=== PATIENT | female | born 1950 | race Caucasian/White ===

== ENCOUNTER 2016-08-09 10:23 | Inpatient (IN) | payer MEDICARE, BC ==
[2016-08-09] MEDS ORDERED: Acetaminophen/HYDROcodone 325-10 MG Tab PO ONE (12:08)
[2016-08-09] MEDS ORDERED: Albuterol/Ipratropium 3.0-0.5 MG/3 ML Neb Soln NEB ONE ×2 (12:49→12:50)
--- NOTE | 2016-08-09 13:14 | CT ---
INDICATION: Fall, head trauma 2 days ago. Patient on warfarin. New frontal headache. CT HEAD WITHOUT CONTRAST: Serial contiguous 2.5 and 5-mm sections were obtained through the brain without contrast 08/09/2016. No comparisons were available. Total Exam DLP = 949.36 mGy-cm. There are some opacified ethmoidal air cells with thickened linings of multiple other ethmoidal air cells. Minimal thickening of the lining of the right maxillary antrum and thickening of the linings of the sphenoidal air cells. Frontal air cells were unremarkable. Mastoid air cells were well aerated, as visualized. No definite cranial fracture site was seen. There appears to be some minimal calcification of the internal carotid arteries. There is an appearance of slight indistinct area of decreased density in the frontal lobes bilaterally, which could be on the basis of contusion. No bleeding site or hematoma was identified, however. A very tiny low-density area in the right basal ganglia anteriorly could represent a very tiny lacunar infarct. No other abnormal areas of density were suggested. No shift of midline structures or ventricular abnormalities were seen. IMPRESSION: 1. Possible minimal contusions in the frontal lobes bilaterally, right greater than left. 2. Mild cerebrovascular disease with minimal calcifications internal carotid arteries. 3. Possible lacunar infarct, very tiny in size, right basal ganglia. 4. Suggestion of sinusitis, mostly ethmoidal. 5. No bleeding site or hematoma. [facility]
[2016-08-09] MEDS ORDERED: Polyethylene Glycol 3350 Powder 17 GM Packet PO PRN (13:18)
[2016-08-09] MEDS ORDERED: Ondansetron 4 MG Tab.DIS PO PRN (13:18)
[2016-08-09] MEDS ORDERED: Zolpidem 5 MG Tab PO PRN (13:18)
--- NOTE | 2016-08-09 13:28 | CT ---
INDICATION: Fall, head trauma 2 days ago. Patient on warfarin. New frontal headache. CT CERVICAL SPINE: Spiral 2.5-mm axial sections were obtained through the cervical spine with sagittal and coronal reconstructions 08/09/2016, and compared with 11/30/2015. Total Exam DLP = 642.78 mGy-cm. A minimal dextroconvex scoliosis of the cervical spine was noted. Prevertebral space appeared to be normal. Bone density appeared to be fairly normal. Hypertrophic degenerative changes are noted at the lateral masses bilaterally, relatively mild on the right and more severe on the left. Narrowing of disk spaces is seen at C4-5, more prominently at C5-6 and C6-7. Most prominent hypertrophic changes off vertebral bodies were at C4-5, C5-6, and C6-7. Degenerative changes are also noted at T2-3 with disk disease at that level. Sclerosis and hypertrophic change off vertebral bodies at that level. Narrowing of the neural foramina is noted mainly at C6-7, more prominently on the right than left. A very minimal anterolisthesis is again noted at C4-5. Degenerative changes are also noted at the atlantoodontoid joint with some narrowing and hypertrophic changes. The odontoid and atlas appear to be intact. The axis is intact. A definite fracture or dislocation was not identified. Visualized lung was negative for an active infiltrate or effusion. IMPRESSION: 1. No acute fracture or dislocation. 2. Degenerative changes, disk disease, mild scoliosis, as noted above. MTDD
--- NOTE | 2016-08-09 13:42 | CT ---
INDICATION: Fall on stairs, right chest contusion. Question rib fractures, respiratory distress. On warfarin, question bleed into chest. CT CHEST WITHOUT CONTRAST: Spiral 2.5-mm axial sections were obtained through the chest without contrast with sagittal and coronal reconstructions 08/09/2016 and were compared with 11/30/2015. Total Exam DLP = 600.54 mGy-cm. Mediastinal lymphadenopathy is again noted of mild to moderate degree. It is nonspecific and could be reactive to previous infections, but should be correlated clinically. Minimal coronary artery calcification is noted. The heart did not appear enlarged. There is again noted some thickening of the major fissure on the right, compatible with mild fibrosis. Slightly heavy markings are noted at the left lung base, which could be on the basis of interval fibrosis in that area or possibly minimal contusion or even a minimal patchy pneumonia. No evidence of a pleural effusion or pneumothorax or consolidating pneumonia or definite area of atelectasis could be identified. The gallbladder is absent, compatible with history of its removal. Samuel rods are noted at the lumbar spine extending into the lower thoracic spine. There is some deformity in the ribcage on the right, compatible with healed rib fracture. No acute fracture site was identified in the ribs on the right or left. A very minimal dextroconcave scoliosis of the mid thoracic spine is noted. Degenerative changes and disk disease are noted at multiple levels with minimal compression fractures at upper and mid and lower levels that appear fairly stable without a definite acute fracture or dislocation identified. Multiple vacuum disk phenomena are noted scattered about the upper, mid, and lower thoracic spine, compatible with degenerative disk disease along with hypertrophic degenerative changes and some levels of sclerosis and narrowing of disk spaces. IMPRESSION: 1. Possible minimal patchy pneumonia or fibrosis at the left lower lobe and possibly lingula. Contusion is felt to be less likely, especially since trauma apparently occurred on the right. 2. No evidence of rib fracture. 3. Degenerative changes and disk disease in the thoracic spine without evidence of a definite acute fracture site. Old compression fractures are again noted. Reports were called to Dr. Cowan for the CT of the head, neck, and chest at 1230 hours, 08/09/2016. [facility]
[2016-08-09] MEDS ORDERED: Acetaminophen/HYDROcodone 325-10 MG Tab ONE (15:06)
[2016-08-09] MEDS: Azithromycin 500 MG in Sodium Chloride 0.9% 250 ML IV SCH (15:45)
[2016-08-09] MEDS ORDERED: Warfarin 5 MG Tab PO SCH (16:00)
[2016-08-09] MEDS: Acetaminophen 325 MG Tab PO PRN (16:25)
[2016-08-09] MEDS: Enoxaparin 40 MG/0.4 ML Syringe SUBCUT SCH (16:53)
[2016-08-09] MEDS: cefTRIAXone 1 GM in Sodium Chloride 0.9% 50 ML IV SCH (16:58)
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
[2016-08-09] MEDS: methylPREDNISolone Sodium Succinate 125 MG/2 ML SDV IVPUSH SCH (17:59)
[2016-08-09] MEDS ORDERED: Furosemide 20 MG Tab PO PRN (18:00)
[2016-08-09] MEDS ORDERED: Potassium Chloride 10 MEQ Tab.ER PO PRN (18:00)
[2016-08-09] MEDS ORDERED: fentaNYL 75 MCG/HR Transdermal Patch TOP SCH (18:00)
[2016-08-09] MEDS: ClonazePAM 0.5 MG Tab PO SCH ×2 (19:32→21:57)
[2016-08-09] MEDS: Acetaminophen/HYDROcodone 325-5 MG Tab PO PRN (19:32)
[2016-08-09] MEDS: Codeine/guaiFENesin 100-10 MG/5 ML Syrup 5 ML Cup PO PRN (20:15)
[2016-08-09] MEDS: Albuterol/Ipratropium 3.0-0.5 MG/3 ML Neb Soln NEB PRN (20:20)
[2016-08-09] MEDS ORDERED: traZODone 100 MG Tab PO SCH (21:00)
[2016-08-09] MEDS ORDERED: Nystatin Topical Powder 15 GM Bottle TOP SCH (21:00)
[2016-08-09] MEDS: Docusate Sodium 100 MG Cap PO SCH (21:57)
[2016-08-09] MEDS: atorvaSTATin 20 MG Tab PO SCH (21:57)
[2016-08-09] MEDS: Gabapentin 300 MG Cap PO SCH (21:57)
[2016-08-09] MEDS: Calcium Polycarbophil 625 MG Tab PO SCH (21:57)
[2016-08-09] MEDS: Famotidine 20 MG Tab PO SCH (21:58)
[2016-08-09] MEDS: Hydroxychloroquine 200 MG Tab PO SCH (22:06)
[2016-08-10] MEDS: methylPREDNISolone Sodium Succinate 125 MG/2 ML SDV IVPUSH SCH ×3 (01:14→18:30)
[2016-08-10] MEDS: Acetaminophen/HYDROcodone 325-5 MG Tab PO PRN ×2 (01:32→06:24)
[2016-08-10] MEDS: Albuterol/Ipratropium 3.0-0.5 MG/3 ML Neb Soln NEB PRN ×3 (01:38→21:05)
[2016-08-10] MEDS: Omeprazole 20 MG Cap.CR PO SCH (07:56)
[2016-08-10] MEDS: Docusate Sodium 100 MG Cap PO SCH ×2 (08:41→21:08)
[2016-08-10] MEDS: buPROPion 150 MG Tab.SR PO SCH (08:41)
[2016-08-10] MEDS: Folic Acid 1 MG Tab PO SCH (08:41)
[2016-08-10] MEDS: Sertraline 100 MG Tab PO SCH (08:41)
[2016-08-10] MEDS: Calcium Polycarbophil 625 MG Tab PO SCH ×2 (08:41→21:10)
[2016-08-10] MEDS: Gabapentin 300 MG Cap PO SCH ×2 (08:42→21:11)
[2016-08-10] MEDS: amLODIPine 2.5 MG Tab PO SCH (08:42)
[2016-08-10] MEDS: Famotidine 20 MG Tab PO SCH ×2 (08:42→21:13)
[2016-08-10] MEDS: Nystatin Topical Powder 15 GM Bottle TOP SCH ×4 (08:44→21:12)
[2016-08-10] MEDS: ClonazePAM 0.5 MG Tab PO SCH ×2 (08:50→21:29)
[2016-08-10] MEDS ORDERED: LEFLUNOMIDE 10 MG PO SCH (09:00)
[2016-08-10] MEDS ORDERED: Dicyclomine 10 MG Cap PO PRN (09:00)
[2016-08-10] MEDS: Codeine/guaiFENesin 100-10 MG/5 ML Syrup 5 ML Cup PO PRN ×2 (09:10→15:32)
[2016-08-10] MEDS: Albuterol/Ipratropium 3.0-0.5 MG/3 ML Neb Soln INH PRN ×2 (10:08→14:21)
[2016-08-10] MEDS: Benzonatate 100 MG Cap PO PRN ×2 (10:26→21:31)
[2016-08-10] MEDS: Hydroxychloroquine 200 MG Tab PO SCH ×2 (10:27→21:17)
[2016-08-10] MEDS: traMADol 50 MG Tab PO PRN ×2 (10:27→21:31)
[2016-08-10] MEDS: SUMAtriptan 50 MG Tab PO PRN ×2 (10:30→15:42)
--- NOTE | 2016-08-10 11:05 | PN ---
DATE SEEN: 08/10/2016 CHIEF COMPLAINT: 1. Cough. 2. Headache. HISTORY OF PRESENT ILLNESS: This is a 66-year-old female, admitted for cough, thought to be pneumonia and a headache and chronic pain syndrome. She also has COPD exacerbation. She has rheumatoid arthritis, that has been stable previously. She slept well with the exception of the cough and headache and she is asking for restart of Soma that she takes daily. Her fever has broke. REVIEW OF SYSTEMS: No decreased oral appetite. The confusion has improved today. All other systems are negative. SOCIAL HISTORY: Previous smoker. Quit several years ago. ALLERGIES: Please see the nurse's notes and the electronic record. PHYSICAL EXAMINATION: GENERAL: Mildly ill. VITAL SIGNS: Blood pressure 160/92, pulse 89, and oxygenation 94% on 3 L of nasal cannula. EARS, NOSE, AND THROAT: Negative. HEAD: Normal size. NECK: Supple. CHEST: Stridor and an end-expiratory rhonchi. EXTREMITIES: No edema. MENTAL STATUS: Alert. LABORATORY DATA: White cell count is 6.4 with 95% neutrophilia. INR is 1.4. IMPRESSION: 1. Community-acquired pneumonia. 2. Chronic pain syndrome. 3. Rheumatoid arthritis. 4. Narcotic addiction. 5. History of pulmonary embolism. 6. Headache, chronic. 7. Chronic obstructive pulmonary disease exacerbation. PLAN: Currently, she is on Rocephin, azithromycin, Solu-Medrol, and SVNs. We will continue those at this time. I will add Tessalon Perles to help with the cough. I restarted Soma, discontinue hydrocodone for headache and we will start Imitrex and tramadol p.r.n. Continue with the nasal cannula oxygen supplementation. /[id number] BETY/CHAIL
[2016-08-10] MEDS ORDERED: Polyvinyl Alcohol 1.4% Ophth Soln 15 ML Bottle EYEBOTH PRN (13:19)
[2016-08-10] MEDS: Acetaminophen 325 MG Tab PO PRN (15:33)
[2016-08-10] MEDS ORDERED: Sodium Chloride 0.9% 10 ML SDV FLUSH PRN (15:46)
[2016-08-10] MEDS: Sodium Chloride 0.9% 250 ML IV SCH (15:55)
[2016-08-10] MEDS: Azithromycin 500 MG in Sodium Chloride 0.9% 250 ML IV SCH (15:55)
[2016-08-10] MEDS ORDERED: Warfarin 5 MG Tab PO SCH (16:00)
[2016-08-10] MEDS: Enoxaparin 40 MG/0.4 ML Syringe SUBCUT SCH (16:45)
[2016-08-10] MEDS: cefTRIAXone 1 GM in Sodium Chloride 0.9% 50 ML IV SCH (17:34)
[2016-08-10] MEDS: atorvaSTATin 20 MG Tab PO SCH (21:11)
[2016-08-10] MEDS: traZODone 50 MG Tab PO SCH (21:15)
[2016-08-11] MEDS: methylPREDNISolone Sodium Succinate 125 MG/2 ML SDV IVPUSH SCH ×3 (01:36→18:01)
[2016-08-11] MEDS ORDERED: Sodium Chloride 0.9% 10 ML Syringe IV ONE (01:38)
[2016-08-11] MEDS: Codeine/guaiFENesin 100-10 MG/5 ML Syrup 5 ML Cup PO PRN ×3 (04:42→21:43)
[2016-08-11] MEDS: traMADol 50 MG Tab PO PRN ×3 (04:42→21:41)
[2016-08-11] MEDS ORDERED: Alendronate 70 MG Tab PO SCH (06:00)
--- NOTE | 2016-08-11 06:39 | PN ---
DATE SEEN: 08/11/2016 CHIEF COMPLAINT: Pneumonia. HISTORY OF PRESENT ILLNESS: A 66-year-old female, who was admitted 2 days ago with pneumonia. Cough has improved. She is only now on 1 L of oxygenation. She also has COPD exacerbation. She is on Solu-Medrol and short nebulized therapy of bronchodilators. She has chronic pain, which is well controlled on home medication regimen. REVIEW OF SYSTEMS: She would like screening for diabetes. She complains of no chest pain today, neither does she have any fever or headache. SOCIAL HISTORY: Quit smoking years ago. Lives with her dad who is 91. PHYSICAL EXAMINATION: VITAL SIGNS: Blood pressure is normal. Temperature is 97.7, pulse is 104. ENT: Negative. HEAD: Normal size. CHEST: Coarse crepitations and rhonchi. EXTREMITIES: No edema. MENTAL STATUS: Alert. LABORATORY DATA: So far, blood cultures negative x3 days. IMPRESSION: 1. Community-acquired pneumonia. 2. Chronic obstructive pulmonary disease exacerbation. 3. Chronic pain syndrome. 4. Narcotic addiction. 5. History of pulmonary embolism. PLAN: To continue the current treatment options. I will plan to repeat a CBC, CMP, and add an A1c in tomorrow's labs and a chest x-ray. We will continue to wean off oxygenation, possibly discharge home on Friday or Friday. /[id number] BETY/HERBERTH
[2016-08-11] MEDS: Albuterol/Ipratropium 3.0-0.5 MG/3 ML Neb Soln NEB PRN (07:31)
[2016-08-11] MEDS: Omeprazole 20 MG Cap.CR PO SCH (07:43)
[2016-08-11] MEDS: Docusate Sodium 100 MG Cap PO SCH ×2 (08:34→20:57)
[2016-08-11] MEDS: Calcium Polycarbophil 625 MG Tab PO SCH ×2 (08:35→20:57)
[2016-08-11] MEDS: Folic Acid 1 MG Tab PO SCH (08:35)
[2016-08-11] MEDS: ClonazePAM 0.5 MG Tab PO SCH ×2 (08:35→20:57)
[2016-08-11] MEDS: Gabapentin 300 MG Cap PO SCH ×2 (08:35→20:58)
[2016-08-11] MEDS: Nystatin Topical Powder 15 GM Bottle TOP SCH ×4 (08:36→20:58)
[2016-08-11] MEDS: amLODIPine 2.5 MG Tab PO SCH (08:36)
[2016-08-11] MEDS: Famotidine 20 MG Tab PO SCH ×2 (08:37→20:58)
[2016-08-11] MEDS: Hydroxychloroquine 200 MG Tab PO SCH ×2 (08:38→22:26)
[2016-08-11] MEDS: Sertraline 100 MG Tab PO SCH (08:43)
[2016-08-11] MEDS: buPROPion 150 MG Tab.SR PO SCH (08:43)
[2016-08-11] MEDS: Sodium Chloride 0.9% 250 ML IV SCH (15:27)
[2016-08-11] MEDS: Azithromycin 500 MG in Sodium Chloride 0.9% 250 ML IV SCH (15:27)
[2016-08-11] MEDS ORDERED: Sodium Chloride 0.9% 10 ML SDV FLUSH PRN (15:55)
[2016-08-11] MEDS: cefTRIAXone 1 GM in Sodium Chloride 0.9% 50 ML IV SCH (17:20)
[2016-08-11] MEDS: Enoxaparin 40 MG/0.4 ML Syringe SUBCUT SCH (17:26)
[2016-08-11] MEDS: atorvaSTATin 20 MG Tab PO SCH (20:57)
[2016-08-11] MEDS: traZODone 50 MG Tab PO SCH (20:59)
[2016-08-12] MEDS: methylPREDNISolone Sodium Succinate 125 MG/2 ML SDV IVPUSH SCH ×2 (02:23→10:14)
[2016-08-12] MEDS ORDERED: Sodium Chloride 0.9% 10 ML Syringe IV ONE (02:26)
[2016-08-12] MEDS: Omeprazole 20 MG Cap.CR PO SCH (07:55)
[2016-08-12] MEDS: ClonazePAM 0.5 MG Tab PO SCH (08:03)
[2016-08-12] MEDS: Docusate Sodium 100 MG Cap PO SCH (08:03)
[2016-08-12] MEDS: Calcium Polycarbophil 625 MG Tab PO SCH (08:03)
[2016-08-12] MEDS: Gabapentin 300 MG Cap PO SCH (08:03)
[2016-08-12] MEDS: Folic Acid 1 MG Tab PO SCH (08:03)
[2016-08-12] MEDS: amLODIPine 2.5 MG Tab PO SCH (08:03)
[2016-08-12] MEDS: Nystatin Topical Powder 15 GM Bottle TOP SCH ×2 (08:03→13:17)
[2016-08-12] MEDS: buPROPion 150 MG Tab.SR PO SCH (08:04)
[2016-08-12] MEDS: Famotidine 20 MG Tab PO SCH (08:04)
[2016-08-12] MEDS ORDERED: Sodium Chloride 0.9% 10 ML Syringe FLUSH PRN ×2 (08:36)
[2016-08-12] MEDS: Sertraline 100 MG Tab PO SCH (09:07)
[2016-08-12] MEDS: Hydroxychloroquine 200 MG Tab PO SCH (09:07)
[2016-08-12] MEDS: Albuterol/Ipratropium 3.0-0.5 MG/3 ML Neb Soln NEB PRN (09:35)
--- NOTE | 2016-08-12 10:05 | PN ---
DATE SEEN: 08/12/2016 CHIEF COMPLAINT: Pneumonia. HISTORY OF PRESENT ILLNESS: This is a 66-year-old female with community- acquired pneumonia. Presented last week with cough, fever, and white cell count, has been on azithromycin and Rocephin. She is now off oxygen, but continues to cough. She has had no fever in the last 24 hours. She has chronic pain in the neck, headache, and rheumatoid arthritis, which have been difficult to control. REVIEW OF SYSTEMS: Normal appetite. No nausea or vomiting. All other systems are unremarkable. SOCIAL HISTORY: Does not smoke. Lives alone. PHYSICAL EXAMINATION: VITAL SIGNS: Blood pressure today is normal. Temperature 97.6, and oxygen is 95% on room air. EARS, NOSE, AND THROAT: Negative. HEAD: Normal size. CARDIOVASCULAR: Normal. RESPIRATORY: Stridor and upper airway transmitted sounds. MENTAL STATUS: Alert. LABORATORY DATA: This morning. A1c was 6.3, INR 1.84, normal white cell count. Electrolytes were normal. IMPRESSION: 1. Community-acquired pneumonia. 2. History of chronic obstructive pulmonary disease, new diagnosis. 3. Chronic pain syndrome. 4. Rheumatoid arthritis. PLAN: To discharge the patient home. She is weak and having problems with ambulation and is on several medications. I feel she will need a care home care or home health to help with the above conditions. /[id number] BETY/HERBERTH
[2016-08-12] MEDS ORDERED: Warfarin 5 MG Tab PO ONE (10:15)
[2016-08-12] MEDS: traMADol 50 MG Tab PO PRN (10:26)
[2016-08-12] MEDS: SUMAtriptan 50 MG Tab PO PRN (10:27)
[2016-08-12 10:31] VITALS: BP 139/96
--- NOTE | 2016-08-12 14:35 | CR ---
INDICATION: Community-acquired pneumonia. CHEST: PA and lateral views of the chest 08/12/2016 were compared with 2015 and 11/30/2015, revealing heavy markings at the right lower middle lung field and lung base and minimally at the left lung base. These heavy markings may be on the basis of pulmonary fibrosis, as there was evidence of pneumonia previously in those areas. However, recurrent minimal patchy bronchopneumonia cannot be excluded on the right, and minimal patchy bronchopneumonia cannot be excluded on the left. No consolidating pneumonia or effusion was seen. Somewhat flattened diaphragm leaves and prominent AP diameter with hyperaeration suggests COPD. The heart is at the upper limits of normal in size. The aorta is tortuous with calcification in the arch. At the lower thoracic spine, extending into the lumbar area, rods and pedicle screws are noted for fusion. IMPRESSION: 1. No definite acute process but cannot exclude patchy bronchopneumonia at the right lower middle and right lung base, as well as the left lung base. 2. ASHD. 3. COPD. 4. Mild dextroconcave scoliosis lower thoracic spine with fusion at the thoracolumbar spine with rods and pedicle screws. 5. No consolidating pneumonia or effusion was identified. MTDD
[2016-08-12] MEDS ORDERED: Warfarin 2.5 MG Tab PO SCH (16:00)
--- NOTE | 2016-08-13 00:13 | DISCH ---
DISCHARGE DATE: 08/12/2016 REASON FOR ADMISSION: 1. Community-acquired pneumonia. 2. History of pulmonary embolism. 3. Chronic obstructive pulmonary disease, new diagnosis. 4. Chronic pain, back. 5. Narcotic addiction. 6. Rheumatoid arthritis. DISCHARGE DIAGNOSES: 1. Community-acquired pneumonia. 2. History of pulmonary embolism. 3. Chronic obstructive pulmonary disease, new diagnosis. 4. Chronic pain, back. 5. Narcotic addiction. 6. Rheumatoid arthritis. PROCEDURES: None. BRIEF HISTORY: This is a 66-year-old female, who presented to the ER after a fall. Chest CT revealed some pneumonia, she had fever and cough, needing oxygenation. She was admitted for IV antibiotics. I started also SVNs and Solu- Medrol, Tessalon pulses, Robitussin with codeine for symptom relief. She improved and will be sent home today. She will be going home on home medications with the following new medications; Tessalon Perles 200 mg t.i.d. p.r.n., Robitussin with codeine 10 mL every 6 hours p.r.n. for cough, Omnicef 300 mg p.o. b.i.d. for 1 week, prednisone 10 mg b.i.d. for 5 days, Breo inhalations b.i.d. and ProAir two puffs q.6 hours p.r.n. She will see Dr. Ramsey within the next one week. Return here with any worsening symptoms. She needs home health because of multiple medical problems and frequent falls at home, perhaps review need for physical and occupational therapy. Please note, that I spent more than 35 minutes in the discharge of the patient. /[id number] BETY/HERBERTH
--- NOTE | 2016-08-20 13:42 | ER ---
DATE SEEN: 08/09/2016 TIME SEEN: The patient was seen at 1039 hours. HISTORY OF PRESENT ILLNESS: This is a 66-year-old woman who comes in with a history of 2-1/2 days ago fell down 15 steps. She is on anticoagulants and has increased shortness of breath, cough, chest wall discomfort, and headache with associated diaphoresis. She has been coughing for 2 days. Headache 8/10 in intensity, frontal. She rarely has headaches. Has chest pain in the right axillary region. Status post previous history of kidney stones in the past. She was in [place] at that time. She actually had sepsis and almost in 04/2015 because a kidney stone was present and was causing infection and took a while before the stone was removed. Once the stone was removed, her temperature came down and sepsis relented with careful with aggressive antibiotic therapy. The patient has depression, GERD, and anxiety. Has used hydroxychloroquine for rheumatoid arthritis. Because of her previous kidney surgery, she had multiple PEs postoperatively so she has been constantly on anticoagulants. She has had previous low back surgery in 06/2011 with sacral infusion and 5 back surgeries (status post appendectomy, hysterectomy, cholecystectomy, right total hip arthroplasty, and left hip surgery x3.) History of narcotic addiction and chronic prednisone use. She is obese, 260 pounds. The greatest she ever weighed was 280 pounds. MEDICATIONS: Extensive, see chart. Most significant; 1. Hydrochlorothiazide. 2. Gabapentin. 3. Cyclobenzaprine. 4. Cyanocobalamin. 5. Imitrex. 6. Propranolol 80 mg daily. 7. Pantoprazole 40 mg daily. 8. Oxycodone 20 mg q.12 hours p.r.n. for back pain. 9. Olopatadine 0.2% drop each eye daily. 10.Escitalopram. 11.Lexapro 20 mg h.s. 12.Duloxetine 30 mg b.i.d. 13.Aspirin. 14.Amitriptyline. 15.Cetirizine 10 mg for allergies. 16.Azelastine 2 sprays b.i.d. 17.Diclofenac for arthritis pain. 18.Flexeril for pain and spasm. 19.Diphenhydramine for sleep. 20.Chlorpheniramine 4 mg. 21.Diphenhydramine for allergies. REVIEW OF SYSTEMS: Negative except for noted above in the history. PHYSICAL EXAMINATION: VITAL SIGNS: Blood pressure is 64/31. GENERAL: The patient is slightly somnolent, is responsive, provides history. She denies headache presently. HEENT: PERRLA intact. Pharynx without abnormality. Pharynx is dry. DERMIS: She has facial ecchymosis in multiple areas. RIGHT CHEST: Discomfort with palpation in ribs involving the axillary regions rib 6 through 10. Anterior axillary line. NECK: Supple. No thyromegaly. No masses in neck. No cervical adenopathy. LUNGS: Clear to auscultation without rales, rhonchi, or wheezes. HEART: S1, S2. No murmur. No tachycardia. Regular rate and rhythm. ABDOMEN: Soft. No guarding. No abdominal discomfort. BACK: Lower back surgeries noted. EXTREMITIES: Without abnormality. Ecchymoses, lower extremities. Multiple abrasions noted. EKG probable inferior infarct, indeterminate, with Q-waves II, III, and avF. Flattened T-waves. No ST elevation or depression. Heart rate is 77. ASSESSMENT: The patient is dehydrated. She has marked hypotension. No evidence for sepsis. Hypotension is secondary to 10 days of diarrhea, extensive. She is down 4+ L of fluid. Her pressures slowly came up, as she was rehydrated. With a creatinine of 8 and BUN 105, there was concern about acute kidney injury that may require further Nephrology follow up. The patient for that reason will be transferred to [place]. Multiple areas of ecchymosis on face and upper and lower extremities secondary to fall down the stairs, 15 steps, approximately 2 days ago. This is magnified by use of warfarin. See chart for INR. No evidence for renal injury. No evidence for hematuria or microhematuria. No evidence for myocardial infarction on the EKG or the troponin. She has marked hyponatremia, and hypochloremia secondary to dehydration and renal losses suggesting monocytosis, etiology undetermined, etiology to be determined. White count 8,100. Possibly this monocytosis is secondary to a viral-mediated process, but there is no evidence for influenza A or B. PLAN: The patient's status was discussed with Dr. Covington, warp doffer. He felt, as long as pressure has come up, (it just came up within 5 minutes of time before talking to him), that she will be followed by the hospitalist. Consequently, the hospitalist was informed, and the patient will be transferred to [place] for further care. Norepinephrine was pulled, but not necessary, as her pressure came up to the 90s about 5 minutes before we talked to the hospitalist. It is apparent that the extensive rehydration with almost 3 L of fluid brought her systolic up to 105. At no time did she have tachycardia, (probably mediated by her beta blockers). /[id number] YOHANNES/HERBERTH
--- NOTE | 2016-09-05 11:08 | ER ---
DATE SEEN: 08/09/2016 CHIEF COMPLAINT: Fall. HISTORY OF PRESENT ILLNESS: This 66-year-old woman was seen at 1039 hours. She comes in with a history of two and a half days of having fallen down 15 steps. She is on anticoagulants and has increased shortness of breath, cough, right chest wall discomfort, headache, and associated diaphoresis. She has been coughing for 2 days. Headache is 8/10 in intensity and frontal in location. She rarely has headaches. She has moderate pain in the right axillary region, right ribs. She is status post history of kidney stone passage. At that time, she was in [place] and experienced urosepsis and almost because of the kidney stones and infection related to kidney stones 04/2015. PAST MEDICAL HISTORY: Depression, GERD, anxiety, rheumatoid arthritis (uses hydroxychloroquine), renal surgery, multiple VTE's postoperatively. As a result of this she is on lifetime anticoagulation. Most recent back surgery 07/07 sacral fusion. Other surgeries: Appendectomy, hysterectomy, cholecystectomy, right total hip arthroplasty, left hip surgery x3. Narcotic addiction and chronic prednisone use. She is obese. The most she has ever weighed was 280 pounds, presently 260 pounds. CURRENT MEDICATIONS: 1. Amlodipine 2.5 mg daily. 2. Acetaminophen. 3. [place] 5/325. 4. DuoNeb. 5. Fosamax. 6. Gabapentin 300 mg b.i.d. 7. Cyanocobalamin q. month injection 1000 mcg. 8. Atorvastatin 20 mg at bedtime. 9. Wellbutrin SR 150 mg daily. 10.FiberCon. 11.Klonopin 0.5 mg b.i.d. 12.Colace. 13.Pepcid. 14.Plaquenil (hydrochloroquine). 15.Imitrex. 16.Omeprazole. 17.Amitriptyline 100 mg at bedtime. 18.Potassium chloride 10 mEq daily. 19.Zoloft 200 mg daily. 20.Prednisone 5 mg b.i.d. with meals. 21.Fentanyl patch 75 mcg q.72 hours. 22.Lasix 20 mg daily. 23.Soma 350 mg b.i.d. p.r.n. 24.Sumatriptan 100 mg p.r.n. 25.Trazodone 50 mg at bedtime. REVIEW OF SYSTEMS: Negative except for as noted above in the history. Arthritis, anticoagulation, back surgeries, chronic low back discomfort. No frequency, urgency, or dysuria. No hematuria. No abdominal pain. PHYSICAL EXAMINATION: VITAL SIGNS: Blood pressure 64/31, heart rate 118, respirations 18. GENERAL: The patient is slightly somnolent, but is responsive to query and questions, cannot provide a history. She denies headache, neck stiffness. HEENT: PERRLA intact. Pharynx, moderately dry pharyngeal mucosa. No erythema noted. She has moderate facial ecchymosis in multiple areas. NECK: Supple. No thyromegaly. No masses. No cervical adenopathy. No tracheal tug. No tracheal deviation. HEART: S1, S2. No murmur. No irregular rate or rhythm. Mild sinus tachycardia. ABDOMEN: Soft. No guarding, rebound or discomfort. Bowel sounds hypoactive. MUSCULOSKELETAL: Multiple back surgeries. Scars noted. EXTREMITIES: Without swelling, edema, and ecchymosis. Multiple abrasions noted. Deep tendon reflexes hypoactive in upper and lower extremities. NEURO: Cranial nerves 2 through 12 intact. Oriented x3. Slightly decreased pressured speech. Her strength is good. EKG: EKG inferior infarct, age indeterminate. Q-waves in II, III and aVF, flattened T-waves. No ST elevation. IMAGING: Chest x-ray, new left lower lobe infiltrate and pulmonary fibrosis noted. LABORATORY FINDINGS: White count 7500, PMNs 85, lymphocytes 7, no bandemia noted. Hemoglobin 13, hematocrit 39.5, platelets 160,000. INR slightly elevated 1.29, PT 13.1. Automated chemistry; sodium 133, potassium normal 4.0, chloride low at 96, BUN 13, creatinine 0.7, creatinine clearance - GFR greater than 60, glucose 120. Trace elevation in ALT of 27, AST is 25. Troponin less than 0.01. BNP is 25. Remainder of automated chemistry normal. DIAGNOSES: 1. Dehydration. 2. Status post previous inferior infarct, stable. No suggestion of new acute coronary syndrome. 3. Ecchymosis, multiple parts of her body. 4. Anticoagulation on warfarin. 5. No evidence for renal injury. 6. Normal troponin. No evidence for myocardial infarction, acute coronary syndrome. 7. HX of falling. 8. Chronic immunosuppression with prednisone. 9. Depression. 10.Gastroesophageal reflux disease. 11.Obesity. 12.Lifetime anticoagulation secondary to her several VTE's. 13.Multiple surgeries, appendectomy, cholecystectomy, back surgeries, right total hip arthroplasty, left total hip arthroplasty x3. 14.History of narcotic addiction. The patient admitted for rehydration. /[id number] YOHANNES/HERBERTH DAVIS
== END 2016-08-12 13:38 | disposition home or self-care (01) | DRG 194 ==
LOC: FB.ED 10:23 → FB.MS 13:18 → OBSVTOIN 17:21
PROVIDERS: ADMIT Family Medicine; ATTEND Family Medicine
DX: J18.9 Pneumonia, unspecified organism (principal); J44.1 Chronic obstructive pulmonary disease with (acute) exacerbation; F11.20 Opioid dependence, uncomplicated; Z86.711 Personal history of pulmonary embolism; I10 Essential (primary) hypertension; Z86.718 Personal history of other venous thrombosis and embolism; W10.9XXA Fall (on) (from) unspecified stairs and steps, initial encounter; Y92.009 Unspecified place in unspecified non-institutional (private) residence as the place of occurrence of the external cause; S20.211A Contusion of right front wall of thorax, initial encounter; S09.90XA Unspecified injury of head, initial encounter; R51 Headache; Z87.891 Personal history of nicotine dependence; Z79.01 Long term (current) use of anticoagulants; G89.4 Chronic pain syndrome; M06.9 Rheumatoid arthritis, unspecified; E78.00 Pure hypercholesterolemia, unspecified; M19.90 Unspecified osteoarthritis, unspecified site; K58.9 Irritable bowel syndrome, unspecified; F41.9 Anxiety disorder, unspecified; F32.9 Major depressive disorder, single episode, unspecified; M81.0 Age-related osteoporosis without current pathological fracture; M54.9 Dorsalgia, unspecified; H54.7 Unspecified visual loss; Z79.52 Long term (current) use of systemic steroids; Z88.5 Allergy status to narcotic agent; Z88.7 Allergy status to serum and vaccine
CPT/HCPCS: 36415; 70450; 71250; 72125; 80053; 83880; 84484; 85025; 85610; 93005; 94664; 99285; A9270 ×2; J0456; J0696; J1650; J7050 ×2; J7620; 71020; 83036; 87040; 87804; 94150; 94640-76; 96365; 96372; 96375; 99284; G0378; J2930

== ENCOUNTER 2016-12-02 14:12 | Inpatient (IN) | payer MEDICARE, BC ==
[2016-12-02] MEDS ORDERED: Sodium Chloride 0.9% 10 ML Syringe FLUSH PRN (14:37)
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
[2016-12-02] MEDS: Sodium Chloride 0.9% 1,000 ML IV SCH (15:23)
[2016-12-02] MEDS ORDERED: Furosemide 20 MG Tab PO PRN (18:18)
[2016-12-02] MEDS ORDERED: LORazepam 0.5 MG Tab PO PRN (18:18)
[2016-12-02] MEDS ORDERED: Dicyclomine 10 MG Cap PO PRN (18:18)
[2016-12-02] MEDS ORDERED: Albuterol 8 GM Inhaler INH PRN (18:18)
[2016-12-02] MEDS ORDERED: Potassium Chloride 10 MEQ Tab.ER PO PRN (18:18)
[2016-12-02] MEDS ORDERED: traMADol 50 MG Tab PO PRN (18:18)
[2016-12-02] MEDS ORDERED: Albuterol 8 GM Inhaler INH SCH (18:30)
[2016-12-02] MEDS: fentaNYL 75 MCG/HR Transdermal Patch TRDERM SCH (18:30)
[2016-12-02] MEDS ORDERED: Warfarin 5 MG Tab PO SCH ×2 (18:30)
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
[2016-12-02] MEDS: Gabapentin 300 MG Cap PO SCH (20:40)
[2016-12-02] MEDS: Docusate Sodium 100 MG Cap PO SCH (20:40)
[2016-12-02] MEDS: ClonazePAM 0.5 MG Tab PO SCH (20:40)
[2016-12-02] MEDS: Acetaminophen/Diphenhydramine 500-25 MG Tab PO SCH (20:40)
[2016-12-02] MEDS: atorvaSTATin 20 MG Tab PO SCH (20:40)
[2016-12-02] MEDS: Ciprofloxacin in D5W 400 MG in Premix Bag 1 BAG IV SCH ×2 (20:40)
[2016-12-02] MEDS: Famotidine 20 MG Tab PO SCH (20:41)
[2016-12-02] MEDS: traZODone 50 MG Tab PO SCH (20:41)
[2016-12-02] MEDS ORDERED: metFORMIN 500 MG Tab PO SCH (21:00)
[2016-12-02] MEDS ORDERED: predniSONE 10 MG Tab PO SCH (21:00)
[2016-12-02] MEDS ORDERED: Nystatin Topical Powder 15 GM Bottle TOP SCH (21:00)
[2016-12-02] MEDS ORDERED: Formoterol/Mometasone 200-5 MCG 8.8 GM Inhaler IH SCH (21:00)
[2016-12-02] MEDS: Hydroxychloroquine 200 MG Tab PO SCH (21:07)
[2016-12-03] MEDS ORDERED: Ciprofloxacin in D5W 200 ML ONE (04:56)
[2016-12-03] MEDS: Ciprofloxacin in D5W 400 MG in Premix Bag 1 BAG IV SCH ×4 (05:28→18:05)
[2016-12-03] MEDS: Sodium Chloride 0.9% 1,000 ML IV SCH (07:14)
[2016-12-03] MEDS ORDERED: Omeprazole 20 MG Cap.CR PO SCH (07:30)
[2016-12-03] MEDS ORDERED: Acetaminophen 325 MG Tab PO PRN (07:50)
[2016-12-03] MEDS ORDERED: predniSONE 10 MG Tab PO SCH (08:00)
--- NOTE | 2016-12-03 08:17 | PCM.PN ---
- General Info Date of Service: 12/03/16 Admission Dx/Problem (Free Text): Patient states she feels better today. Still feel she has some fevers and chills. She has chronic back pain but no back pain is worse normal. She urinated 2 with no burning. She states she feels her mind is better and she's thinking clearer today. The nurses report that she was able to get up with block by assist 3 to the bathroom with a walker. She normally uses a walker. - Patient Data Vitals - most recent: Last Vital Signs Temp 98.1 F 12/02/16 23:45 Pulse 78 12/03/16 04:00 Resp 18 12/03/16 04:00 BP 112/71 12/03/16 04:00 Pulse Ox 95 12/03/16 07:59 Weight - most recent: 255 lb I&O - last 24 hours: Intake & Output 12/02/16 12/03/16 12/03/16 22:59 06:59 14:59 Intake Total 1100 Output Total 90 1575 Balance -90 -475 Lab Results last 24 hrs: Laboratory Results - last 24 hr 12/02/16 12/03/16 12/03/16 Range/Units 21:13 06:25 06:25 WBC 7.6 (4.5-12.0) X10-3/uL RBC 3.20 L (3.23-5.20) x10(6)uL Hgb 10.3 L (11.5-15.5) g/dL Hct 31.2 (30.0-51.3) % MCV 97.5 H (80-96) fL MCH 32.1 (27.7-33.6) pg MCHC 33.0 (32.2-35.4) g/dL RDW 14.1 (11.5-15.5) % Plt Count 189 (125-369) X10(3)uL MPV 8.3 (7.4-10.4) fL Add Manual Diff Yes Neutrophils % (Manual) 85 H (46-82) % Lymphocytes % (Manual) 13 (13-37) % Monocytes % (Manual) 2 L (4-12) % PT (8.7-11.1) INR (0.89-1.13) Sodium 139 (135-145) mmol/L Potassium 4.1 (3.5-5.3) mmol/L Chloride 104 D (100-110) mmol/L Carbon Dioxide 28 (23-29) mmol/L BUN 11 (8-23) mg/dL Creatinine 0.6 (0.6-1.3) mg/dL Est Cr Clr Drug Dosing 100.30 mL/min Estimated GFR (MDRD) > 60 (>60) BUN/Creatinine Ratio 18.3 (9-20) Glucose 158 H (80-116) mg/dL POC Glucose 133 H (80-116) mg/dL Calcium 8.4 L (8.6-10.2) mg/dL Total Bilirubin 0.3 (0.1-1.3) mg/dL AST 23 (5-27) IU/L ALT 16 (14-26) IU/L Alkaline Phosphatase 77 (56-112) IU/L Total Protein 5.7 L (6.0-8.0) g/dL Albumin 2.7 L (3.2-4.6) g/dL Globulin 3.0 g/dL Albumin/Globulin Ratio 0.9 /04/11 Range/Units 06:25 WBC (4.5-12.0) X10-3/uL RBC (3.23-5.20) x10(6)uL Hgb (11.5-15.5) g/dL Hct (30.0-51.3) % MCV (80-96) fL MCH (27.7-33.6) pg MCHC (32.2-35.4) g/dL RDW (11.5-15.5) % Plt Count (125-369) X10(3)uL MPV (7.4-10.4) fL Add Manual Diff Neutrophils % (Manual) (46-82) % Lymphocytes % (Manual) (13-37) % Monocytes % (Manual) (4-12) % PT 32.2 H (8.7-11.1) INR 3.12 H (0.89-1.13) Sodium (135-145) mmol/L Potassium (3.5-5.3) mmol/L Chloride (100-110) mmol/L Carbon Dioxide (23-29) mmol/L BUN (8-23) mg/dL Creatinine (0.6-1.3) mg/dL Est Cr Clr Drug Dosing mL/min Estimated GFR (MDRD) (>60) BUN/Creatinine Ratio (9-20) Glucose (80-116) mg/dL POC Glucose (80-116) mg/dL Calcium (8.6-10.2) mg/dL Total Bilirubin (0.1-1.3) mg/dL AST (5-27) IU/L ALT (14-26) IU/L Alkaline Phosphatase (56-112) IU/L Total Protein (6.0-8.0) g/dL Albumin (3.2-4.6) g/dL Globulin g/dL Albumin/Globulin Ratio Med Orders - Current: Current Medications Acetaminophen (Tylenol) 650 mg PO Q4H PRN PRN Reason: Pain Acetaminophen/Diphenhydramine HCl (Tylenol Pm Extra Strength) 2 tab PO BEDTIME [facility] Last Admin: 12/02/16 20:40 Dose: 2 tab Albuterol (Ventolin Hfa) 0 gm INH Q4H PRN PRN Reason: Shortness of Breath Alendronate Sodium (Fosamax) 70 mg PO Kate@0600 [facility] Amitriptyline HCl (Elavil) 100 mg PO BEDTIME [facility] Last Admin: 12/02/16 21:07 Dose: 100 mg Amlodipine Besylate (Norvasc) 2.5 mg PO DAILY [facility] Atorvastatin Calcium (Lipitor) 20 mg PO BEDTIME [facility] Last Admin: 12/02/16 20:40 Dose: 20 mg Bupropion HCl (Wellbutrin Sr) 150 mg PO DAILY [facility] Carisoprodol (Soma) 350 mg PO BID PRN PRN Reason: muscle spasms Last Admin: 12/03/16 01:53 Dose: 350 mg Clonazepam (Klonopin) 0.5 mg PO BID [facility] Last Admin: 12/02/16 20:40 Dose: 0.5 mg Cyanocobalamin (Vitamin B12) 1,000 mcg IM Q30D [facility] Dicyclomine HCl (Bentyl) 20 mg PO DAILY PRN PRN Reason: Cramping Docusate Sodium (Colace) 200 mg PO BEDTIME [facility] Last Admin: 12/02/16 20:40 Dose: 200 mg Docusate Sodium (Colace) 100 mg PO DAILY [facility] Famotidine (Pepcid) 20 mg PO BEDTIME [facility] Last Admin: 12/02/16 20:41 Dose: 20 mg Fentanyl (Duragesic) 75 mcg TRDERM Q72H [facility] Last Admin: 12/02/16 18:30 Dose: 75 mcg Folic Acid (Folic Acid) 1 mg PO DAILY [facility] Furosemide (Lasix) 20 mg PO DAILY PRN PRN Reason: Edema Gabapentin (Neurontin) 300 mg PO TID [facility] Last Admin: 12/02/16 20:40 Dose: 300 mg Guaifenesin/Codeine Phosphate (Robitussin Ac) 10 ml PO Q6H PRN PRN Reason: Cough Hydroxychloroquine Sulfate (Plaquenil) 200 mg PO BID [facility] Last Admin: 12/02/16 21:07 Dose: 200 mg Sodium Chloride (Normal Saline) 1,000 mls @ 125 mls/hr IV ASDIRECTED [facility] Last Infusion: 12/03/16 07:17 Dose: 125 mls/hr Ciprofloxacin/Dextrose 400 mg/ (Premix) 200 mls @ 200 mls/hr IV Q12H [facility] Last Admin: 12/03/16 05:28 Dose: 200 mls/hr Lorazepam (Ativan) 0.5 mg PO DAILY PRN PRN Reason: Anxiety Metformin HCl (Glucophage) 500 mg PO BID [facility] Last Admin: 12/02/16 20:41 Dose: 500 mg Methotrexate (Methotrexate) 7.5 mg PO WEEKLY [facility] Mometasone Furoate/Formoterol Fumar (Dulera 200-5 Mcg) 2 puff IH BID [facility] Last Admin: 12/02/16 20:41 Dose: 2 puff Non-Formulary Medication (Abatacept [Orencia]) 1 ml SQ WEEKLY [facility] Non-Formulary Medication (Sumatriptan [Sumatriptan]) 100 mg PO ASDIRECTED PRN PRN Reason: migraines Nystatin (Nystop) 0 gm TOP QID [facility] Last Admin: 12/02/16 20:41 Dose: Not Given Omeprazole (Omeprazole) 20 mg PO ACBREAKFAST [facility] Last Admin: 12/03/16 07:11 Dose: 20 mg Potassium Chloride (Klor-Con 10) 10 meq PO DAILY PRN PRN Reason: WITH LASIX Prednisone (Prednisone) 10 mg PO BID [facility] Last Admin: 12/02/16 20:40 Dose: 10 mg Prednisone (Prednisone) 5 mg PO BIDMEALS [facility] Sertraline HCl (Zoloft) 200 mg PO DAILY [facility] Sodium Chloride (Saline Flush) 10 ml FLUSH ASDIRECTED PRN PRN Reason: Keep Vein Open Tramadol HCl (Ultram) 50 mg PO Q4H PRN PRN Reason: Pain Trazodone HCl (Trazodone) 50 mg PO BEDTIME [facility] Last Admin: 12/02/16 20:41 Dose: 50 mg Warfarin Sodium (Coumadin) 2.5 mg PO ASDIRECTED [facility]IM[facility] Warfarin Sodium (Coumadin) 5 mg PO ASDIRECTED [facility] Discontinued Medications Albuterol (Ventolin Hfa) 8.5 gm INH Q6H [facility] Last Admin: 12/02/16 22:25 Dose: Not Given Ciprofloxacin/Dextrose (Cipro In D5w 400 Mg/200 Ml) Confirm Administered Dose 200 mls @ as directed .ROUTE .[facility] Stop: 12/03/16 04:57 Last Admin: 12/03/16 06:57 Dose: Not Given Tramadol HCl (Ultram) 50 mg PO BEDTIME PRN PRN Reason: Pain Last Admin: 12/02/16 21:07 Dose: 50 mg - Exam General: alert, oriented, cooperative Lungs: Clear to auscultation, Normal respiratory effort Cardiovascular: Regular Rate, Regular Rhythm Abdomen: bowel sounds present, soft, no tenderness, no distension Extremities: no edema - Problem List & Annotations (1) Pyelonephritis SNOMED Code(s): 59095904 Code(s): N12 - TUBULO-INTERSTITIAL NEPHRITIS, NOT SPCF ACUTE OR CHRONIC Status: Acute Current Visit: Yes (2) Palliative care status SNOMED Code(s): 074007055 Code(s): Z51.5 - ENCOUNTER FOR PALLIATIVE CARE Status: Acute Current Visit: Yes (3) Delirium due to another medical condition SNOMED Code(s): 4157766 Code(s): F05 - DELIRIUM DUE TO KNOWN PHYSIOLOGICAL CONDITION Status: Acute Current Visit: Yes Annotation/Comment:: Admit for managment of UTI (4) COPD (chronic obstructive pulmonary disease) SNOMED Code(s): 59430859 Code(s): J44.9 - CHRONIC OBSTRUCTIVE PULMONARY DISEASE, UNSPECIFIED Status : Acute Priority: Medium Current Visit: No Qualifiers: Annotation/Comment:: No significant issues noted today. (5) Chronic back pain SNOMED Code(s): 926754157 Code(s): M54.9 - DORSALGIA, UNSPECIFIED; G89.29 - OTHER CHRONIC PAIN Status : Acute Priority: Medium Current Visit: No Annotation/Comment:: This is chronic for her and she is using large quantities of opioids to control the pain. (6) History of pulmonary embolism SNOMED Code(s): 735354988 Code(s): Z86.711 - PERSONAL HISTORY OF PULMONARY EMBOLISM Status: Acute Current Visit: No (7) Rheumatoid arthritis SNOMED Code(s): 23698532 Code(s): M06.9 - RHEUMATOID ARTHRITIS, UNSPECIFIED Status: Acute Current Visit: No - Problem List Review Problem List Initiated/Reviewed/Updated: Yes - My Orders Last 24 Hours: My Active Orders 12/02/16 18:00 Ciprofloxacin in D5W [Cipro in D5W 400 MG/200 ML] 400 mg Premix Bag 1 bag IV Q12H 12/02/16 18:15 Patient Status [ADT] Routine Bedrest Bedside Commode [RC] ASDIRECTED Blood Glucose Check, Bedside [RC] 0730,1130,1715,2100 Height and Weight [RC] 06 Oxygen Therapy [RC] PRN Up With Assistance [RC] ASDIRECTED Vital Signs [RC] 00,04,08,12,16,20 OT Evaluation and Treatment [CONS] Routine PT Evaluation and Treatment [CONS] Routine Resuscitation Status Routine 12/02/16 18:16 Intake and Output [RC] 06,14,22 Sequential Compression Device [OM.PC] Per Unit Routine 12/02/16 18:18 Albuterol [Ventolin HFA] 0 gm INH Q4H PRN Carisoprodol [Soma] 350 mg PO BID PRN Codeine/guaiFENesin [Robitussin AC] 10 ml PO Q6H PRN Dicyclomine [Bentyl] 20 mg PO DAILY PRN Furosemide [Lasix] 20 mg PO DAILY PRN LORazepam [Ativan] 0.5 mg PO DAILY PRN Potassium Chloride [Klor-Con 10] 10 meq PO DAILY PRN SUMAtriptan [SUMAtriptan] 100 mg PO ASDIRECTED PRN 12/02/16 18:30 Abatacept [Orencia] 1 ml SQ WEEKLY Cyanocobalamin (Vitamin B12) [Vitamin B12] 1,000 mcg IM Q30D Methotrexate 7.5 mg PO WEEKLY Warfarin [Coumadin] 2.5 mg PO ASDIRECTED Warfarin [Coumadin] 5 mg PO ASDIRECTED fentaNYL [Duragesic] 75 mcg TRDERM Q72H 12/02/16 21:00 Acetaminophen/Diphenhydramine [Tylenol PM Extra Strength] 2 tab PO BEDTIME Amitriptyline [Elavil] 100 mg PO BEDTIME ClonazePAM [KlonoPIN] 0.5 mg PO BID Docusate Sodium [Colace] 200 mg PO BEDTIME Famotidine [Pepcid] 20 mg PO BEDTIME Gabapentin [Neurontin] 300 mg PO TID Hydroxychloroquine [Plaquenil] 200 mg PO BID Mometasone/Formoterol [Dulera 200-5 MCG] 2 puff IH BID Nystatin [Nystop] 0 gm TOP QID atorvaSTATin [Lipitor] 20 mg PO BEDTIME metFORMIN [Glucophage] 500 mg PO BID predniSONE 10 mg PO BID traZODone 50 mg PO BEDTIME 12/02/16 Dinner Consistent Carbohydrate Diet [DIET] 12/03/16 07:30 Omeprazole 20 mg PO ACBREAKFAST 12/03/16 07:35 traMADol [Ultram] 50 mg PO Q4H PRN 12/03/16 07:50 Acetaminophen [Tylenol] 650 mg PO Q4H PRN 12/03/16 08:00 predniSONE 5 mg PO BIDMEALS 12/03/16 09:00 Docusate Sodium [Colace] 100 mg PO DAILY Folic Acid 1 mg PO DAILY Sertraline [Zoloft] 200 mg PO DAILY amLODIPine [Norvasc] 2.5 mg PO DAILY buPROPion [Wellbutrin SR] 150 mg PO DAILY 12/04/16 06:00 INR,PT,PROTHROMBIN TIME [COAG] DAILY 12/05/16 06:00 INR,PT,PROTHROMBIN TIME [COAG] DAILY 12/06/16 06:00 INR,PT,PROTHROMBIN TIME [COAG] DAILY 12/08/16 06:00 Alendronate [Fosamax] 70 mg PO Kate@0600 - Assessment Assessment:: 1. PT/OT 2. Upper and activity assistant up in the chair. 3. Continue IV fluids 125 mL an hour 4. Continue Cipro 4 mg IV twice a day. 5. Her Coumadin is held currently. I will have pharmacy regulate this. 6. She has Lovenox on her home med list. I held it. I have discussed with pharmacy to find out if she is using it for bridging or some other reason. - Plan Plan:: 1. Admit for IV metabolic Cipro 400 mg IV twice a day. 2. Monitor blood sugars 4 times a day. Continue Glucophage and a diabetic diet. 3. IV fluids normal saline with 25 mL an hour. 4. Continue her Coumadin. Pharmacy to manage it. Daily INRs. SCDs 5. Continue most of her regular medications. Hold a avera and Lovenox 6. Up with assist and bedside commode.
[2016-12-03] MEDS ORDERED: Warfarin Sliding Scale PO SCH (08:45)
[2016-12-03] MEDS ORDERED: Docusate Sodium 100 MG Cap PO SCH (09:00)
--- NOTE | 2016-12-03 09:09 | CR ---
INDICATION: Shortness of breath. CHEST: A single AP upright portable view of the chest 12/02/2016 was compared with 08/12/2016 and 01/31/2016, revealing evidence of exogenous obesity. The heart appears to be at the upper limits of normal in size. The aorta is somewhat tortuous. An active infiltrate or effusion was not identified. However, there is some increased density at the left costophrenic angle, which may be on the basis of an epicardial fat pad, but should be correlated clinically, as a minimal pneumonia cannot be excluded in that area. Lungs appear to be somewhat hyperaerated, raising question of COPD - correlate clinically. IMPRESSION: 1. No definite acute process, but difficult to exclude a minimal pneumonia at the left costophrenic angle - correlate clinically. 2. Probable ASHD. 3. Exogenous obesity. 4. Possible mild COPD - correlate clinically. MTDD
--- NOTE | 2016-12-03 09:16 | CT ---
INDICATION: Confusional state since noon. CT HEAD WITHOUT CONTRAST: Serial contiguous 2.5 and 5-mm sections were obtained 12/02/2016 and compared with 08/09/2016, revealing very poor visualization of portions of the posterior fossa due to necklaces that apparently could not be removed. Three sets of images were obtained. Total Exam DLP = 2698.67 mGy-cm. No bleeding site or hematoma was identified - no definite acute intracranial abnormality was identified. No shift of midline structures or significant ventricular abnormalities were seen. No definite abnormal areas of density were identified on today's examination. Asymmetrical posterior ethmoidal air cells noted, likely developmental rather than pathologic. IMPRESSION: 1. No acute intracranial abnormality. 2. Minimal calcification right internal carotid artery. 3. Asymmetrical ethmoidal sinuses, likely developmental. Report was called to Dr. Cristobal at 1545 hours, 12/02/2016. [facility]
[2016-12-03] MEDS: Folic Acid 1 MG Tab PO SCH (09:23)
[2016-12-03] MEDS: amLODIPine 2.5 MG Tab PO SCH (09:24)
[2016-12-03] MEDS: Nystatin Topical Powder 15 GM Bottle TOP SCH ×4 (09:24→20:49)
[2016-12-03] MEDS: metFORMIN 500 MG Tab PO SCH ×2 (09:24→18:06)
[2016-12-03] MEDS: Gabapentin 300 MG Cap PO SCH ×2 (09:24→20:48)
[2016-12-03] MEDS: buPROPion 150 MG Tab.SR PO SCH (09:26)
[2016-12-03] MEDS: Hydroxychloroquine 200 MG Tab PO SCH ×2 (09:26→20:50)
[2016-12-03] MEDS: Sertraline 100 MG Tab PO SCH (09:26)
[2016-12-03] MEDS: ClonazePAM 0.5 MG Tab PO SCH ×2 (09:26→20:59)
[2016-12-03] MEDS: Formoterol/Mometasone 200-5 MCG 8.8 GM Inhaler IH SCH ×2 (09:27→20:46)
[2016-12-03] MEDS ORDERED: Gabapentin 300 MG Cap PO PRN (10:09)
[2016-12-03] MEDS: predniSONE 5 MG Tab PO SCH (10:42)
[2016-12-03] MEDS: SUMAtriptan 50 MG Tab PO PRN (10:45)
[2016-12-03] MEDS ORDERED: Warfarin 2.5 MG Tab PO SCH (16:00)
[2016-12-03] MEDS: Docusate Sodium 100 MG Cap PO SCH (20:46)
[2016-12-03] MEDS: atorvaSTATin 20 MG Tab PO SCH (20:48)
[2016-12-03] MEDS: traZODone 50 MG Tab PO SCH (20:50)
[2016-12-03] MEDS: Famotidine 20 MG Tab PO SCH (20:50)
[2016-12-03] MEDS: Acetaminophen/Diphenhydramine 500-25 MG Tab PO SCH (20:59)
[2016-12-04] MEDS: Codeine/guaiFENesin 100-10 MG/5 ML Syrup 5 ML Cup PO PRN (01:00)
[2016-12-04] MEDS: traMADol 50 MG Tab PO PRN ×3 (01:00→15:16)
[2016-12-04] MEDS: Ciprofloxacin in D5W 400 MG in Premix Bag 1 BAG IV SCH ×2 (05:45)
[2016-12-04] MEDS: Omeprazole 20 MG Cap.CR PO SCH (05:51)
[2016-12-04] MEDS: amLODIPine 2.5 MG Tab PO SCH (08:05)
[2016-12-04] MEDS: buPROPion 150 MG Tab.SR PO SCH (08:05)
[2016-12-04] MEDS: metFORMIN 500 MG Tab PO SCH ×2 (08:05→18:45)
[2016-12-04] MEDS: predniSONE 5 MG Tab PO SCH (08:07)
[2016-12-04] MEDS: Hydroxychloroquine 200 MG Tab PO SCH ×2 (08:08→21:01)
[2016-12-04] MEDS: Folic Acid 1 MG Tab PO SCH (08:08)
[2016-12-04] MEDS: Sertraline 100 MG Tab PO SCH (08:08)
[2016-12-04] MEDS: Nystatin Topical Powder 15 GM Bottle TOP SCH ×4 (08:08→21:01)
[2016-12-04] MEDS: Gabapentin 300 MG Cap PO SCH ×2 (08:09→21:01)
[2016-12-04] MEDS: Formoterol/Mometasone 200-5 MCG 8.8 GM Inhaler IH SCH ×2 (08:09→21:01)
[2016-12-04] MEDS: ClonazePAM 0.5 MG Tab PO SCH ×2 (08:26→21:00)
--- NOTE | 2016-12-04 09:06 | PCM.PN ---
- General Info Date of Service: 12/04/16 Admission Dx/Problem (Free Text): Patient states she feels better. As a little dizziness when she gets up. She was able to go to the bathroom and walk with her walker on her own. She denies abdominal pain, dysuria, pyuria, hematuria. She denies fevers or chills. - Patient Data Vitals - most recent: Last Vital Signs Temp 98.2 F 12/04/16 05:50 Pulse 78 12/04/16 05:50 Resp 18 12/04/16 05:50 BP 101/69 12/04/16 08:05 Pulse Ox 94 L 12/04/16 05:50 Weight - most recent: 255 lb 6.4 oz I&O - last 24 hours: Intake & Output 12/03/16 12/04/16 12/04/16 22:59 06:59 14:59 Intake Total 216 Output Total 800 Balance -584 Lab Results last 24 hrs: Laboratory Results - last 24 hr 12/03/16 12/03/16 12/03/16 Range/Units 06:13 11:22 16:22 PT (8.7-11.1) INR (0.89-1.13) POC Glucose 143 H 138 H 103 (80-116) mg/dL 12/03/16 12/04/16 12/04/16 Range/Units 22:19 05:55 06:25 PT 23.1 H (8.7-11.1) INR 2.25 H (0.89-1.13) POC Glucose 103 121 H (80-116) mg/dL Amilcar Results last 24 hrs: Microbiology 12/02/16 17:10 Aerobic Blood Culture - Preliminary Blood - Venous NO GROWTH AFTER 1 DAY Anaerobic Blood Culture - Preliminary NO GROWTH AFTER 1 DAY 12/02/16 17:00 Aerobic Blood Culture - Preliminary Blood NO GROWTH AFTER 1 DAY Anaerobic Blood Culture - Preliminary NO GROWTH AFTER 1 DAY Med Orders - Current: Current Medications Acetaminophen (Tylenol) 650 mg PO Q4H PRN PRN Reason: Pain Acetaminophen/Diphenhydramine HCl (Tylenol Pm Extra Strength) 2 tab PO BEDTIME [facility] Last Admin: 12/03/16 20:59 Dose: 2 tab Albuterol (Ventolin Hfa) 0 gm INH Q4H PRN PRN Reason: Shortness of Breath Alendronate Sodium (Fosamax) 70 mg PO Kate@0600 [facility] Amitriptyline HCl (Elavil) 100 mg PO BEDTIME [facility] Last Admin: 12/03/16 20:47 Dose: 100 mg Amlodipine Besylate (Norvasc) 2.5 mg PO DAILY [facility] Last Admin: 12/04/16 08:05 Dose: 2.5 mg Atorvastatin Calcium (Lipitor) 20 mg PO BEDTIME [facility] Last Admin: 12/03/16 20:48 Dose: 20 mg Bupropion HCl (Wellbutrin Sr) 150 mg PO DAILY [facility] Last Admin: 12/04/16 08:05 Dose: 150 mg Carisoprodol (Soma) 350 mg PO BID PRN PRN Reason: muscle spasms Last Admin: 12/04/16 02:24 Dose: 350 mg Clonazepam (Klonopin) 0.5 mg PO BID [facility] Last Admin: 12/04/16 08:26 Dose: 0.5 mg Cyanocobalamin (Vitamin B12) 1,000 mcg IM Q30D [facility] Dicyclomine HCl (Bentyl) 20 mg PO DAILY PRN PRN Reason: Cramping Docusate Sodium (Colace) 200 mg PO BEDTIME [facility] Last Admin: 12/03/16 20:46 Dose: 200 mg Famotidine (Pepcid) 20 mg PO BEDTIME [facility] Last Admin: 12/03/16 20:50 Dose: 20 mg Fentanyl (Duragesic) 75 mcg TRDERM Q72H [facility] Last Admin: 12/02/16 18:30 Dose: 75 mcg Folic Acid (Folic Acid) 1 mg PO DAILY [facility] Last Admin: 12/04/16 08:08 Dose: 1 mg Furosemide (Lasix) 20 mg PO DAILY PRN PRN Reason: Edema Gabapentin (Neurontin) 300 mg PO BID [facility] Last Admin: 12/04/16 08:09 Dose: 300 mg Gabapentin (Neurontin) 300 mg PO DAILY PRN PRN Reason: LEG PAIN Guaifenesin/Codeine Phosphate (Robitussin Ac) 10 ml PO Q6H PRN PRN Reason: Cough Last Admin: 12/04/16 01:00 Dose: 10 ml Hydroxychloroquine Sulfate (Plaquenil) 200 mg PO BID [facility] Last Admin: 12/04/16 08:08 Dose: 200 mg Ciprofloxacin/Dextrose 400 mg/ (Premix) 200 mls @ 200 mls/hr IV Q12H [facility] Last Admin: 12/04/16 05:45 Dose: 200 mls/hr Lorazepam (Ativan) 0.5 mg PO DAILY PRN PRN Reason: Anxiety Metformin HCl (Glucophage) 500 mg PO BIDMEALS [facility] Last Admin: 12/04/16 08:05 Dose: 500 mg Methotrexate (Methotrexate) 10 mg PO Fr [facility] Mometasone Furoate/Formoterol Fumar (Dulera 200-5 Mcg) 2 puff IH BID [facility] Last Admin: 12/04/16 08:09 Dose: 2 puff Non-Formulary Medication (Abatacept [Orencia]) 1 ml SQ Kate [facility] Nystatin (Nystop) 0 gm TOP QID [facility] Last Admin: 12/04/16 08:08 Dose: 1 applic Omeprazole (Omeprazole) 20 mg PO DAILY@0600 [facility] Last Admin: 12/04/16 05:51 Dose: 20 mg Potassium Chloride (Klor-Con 10) 10 meq PO DAILY PRN PRN Reason: WITH LASIX Prednisone (Prednisone) 5 mg PO DAILY [facility] Last Admin: 12/04/16 08:07 Dose: 5 mg Sertraline HCl (Zoloft) 200 mg PO DAILY [facility] Last Admin: 12/04/16 08:08 Dose: 200 mg Sumatriptan Succinate (Imitrex) 100 mg PO ASDIRECTED PRN PRN Reason: MIGRAINES Last Admin: 12/03/16 10:45 Dose: 100 mg Tramadol HCl (Ultram) 50 mg PO Q4H PRN PRN Reason: Pain Last Admin: 12/04/16 08:27 Dose: 50 mg Trazodone HCl (Trazodone) 50 mg PO BEDTIME [facility] Last Admin: 12/03/16 20:50 Dose: 50 mg Warfarin Sodium (Coumadin Sliding Scale) 1 each PO ASDIRECTED [facility] Warfarin Sodium (Coumadin) 5 mg PO 1600 [facility] Stop: 12/04/16 16:01 Discontinued Medications Albuterol (Ventolin Hfa) 8.5 gm INH Q6H [facility] Last Admin: 12/02/16 22:25 Dose: Not Given Gabapentin (Neurontin) 300 mg PO TID [facility] Last Admin: 12/03/16 09:24 Dose: 300 mg Sodium Chloride (Normal Saline) 1,000 mls @ 125 mls/hr IV ASDIRECTED [facility] Last Infusion: 12/03/16 07:17 Dose: 125 mls/hr Ciprofloxacin/Dextrose (Cipro In D5w 400 Mg/200 Ml) Confirm Administered Dose 200 mls @ as directed .ROUTE .[facility] Stop: 12/03/16 04:57 Last Admin: 12/03/16 06:57 Dose: Not Given Metformin HCl (Glucophage) 500 mg PO BID [facility] Last Admin: 12/02/16 20:41 Dose: 500 mg Mometasone Furoate/Formoterol Fumar (Dulera 200-5 Mcg) 2 puff IH BID [facility] Last Admin: 12/02/16 20:41 Dose: 2 puff Nystatin (Nystop) 0 gm TOP QID [facility] Last Admin: 12/02/16 20:41 Dose: Not Given Omeprazole (Omeprazole) 20 mg PO ACBREAKFAST [facility] Last Admin: 12/03/16 07:11 Dose: 20 mg Prednisone (Prednisone) 10 mg PO BID [facility] Last Admin: 12/02/16 20:40 Dose: 10 mg Sodium Chloride (Saline Flush) 10 ml FLUSH ASDIRECTED PRN PRN Reason: Keep Vein Open Tramadol HCl (Ultram) 50 mg PO BEDTIME PRN PRN Reason: Pain Last Admin: 12/02/16 21:07 Dose: 50 mg Warfarin Sodium (Coumadin) 2.5 mg PO 1600 [facility] Stop: 12/03/16 16:01 Last Admin: 12/03/16 16:00 Dose: 2.5 mg - Exam General: alert, oriented, cooperative Abdomen: bowel sounds present, soft, no tenderness, no distension Extremities: no edema - Problem List & Annotations (1) Pyelonephritis SNOMED Code(s): 53592151 Code(s): N12 - TUBULO-INTERSTITIAL NEPHRITIS, NOT SPCF ACUTE OR CHRONIC Status: Acute Current Visit: Yes (2) Palliative care status SNOMED Code(s): 943174848 Code(s): Z51.5 - ENCOUNTER FOR PALLIATIVE CARE Status: Acute Current Visit: Yes (3) Delirium due to another medical condition SNOMED Code(s): 2776713 Code(s): F05 - DELIRIUM DUE TO KNOWN PHYSIOLOGICAL CONDITION Status: Acute Current Visit: Yes Annotation/Comment:: Admit for managment of UTI (4) COPD (chronic obstructive pulmonary disease) SNOMED Code(s): 37274111 Code(s): J44.9 - CHRONIC OBSTRUCTIVE PULMONARY DISEASE, UNSPECIFIED Status : Acute Priority: Medium Current Visit: No Qualifiers: Annotation/Comment:: No significant issues noted today. (5) Chronic back pain SNOMED Code(s): 841631343 Code(s): M54.9 - DORSALGIA, UNSPECIFIED; G89.29 - OTHER CHRONIC PAIN Status : Acute Priority: Medium Current Visit: No Annotation/Comment:: This is chronic for her and she is using large quantities of opioids to control the pain. (6) History of pulmonary embolism SNOMED Code(s): 740148293 Code(s): Z86.711 - PERSONAL HISTORY OF PULMONARY EMBOLISM Status: Acute Current Visit: No (7) Rheumatoid arthritis SNOMED Code(s): 08249121 Code(s): M06.9 - RHEUMATOID ARTHRITIS, UNSPECIFIED Status: Acute Current Visit: No - Problem List Review Problem List Initiated/Reviewed/Updated: Yes - My Orders Last 24 Hours: My Active Orders 12/03/16 08:41 Mometasone/Formoterol [Dulera 200-5 MCG] 2 puff IH BID 12/03/16 08:42 Nystatin [Nystop] 0 gm TOP QID 12/03/16 08:45 Warfarin Sliding Scale [Coumadin Sliding Scale] 1 each PO ASDIRECTED 12/03/16 09:00 Folic Acid 1 mg PO DAILY Sertraline [Zoloft] 200 mg PO DAILY amLODIPine [Norvasc] 2.5 mg PO DAILY buPROPion [Wellbutrin SR] 150 mg PO DAILY metFORMIN [Glucophage] 500 mg PO BIDMEALS 12/03/16 10:00 predniSONE 5 mg PO DAILY 12/03/16 10:09 Gabapentin [Neurontin] 300 mg PO DAILY PRN 12/03/16 10:15 SUMAtriptan [Imitrex] 100 mg PO ASDIRECTED PRN 12/03/16 16:48 Convert IV to Saline Lock [OM.PC] Routine 12/03/16 21:00 Gabapentin [Neurontin] 300 mg PO BID 12/04/16 06:00 Omeprazole 20 mg PO DAILY@0600 12/04/16 09:04 Up ad Ellen [RC] ASDIRECTED 12/04/16 16:00 Warfarin [Coumadin] 5 mg PO 1600 12/05/16 06:00 INR,PT,PROTHROMBIN TIME [COAG] DAILY 12/06/16 06:00 INR,PT,PROTHROMBIN TIME [COAG] DAILY 12/06/16 18:00 Methotrexate 10 mg PO Fr 12/08/16 06:00 Alendronate [Fosamax] 70 mg PO Kate@0600 12/08/16 10:07 Abatacept [Orencia] 1 ml SQ Kate 12/18/16 09:00 Cyanocobalamin (Vitamin B12) [Vitamin B12] 1,000 mcg IM Q30D - Plan Plan:: 1. Continue antibiotics. 2. She grew out gram negative rods in the urine. I and D pending. Blood cultures so far negative. 3. Vitals every shift. Saline lock IV. Up with a walker. Continue PT/OT.
[2016-12-04] MEDS: SUMAtriptan 50 MG Tab PO PRN (11:59)
[2016-12-04] MEDS ORDERED: Warfarin 5 MG Tab PO SCH (16:00)
[2016-12-04] MEDS: Ciprofloxacin 500 MG Tab PO SCH ×2 (18:45→21:04)
[2016-12-04] MEDS: Docusate Sodium 100 MG Cap PO SCH (21:00)
[2016-12-04] MEDS: Acetaminophen/Diphenhydramine 500-25 MG Tab PO SCH (21:00)
[2016-12-04] MEDS: traZODone 50 MG Tab PO SCH (21:01)
[2016-12-04] MEDS: atorvaSTATin 20 MG Tab PO SCH (21:01)
[2016-12-04] MEDS: Famotidine 20 MG Tab PO SCH (21:01)
[2016-12-05] MEDS: traMADol 50 MG Tab PO PRN ×3 (02:36→14:02)
[2016-12-05] MEDS: Omeprazole 20 MG Cap.CR PO SCH (06:20)
[2016-12-05] MEDS ORDERED: Enoxaparin 100 MG/1 ML Syringe SUBCUT ONE (08:30)
[2016-12-05] MEDS: Folic Acid 1 MG Tab PO SCH (08:31)
[2016-12-05] MEDS: Formoterol/Mometasone 200-5 MCG 8.8 GM Inhaler IH SCH (08:31)
[2016-12-05] MEDS: Gabapentin 300 MG Cap PO SCH (08:31)
[2016-12-05] MEDS: amLODIPine 2.5 MG Tab PO SCH (08:31)
[2016-12-05] MEDS: metFORMIN 500 MG Tab PO SCH (08:31)
[2016-12-05] MEDS: Ciprofloxacin 500 MG Tab PO SCH (08:31)
[2016-12-05] MEDS: Nystatin Topical Powder 15 GM Bottle TOP SCH ×2 (08:32→12:03)
[2016-12-05] MEDS: buPROPion 150 MG Tab.SR PO SCH (08:32)
[2016-12-05] MEDS: Sertraline 100 MG Tab PO SCH (08:32)
[2016-12-05] MEDS: predniSONE 5 MG Tab PO SCH (08:32)
[2016-12-05] MEDS: Hydroxychloroquine 200 MG Tab PO SCH (08:32)
--- NOTE | 2016-12-05 08:32 | PCM.PN ---
- General Info Date of Service: 12/05/16 Admission Dx/Problem (Free Text): Patient states she feels dizzy at times with as much improved today. She walks with a walker and is doing well. She denies dysuria, pyuria, hematuria, fevers, chills, abdominal pain. She says she's thinking very clearly. - Patient Data Vitals - most recent: Last Vital Signs Temp 97.3 F 12/05/16 08:00 Pulse 81 12/05/16 08:00 Resp 18 12/05/16 08:00 BP 117/85 12/05/16 08:00 Pulse Ox 92 L 12/05/16 08:00 Weight - most recent: 255 lb 6.4 oz I&O - last 24 hours: Intake & Output 12/04/16 12/05/16 12/05/16 22:59 06:59 14:59 Output Total 600 Balance -600 Lab Results last 24 hrs: Laboratory Results - last 24 hr 12/04/16 12/04/16 12/04/16 Range/Units 12:35 17:31 20:55 PT (8.7-11.1) INR (0.89-1.13) POC Glucose 100 112 127 H (80-116) mg/dL 12/05/16 12/05/16 Range/Units 06:19 06:30 PT 16.4 H (8.7-11.1) INR 1.60 H (0.89-1.13) POC Glucose 106 (80-116) mg/dL Amilcar Results last 24 hrs: Microbiology 12/02/16 17:10 Aerobic Blood Culture - Preliminary Blood - Venous NO GROWTH AFTER 2 DAYS Anaerobic Blood Culture - Preliminary NO GROWTH AFTER 2 DAYS 12/02/16 17:00 Aerobic Blood Culture - Preliminary Blood NO GROWTH AFTER 2 DAYS Anaerobic Blood Culture - Preliminary NO GROWTH AFTER 2 DAYS Med Orders - Current: Current Medications Acetaminophen (Tylenol) 650 mg PO Q4H PRN PRN Reason: Pain Last Admin: 12/04/16 12:00 Dose: 650 mg Acetaminophen/Diphenhydramine HCl (Tylenol Pm Extra Strength) 2 tab PO BEDTIME KIMMY Last Admin: 12/04/16 21:00 Dose: 2 tab Albuterol (Ventolin Hfa) 0 gm INH Q4H PRN PRN Reason: Shortness of Breath Alendronate Sodium (Fosamax) 70 mg PO Kate@0600 [facility] Amitriptyline HCl (Elavil) 100 mg PO BEDTIME [facility] Last Admin: 12/04/16 21:00 Dose: 100 mg Amlodipine Besylate (Norvasc) 2.5 mg PO DAILY [facility] Last Admin: 12/04/16 08:05 Dose: 2.5 mg Atorvastatin Calcium (Lipitor) 20 mg PO BEDTIME [facility] Last Admin: 12/04/16 21:01 Dose: 20 mg Bupropion HCl (Wellbutrin Sr) 150 mg PO DAILY [facility] Last Admin: 12/04/16 08:05 Dose: 150 mg Carisoprodol (Soma) 350 mg PO TID PRN PRN Reason: muscle spasms Last Admin: 12/05/16 02:36 Dose: 350 mg Ciprofloxacin (Ciprofloxacin Hcl) 500 mg PO BID [facility] Last Admin: 12/04/16 21:04 Dose: Not Given Clonazepam (Klonopin) 0.5 mg PO BID [facility] Last Admin: 12/04/16 21:00 Dose: 0.5 mg Cyanocobalamin (Vitamin B12) 1,000 mcg IM Q30D [facility] Dicyclomine HCl (Bentyl) 20 mg PO DAILY PRN PRN Reason: Cramping Docusate Sodium (Colace) 200 mg PO BEDTIME [facility] Last Admin: 12/04/16 21:00 Dose: 200 mg Enoxaparin Sodium (Lovenox) 100 mg SUBCUT ONETIME ONE Stop: 12/05/16 08:31 Famotidine (Pepcid) 20 mg PO BEDTIME [facility] Last Admin: 12/04/16 21:01 Dose: 20 mg Fentanyl (Duragesic) 75 mcg TRDERM Q72H [facility] Last Admin: 12/02/16 18:30 Dose: 75 mcg Folic Acid (Folic Acid) 1 mg PO DAILY [facility] Last Admin: 12/04/16 08:08 Dose: 1 mg Furosemide (Lasix) 20 mg PO DAILY PRN PRN Reason: Edema Gabapentin (Neurontin) 300 mg PO BID [facility] Last Admin: 12/04/16 21:01 Dose: 300 mg Gabapentin (Neurontin) 300 mg PO DAILY PRN PRN Reason: LEG PAIN Guaifenesin/Codeine Phosphate (Robitussin Ac) 10 ml PO Q6H PRN PRN Reason: Cough Last Admin: 12/04/16 01:00 Dose: 10 ml Hydroxychloroquine Sulfate (Plaquenil) 200 mg PO BID [facility] Last Admin: 12/04/16 21:01 Dose: 200 mg Lorazepam (Ativan) 0.5 mg PO DAILY PRN PRN Reason: Anxiety Metformin HCl (Glucophage) 500 mg PO BIDMEALS [facility] Last Admin: 12/04/16 18:45 Dose: 500 mg Methotrexate (Methotrexate) 10 mg PO Fr [facility] Mometasone Furoate/Formoterol Fumar (Dulera 200-5 Mcg) 2 puff IH BID [facility] Last Admin: 12/04/16 21:01 Dose: 2 puff Non-Formulary Medication (Abatacept [Orencia]) 1 ml SQ Kate KIMMY Nystatin (Nystop) 0 gm TOP QID [facility] Last Admin: 12/04/16 21:01 Dose: 1 applic Omeprazole (Omeprazole) 20 mg PO DAILY@0600 [facility] Last Admin: 12/05/16 06:20 Dose: 20 mg Potassium Chloride (Klor-Con 10) 10 meq PO DAILY PRN PRN Reason: WITH LASIX Prednisone (Prednisone) 5 mg PO DAILY [facility] Last Admin: 12/04/16 08:07 Dose: 5 mg Sertraline HCl (Zoloft) 200 mg PO DAILY [facility] Last Admin: 12/04/16 08:08 Dose: 200 mg Sumatriptan Succinate (Imitrex) 100 mg PO ASDIRECTED PRN PRN Reason: MIGRAINES Last Admin: 12/04/16 11:59 Dose: 100 mg Tramadol HCl (Ultram) 50 mg PO Q4H PRN PRN Reason: Pain Last Admin: 12/05/16 02:36 Dose: 50 mg Trazodone HCl (Trazodone) 50 mg PO BEDTIME [facility] Last Admin: 12/04/16 21:01 Dose: 50 mg Warfarin Sodium (Coumadin Sliding Scale) 1 each PO ASDIRECTED [facility] Warfarin Sodium (Coumadin) 5 mg PO 1600 [facility] Discontinued Medications Albuterol (Ventolin Hfa) 8.5 gm INH Q6H [facility] Last Admin: 12/02/16 22:25 Dose: Not Given Carisoprodol (Soma) 350 mg PO BID PRN PRN Reason: muscle spasms Last Admin: 12/04/16 02:24 Dose: 350 mg Gabapentin (Neurontin) 300 mg PO TID [facility] Last Admin: 12/03/16 09:24 Dose: 300 mg Sodium Chloride (Normal Saline) 1,000 mls @ 125 mls/hr IV ASDIRECTED [facility] Last Infusion: 12/03/16 07:17 Dose: 125 mls/hr Ciprofloxacin/Dextrose 400 mg/ (Premix) 200 mls @ 200 mls/hr IV Q12H [facility] Last Admin: 12/04/16 05:45 Dose: 200 mls/hr Ciprofloxacin/Dextrose (Cipro In D5w 400 Mg/200 Ml) Confirm Administered Dose 200 mls @ as directed .ROUTE .STK-MED ONE Stop: 12/03/16 04:57 Last Admin: 12/03/16 06:57 Dose: Not Given Metformin HCl (Glucophage) 500 mg PO BID [facility] Last Admin: 12/02/16 20:41 Dose: 500 mg Mometasone Furoate/Formoterol Fumar (Dulera 200-5 Mcg) 2 puff IH BID [facility] Last Admin: 12/02/16 20:41 Dose: 2 puff Nystatin (Nystop) 0 gm TOP QID [facility] Last Admin: 12/02/16 20:41 Dose: Not Given Omeprazole (Omeprazole) 20 mg PO ACBREAKFAST [facility] Last Admin: 12/03/16 07:11 Dose: 20 mg Prednisone (Prednisone) 10 mg PO BID [facility] Last Admin: 12/02/16 20:40 Dose: 10 mg Sodium Chloride (Saline Flush) 10 ml FLUSH ASDIRECTED PRN PRN Reason: Keep Vein Open Tramadol HCl (Ultram) 50 mg PO BEDTIME PRN PRN Reason: Pain Last Admin: 12/02/16 21:07 Dose: 50 mg Warfarin Sodium (Coumadin) 2.5 mg PO 1600 [facility] Stop: 12/03/16 16:01 Last Admin: 12/03/16 16:00 Dose: 2.5 mg Warfarin Sodium (Coumadin) 5 mg PO 1600 [facility] Stop: 12/04/16 16:01 Last Admin: 12/04/16 16:12 Dose: 5 mg - Exam General: alert, oriented, cooperative Neck: supple Abdomen: bowel sounds present, soft, no tenderness, no distension - Problem List & Annotations (1) Pyelonephritis SNOMED Code(s): 14232291 Code(s): N12 - TUBULO-INTERSTITIAL NEPHRITIS, NOT SPCF ACUTE OR CHRONIC Status: Acute Current Visit: Yes (2) Palliative care status SNOMED Code(s): 584877109 Code(s): Z51.5 - ENCOUNTER FOR PALLIATIVE CARE Status: Acute Current Visit: Yes (3) Delirium due to another medical condition SNOMED Code(s): 6039382 Code(s): F05 - DELIRIUM DUE TO KNOWN PHYSIOLOGICAL CONDITION Status: Acute Current Visit: Yes Annotation/Comment:: Admit for managment of UTI (4) COPD (chronic obstructive pulmonary disease) SNOMED Code(s): 70073206 Code(s): J44.9 - CHRONIC OBSTRUCTIVE PULMONARY DISEASE, UNSPECIFIED Status : Acute Priority: Medium Current Visit: No Qualifiers: Annotation/Comment:: No significant issues noted today. (5) Chronic back pain SNOMED Code(s): 935605456 Code(s): M54.9 - DORSALGIA, UNSPECIFIED; G89.29 - OTHER CHRONIC PAIN Status : Acute Priority: Medium Current Visit: No Annotation/Comment:: This is chronic for her and she is using large quantities of opioids to control the pain. (6) History of pulmonary embolism SNOMED Code(s): 416329242 Code(s): Z86.711 - PERSONAL HISTORY OF PULMONARY EMBOLISM Status: Acute Current Visit: No (7) Rheumatoid arthritis SNOMED Code(s): 03918547 Code(s): M06.9 - RHEUMATOID ARTHRITIS, UNSPECIFIED Status: Acute Current Visit: No (8) Anticoagulation monitoring by pharmacist SNOMED Code(s): 772071820, 055319910 Code(s): Z79.01 - BOX TURNER (CURRENT) USE OF ANTICOAGULANTS Status: Acute Current Visit: Yes - Problem List Review Problem List Initiated/Reviewed/Updated: Yes - My Orders Last 24 Hours: My Active Orders 12/04/16 09:04 Up ad Ellen [RC] ASDIRECTED 12/04/16 11:53 Carisoprodol [Soma] 350 mg PO TID PRN 12/04/16 18:00 Ciprofloxacin [Ciprofloxacin HCl] 500 mg PO BID 12/04/16 22:46 Discontinue Saline Lock [Peripheral IV Discontinue] [OM.PC] Routine 12/05/16 08:30 Enoxaparin [Lovenox] 100 mg SUBCUT ONETIME ONE 12/05/16 16:00 Warfarin [Coumadin] 5 mg PO 1600 12/06/16 06:00 INR,PT,PROTHROMBIN TIME [COAG] DAILY 12/06/16 18:00 Methotrexate 10 mg PO Fr 12/08/16 06:00 Alendronate [Fosamax] 70 mg PO Kate@0600 12/08/16 10:07 Abatacept [Orencia] 1 ml SQ Kate 12/18/16 09:00 Cyanocobalamin (Vitamin B12) [Vitamin B12] 1,000 mcg IM Q30D - Assessment Assessment:: 1. INR is below 2. We'll give her Lovenox today and sent her home with 2 doses never check her INR in the morning. 2. Told the patient that she use all the same medications except the Lovenox and will do Cipro 500 mg twice a day for 12 days. 3. Home health - Plan Plan:: 1. Continue antibiotics. 2. She grew out gram negative rods in the urine. I and D pending. Blood cultures so far negative. 3. Vitals every shift. Saline lock IV. Up with a walker. Continue PT/OT.
--- NOTE | 2016-12-05 08:43 | PCM.DCSUM1 ---
Discharge Summary - Hospital Course Free Text/Narrative:: Hospital course-patient was admitted put on Cipro 40 mg IV twice a day. Her home meds were sorted and continued. Patient was disoriented the first day but by day 2 was much improved. She felt weak but her strength is getting better. She had no urinary tract symptoms while she was here. She did have dysuria when she came in. Her blood cultures which not complete were negative. Her urine culture grew Escherichia coli sensitive to Cipro. On day 3 she was put on Cipro 500 mg by mouth twice a day. She will be sent home on this medication with [facility]. PT/OT evaluated her and did not feel she was a candidate for swing bed. Her home meds were continued except for her DMARD which was held until she went home. Pharmacy manage her INR which was over 3 when she came in. They held Coumadin for 1 day and then on day discharge her Coumadin was less than 2. We' ll send her home on Lovenox today twice a day and then tomorrow morning and then she'll have an INR tomorrow as we have continued the Coumadin for the last 2 days. Follow-up with Dr. Ramsey 7-10 days Brief History: This is a 66-year-old female patient brought in by ambulance. She 's been very tired and sleeping a lot for the last 3 days. 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 I called the ambulance. And she could not walk up the ambulance. She was brought to the ER had a head CT which is reported as normal. And found to have a positive urine. She has had many UTIs in the past. One year ago she had a kidney stone and up having a urosepsis in [place]. She says she's been having several days of dysuria and she does have some low back pain. She's felt warm but she's not checked her temperature and she's had some chills. - Discharge Data Discharge Date: 12/05/16 Discharge Disposition: Home, W Home Health Agency 06 Condition: Fair - Discharge Diagnosis/Problem(s) (1) Pyelonephritis SNOMED Code(s): 76810479 ICD Code: N12 - TUBULO-INTERSTITIAL NEPHRITIS, NOT SPCF ACUTE OR CHRONIC Status: Acute Current Visit: Yes (2) Palliative care status SNOMED Code(s): 459571180 ICD Code: Z51.5 - ENCOUNTER FOR PALLIATIVE CARE Status: Acute Current Visit: Yes (3) Delirium due to another medical condition SNOMED Code(s): 3006265 ICD Code: F05 - DELIRIUM DUE TO KNOWN PHYSIOLOGICAL CONDITION Status: Acute Current Visit: Yes Problem Details: Admit for managment of UTI (4) COPD (chronic obstructive pulmonary disease) SNOMED Code(s): 48240193 ICD Code: J44.9 - CHRONIC OBSTRUCTIVE PULMONARY DISEASE, UNSPECIFIED Status : Acute Priority: Medium Current Visit: No Problem Details: No significant issues noted today. Qualifiers: (5) Chronic back pain SNOMED Code(s): 726374017 ICD Code: M54.9 - DORSALGIA, UNSPECIFIED; G89.29 - OTHER CHRONIC PAIN Status: Acute Priority: Medium Current Visit: No Problem Details: This is chronic for her and she is using large quantities of opioids to control the pain. (6) History of pulmonary embolism SNOMED Code(s): 833931560 ICD Code: Z86.711 - PERSONAL HISTORY OF PULMONARY EMBOLISM Status: Acute Current Visit: No (7) Rheumatoid arthritis SNOMED Code(s): 39185911 ICD Code: M06.9 - RHEUMATOID ARTHRITIS, UNSPECIFIED Status: Acute Current Visit: No (8) Anticoagulation monitoring by pharmacist SNOMED Code(s): 718238516, 872928079 ICD Code: Z79.01 - LONG-TERM (CURRENT) USE OF ANTICOAGULANTS Status: Acute Current Visit: Yes - Patient Summary/Data Consults: Consultations 12/02/16 18:15 OT Evaluation and Treatment [CONS] Routine Please Evaluate and Treat. OT Reason for Consult: ADL's This query below is only for informational purposes and is not editable. Admission Diagnosis/Problem: Urinary tract infection PT Evaluation and Treatment [CONS] Routine Please Evaluate and Treat. PT Reason for Consult: Ambulation This query below is only for informational purposes and is not editable. Admission Diagnosis/Problem: Urinary tract infection - Patient Instructions Diet: Diabetic Diet Activity: As Tolerated Driving: May Drive Today Showering/Bathing: May Shower Notify Provider of: Fever, Increased Pain, Nausea and/or Vomiting Other/Special Instructions: 1. Recheck with INR clinic tomorrow at [facility]. 2. Recheck with Dr. Ramsey in 7-10 days. 3. Home health regards to medical management, home safety, polypharmacy - Discharge Plan Prescriptions/Med Rec: Ciprofloxacin [Ciprofloxacin HCl] 500 mg PO BID #12 tablet Enoxaparin Sodium [Lovenox] 100 mg SQ Q12H #2 ml Home Medications: Home Meds Amitriptyline [Elavil] 100 mg PO BEDTIME 02/07/13 [History] ClonazePAM [KlonoPIN] 0.5 mg PO BID 02/07/13 [History] Cyanocobalamin (Vitamin B12) [Vitamin B12] 1,000 mcg IM Q30D 02/07/13 [History] Omeprazole 20 mg PO ACBREAKFAST 02/07/13 [History] SUMAtriptan 100 mg PO ASDIRECTED PRN 02/07/13 [History] Sertraline [Zoloft] 200 mg PO DAILY 02/07/13 [History] traZODone 50 mg PO BEDTIME 02/07/13 [History] Albuterol [Ventolin HFA] 2 puff IH Q4H PRN 12/01/15 [History] Furosemide [Lasix] 20 mg PO DAILY PRN 12/01/15 [History] Gabapentin [Neurontin] 300 mg PO TID 12/01/15 [History] Potassium Chloride [Klor-Con 10] 10 meq PO DAILY PRN 12/01/15 [History] Ranitidine [Zantac] 150 mg PO BEDTIME 12/01/15 [History] atorvaSTATin [Lipitor] 20 mg PO BEDTIME 12/01/15 [History] buPROPion [Wellbutrin SR] 150 mg PO DAILY 12/01/15 [History] fentaNYL [Duragesic] 75 mcg TD Q72H 12/01/15 [History] predniSONE [Prednisone] 5 mg PO DAILY 12/01/15 [History] Acetaminophen/Diphenhydramine [Tylenol Pm Ex-Strength Caplet] 2 ea PO BEDTIME [History] Dicyclomine HCl [Bentyl] 20 mg PO DAILY PRN 03/14/16 [History] Folic Acid 1 mg PO DAILY 03/14/16 [History] Hydroxychloroquine Sulfate [Plaquenil] 200 mg PO BID 03/14/16 [History] LORazepam [Ativan] 0.5 mg PO BID PRN 03/14/16 [History] amLODIPine Besylate [Norvasc] 2.5 mg PO DAILY 03/14/16 [History] traMADol [Ultram] 50 mg PO BID PRN 03/14/16 [History] Nystatin 1 applic TOP QID 03/18/16 [History] Alendronate [Fosamax] 70 mg PO KATE 08/09/16 [History] Docusate Sodium 200 mg PO BEDTIME 08/09/16 [History] Warfarin [Coumadin] 5 mg PO DAILY 08/09/16 [History] Codeine/guaiFENesin [Robitussin AC] 10 ml PO Q6H PRN #240 ml 08/12/16 [Rx] Abatacept [Orencia] 1 ml SQ KATE 12/02/16 [History] Methotrexate 10 mg PO FR 12/02/16 [History] metFORMIN [Glucophage] 500 mg PO BIDMEALS 12/02/16 [History] Carboxymethylcellulose Sodium [Refresh Plus 0.5%] 1 drop EYEBOTH BEDTIME [History] Carisoprodol [Soma] 350 mg PO BID PRN 12/03/16 [History] Fluticasone/Vilanterol [Breo Ellipta 200-25 Mcg INH] 1 puff IH BID PRN 12/03/16 [History] predniSONE [Prednisone] 5 mg PO DAILY PRN 12/03/16 [History] Ciprofloxacin [Ciprofloxacin HCl] 500 mg PO BID #12 tablet 12/05/16 [Rx] Enoxaparin Sodium [Lovenox] 100 mg SQ Q12H #2 ml 12/05/16 [Rx] Forms: ED Department Discharge Referrals: Ang Ramsey MD [Primary Care Provider] - - Discharge Summary/Plan Comment DC Time >30 min.: No - Patient Data Vitals - Most Recent: Last Vital Signs Temp 97.3 F 12/05/16 08:00 Pulse 81 12/05/16 08:00 Resp 18 12/05/16 08:00 BP 117/85 12/05/16 08:31 Pulse Ox 92 L 12/05/16 08:00 Weight - Most Recent: 255 lb 6.4 oz I&O - Last 24 hours: Intake & Output 12/04/16 12/05/16 12/05/16 22:59 06:59 14:59 Output Total 600 Balance -600 Lab Results - Last 24 hrs: Laboratory Results - last 24 hr 12/04/16 12/04/16 12/04/16 Range/Units 12:35 17:31 20:55 PT (8.7-11.1) INR (0.89-1.13) POC Glucose 100 112 127 H (80-116) mg/dL 12/05/16 12/05/16 Range/Units 06:19 06:30 PT 16.4 H (8.7-11.1) INR 1.60 H (0.89-1.13) POC Glucose 106 (80-116) mg/dL VASYL Results - Last 24 hrs: Microbiology 12/02/16 17:10 Aerobic Blood Culture - Preliminary Blood - Venous NO GROWTH AFTER 2 DAYS Anaerobic Blood Culture - Preliminary NO GROWTH AFTER 2 DAYS 12/02/16 17:00 Aerobic Blood Culture - Preliminary Blood NO GROWTH AFTER 2 DAYS Anaerobic Blood Culture - Preliminary NO GROWTH AFTER 2 DAYS Med Orders - Current: Current Medications Acetaminophen (Tylenol) 650 mg PO Q4H PRN PRN Reason: Pain Last Admin: 12/04/16 12:00 Dose: 650 mg Acetaminophen/Diphenhydramine HCl (Tylenol Pm Extra Strength) 2 tab PO BEDTIME [facility] Last Admin: 12/04/16 21:00 Dose: 2 tab Albuterol (Ventolin Hfa) 0 gm INH Q4H PRN PRN Reason: Shortness of Breath Alendronate Sodium (Fosamax) 70 mg PO Kate@0600 [facility] Amitriptyline HCl (Elavil) 100 mg PO BEDTIME [facility] Last Admin: 12/04/16 21:00 Dose: 100 mg Amlodipine Besylate (Norvasc) 2.5 mg PO DAILY [facility] Last Admin: 12/05/16 08:31 Dose: 2.5 mg Atorvastatin Calcium (Lipitor) 20 mg PO BEDTIME [facility] Last Admin: 12/04/16 21:01 Dose: 20 mg Bupropion HCl (Wellbutrin Sr) 150 mg PO DAILY [facility] Last Admin: 12/05/16 08:32 Dose: 150 mg Carisoprodol (Soma) 350 mg PO TID PRN PRN Reason: muscle spasms Last Admin: 12/05/16 08:33 Dose: 350 mg Ciprofloxacin (Ciprofloxacin Hcl) 500 mg PO BID [facility] Last Admin: 12/05/16 08:31 Dose: 500 mg Clonazepam (Klonopin) 0.5 mg PO BID [facility] Last Admin: 12/04/16 21:00 Dose: 0.5 mg Cyanocobalamin (Vitamin B12) 1,000 mcg IM Q30D [facility] Dicyclomine HCl (Bentyl) 20 mg PO DAILY PRN PRN Reason: Cramping Docusate Sodium (Colace) 200 mg PO BEDTIME [facility] Last Admin: 12/04/16 21:00 Dose: 200 mg Famotidine (Pepcid) 20 mg PO BEDTIME [facility] Last Admin: 12/04/16 21:01 Dose: 20 mg Fentanyl (Duragesic) 75 mcg TRDERM Q72H [facility] Last Admin: 12/02/16 18:30 Dose: 75 mcg Folic Acid (Folic Acid) 1 mg PO DAILY [facility] Last Admin: 12/05/16 08:31 Dose: 1 mg Furosemide (Lasix) 20 mg PO DAILY PRN PRN Reason: Edema Gabapentin (Neurontin) 300 mg PO BID [facility] Last Admin: 12/05/16 08:31 Dose: 300 mg Gabapentin (Neurontin) 300 mg PO DAILY PRN PRN Reason: LEG PAIN Guaifenesin/Codeine Phosphate (Robitussin Ac) 10 ml PO Q6H PRN PRN Reason: Cough Last Admin: 12/04/16 01:00 Dose: 10 ml Hydroxychloroquine Sulfate (Plaquenil) 200 mg PO BID [facility] Last Admin: 12/05/16 08:32 Dose: 200 mg Lorazepam (Ativan) 0.5 mg PO DAILY PRN PRN Reason: Anxiety Metformin HCl (Glucophage) 500 mg PO BIDMEALS [facility] Last Admin: 12/05/16 08:31 Dose: 500 mg Methotrexate (Methotrexate) 10 mg PO Fr [facility] Mometasone Furoate/Formoterol Fumar (Dulera 200-5 Mcg) 2 puff IH BID [facility] Last Admin: 12/05/16 08:31 Dose: 2 puff Non-Formulary Medication (Abatacept [Orencia]) 1 ml SQ Kate [facility] Nystatin (Nystop) 0 gm TOP QID [facility] Last Admin: 12/05/16 08:32 Dose: 1 applic Omeprazole (Omeprazole) 20 mg PO DAILY@0600 [facility] Last Admin: 12/05/16 06:20 Dose: 20 mg Potassium Chloride (Klor-Con 10) 10 meq PO DAILY PRN PRN Reason: WITH LASIX Prednisone (Prednisone) 5 mg PO DAILY [facility] Last Admin: 12/05/16 08:32 Dose: 5 mg Sertraline HCl (Zoloft) 200 mg PO DAILY [facility] Last Admin: 12/05/16 08:32 Dose: 200 mg Sumatriptan Succinate (Imitrex) 100 mg PO ASDIRECTED PRN PRN Reason: MIGRAINES Last Admin: 12/04/16 11:59 Dose: 100 mg Tramadol HCl (Ultram) 50 mg PO Q4H PRN PRN Reason: Pain Last Admin: 12/05/16 08:32 Dose: 50 mg Trazodone HCl (Trazodone) 50 mg PO BEDTIME [facility] Last Admin: 12/04/16 21:01 Dose: 50 mg Warfarin Sodium (Coumadin Sliding Scale) 1 each PO ASDIRECTED [facility] Warfarin Sodium (Coumadin) 5 mg PO 1600 [facility] Discontinued Medications Albuterol (Ventolin Hfa) 8.5 gm INH Q6H [facility] Last Admin: 12/02/16 22:25 Dose: Not Given Carisoprodol (Soma) 350 mg PO BID PRN PRN Reason: muscle spasms Last Admin: 12/04/16 02:24 Dose: 350 mg Enoxaparin Sodium (Lovenox) 100 mg SUBCUT ONETIME ONE Stop: 12/05/16 08:31 Gabapentin (Neurontin) 300 mg PO TID [facility] Last Admin: 12/03/16 09:24 Dose: 300 mg Sodium Chloride (Normal Saline) 1,000 mls @ 125 mls/hr IV ASDIRECTED [facility] Last Infusion: 12/03/16 07:17 Dose: 125 mls/hr Ciprofloxacin/Dextrose 400 mg/ (Premix) 200 mls @ 200 mls/hr IV Q12H [facility] Last Admin: 12/04/16 05:45 Dose: 200 mls/hr Ciprofloxacin/Dextrose (Cipro In D5w 400 Mg/200 Ml) Confirm Administered Dose 200 mls @ as directed .ROUTE .STK-MED ONE Stop: 12/03/16 04:57 Last Admin: 12/03/16 06:57 Dose: Not Given Metformin HCl (Glucophage) 500 mg PO BID [facility] Last Admin: 12/02/16 20:41 Dose: 500 mg Mometasone Furoate/Formoterol Fumar (Dulera 200-5 Mcg) 2 puff IH BID [facility] Last Admin: 12/02/16 20:41 Dose: 2 puff Nystatin (Nystop) 0 gm TOP QID [facility] Last Admin: 12/02/16 20:41 Dose: Not Given Omeprazole (Omeprazole) 20 mg PO ACBREAKFAST [facility] Last Admin: 12/03/16 07:11 Dose: 20 mg Prednisone (Prednisone) 10 mg PO BID [facility] Last Admin: 12/02/16 20:40 Dose: 10 mg Sodium Chloride (Saline Flush) 10 ml FLUSH ASDIRECTED PRN PRN Reason: Keep Vein Open Tramadol HCl (Ultram) 50 mg PO BEDTIME PRN PRN Reason: Pain Last Admin: 12/02/16 21:07 Dose: 50 mg Warfarin Sodium (Coumadin) 2.5 mg PO 1600 [facility] Stop: 12/03/16 16:01 Last Admin: 12/03/16 16:00 Dose: 2.5 mg Warfarin Sodium (Coumadin) 5 mg PO 1600 [facility] Stop: 12/04/16 16:01 Last Admin: 12/04/16 16:12 Dose: 5 mg *Q Meaningful Use (DIS) - VTE *Q VTE Criteria *Q: - Stroke *Q Stroke Criteria *Q: - AMI *Q AMI Criteria *Q:
[2016-12-05] MEDS: ClonazePAM 0.5 MG Tab PO SCH (09:29)
[2016-12-05 13:27] VITALS: BP 126/80
[2016-12-05] MEDS: fentaNYL 75 MCG/HR Transdermal Patch TRDERM SCH (13:30)
[2016-12-05] MEDS: Codeine/guaiFENesin 100-10 MG/5 ML Syrup 5 ML Cup PO PRN (14:06)
[2016-12-05] MEDS ORDERED: Warfarin 5 MG Tab PO SCH (16:00)
[2016-12-06] MEDS ORDERED: Methotrexate 2.5 MG Tab PO SCH (18:00)
[2016-12-08] MEDS ORDERED: Alendronate 70 MG Tab PO SCH (06:00)
[2016-12-08] MEDS ORDERED: ABATACEPT SQ SCH (10:07)
[2016-12-18] MEDS ORDERED: Cyanocobalamin (Vitamin B12) 1,000 MCG/ML SDV IM SCH (09:00)
== END 2016-12-05 15:50 | disposition home health service (06) | DRG 690 ==
LOC: FB.ED 14:12 → FB.MS 16:55
PROVIDERS: ADMIT Family Medicine; ATTEND Family Medicine
DX: N12 Tubulo-interstitial nephritis, not specified as acute or chronic (principal); F05 Delirium due to known physiological condition; B96.20 Unspecified Escherichia coli [E. coli] as the cause of diseases classified elsewhere; E11.9 Type 2 diabetes mellitus without complications; I10 Essential (primary) hypertension; Z66 Do not resuscitate; Z51.5 Encounter for palliative care; Z86.718 Personal history of other venous thrombosis and embolism; Z86.711 Personal history of pulmonary embolism; Z79.01 Long term (current) use of anticoagulants; J44.9 Chronic obstructive pulmonary disease, unspecified; M06.9 Rheumatoid arthritis, unspecified; Z87.891 Personal history of nicotine dependence; M54.9 Dorsalgia, unspecified; G89.29 Other chronic pain; Z87.440 Personal history of urinary (tract) infections; E53.8 Deficiency of other specified B group vitamins; M19.90 Unspecified osteoarthritis, unspecified site; F32.9 Major depressive disorder, single episode, unspecified; F41.9 Anxiety disorder, unspecified; E78.00 Pure hypercholesterolemia, unspecified; H54.7 Unspecified visual loss; Z79.84 Long term (current) use of oral hypoglycemic drugs; Z79.52 Long term (current) use of systemic steroids; Z88.5 Allergy status to narcotic agent; Z88.7 Allergy status to serum and vaccine; R53.1 Weakness; R41.82 Altered mental status, unspecified; R06.02 Shortness of breath
CPT/HCPCS: 36415; 70450; 71010; 80053; 81001; 83880; 84484; 85025; 85379; 85610; 87086; 87088; 87186; 93005; 96360; 96361; 99284; 99285; J7040; 82962; 87040; 97110-GP; 97116-GP; 97162-GP; 97165-GO; 97530-GP; 99232; 99238; A9270-GY; J0744; J1650

== ENCOUNTER 2016-12-12 14:43 | Inpatient (IN) | payer MEDICARE, BC ==
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
[2016-12-12] MEDS ORDERED: Non-Formulary Medication 1 Each (Furosemide [Lasix] 20 MG) PO PRN (20:22)
[2016-12-12] MEDS ORDERED: Non-Formulary Medication 1 Each (Potassium Chloride [Klor-Con 10] 10 MEQ) PO PRN (20:22)
[2016-12-12] MEDS ORDERED: DICYCLOMINE HCL 20 MG PO PRN (20:22)
[2016-12-12] MEDS ORDERED: [UNRECOGNIZED DRUG - OTHER] IH PRN (20:22)
[2016-12-12] MEDS ORDERED: SUMATRIPTAN 100 MG PO PRN (20:22)
[2016-12-12] MEDS ORDERED: Non-Formulary Medication 1 Each (Nystatin [Nystatin] 1 APPLIC) TOP PRN (20:22)
[2016-12-12] MEDS ORDERED: Non-Formulary Medication 1 Each (Warfarin [Coumadin] 5 MG) PO SCH (20:30)
[2016-12-12] MEDS ORDERED: FENTANYL 75 MCG TD SCH (20:30)
[2016-12-12] MEDS ORDERED: Non-Formulary Medication 1 Each (Atorvastatin [Lipitor] 20 MG) PO SCH (21:00)
[2016-12-12] MEDS ORDERED: TRAZODONE 25 MG PO SCH (21:00)
[2016-12-12] MEDS ORDERED: Non-Formulary Medication 1 Each (Ranitidine [Zantac] 150 MG) PO SCH (21:00)
[2016-12-12] MEDS ORDERED: Haloperidol Lactate 5 MG/ML SDV IM PRN (21:03)
[2016-12-13] MEDS ORDERED: Non-Formulary Medication 1 Each (Omeprazole [Omeprazole] 20 MG) PO SCH (07:30)
[2016-12-13] MEDS ORDERED: AMLODIPINE BESYLATE 2.5 MG PO SCH (09:00)
[2016-12-13] MEDS ORDERED: traMADol 50 MG Tab PO PRN (11:00)
[2016-12-13] MEDS: fentaNYL 50 MCG/HR Transdermal Patch TRDERM SCH (11:11)
[2016-12-13] MEDS ORDERED: Albuterol 8 GM Inhaler INH PRN (11:22)
[2016-12-13] MEDS: Non-Formulary Medication 1 Each (Carisoprodol [Soma] 350 MG) PO SCH (11:32)
[2016-12-13] MEDS: Non-Formulary Medication 1 Each (Clonazepam [Klonopin] 0.5 MG) PO SCH (11:32)
[2016-12-13] MEDS: Acetaminophen 325 MG Tab PO PRN (11:44)
[2016-12-13] MEDS: metFORMIN 500 MG Tab PO SCH ×2 (11:45→19:00)
[2016-12-13] MEDS: Sertraline 100 MG Tab PO SCH (11:45)
[2016-12-13] MEDS: Gabapentin 300 MG Cap PO SCH ×3 (11:46→21:14)
[2016-12-13] MEDS: Folic Acid 1 MG Tab PO SCH (11:46)
[2016-12-13] MEDS: Hydroxychloroquine 200 MG Tab PO SCH ×2 (11:46→21:15)
[2016-12-13] MEDS: Formoterol/Mometasone 200-5 MCG 8.8 GM Inhaler IH SCH ×2 (11:46→21:13)
--- NOTE | 2016-12-13 12:10 | HP ---
ADMISSION DATE: 12/12/2016 History was from the patient, her daughter, and the old record. CHIEF COMPLAINT: Fall and weakness. HISTORY OF PRESENT ILLNESS: Ms. Cheema is a 66-year-old woman from [place], [place], who was discharged from [facility] approximately one week ago after an admission for falls, weakness, delirium, etc. She states at that time she went in because she had urosepsis and has since improved from that. According to her daughter, she has had episodes of confusion, weakness, and frequent falls and can no longer be cared for by family members. The patient states that this fall she injured her left wrist which is painful. She does not recognize any other injuries. She does not report a syncopal event. She was evaluated by the ER and admitted to acute care for further investigation and evaluation. PAST MEDICAL HISTORY: As mentioned, admission approximately two weeks ago for a fall, confusion, and excessive medication ingestion. Past medical history includes chronic pain syndrome, chronic back pain, rheumatoid arthritis, COPD. She has been admitted for pneumonia in the past and has a history of a pulmonary embolism, on warfarin. She has had migraine, GERD, depression, hyperlipidemia, hypertension, osteoporosis. She is status post T\T\A, appendectomy, cholecystectomy, EGD, colonoscopy, hysterectomy, and surgical carolina placement in her spine. She has a history of obstructive sleep apnea, celiac disease, delirium versus underlying dementia, and B12 deficiency. REVIEW OF SYSTEMS: Not clearly reliable from the patient but no recent headache. No recent change in hearing or vision. She does report URI with cough. She does report cough but no sore throat. No dyspnea, chest pain, palpitations, abdominal pain, nausea, or diarrhea. No hematochezia or melena. No hematuria or UTI symptoms. No swelling or skin rash. She does have chronic depression. MEDICATIONS: See list. Extensive and reviewed today. ALLERGIES: Morphine and tuberculin. Morphine, reaction unknown. PPD tuberculin antigen caused hives. HABITS: Nonsmoker and nondrinker. FAMILY AND SOCIAL HISTORY: The patient is accompanied by her daughter today who is requesting a longer-term placement. Her sister, Latesha Bell, is a local physician. PHYSICAL EXAMINATION: GENERAL: She is alert and currently oriented. HEENT: Oropharynx is clear. Mouth is dry. Pupils are equal and reactive. NECK: Supple. LUNGS: Have rhonchi but good breath sounds to both bases. HEART: Regular. No murmur is heard. ABDOMEN: Normal bowel sounds. Soft, obese, and nontender. EXTREMITIES: Show no edema. NEUROLOGIC: Questionable mental status for history of reliability. MOTOR EXAM: Symmetric. She does limit the motion of her left wrist, complaining of pain. Gait is not tested at this time. LABORATORY DATA: Pending. ASSESSMENT: 1. Multiple frequent falls, confusion, delirium, question underlying dementia versus major medication side effects. 2. Chronic pain syndrome, on multiple sedating and addicting medications. 3. History of rheumatoid arthritis. 4. Chronic low back pain. 5. Depression. 6. Osteoporosis. 7. Gastroesophageal reflux disease. 8. History of migraine. 9. History of pulmonary embolism, on warfarin. 10.Hyperlipidemia. 11.Type 2 diabetes. PLAN: She is admitted to acute care. We will check labs. Investigate further her episodes of confusion and falling. We will decrease her sedating medications. We will get social sciences chair involved and start to investigate longer-term placement. /[id number] SHAILESH/HERBERTH
[2016-12-13] MEDS: Docusate Sodium 100 MG Cap PO SCH (21:13)
[2016-12-13] MEDS: Carboxymethylcellulose Sodium 0.5% Ophth Soln 0.4 ML UD Box of 30 EYEBOTH SCH (21:15)
[2016-12-13] MEDS: buPROPion 150 MG Tab.SR PO SCH (21:15)
[2016-12-14] MEDS: Formoterol/Mometasone 200-5 MCG 8.8 GM Inhaler IH SCH ×2 (08:14→20:47)
[2016-12-14] MEDS: Folic Acid 1 MG Tab PO SCH (08:15)
[2016-12-14] MEDS: Gabapentin 300 MG Cap PO SCH ×3 (08:15→20:47)
[2016-12-14] MEDS: metFORMIN 500 MG Tab PO SCH ×2 (08:15→17:01)
[2016-12-14] MEDS: Sertraline 100 MG Tab PO SCH (08:15)
[2016-12-14] MEDS: Hydroxychloroquine 200 MG Tab PO SCH ×2 (08:15→20:47)
[2016-12-14] MEDS ORDERED: Furosemide 20 MG Tab PO ONE (08:43)
--- NOTE | 2016-12-14 09:10 | PN ---
DATE SEEN: 12/14/2016 HISTORY: Mrs. Cheema is a 66-year-old woman from [place] who was admitted twice in the last couple of weeks because of confusion, weakness, and falls. On December 12, she was admitted after a fall which caused her to injure her left wrist and left knee, and according to the family, she was confused. The patient does not seem to recognize the confusion that has accompanied her past couple of episodes. On admission, her medications were held and carefully reintroduced with reduction in sedating medications. X-rays were done and showed no sign of fracture. She states this morning, she is feeling better and arrangements are being made for her to go to [facility] for further recuperation. She states her rheumatoid arthritis has been flared up lately and her back has been hurting as well as the injuries to her left wrist and knee. PHYSICAL EXAMINATION: GENERAL: She is alert, she seems to be a very good historian this morning with no sign of confusion. VITAL SIGNS: Blood pressure 138/88, pulse 88 and regular, respirations 18, temperature 97.7 O2, saturation 93% on room air. SKIN: Shows slight abrasion over the left palm, erythema in both knees, no rash. HEENT: Shows pupils to be equal and reactive. LUNGS: Clear. HEART: Regular without murmur or gallop. ABDOMEN: Soft, nontender. EXTREMITIES: Show no edema although she feels that dorsum of her feet are slightly puffy. NEUROLOGIC: Motor exam appear symmetric. She does have pain in the left wrist and hand with squeezing. ASSESSMENT: 1. Fall with injuries to the left wrist, both knees, and associated confusion. 2. Repeated admissions with confusion and delirium. 3. Multiple sedating medication use. 4. Chronic rheumatoid arthritis. 5. Chronic low back pain. 6. Depression. 7. Type 2 diabetes. LABORATORY DATA: Hemoglobin 10.8, this appears stable from yesterday. INR 2.15 today, this is an improvement from 4.05 yesterday. Potassium 3.9, this has also improved from 3.4 yesterday. Glucose 124 and urinalysis was clear. PLAN: We will continue to closely limit the combination of sedating medications. I will give her a single dose of furosemide 20 mg today for her sense of fluid retention, resume her warfarin at slightly lower dose. She will have physical and occupational therapy, ambulate today, and continue plans for group home placement in 48 hours. /[id number] SHAILESH/HERBERTH
[2016-12-14] MEDS ORDERED: Warfarin 5 MG Tab PO SCH (16:00)
[2016-12-14] MEDS ORDERED: Non-Formulary Medication 1 Each (Warfarin [Coumadin] 7.5 MG) PO SCH (20:22)
[2016-12-14] MEDS: Acetaminophen 325 MG Tab PO PRN (20:43)
[2016-12-14] MEDS: buPROPion 150 MG Tab.SR PO SCH (20:47)
[2016-12-14] MEDS: Carboxymethylcellulose Sodium 0.5% Ophth Soln 0.4 ML UD Box of 30 EYEBOTH SCH (20:47)
[2016-12-14] MEDS: Famotidine 20 MG Tab PO SCH (20:47)
[2016-12-14] MEDS: Docusate Sodium 100 MG Cap PO SCH (20:48)
[2016-12-15] MEDS ORDERED: Alendronate 70 MG Tab PO SCH (06:00)
[2016-12-15] MEDS: Formoterol/Mometasone 200-5 MCG 8.8 GM Inhaler IH SCH ×2 (08:22→20:51)
[2016-12-15] MEDS: metFORMIN 500 MG Tab PO SCH ×2 (08:22→18:01)
[2016-12-15] MEDS: Sertraline 100 MG Tab PO SCH (08:23)
[2016-12-15] MEDS: Gabapentin 300 MG Cap PO SCH ×3 (08:23→20:49)
[2016-12-15] MEDS: Folic Acid 1 MG Tab PO SCH (08:23)
[2016-12-15] MEDS: Hydroxychloroquine 200 MG Tab PO SCH ×2 (08:23→20:49)
[2016-12-15] MEDS ORDERED: Warfarin 5 MG Tab PO ONE (08:40)
[2016-12-15] MEDS ORDERED: traMADol 50 MG Tab PO PRN (08:43)
[2016-12-15] MEDS: traMADol 50 MG Tab PO SCH ×3 (09:05→20:47)
[2016-12-15] MEDS: Loperamide 2 MG Cap PO PRN (09:44)
--- NOTE | 2016-12-15 09:52 | PN ---
DATE SEEN: 12/15/2016 SUBJECTIVE: Ms. Cheema is a 66-year-old woman with rheumatoid arthritis, chronic pain syndrome, depression and a history of PE. She was admitted on 12/13/2016 after falls, confusion and repeat episodes of the same. On admission, her medications were reviewed and suspected to be the biggest culprit in her symptoms. She was admitted to the hospital where further evaluation was done revealing no sign of acute infection, cardiopulmonary compromise. Her Duragesic patch was decreased from 75 to 50 mg every 72 hours. Her ranitidine and omeprazole were discontinued. Her lorazepam was discontinued. Her gabapentin was decreased to 300 mg t.i.d. Her Bentyl was discontinued. Her clonazepam was discontinued. Her Soma was discontinued and her Tylenol p.m. was discontinued. The patient had injuries to her knee, left wrist from the fall. X-rays were done that showed no evidence of fracture. Her wrist pain in particular continued while the other seemed to be improved. By the morning after admission, she was exhibiting no confusion. She was complaining of more pain and requesting that her tramadol be increased, her Soma be resumed, her Bentyl be resumed and because of diarrhea she wanted to restart Lomotil. These were declined again because of the risk of drug accumulation interactions etc. She was started on Imodium 2 mg t.i.d. p.r.n. and will have additional physical therapy on her back for pain. Her warfarin had been held because of slightly elevated INR which was down to 1.29 this morning, so her dose will increase to 10 mg for today only. OBJECTIVE: VITAL SIGNS: Blood pressure 111/71, pulse 84, respirations 20, temp 97.6, O2 saturation 95% on room air. SKIN: Shows mild bruises over her knees. Venous stasis changes to lower legs. LUNGS: Clear. HEART: Regular. ABDOMEN: Normal bowel sounds. Soft and nontender. She did express pain and tenderness to palpation of the left ribs beneath the left breast. EXTREMITIES: Showed no edema. She still had tenderness at the base of her left thumb. LABORATORY: INR 1.29. ASSESSMENT: 1. Multiple falls, wrist injury, knee contusions and confusion likely largest part being excessive or being medication accumulation. 2. Chronic rheumatoid arthritis. 3. Chronic pain syndrome. 4. Low back pain. 5. Sprain to the left wrist and contusion of her knees. 6. Depression. 7. History of pulmonary embolism, on anticoagulation. 8. History of gastroesophageal reflux disease. 9. Venous stasis with occasional fluid retention, lower extremities. 10.Asthma. PLAN: As mentioned, we will continue to minimize sedating and tranquilizing medication. Physical therapy assessment and treatment of low back pain again tomorrow and reconsideration of placement. /[id number] SHAILESH/HERBERTH
[2016-12-15] MEDS ORDERED: ABATACEPT SQ SCH (20:22)
[2016-12-15] MEDS: Famotidine 20 MG Tab PO SCH (20:49)
[2016-12-15] MEDS: Docusate Sodium 100 MG Cap PO SCH (20:50)
[2016-12-15] MEDS: Carboxymethylcellulose Sodium 0.5% Ophth Soln 0.4 ML UD Box of 30 EYEBOTH SCH (20:51)
[2016-12-15] MEDS: buPROPion 150 MG Tab.SR PO SCH (20:52)
[2016-12-16] MEDS: Acetaminophen 325 MG Tab PO PRN (06:02)
[2016-12-16] MEDS: Formoterol/Mometasone 200-5 MCG 8.8 GM Inhaler IH SCH (08:52)
[2016-12-16] MEDS: Sertraline 100 MG Tab PO SCH (08:53)
[2016-12-16] MEDS: Folic Acid 1 MG Tab PO SCH (08:53)
[2016-12-16] MEDS: traMADol 50 MG Tab PO SCH ×2 (08:55→13:56)
[2016-12-16] MEDS: metFORMIN 500 MG Tab PO SCH (08:59)
[2016-12-16] MEDS: Hydroxychloroquine 200 MG Tab PO SCH (09:03)
[2016-12-16] MEDS: Gabapentin 300 MG Cap PO SCH ×2 (09:03→13:56)
[2016-12-16] MEDS: Loperamide 2 MG Cap PO PRN (09:07)
[2016-12-16] MEDS: fentaNYL 50 MCG/HR Transdermal Patch TRDERM SCH ×2 (09:53→12:15)
--- NOTE | 2016-12-16 10:22 | CR ---
INDICATION: Confusion. CHEST, AP: Aortic ectasia. The heart is mildly prominent, but no significant pulmonary venous congestion. No infiltrate or masses identified. There is a vague area of nodularity over the lateral aspect of the right lung base. Difficult to localize this on previous examination of 12/02/2016. This suggests that this may be summation of shadows. I do not see any other significant abnormalities. IMPRESSION: 1. Very slight cardiomegaly without underlying failure or infiltrative changes. 2. Question small nodule right lateral lung base, although cannot see on prior examination. At a minimum, would recommend follow-up examination to evaluate for whether this remains as a focal abnormality. If so, CT examination could be obtained for further evaluation. [facility]
--- NOTE | 2016-12-16 11:28 | CR ---
INDICATION: Fall. BOTH KNEES, 3 VIEWS: Left knee shows some very minor spurring at the medial intercondylar notch. Mild medial joint space narrowing. No significant degenerative change. Lateral projection does show some spurring at the superior patellofemoral joint and to some degree inferior patellofemoral joint, as well as mild changes posteriorly over the distal femur. [place] view on the left shows mild lateral joint space narrowing. The right knee shows medial joint space narrowing. Some mild spurring at the medial femoral condyle and medial tibial plateau. There is some mild chondrocalcinosis lateral joint space of the knee and some early peaking of tibial spine medially. There is some bony degenerative changes with possibility of a bone fragment over the medial aspects of the intercondylar notch area. Lateral projection shows patellofemoral degenerative spurring superiorly and inferiorly with some moderate lateral patellofemoral joint narrowing on the sunrise view. I do not see any definitive acute fractures. IMPRESSION: 1. Degenerative changes most significant patellofemoral joints on either side, right greater than left. 2. Degenerative changes more in medial joint space of the right knee. 3. Possibly a smooth bony fragment near the intercondylar notch, which may just be related to degenerative spurring, but could represent an old small fracture or the like. 4. Again, no acute abnormalities identified at this time. [facility]
--- NOTE | 2016-12-16 11:31 | CR ---
INDICATION: Fall. LEFT ANKLE, 3 VIEWS: Soft tissue swelling about the ankle, most significant laterally over the ankle, however, some diffuse soft tissue swelling over the lower leg. I do not see any evidence of fractures identified at this time. RYAN
--- NOTE | 2016-12-16 11:35 | CR ---
INDICATION: Fall. LEFT HAND, 3 VIEWS: Degenerative changes at the first carpal metacarpal joint and at the scaphotrapezium and scaphotrapezoid joint. Mild diffuse bony deossification over the hand. Some joint space narrowing distal interphalangeal joint of the 5th and 4th fingers and to a lesser extent the third. There is some degenerative spurring developing at the distal interphalangeal joint of the thumb. No evidence of fracture or other significant findings. IMPRESSION: Degenerative changes about the hand and wrist, as above. No definite acute abnormalities. MTDD
--- NOTE | 2016-12-16 11:41 | CR ---
INDICATION: Fall. LEFT WRIST, 3 VIEWS: There may be some soft tissue swelling about the wrist. There does not appear to be any definitive fracture. Severe joint space narrowing at the first carpometacarpal joint with sclerosis and marginal osteophytic spurring. Some deformity of the trapezium secondarily. I do not see any other significant findings identified at this time. Negative ulnar variance. MTDD
[2016-12-16] MEDS ORDERED: fentaNYL 75 MCG/HR Transdermal Patch TRDERM SCH (12:00)
[2016-12-16 15:33] VITALS: BP 112/72
[2016-12-16] MEDS ORDERED: Warfarin 5 MG Tab PO SCH (16:00)
[2016-12-16] MEDS ORDERED: Warfarin 10 MG Tab PO ONE (16:00)
--- NOTE | 2016-12-17 03:07 | DISCH ---
DISCHARGE DATE: 12/16/2016 PRIMARY FINAL DIAGNOSES: Fall with wrist and knee injuries, confusion, and medication accumulation. OTHER DIAGNOSES: History of pulmonary embolism, chronic low back pain, rheumatoid arthritis, COPD, migraines, GERD, depression, hypertension, hyperlipidemia, osteoporosis. OPERATIONS: None. COMPLICATIONS: The patient improved significantly during the hospitalization with adjustment of her medications and physical therapy. 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 she had fallen and injured herself on this admission and she was admitted to the hospital and evaluated. On admission, she was felt to be lethargic with accumulation of medications in her system. Her medications were held initially and resumed slowly with the following exceptions. Her Duragesic patch was decreased from 75 to 50 mcg every 72 hours. Her ranitidine and omeprazole were discontinued and replaced with Pepcid 20 mg at bedtime, her lorazepam was discontinued, her gabapentin was decreased to 300 mg t.i.d., her Bentyl was discontinued, her clonazepam was discontinued, her Soma was discontinued, and her Lomotil was discontinued and replaced with Imodium 1 t.i.d. p.r.n. She was treated with physical therapy and steadily improved her function such that she was able to be up, getting out of bed by herself, walking, and her mental status by 12/16/2016 was very sharp. Consideration was given for longer-term placement such as swing bed [facility] etc., however, she has recuperate to the point where she does not qualify for this and thus she is discharged to home with Home [facility]. MEDICATIONS: Will be as follows: 1. Tramadol 50 mg t.i.d. p.r.n. 2. Prednisone 7.5 mg b.i.d. 3. Metformin 500 mg b.i.d. 4. Duragesic 75 mcg every 72 hours. 5. Bupropion 150 mg at bedtime. 6. Warfarin 7.5 mg Tuesdays and 5 mg 6 days a week. 7. Sertraline 200 mg daily. 8. Mometasone formoterol two puffs b.i.d. 9. Imodium 2 mg t.i.d. p.r.n. every 4 hours p.r.n. diarrhea. 10.Chloroquine 200 mg b.i.d. 11.Gabapentin 300 mg t.i.d. 12.Folic acid 1 mg daily. 13.Ranitidine 150 mg at bedtime. 14.Docusate 200 mg at bedtime. 15.Vitamin B 12 1000 mcg monthly. 16.Artificial Tears p.r.n. 17.Amitriptyline 100 mg at bedtime. 18.Alendronate 70 mg weekly. 19.Albuterol inhaler every 4 hours p.r.n. 20.Tylenol p.r.n. She is to not take any medications other than what is listed here and she will have follow up with her regular doctor, Dr. Ramsey as an outpatient. /[id number] SHAILESH/HERBERTH
[2016-12-17] MEDS ORDERED: Warfarin 2.5 MG Tab PO SCH (16:00)
[2016-12-17 18:31] LABS: UNSATURATED IRON BIND CAPACITY 195 ug/dL (112-347)
[2016-12-18] MEDS ORDERED: Cyanocobalamin (Vitamin B12) 1,000 MCG/ML SDV IM SCH (09:00)
== END 2016-12-16 15:52 | disposition home health service (06) | DRG 948 ==
LOC: FB.ED 14:43 → FB.MS 16:56 → OBSVTOIN 12-13 10:11
PROVIDERS: ADMIT Emergency Medicine; ATTEND Family Medicine
DX: R41.0 Disorientation, unspecified (principal); F11.20 Opioid dependence, uncomplicated; T50.995A Adverse effect of other drugs, medicaments and biological substances, initial encounter; I10 Essential (primary) hypertension; E11.9 Type 2 diabetes mellitus without complications; Z79.84 Long term (current) use of oral hypoglycemic drugs; M06.9 Rheumatoid arthritis, unspecified; R29.6 Repeated falls; Z66 Do not resuscitate; Z91.81 History of falling; S69.92XA Unspecified injury of left wrist, hand and finger(s), initial encounter; S89.92XA Unspecified injury of left lower leg, initial encounter; W19.XXXA Unspecified fall, initial encounter; Y92.009 Unspecified place in unspecified non-institutional (private) residence as the place of occurrence of the external cause; Z87.891 Personal history of nicotine dependence; G31.84 Mild cognitive impairment of uncertain or unknown etiology; S40.011A Contusion of right shoulder, initial encounter; S00.93XA Contusion of unspecified part of head, initial encounter; Z79.899 Other long term (current) drug therapy; S89.91XA Unspecified injury of right lower leg, initial encounter; R53.1 Weakness; M81.0 Age-related osteoporosis without current pathological fracture; G47.33 Obstructive sleep apnea (adult) (pediatric); E78.5 Hyperlipidemia, unspecified; K21.9 Gastro-esophageal reflux disease without esophagitis; G89.4 Chronic pain syndrome; E66.8 Other obesity; E53.8 Deficiency of other specified B group vitamins; F32.9 Major depressive disorder, single episode, unspecified; F41.9 Anxiety disorder, unspecified; Z87.820 Personal history of traumatic brain injury; M19.90 Unspecified osteoarthritis, unspecified site; J44.9 Chronic obstructive pulmonary disease, unspecified; E78.00 Pure hypercholesterolemia, unspecified; Z86.718 Personal history of other venous thrombosis and embolism; H54.7 Unspecified visual loss; Z86.711 Personal history of pulmonary embolism; Z79.01 Long term (current) use of anticoagulants; Z79.52 Long term (current) use of systemic steroids; Z88.5 Allergy status to narcotic agent; Z88.7 Allergy status to serum and vaccine
CPT/HCPCS: 36415; 71010; 73110; 73130; 73562; 73610; 99285; G0378 ×2; 80048; 80053; 81001; 82306; 82607; 82728; 82962; 83540; 83550; 84443; 85018; 85025; 85610; 97166-GO; A9270-GY

== ENCOUNTER 2017-08-19 11:25 | Inpatient (IN) | payer MEDICARE, BC ==
[2017-08-19] MEDS ORDERED: Benzonatate 100 MG Cap PO PRN (18:36)
[2017-08-19] MEDS ORDERED: Cyanocobalamin (Vitamin B12) 1,000 MCG/ML SDV IM SCH (20:00)
[2017-08-19] MEDS: Docusate Sodium 100 MG Cap PO SCH (20:57)
[2017-08-19] MEDS: Hydrocortisone Acetate 25 MG Supp RECTAL SCH (20:57)
[2017-08-19] MEDS: atorvaSTATin 20 MG Tab PO SCH (20:57)
[2017-08-19] MEDS: Gabapentin 300 MG Cap PO SCH (20:58)
[2017-08-19] MEDS: Enoxaparin 100 MG/1 ML Syringe SUBCUT SCH (20:58)
[2017-08-19] MEDS: Famotidine 20 MG Tab PO SCH (20:59)
[2017-08-19] MEDS ORDERED: predniSONE 5 MG Tab PO SCH (21:00)
[2017-08-19] MEDS ORDERED: Nystatin Topical Powder 15 GM Bottle TOP SCH (21:00)
[2017-08-19] MEDS: Hydroxychloroquine 200 MG Tab PO SCH (21:09)
[2017-08-19] MEDS: ClonazePAM 0.5 MG Tab PO PRN (21:29)
[2017-08-19] MEDS: tiZANidine 4 MG Tab PO PRN (21:29)
[2017-08-19] MEDS ORDERED: Warfarin 5 MG Tab PO SCH (21:30)
[2017-08-19] MEDS: ANAKINRA 100 MG SQ SCH (23:40)
[2017-08-20] MEDS ORDERED: Alendronate 70 MG Tab PO SCH (07:30)
[2017-08-20] MEDS: ClonazePAM 0.5 MG Tab PO PRN ×2 (08:45→16:16)
[2017-08-20] MEDS: DULoxetine 60 MG Cap PO SCH (08:47)
[2017-08-20] MEDS: Hydroxychloroquine 200 MG Tab PO SCH ×2 (08:47→20:40)
[2017-08-20] MEDS: Docusate Sodium 100 MG Cap PO SCH ×2 (08:47→20:40)
[2017-08-20] MEDS: Furosemide 40 MG Tab PO SCH ×2 (08:47→16:16)
[2017-08-20] MEDS: Propranolol 60 MG Cap.ER PO SCH (08:48)
[2017-08-20] MEDS: Cephalexin 250 MG Cap PO SCH (08:48)
[2017-08-20] MEDS: Metoprolol Succinate 50 MG Tab.ER PO SCH (08:48)
[2017-08-20] MEDS: Magnesium Chloride 64 MG Tab.ER PO SCH (08:48)
[2017-08-20] MEDS: predniSONE 5 MG Tab PO SCH (08:49)
[2017-08-20] MEDS: Dicyclomine 10 MG Cap PO SCH ×3 (08:49→17:57)
[2017-08-20] MEDS: Potassium Chloride 20 MEQ Tab.ER PO SCH ×2 (08:49→17:57)
[2017-08-20] MEDS: Enoxaparin 100 MG/1 ML Syringe SUBCUT SCH ×2 (08:50→20:41)
[2017-08-20] MEDS: Gabapentin 300 MG Cap PO SCH ×3 (08:50→20:40)
[2017-08-20] MEDS: fentaNYL 50 MCG/HR Transdermal Patch TOP SCH (08:51)
[2017-08-20] MEDS: Hydrocortisone Acetate 25 MG Supp RECTAL SCH ×2 (08:51→20:41)
[2017-08-20] MEDS ORDERED: LEFLUNOMIDE 20 MG PO SCH (09:00)
[2017-08-20] MEDS: Nystatin Topical Powder 15 GM Bottle TOP SCH ×4 (09:06→20:41)
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
[2017-08-20] MEDS ORDERED: Warfarin Sliding Scale PO SCH (10:15)
[2017-08-20] MEDS: Leflunomide 20 MG Tab PO SCH (10:41)
[2017-08-20] MEDS ORDERED: Warfarin 5 MG Tab PO SCH ×2 (16:00)
[2017-08-20] MEDS: traMADol 50 MG Tab PO PRN (16:17)
[2017-08-20] MEDS: tiZANidine 4 MG Tab PO PRN (16:18)
[2017-08-20] MEDS: Famotidine 20 MG Tab PO SCH (20:40)
[2017-08-20] MEDS: ANAKINRA 100 MG SQ SCH (20:40)
[2017-08-20] MEDS: atorvaSTATin 20 MG Tab PO SCH (20:40)
[2017-08-21] MEDS: SUMAtriptan 50 MG Tab PO PRN (06:28)
[2017-08-21] MEDS: Acetaminophen 325 MG Tab PO PRN ×3 (06:28→16:06)
[2017-08-21] MEDS: ClonazePAM 0.5 MG Tab PO PRN ×2 (06:29→16:05)
[2017-08-21] MEDS: Dicyclomine 10 MG Cap PO SCH ×3 (06:30→17:45)
[2017-08-21] MEDS: tiZANidine 4 MG Tab PO PRN ×2 (06:30→21:17)
[2017-08-21] MEDS: Furosemide 40 MG Tab PO SCH ×2 (09:16→16:07)
[2017-08-21] MEDS: Leflunomide 20 MG Tab PO SCH (09:17)
[2017-08-21] MEDS: Gabapentin 300 MG Cap PO SCH ×3 (09:17→21:04)
[2017-08-21] MEDS: Potassium Chloride 20 MEQ Tab.ER PO SCH ×2 (09:17→17:45)
[2017-08-21] MEDS: Hydroxychloroquine 200 MG Tab PO SCH ×2 (09:17→21:05)
[2017-08-21] MEDS: Metoprolol Succinate 50 MG Tab.ER PO SCH (09:17)
[2017-08-21] MEDS: DULoxetine 60 MG Cap PO SCH (09:18)
[2017-08-21] MEDS: Cephalexin 250 MG Cap PO SCH (09:18)
[2017-08-21] MEDS: Docusate Sodium 100 MG Cap PO SCH ×2 (09:18→21:06)
[2017-08-21] MEDS: Propranolol 60 MG Cap.ER PO SCH (09:18)
[2017-08-21] MEDS: predniSONE 5 MG Tab PO SCH (09:18)
[2017-08-21] MEDS: Nystatin Topical Powder 15 GM Bottle TOP SCH ×4 (09:19→21:05)
[2017-08-21] MEDS: Enoxaparin 100 MG/1 ML Syringe SUBCUT SCH ×2 (09:19→21:08)
[2017-08-21] MEDS: Magnesium Chloride 64 MG Tab.ER PO SCH (09:19)
[2017-08-21] MEDS: Hydrocortisone Acetate 25 MG Supp RECTAL SCH ×2 (09:21→21:08)
[2017-08-21] MEDS ORDERED: Warfarin 5 MG Tab PO SCH ×2 (16:00)
[2017-08-21] MEDS: atorvaSTATin 20 MG Tab PO SCH (21:05)
[2017-08-21] MEDS: traMADol 50 MG Tab PO PRN (21:06)
[2017-08-21] MEDS: Famotidine 20 MG Tab PO SCH (21:06)
[2017-08-21] MEDS: ANAKINRA 100 MG SQ SCH (21:08)
[2017-08-22] MEDS: ClonazePAM 0.5 MG Tab PO PRN ×3 (00:27→21:00)
[2017-08-22] MEDS: Dicyclomine 10 MG Cap PO SCH ×3 (06:37→16:32)
[2017-08-22] MEDS: SUMAtriptan 50 MG Tab PO PRN (06:47)
[2017-08-22] MEDS: Acetaminophen 325 MG Tab PO PRN (06:48)
[2017-08-22] MEDS: DULoxetine 60 MG Cap PO SCH (08:33)
[2017-08-22] MEDS: Furosemide 40 MG Tab PO SCH ×2 (08:33→16:32)
[2017-08-22] MEDS: Cephalexin 250 MG Cap PO SCH (08:34)
[2017-08-22] MEDS: Propranolol 60 MG Cap.ER PO SCH (08:34)
[2017-08-22] MEDS: Hydroxychloroquine 200 MG Tab PO SCH ×2 (08:34→21:00)
[2017-08-22] MEDS: Gabapentin 300 MG Cap PO SCH ×3 (08:34→21:00)
[2017-08-22] MEDS: Leflunomide 20 MG Tab PO SCH (08:34)
[2017-08-22] MEDS: Potassium Chloride 20 MEQ Tab.ER PO SCH ×2 (08:34→18:07)
[2017-08-22] MEDS: predniSONE 5 MG Tab PO SCH (08:34)
[2017-08-22] MEDS: Nystatin Topical Powder 15 GM Bottle TOP SCH ×4 (08:35→21:00)
[2017-08-22] MEDS: Metoprolol Succinate 50 MG Tab.ER PO SCH (08:35)
[2017-08-22] MEDS: Docusate Sodium 100 MG Cap PO SCH ×2 (08:35→20:59)
[2017-08-22] MEDS: Magnesium Chloride 64 MG Tab.ER PO SCH (08:35)
[2017-08-22] MEDS: Hydrocortisone Acetate 25 MG Supp RECTAL SCH ×2 (08:36→20:59)
[2017-08-22] MEDS: traMADol 50 MG Tab PO PRN ×2 (11:29→21:01)
[2017-08-22] MEDS: tiZANidine 4 MG Tab PO PRN (12:07)
--- NOTE | 2017-08-22 13:21 | PN ---
DATE SEEN: 08/22/2017 SUBJECTIVE: Abby Cheema is a 67-year-old female, in swing bed, admitted on August 17, 2017. Acute episode of complicated congestive heart failure. Generalized weakness and deconditioning, requires intervention. CHF, ejection fraction 35%. Diuresis was successful without complicating issues. LABORATORY STUDIES: INR 1.61 under intervention. MEDICATIONS: Reviewed and appropriate. OBJECTIVE: VITAL SIGNS: Stable. Temperature 36.4, blood pressure 146/75, mean blood pressure 98, respirations 20, O2 saturation 94%. GENERAL: Appears comfortable. NECK: Benign. Thyroid small. CHEST: Decreased breath sounds, both bases. HEART: Occasional ectopy. Distant heart sounds, S4 present. ABDOMEN: Benign. EXTREMITIES: Minimal edema. IMPRESSION: Congestive heart failure, compensating. PLAN: Continue present medications, care, and treatment; analgesics will be adjusted accordingly. /[id number] BUDDY/HERBERTH
[2017-08-22] MEDS ORDERED: Warfarin 5 MG Tab PO SCH (16:00)
[2017-08-22] MEDS: ANAKINRA 100 MG SQ SCH (20:58)
[2017-08-22] MEDS: atorvaSTATin 20 MG Tab PO SCH (21:00)
[2017-08-22] MEDS: Famotidine 20 MG Tab PO SCH (21:00)
[2017-08-23] MEDS: tiZANidine 4 MG Tab PO PRN (00:33)
[2017-08-23] MEDS: Acetaminophen 325 MG Tab PO PRN (07:40)
[2017-08-23] MEDS: Dicyclomine 10 MG Cap PO SCH ×3 (07:41→17:37)
[2017-08-23] MEDS: ClonazePAM 0.5 MG Tab PO PRN ×3 (09:16→20:58)
[2017-08-23] MEDS: SUMAtriptan 50 MG Tab PO PRN ×2 (09:17→13:24)
[2017-08-23] MEDS: Leflunomide 20 MG Tab PO SCH (09:19)
[2017-08-23] MEDS: Potassium Chloride 20 MEQ Tab.ER PO SCH ×2 (09:20→17:37)
[2017-08-23] MEDS: Docusate Sodium 100 MG Cap PO SCH ×2 (09:21→20:48)
[2017-08-23] MEDS: Propranolol 60 MG Cap.ER PO SCH (09:21)
[2017-08-23] MEDS: Hydroxychloroquine 200 MG Tab PO SCH ×2 (09:21→20:53)
[2017-08-23] MEDS: Magnesium Chloride 64 MG Tab.ER PO SCH (09:21)
[2017-08-23] MEDS: DULoxetine 60 MG Cap PO SCH (09:22)
[2017-08-23] MEDS: Furosemide 40 MG Tab PO SCH ×2 (09:22→15:41)
[2017-08-23] MEDS: predniSONE 5 MG Tab PO SCH (09:23)
[2017-08-23] MEDS: Hydrocortisone Acetate 25 MG Supp RECTAL SCH ×2 (09:23→20:55)
[2017-08-23] MEDS: Gabapentin 300 MG Cap PO SCH ×3 (09:24→20:48)
[2017-08-23] MEDS: Nystatin Topical Powder 15 GM Bottle TOP SCH ×4 (09:24→20:55)
[2017-08-23] MEDS: Cephalexin 250 MG Cap PO SCH (09:25)
[2017-08-23] MEDS: fentaNYL 50 MCG/HR Transdermal Patch TOP SCH (09:36)
--- NOTE | 2017-08-23 13:10 | PN ---
DATE SEEN: 08/23/2017 SUBJECTIVE: Abby Cheema is a 67-year-old female, admitted in swing bed. Complicated CHF, edema, and cooperative care and management. Making good strides. INR therapeutic 1.99. MEDICATIONS: Reviewed and appropriate. PHYSICAL EXAMINATION: VITAL SIGNS: Stable. 146/75, 94%, respirations 18, temperature 36.5. GENERAL: Appears comfortable. Comfortably dressed. NECK: Benign. Thyroid small. CHEST: Clear in all lung gray. HEART: Regular without ectopy or murmur. ABDOMEN: Benign. ASSESSMENT: Compensated congestive heart failure. PLAN: Continue therapy and intervention. Stay till Friday likely. /[id number] BUDDY/HERBERTH
[2017-08-23] MEDS: traMADol 50 MG Tab PO PRN ×2 (13:23→20:57)
[2017-08-23] MEDS ORDERED: Warfarin 5 MG, Warfarin 2.5 MG PO SCH ×2 (16:00)
[2017-08-23] MEDS: atorvaSTATin 20 MG Tab PO SCH (20:52)
[2017-08-23] MEDS: Famotidine 20 MG Tab PO SCH (20:54)
[2017-08-23] MEDS: ANAKINRA 100 MG SQ SCH (21:03)
[2017-08-24] MEDS: Acetaminophen 325 MG Tab PO PRN (06:20)
[2017-08-24] MEDS: Potassium Chloride 20 MEQ Tab.ER PO SCH ×2 (08:12→17:15)
[2017-08-24] MEDS: Dicyclomine 10 MG Cap PO SCH ×3 (08:12→16:41)
[2017-08-24] MEDS: Furosemide 40 MG Tab PO SCH ×2 (08:13→16:26)
[2017-08-24] MEDS: Gabapentin 300 MG Cap PO SCH ×3 (08:13→21:10)
[2017-08-24] MEDS: Magnesium Chloride 64 MG Tab.ER PO SCH (08:13)
[2017-08-24] MEDS: DULoxetine 60 MG Cap PO SCH (08:14)
[2017-08-24] MEDS: Hydroxychloroquine 200 MG Tab PO SCH ×2 (08:14→21:10)
[2017-08-24] MEDS: predniSONE 5 MG Tab PO SCH (08:14)
[2017-08-24] MEDS: Leflunomide 20 MG Tab PO SCH (08:14)
[2017-08-24] MEDS: Docusate Sodium 100 MG Cap PO SCH ×2 (08:14→21:10)
[2017-08-24] MEDS: Propranolol 60 MG Cap.ER PO SCH (08:15)
[2017-08-24] MEDS: Nystatin Topical Powder 15 GM Bottle TOP SCH ×4 (08:15→21:58)
[2017-08-24] MEDS: Cephalexin 250 MG Cap PO SCH (08:15)
[2017-08-24] MEDS: Hydrocortisone Acetate 25 MG Supp RECTAL SCH ×3 (08:16→21:10)
[2017-08-24] MEDS: ClonazePAM 0.5 MG Tab PO PRN ×3 (08:26→21:10)
[2017-08-24] MEDS: tiZANidine 4 MG Tab PO PRN ×2 (08:26→21:10)
--- NOTE | 2017-08-24 12:41 | PN ---
DATE SEEN: 08/24/2017 SUBJECTIVE: Abby Cheema is a 67-year-old female seen today for swing bed. Complicated congestive heart failure, under treatment. Plans for discharge on Friday. Better, stronger, ambulating, chest pain has been absent. Laboratory studies continue to be complementary. Pro-time 2.27. OBJECTIVE: GENERAL: Appears comfortable. NECK: Benign. No JVD. CHEST: Clear in all lung gray. Decreased breath sounds in both bases. HEART: Sounds distant without ectopy or murmur. Moderate edema. ASSESSMENT: Congestive heart failure, compensated. PLAN: Treatment and care in place. /[id number] /HERBERTH
[2017-08-24] MEDS: Calcium Carbonate 500 MG Tab.Chew PO SCH ×2 (14:29→21:10)
[2017-08-24] MEDS ORDERED: Warfarin 5 MG, Warfarin 2.5 MG PO SCH ×2 (16:00)
[2017-08-24] MEDS: traMADol 50 MG Tab PO PRN ×2 (16:23→21:10)
[2017-08-24] MEDS: ANAKINRA 100 MG SQ SCH (21:10)
[2017-08-24] MEDS: atorvaSTATin 20 MG Tab PO SCH (21:10)
[2017-08-24] MEDS: Famotidine 20 MG Tab PO SCH (21:10)
[2017-08-25] MEDS: Potassium Chloride 20 MEQ Tab.ER PO SCH ×2 (07:23→18:42)
[2017-08-25] MEDS: Dicyclomine 10 MG Cap PO SCH ×3 (07:25→18:30)
[2017-08-25] MEDS: Furosemide 40 MG Tab PO SCH ×2 (07:26→16:03)
[2017-08-25] MEDS: DULoxetine 60 MG Cap PO SCH (09:20)
[2017-08-25] MEDS: Magnesium Chloride 64 MG Tab.ER PO SCH (09:20)
[2017-08-25] MEDS: Hydroxychloroquine 200 MG Tab PO SCH ×2 (09:20→21:45)
[2017-08-25] MEDS: ClonazePAM 0.5 MG Tab PO PRN (09:20)
[2017-08-25] MEDS: predniSONE 5 MG Tab PO SCH (09:20)
[2017-08-25] MEDS: Docusate Sodium 100 MG Cap PO SCH ×2 (09:20→21:41)
[2017-08-25] MEDS: Gabapentin 300 MG Cap PO SCH ×3 (09:21→21:42)
[2017-08-25] MEDS: Propranolol 60 MG Cap.ER PO SCH (09:21)
[2017-08-25] MEDS: Leflunomide 20 MG Tab PO SCH (09:21)
[2017-08-25] MEDS: Cephalexin 250 MG Cap PO SCH (09:21)
[2017-08-25] MEDS: traMADol 50 MG Tab PO PRN ×2 (09:21→19:01)
[2017-08-25] MEDS: Nystatin Topical Powder 15 GM Bottle TOP SCH ×4 (09:22→21:43)
[2017-08-25] MEDS: Hydrocortisone Acetate 25 MG Supp RECTAL SCH ×3 (09:22→21:40)
[2017-08-25] MEDS: tiZANidine 4 MG Tab PO PRN ×2 (09:23→19:01)
[2017-08-25] MEDS: Calcium Carbonate 500 MG Tab.Chew PO SCH ×3 (11:21→21:45)
--- NOTE | 2017-08-25 11:21 | PN ---
DATE SEEN: 08/25/2017 SUBJECTIVE: Abby Cheema is a 67-year-old female seen today for review, swing bed care, CHF edema. Making good progress. Respirations have been without conflict. No recent laboratory studies. INR 2.27 complementary. OBJECTIVE: VITAL SIGNS: 107.9 kg, 36.3 degrees Fahrenheit, 130/77, and 94. GENERAL: Appears comfortable. CHEST: Decreased breath sounds at both bases. HEART: Distant heart sounds without ectopy or murmur. ABDOMEN: Benign. ASSESSMENT: Congestive heart failure, stable. PLAN: Intervention and care. Close observation. Discharge planning likely tomorrow. Home Health involved accordingly. /[id number] BUDDY/HERBERTH
[2017-08-25] MEDS: Acetaminophen 325 MG Tab PO PRN (13:55)
[2017-08-25] MEDS: SUMAtriptan 50 MG Tab PO PRN (13:58)
[2017-08-25] MEDS ORDERED: Warfarin 5 MG Tab PO SCH (16:00)
[2017-08-25] MEDS: ANAKINRA 100 MG SQ SCH (21:39)
[2017-08-25] MEDS: atorvaSTATin 20 MG Tab PO SCH (21:42)
[2017-08-25] MEDS: Famotidine 20 MG Tab PO SCH (21:43)
[2017-08-26] MEDS: Acetaminophen 325 MG Tab PO PRN (06:28)
[2017-08-26] MEDS: Dicyclomine 10 MG Cap PO SCH ×2 (06:29→11:30)
[2017-08-26] MEDS: Potassium Chloride 20 MEQ Tab.ER PO SCH (08:01)
[2017-08-26] MEDS: Furosemide 40 MG Tab PO SCH (08:01)
[2017-08-26] MEDS: Leflunomide 20 MG Tab PO SCH (09:54)
[2017-08-26] MEDS: Hydrocortisone Acetate 25 MG Supp RECTAL SCH (09:54)
[2017-08-26] MEDS: Docusate Sodium 100 MG Cap PO SCH (09:55)
[2017-08-26] MEDS: DULoxetine 60 MG Cap PO SCH (09:55)
[2017-08-26] MEDS: Propranolol 60 MG Cap.ER PO SCH (09:55)
[2017-08-26] MEDS: Cephalexin 250 MG Cap PO SCH (09:56)
[2017-08-26] MEDS: Magnesium Chloride 64 MG Tab.ER PO SCH (09:56)
[2017-08-26] MEDS: Hydroxychloroquine 200 MG Tab PO SCH (09:57)
[2017-08-26] MEDS: Nystatin Topical Powder 15 GM Bottle TOP SCH ×2 (09:57→13:56)
[2017-08-26] MEDS: Gabapentin 300 MG Cap PO SCH ×2 (09:57→13:56)
[2017-08-26] MEDS: predniSONE 5 MG Tab PO SCH (09:58)
[2017-08-26] MEDS: Calcium Carbonate 500 MG Tab.Chew PO SCH ×2 (09:58→13:56)
[2017-08-26] MEDS: fentaNYL 50 MCG/HR Transdermal Patch TOP SCH (10:03)
[2017-08-26] MEDS: ClonazePAM 0.5 MG Tab PO PRN (11:30)
[2017-08-26] MEDS: traMADol 50 MG Tab PO PRN (11:32)
[2017-08-26] MEDS: tiZANidine 4 MG Tab PO PRN (11:32)
[2017-08-26 13:09] VITALS: BP 130/80
--- NOTE | 2017-08-26 14:38 | DISCH ---
DISCHARGE DATE: 08/26/2017 HOSPITAL COURSE: Abby Cheema is a delightful 67-year-old female, swing bed admission over the course of the duration above. Complicated congestive heart failure, dyspnea, weakness, complicated respiratory underlying disease, and ejection fraction of 30%. Recent angiogram revealed no other intervention. She was admitted for rehab purposes. LABORATORY STUDIES: INR was followed, clinically stable, 2.05, 1.99, 2.27. Rehab was comfortable, OT/PT. At the time of discharge, she was comfortable with intervention and care. DISPOSITION: The patient was discharged home. Follow-up with Dr. Ramsey as appropriate. SURGICAL PROCEDURES: None. CONSULTATION: None. /[id number] BUDDY/HERBERTH
[2017-08-26] MEDS ORDERED: Warfarin 5 MG, Warfarin 2.5 MG PO SCH ×2 (16:00)
== END 2017-08-26 14:10 | disposition home or self-care (01) | DRG 947 ==
LOC: FB.MS 16:32
PROVIDERS: ADMIT Family Medicine; ATTEND Family Medicine
DX: R53.1 Weakness (principal); I50.43 Acute on chronic combined systolic (congestive) and diastolic (congestive) heart failure; I27.20 Pulmonary hypertension, unspecified; G89.4 Chronic pain syndrome; M06.9 Rheumatoid arthritis, unspecified; I11.0 Hypertensive heart disease with heart failure; H54.7 Unspecified visual loss; H53.2 Diplopia; E78.00 Pure hypercholesterolemia, unspecified; J44.9 Chronic obstructive pulmonary disease, unspecified; K58.9 Irritable bowel syndrome, unspecified; M19.90 Unspecified osteoarthritis, unspecified site; M81.0 Age-related osteoporosis without current pathological fracture; F41.9 Anxiety disorder, unspecified; F32.9 Major depressive disorder, single episode, unspecified; F41.0 Panic disorder [episodic paroxysmal anxiety]; E11.9 Type 2 diabetes mellitus without complications; E53.8 Deficiency of other specified B group vitamins; R06.00 Dyspnea, unspecified; E66.09 Other obesity due to excess calories; Z88.6 Allergy status to analgesic agent; Z88.1 Allergy status to other antibiotic agents; Z86.718 Personal history of other venous thrombosis and embolism; Z90.710 Acquired absence of both cervix and uterus; Z87.820 Personal history of traumatic brain injury; Z87.891 Personal history of nicotine dependence; Z86.711 Personal history of pulmonary embolism; Z87.442 Personal history of urinary calculi; Z88.8 Allergy status to other drugs, medicaments and biological substances; Z79.01 Long term (current) use of anticoagulants; Z79.52 Long term (current) use of systemic steroids; Z79.899 Other long term (current) drug therapy
CPT/HCPCS: 36415; 82962; 85610; 97110-GO; 97110-GP; 97116-GP; 97161-GP; 97165-GO; 97530-GO; 97535-GO; A9270-GY; J1650; J3420

== ENCOUNTER 2017-09-10 12:38 | Inpatient (IN) | payer MEDICARE, BC ==
[2017-09-10] MEDS ORDERED: Furosemide 40 MG/4 ML VIAL IVPUSH ONE ×5 (13:53→20:30)
[2017-09-10] MEDS: Sodium Chloride 0.9% 10 ML Syringe FLUSH PRN ×2 (14:06→14:18)
[2017-09-10] MEDS ORDERED: Torsemide 20 MG Tab PO ONE (16:37)
[2017-09-10] MEDS ORDERED: Potassium Chloride 20 MEQ Packet PO SCH (16:45)
[2017-09-10] MEDS ORDERED: Potassium Chloride 20 MEQ Tab.ER PO ONE (17:00)
[2017-09-10] MEDS ORDERED: Potassium Chloride 20 MEQ Packet PO ONE (17:07)
[2017-09-10] MEDS ORDERED: Ondansetron 4 MG/2 ML SDV IV PRN (18:17)
[2017-09-10] MEDS ORDERED: BENZONATATE 100 MG PO PRN (18:40)
[2017-09-10] MEDS ORDERED: Non-Formulary Medication 1 Each (Acetaminophen [Tylenol] 650 MG) PO PRN (18:40)
[2017-09-10] MEDS ORDERED: Potassium Chloride 10% 20 MEQ/15 ML Soln 15 ML UD Cup PO ONE (18:45)
[2017-09-10] MEDS ORDERED: Furosemide 40 MG/4 ML VIAL IVPUSH SCH ×3 (21:30→23:30)
[2017-09-10] MEDS: ANAKINRA 100 MG SQ SCH (21:38)
[2017-09-10] MEDS: PROPRANOLOL 60 MG PO SCH (21:38)
[2017-09-10] MEDS: AMITRIPTYLINE 100 MG PO SCH (21:38)
[2017-09-10] MEDS: GABAPENTIN 300 MG PO SCH (21:38)
[2017-09-10] MEDS: HYDROXYCHLOROQUINE 200 MG PO SCH (21:38)
[2017-09-10] MEDS: RANITIDINE 150 MG PO SCH (21:38)
[2017-09-10] MEDS: ATORVASTATIN 20 MG PO SCH (21:38)
[2017-09-10] MEDS: TIZANIDINE 2 MG PO PRN (21:39)
[2017-09-10] MEDS: traMADol 50 MG Tab PO PRN (21:47)
--- NOTE | 2017-09-11 08:31 | CR ---
INDICATION: Shortness of breath. CHEST: An AP portable upright view of the chest was obtained 09/10/2017 and compared with 12/02/2016 and 12/13/2016. The heart appeared normal in size and shape. The aorta is tortuous with minimal calcification in the arch. Somewhat hyperaerated appearing lung is noted. A definite active infiltrate or effusion was not identified. Evidence of exogenous obesity is noted. IMPRESSION: No acute process. MTDD
[2017-09-11] MEDS ORDERED: SUMAtriptan 50 MG Tab PO PRN (10:15)
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
[2017-09-11] MEDS ORDERED: fentaNYL 50 MCG/HR Transdermal Patch TRDERM SCH (10:30)
[2017-09-11] MEDS: DICYCLOMINE 20 MG PO SCH ×3 (10:47→17:50)
[2017-09-11] MEDS: GABAPENTIN 300 MG PO SCH ×3 (10:48→20:31)
[2017-09-11] MEDS: Potassium Chloride 20 MEQ Tab.ER PO SCH ×2 (10:50→20:30)
[2017-09-11] MEDS: DULoxetine 60 MG Cap *PTOM PO SCH (10:50)
[2017-09-11] MEDS: Cephalexin 250 MG Cap PO SCH (10:50)
[2017-09-11] MEDS: predniSONE 5 MG Tab PO SCH (10:50)
[2017-09-11] MEDS: Leflunomide 20 MG Tab PO SCH (10:50)
[2017-09-11] MEDS: Docusate Sodium 100 MG Cap PO SCH ×2 (10:50→20:31)
[2017-09-11] MEDS: Lisinopril 5 MG Tab PO SCH (10:51)
[2017-09-11] MEDS: Magnesium Chloride 64 MG Tab.ER *PTOM PO SCH (10:51)
[2017-09-11] MEDS: HYDROXYCHLOROQUINE 200 MG PO SCH ×2 (11:14→20:31)
[2017-09-11] MEDS: Furosemide 40 MG Tab PO SCH (14:18)
[2017-09-11] MEDS: Sodium Chloride 0.9% 10 ML Syringe FLUSH PRN (14:20)
[2017-09-11] MEDS: traMADol 50 MG Tab PO PRN ×2 (14:37→20:30)
[2017-09-11] MEDS: TIZANIDINE 2 MG PO PRN ×2 (14:40→20:32)
[2017-09-11] MEDS: Warfarin 5 MG Tab PO SCH (15:42)
[2017-09-11] MEDS: Acetaminophen 325 MG Tab PO PRN (15:47)
[2017-09-11] MEDS ORDERED: Warfarin 5 MG Tab PO SCH (16:00)
[2017-09-11] MEDS: RANITIDINE 150 MG PO SCH (20:30)
[2017-09-11] MEDS: PROPRANOLOL 60 MG PO SCH (20:30)
[2017-09-11] MEDS: AMITRIPTYLINE 100 MG PO SCH (20:31)
[2017-09-11] MEDS: ATORVASTATIN 20 MG PO SCH (20:31)
[2017-09-11] MEDS: ANAKINRA 100 MG SQ SCH (20:47)
[2017-09-11] MEDS ORDERED: predniSONE 5 MG Tab *PTOM PO SCH (21:00)
[2017-09-12] MEDS: Acetaminophen 325 MG Tab PO PRN ×2 (01:35→19:03)
[2017-09-12] MEDS: DICYCLOMINE 20 MG PO SCH ×2 (07:57→11:13)
[2017-09-12] MEDS: Furosemide 40 MG Tab PO SCH ×2 (07:58→15:54)
[2017-09-12] MEDS: Docusate Sodium 100 MG Cap PO SCH ×2 (08:00→20:07)
[2017-09-12] MEDS: Leflunomide 20 MG Tab PO SCH (08:00)
[2017-09-12] MEDS: DULoxetine 60 MG Cap *PTOM PO SCH (08:01)
[2017-09-12] MEDS: GABAPENTIN 300 MG PO SCH (08:02)
[2017-09-12] MEDS: HYDROXYCHLOROQUINE 200 MG PO SCH (08:03)
[2017-09-12] MEDS: Cephalexin 250 MG Cap PO SCH (08:05)
[2017-09-12] MEDS: Potassium Chloride 20 MEQ Tab.ER PO SCH ×2 (08:05→20:09)
[2017-09-12] MEDS: Magnesium Chloride 64 MG Tab.ER *PTOM PO SCH (08:06)
[2017-09-12] MEDS: predniSONE 5 MG Tab PO SCH (08:07)
[2017-09-12] MEDS: Lisinopril 5 MG Tab PO SCH (08:08)
[2017-09-12] MEDS: TIZANIDINE 2 MG PO PRN (08:09)
[2017-09-12] MEDS: traMADol 50 MG Tab PO PRN ×2 (08:15→21:27)
--- NOTE | 2017-09-12 10:37 | ER ---
DATE SEEN: 09/10/2017 TIME SEEN: The patient was seen at 1315 hours. HISTORY OF PRESENT ILLNESS: Abby is a 67-year-old woman who has known documented recent cardiac examination at [facility], 09/01 through 09/09. She has also been previously hospitalized at [facility] from 08/14 through 08/20 and then placed in swing bed at [facility] for 6 days after that. She then was out of the hospital for 3 days and then went back into the hospital. She lives at home. There have been persistent unsuccessful efforts to get her to go to assisted living, and she has declined this. Consequently, family has brought her frequently to the Emergency Department for frequent spells of shortness of breath that are thought to be secondary to poor self care and poor compliance. The daughter notes, for the last 2 days, she has not walked in the house. Has increasing shortness of breath. Does not have home O2. She has had cough, fever, and chills. She has had her flu shots. She has type 2 diabetes and has chronic back pain, a history of coronary artery disease, but recent angiography did not demonstrate any coronary artery disease per recent catheterization, and she had normal chest CT as well and had a significant diuresis of 4 L on 08/19/2017. She has conversion syndrome because of her unusual symptoms that occurred while she was at [facility] and continues to use Coumadin because of her heart failure and presumed coronary artery disease; however, she did not have coronary artery disease on the Angiocath that was performed from August 14 through August 20 hospitalization at [facility]. Other diagnoses; rheumatoid arthritis, chronic back pain, narcotic addiction, history of pulmonary embolism (that is the reason for the patient being on anticoagulants), pyelonephritis, recurrent falls, cognitive impairment, major depressive disorder. MEDICATIONS: 1. Lasix. 2. Amitriptyline 100 mg at bedtime. 3. Anakinra 100 mg subcu q.24 hours. 4. Atorvastatin 20 mg. 5. Temovate. 6. Keflex. 7. Cyanocobalamin. 8. Vitamin B12. 9. Dicyclomine-bentyl. 10.Dulcolax. 11.Duloxetine 60 mg. 12.Fentanyl patch (rheumatoid arthritis pain). 13.Gabapentin, (rheumatoid arthritis pain). 14.Chloroquine, (rheumatoid arthritis pain). 15.Leflunomide. 16.Magnesium chloride. 17.Potassium chloride. 18.Prednisone 5 mg daily. 19.Propranolol 60 mg daily for migraines. 20.Ranitidine 150 mg at bedtime. 21.Sumatriptan 100 mg p.r.n. migraine. 22.Tizanidine for pain 2 mg b.i.d. 23.Tramadol 50 mg t.i.d. 24.Warfarin 5 mg daily. REVIEW OF SYSTEMS: The patient has intermittent shortness of breath. She says she gets short of breath walking around. She states she has increasing shortness of breath for the last 2 days; however, she could walk 20 to 30 feet and now she is walking 10 feet. PHYSICAL EXAMINATION: VITAL SIGNS: Blood pressure 140/77, heart rate 80, respirations 24, oxygen saturation 93% on 2 L O2, and temperature 36.3 degrees centigrade. GENERAL: The patient is mildly dyspneic and breathing fast when I came in the room when I came in the room THE SAME OCCURRED. She is lying on her back and not very active. She is overweight. 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 HEENT: Pharynx without abnormality with mild glossal enlargement. Teeth with good repair. Hearing is good. PERRLA intact. LUNGS: There are coarse breath sounds and moist breath sounds that appeared on inspiration and expiration. There are soft, quiet musical wheezes. No intercostal retractions. No subcostal retraction. No suprasternal retraction. No chest wall tenderness with palpation. HEART: S1, S2. No irregular rate and rhythm. ABDOMEN: No organomegaly on examination of the abdomen. Soft. Moderate increased abdominal girth. No masses noted. Scars noted from hysterectomy, appendectomy, cholecystectomy, 3 hip surgeries on the left and 1 on the right, and lower back scars from 2 disk surgeries,and hx of cataract surgeries. EXTREMITIES: Without edema. No pain with moving the extremities. I do not see unusual thickening of the fingers or dactilitis or mp joint thickening from rheumatoid arthritis. Section Hand is slightly decreased. She has peripheral diabetic neuropathy of the lower extremities with mild pain with palpation of the stocking distribution. LABORATORY WORK: White count normal 7000, PMNs 73, lymphocytes 15, monos 9, hemoglobin 13.6. INR is 2.26, therapeutic. Venous blood gases 7.41, pCO2 42, bicarb 27, and total CO2 of 28. Complete metabolic panel: Sodium 138, potassium 4.3, chloride 98, creatinine 1.2, GFR 45, BUN 18, 29 AST, and 42 ALT. Troponin is normal. Urine drug screen is negative. ASSESSMENT: 1. The patient congestive heart failure. Per her daughter, she gained 3 1/2 pounds since she left the hospital. The musical rales suggest the same. The patient was treated for congestive heart failure with aggressive diuresis. During the ER visit, she received 80 mg of Lasix IV plus another 10 mg for a total of 100 mg IV and put out at least 1 L of fluid. Her breathing seemed to improve. She feels she is quite dyspneic when she gets up and exerts herself, goes to the bathroom, and walks 10 feet. She is mildly unsteady on her feet. EKG, no abn is noted. 2. Obesity. 3. Status post multiple surgeries. Hysterectomy, appendectomy, cholecystectomy, hip surgeries, 1 on the left and 1 on the right, 5 back surgeries, and several disks, and cataract surgery. Initially, there were plans to send the patient home, but the circumstances were such that is seemed there would be a tremendous overload to the daughter, the daughter was crying in tears, as she is afraid of what to do and how to manage her and also she was afraid that she might fall, and I concurred with the daughter. Because of her aggressive response to diuresis, it is anticipated that more aggressive Lasix diuresis - even up to 400 mg a day - might alleviate this problem, and more aggressive outpatient therapy may be needed to achieve her dry weight. Torsemide will be started, (as it is 2 times stronger than Lasix). Other diagnosis; normal left heart catheterization, normal chest x-ray, CT echo 45% ejection fraction with systolic heart failure. Door Core Assembler raised a question she may be exhibiting conversion disorder. I have discussed that several times, but at this point, I do not think she has a conversion disorder. Shortness of breath may be accentuated by anxiety. She is on anticoagulants because of multiple pulmonary emboli in the past. PLAN: The patient will be admitted, observed, aggressively diuresed, and use O2 as needed. /[id number] YOHANNES/HERBERTH MTDSofia
[2017-09-12] MEDS ORDERED: Azithromycin 500 MG Tab PO ONE (12:41)
[2017-09-12] MEDS ORDERED: Metolazone 2.5 MG Tab PO ONE (12:41)
[2017-09-12] MEDS ORDERED: ClonazePAM 0.5 MG Tab PO PRN (12:42)
--- NOTE | 2017-09-12 14:50 | PCM.PN ---
- General Info Subjective Update: Patient is a 67-year-old female currently on hospital day #3 for what was presumed to be congestive heart failure exacerbation. The patient noted 3-4 days prior to admission she started to feel unwell. She was developing shortness of breath, wheezing, nonproductive cough. Her legs seemed more swollen than usual. She had no sinus congestion or drainage. Did have low-grade fevers in the 99 range and chills. On presentation to the emergency department she had a negative flu swab and negative UA. BNP was low at 24. LFTs were within normal limits. Other labs were normal including a normal white count. Chest x-ray was unimpressive and given her edema and her history of congestive heart failure with an ejection fraction of 35-40% diagnosed about 3 months ago, the patient was admitted for diuresis. Since that time her shortness of breath is slightly improved. When she gets up and ambulates she feels less winded. She feels her edema is better. However she's continued to have subjective fevers and chills and worsening cough. Today her cough is paroxysmal, fairly dry, and she feels chills alternating with sweats. Patient's history is significant for significant polypharmacy, rheumatoid arthritis for which she is on multiple immunosuppressants including low-dose prednisone, Plaquenil, Anakinra, and arava. She has a history of recurrent UTIs for which she is on chronic Keflex therapy 250 mg by mouth daily. About a week or 2 before her symptoms started, she started on Januvia as an outpatient. Otherwise her diabetes has been typically controlled with no medications. That' s been held while she's been here in the hospital. - Patient Data Vitals - Most Recent: Last Vital Signs Temp 36.6 C 09/12/17 12:30 Pulse 96 09/12/17 12:30 Resp 16 09/12/17 12:30 BP 136/74 09/12/17 12:30 Pulse Ox 99 09/12/17 12:30 Weight - Most Recent: 105.744 kg I&O - Last 24 Hours: Intake & Output 09/11/17 09/12/17 09/12/17 22:59 06:59 14:59 Intake Total 300 Output Total 500 900 Balance -200 -900 Lab Results Last 24 Hours: Laboratory Results - last 24 hr 09/11/17 09/12/1718 Range/Units 17:47 06:25 06:25 WBC 4.5 (4.5-12.0) X10-3/uL RBC 3.86 (3.23-5.20) x10(6)uL Hgb 12.5 (11.5-15.5) g/dL Hct 36.5 (30.0-51.3) % MCV 94.7 (80-96) fL MCH 32.4 (27.7-33.6) pg MCHC 34.2 (32.2-35.4) g/dL RDW 13.6 (11.5-15.5) % Plt Count 181 (125-369) X10(3)uL MPV 9.1 (7.4-10.4) fL Neut % (Auto) 48.7 (46-82) % Lymph % (Auto) 33.8 (13-37) % Foard % (Auto) 12.8 H (4-12) % Eos % (Auto) 4 (1.0-5.0) % Baso % (Auto) 1 (0-2) % Neut # (Auto) 2.2 (1.6-8.3) # Lymph # (Auto) 1.5 (0.6-5.0) # Foard # (Auto) 0.6 (0.0-1.3) # Eos # (Auto) 0.2 (0.0-0.8) # Baso # (Auto) 0.0 (0.0-0.2) # PT 23.0 H (8.7-11.1) INR 2.24 H (0.89-1.13) Sodium (135-145) mmol/L Potassium (3.5-5.3) mmol/L Chloride (100-110) mmol/L Carbon Dioxide (21-32) mmol/L BUN (7-18) mg/dL Creatinine (0.55-1.02) mg/dL Est Cr Clr Drug Dosing mL/min Estimated GFR (MDRD) (>60) BUN/Creatinine Ratio (9-20) Glucose (80-116) mg/dL POC Glucose 157 H (80-116) mg/dL Calcium (8.6-10.2) mg/dL NT-Pro-B Natriuret Pep (<=125) pg/mL 04/20/18 04/20/18 Range/Units 06:25 06:25 WBC (4.5-12.0) X10-3/uL RBC (3.23-5.20) x10(6)uL Hgb (11.5-15.5) g/dL Hct (30.0-51.3) % MCV (80-96) fL MCH (27.7-33.6) pg MCHC (32.2-35.4) g/dL RDW (11.5-15.5) % Plt Count (125-369) X10(3)uL MPV (7.4-10.4) fL Neut % (Auto) (46-82) % Lymph % (Auto) (13-37) % Foard % (Auto) (4-12) % Eos % (Auto) (1.0-5.0) % Baso % (Auto) (0-2) % Neut # (Auto) (1.6-8.3) # Lymph # (Auto) (0.6-5.0) # Foard # (Auto) (0.0-1.3) # Eos # (Auto) (0.0-0.8) # Baso # (Auto) (0.0-0.2) # PT (8.7-11.1) INR (0.89-1.13) Sodium 136 (135-145) mmol/L Potassium 4.0 (3.5-5.3) mmol/L Chloride 99 L (100-110) mmol/L Carbon Dioxide 31 (21-32) mmol/L BUN 20 H (7-18) mg/dL Creatinine 1.1 H (0.55-1.02) mg/dL Est Cr Clr Drug Dosing 50.44 mL/min Estimated GFR (MDRD) 49 L (>60) BUN/Creatinine Ratio 18.2 (9-20) Glucose 142 H (80-116) mg/dL POC Glucose (80-116) mg/dL Calcium 9.2 (8.6-10.2) mg/dL NT-Pro-B Natriuret Pep 24 (<=125) pg/mL Med Orders - Current: Current Medications Acetaminophen (Tylenol) 650 mg PO Q4H PRN PRN Reason: Pain (Mild 1-3)/fever Last Admin: 09/12/17 01:35 Dose: 650 mg Alendronate Sodium (Fosamax) 70 mg PO Q7D [facility] Azithromycin (Zithromax) 250 mg PO DAILY [facility] Cephalexin (Keflex) 250 mg PO DAILY [facility] Last Admin: 09/12/17 08:05 Dose: 250 mg Clonazepam (Klonopin) 0.25 - 0.5 mg PO DAILY PRN PRN Reason: Anxiety Cyanocobalamin (Vitamin B12) 1,000 mcg IM Q30D [facility] Docusate Sodium (Colace) 100 mg PO DAILY [facility] Last Admin: 09/12/17 08:00 Dose: 100 mg Docusate Sodium (Colace) 200 mg PO BEDTIME [facility] Last Admin: 09/11/17 20:31 Dose: 200 mg Duloxetine HCl (Cymbalta) 60 mg PO DAILY [facility] Last Admin: 09/12/17 08:01 Dose: 60 mg Fentanyl (Duragesic) 50 mcg TRDERM Q72H [facility] Last Admin: 09/11/17 11:16 Dose: 50 mcg Furosemide (Lasix) 40 mg PO BIDDIURETIC [facility] Last Admin: 09/12/17 07:58 Dose: 40 mg Leflunomide (Arava) 20 mg PO DAILY [facility] Last Admin: 09/12/17 08:00 Dose: 20 mg Lisinopril (Prinivil) 5 mg PO DAILY [facility] Last Admin: 09/12/17 08:08 Dose: 5 mg Magnesium Chloride (Mag-64) 64 mg PO DAILY [facility] Last Admin: 09/12/17 08:06 Dose: 64 mg Amitriptyline [ Elavil] 100mg Own Med 100 mg PO BEDTIME [facility] Last Admin: 09/11/17 20:31 Dose: 100 mg Anakinra [Kineret] (100mg Own Med ) 100 mg SQ Q24H [facility] Last Admin: 09/11/17 20:47 Dose: 100 mg Atorvastatin [ Lipitor] 20mg Own Med 20 mg PO BEDTIME [facility] Last Admin: 09/11/17 20:31 Dose: 20 mg Benzonatate 100mg (Own Med ) 100 mg PO TID PRN PRN Reason: Cough Dicyclomine 20mg * (Ptom) 0 mg PO TIDAC [facility] Last Admin: 09/12/17 11:13 Dose: 20 mg Gabapentin [ Neurontin] 300mg Own Med 300 mg PO TID [facility] Last Admin: 09/12/17 08:02 Dose: 300 mg Hydroxychloroquine [ Plaquenil] 200mg Own Med 200 mg PO BID [facility] Last Admin: 09/12/17 08:03 Dose: 200 mg Propranolol La [ Inderal La] 60mg Own Med 60 mg PO BEDTIME [facility] Last Admin: 09/11/17 20:30 Dose: 60 mg Ranitidine [Zantac] (150mg Own Med ) 150 mg PO BEDTIME [facility] Last Admin: 09/11/17 20:30 Dose: 150 mg Tizanidine [Zanaflex (] 2mg Own Med ) 2 mg PO BID PRN PRN Reason: MUSCLE SPASMS Last Admin: 09/12/17 08:09 Dose: 2 mg Ondansetron HCl (Zofran) 4 mg IV Q4H PRN PRN Reason: Nausea/Vomiting Potassium Chloride (Klor-Con M20) 20 meq PO BID [facility] Last Admin: 09/12/17 08:05 Dose: 20 meq Prednisone (Prednisone) 5 mg PO DAILY [facility] Last Admin: 09/12/17 08:07 Dose: 5 mg Prednisone (Prednisone) 2.5 mg PO BEDTIME [facility] Last Admin: 09/11/17 20:30 Dose: 2.5 mg Sitagliptin Phosphate (Januvia) 100 mg PO DAILY [facility] Last Admin: 09/12/17 08:04 Dose: 100 mg Sodium Chloride (Saline Flush) 10 ml FLUSH ASDIRECTED PRN PRN Reason: IV Use Last Admin: 09/11/17 14:20 Dose: 10 ml Sumatriptan Succinate (Imitrex) 100 mg PO ASDIRECTED PRN PRN Reason: MIGRAINES Tramadol HCl (Ultram) 50 mg PO BEDTIME PRN PRN Reason: MODERATE/MOD SEVERE PAIN Last Admin: 09/11/17 20:30 Dose: 50 mg Tramadol HCl (Ultram) 50 mg PO Q8H PRN PRN Reason: Pain Last Admin: 09/12/17 08:15 Dose: 50 mg Warfarin Sodium (Coumadin) 5 mg PO DAILY@1600 [facility] Warfarin Sodium (Coumadin) 5 mg PO 1600 [facility] Last Admin: 09/11/17 15:42 Dose: 5 mg Discontinued Medications Azithromycin (Zithromax) 500 mg PO ONETIME ONE Stop: 09/12/17 12:42 Last Admin: 09/12/17 13:04 Dose: 500 mg Furosemide (Lasix) 20 mg IVPUSH NOW ONE Stop: 09/10/17 13:54 Last Admin: 09/10/17 13:59 Dose: 20 mg Furosemide (Lasix) 60 mg IVPUSH NOW ONE Stop: 09/10/17 14:13 Last Admin: 09/10/17 14:16 Dose: 60 mg Furosemide (Lasix) 80 mg IVPUSH NOW ONE Stop: 09/10/17 16:38 Last Admin: 09/10/17 16:50 Dose: 80 mg Furosemide (Lasix) 20 mg IVPUSH NOW ONE Stop: 09/10/17 19:31 Last Admin: 09/10/17 20:09 Dose: 20 mg Furosemide (Lasix) 20 mg IVPUSH NOW ONE Stop: 09/10/17 20:31 Last Admin: 09/10/17 20:09 Dose: 20 mg Furosemide (Lasix) 40 mg IVPUSH DAILY KIMMY Stop: 09/10/17 21:31 Last Admin: 09/10/17 21:48 Dose: 40 mg Furosemide (Lasix) 40 mg IVPUSH DAILY [facility] Stop: 09/10/17 23:31 Last Admin: 09/10/17 22:40 Dose: 40 mg Furosemide (Lasix) 40 mg IVPUSH DAILY [facility] Stop: 09/10/17 22:31 Last Admin: 09/11/17 00:24 Dose: 40 mg Metolazone (Zaroxolyn) 2.5 mg PO ONETIME ONE Stop: 09/12/17 12:42 Last Admin: 09/12/17 13:04 Dose: 2.5 mg Potassium Chloride (Klor-Con) 20 meq PO ASDIRECTED [facility] Potassium Chloride (Klor-Con M20) 20 meq PO ONETIME ONE Stop: 09/10/17 17:01 Last Admin: 09/10/17 17:38 Dose: Not Given Potassium Chloride (Klor-Con) 20 meq PO ASDIRECTED ONE Stop: 09/10/17 17:08 Last Admin: 09/10/17 17:38 Dose: 20 meq Potassium Chloride (Potassium Chloride Solution) 40 meq PO ONETIME ONE Stop: 09/10/17 18:46 Last Admin: 09/10/17 20:09 Dose: 40 meq Prednisone (Prednisone) 2.5 mg PO BEDTIME [facility]IMMY Last Admin: 09/10/17 21:38 Dose: 2.5 mg Torsemide (Demadex) 20 mg PO ONETIME ONE Stop: 09/10/17 16:38 Last Admin: 09/10/17 17:55 Dose: 20 mg - Exam General: Alert, Oriented, Cooperative, No Acute Distress (Frequent episodes of coughing with a dry barking cough.) HEENT: Pupils Equal, Pupils Reactive Neck: Supple Lungs: Rhonchi (Increased bronchial breath sounds with occasional rhonchi.) Cardiovascular: Regular Rate, Regular Rhythm, No Murmurs GI/Abdominal Exam: Normal Bowel Sounds, Soft, Non-Tender, No Distention Extremities: Pedal Edema (Trace) Skin: Warm, Dry, Intact Psy/Mental Status: Alert, Normal Affect, Normal Mood - Problem List & Annotations (1) CHF (congestive heart failure) SNOMED Code(s): 93005543 Code(s): I50.9 - HEART FAILURE, UNSPECIFIED Status: Acute Current Visit: No Qualifiers: Heart failure type: combined systolic and diastolic Heart failure chronicity: acute on chronic Qualified Code(s): I50.43 - Acute on chronic combined systolic (congestive) and diastolic (congestive) heart failure Annotation/Comment:: Patient appears to be responding well to diuretic therapy. She is normally on Lasix 40 mg by mouth twice a day as an outpatient which seemed to be an adequate as she came in with increased edema. I'm going to add a dose of Zaroxolyn. However, the patient's symptoms seem to be multifactorial and more suggestive of infection at this point than congestive heart failure, particularly given negative BNP. We'll repeat chest x-ray today. (2) Bronchitis SNOMED Code(s): 65029016 Code(s): J40 - BRONCHITIS, NOT SPECIFIED ACUTE OR CHRONIC Status: Acute Current Visit: Yes Annotation/Comment:: Likely viral but this patient is high risk for bacterial complications and bacterial infection. Given that her symptoms have now been persistent for greater than a week and she had some improvement with now worsening in her cough, I'm going to start her on a azithromycin for bacterial infection coverage. Low threshold for broadening to cover community-acquired pneumonia but at this point there is no evidence of infiltrate. Repeat x-ray today. (3) Anticoagulation monitoring by pharmacist SNOMED Code(s): 531253732, 973505663, 434266563 Code(s): Z79.01 - FDC (CURRENT) USE OF ANTICOAGULANTS Status: Chronic Current Visit: No Annotation/Comment:: History of PE on long-term anticoagulation. Currently therapeutic with an INR of 2.2. (4) Chronic narcotic dependence SNOMED Code(s): 15271778 Code(s): F11.20 - OPIOID DEPENDENCE, UNCOMPLICATED Status: Chronic Current Visit: No Annotation/Comment:: Continue home medications. (5) HTN (hypertension) SNOMED Code(s): 10733260 Code(s): I10 - ESSENTIAL (PRIMARY) HYPERTENSION Status: Chronic Current Visit: No Qualifiers: Hypertension type: essential hypertension Qualified Code(s): I10 - Essential (primary) hypertension Annotation/Comment:: Blood pressure is well controlled. Continue to monitor. (6) Polypharmacy SNOMED Code(s): 376702970 Code(s): Z79.899 - OTHER FDC (CURRENT) DRUG THERAPY Status: Chronic Current Visit: No Annotation/Comment:: Discussed at length with the patient. I don't see anything that I could stop here in the hospital but as an outpatient she is at very high risk for complications due to her multiple medications. Of note, she tells me that before she moved to [place], her medication list was "twice as long". (7) Rheumatoid arthritis SNOMED Code(s): 92296104 Code(s): M06.9 - RHEUMATOID ARTHRITIS, UNSPECIFIED Status: Chronic Current Visit: No Qualifiers: Rheumatoid arthritis location: unspecified site Annotation/Comment:: Patient follows with [facility]. Last visit was 12/11/2016. Per outpatient records: Dx with RA in 2001 with positive RF and CCP. Presented with symmetric synovitis over MTPs, MCPs, PIPs and wrists. Previous therapies: methotrexate (GI upset); Enbrel (not effective), Humira ( not effective), Xeljanz (during clinical study - had a severe life-threatening reaction as per patient), Actemra from 2010- Apr 2015 (stopped due to recurrent life threatening infections - septic shock with E. Coli ESBL positive; PNA, fungemia); Leflunomide Jan 2016- August 2016 (not effective). Plaquenil started on 02/05/16 + prednisone 10mg/day. Leflunomide 10mg started on 02/19/16 --> increased to 20mg in Apr 2016 with better control of synovitis, though later with worsening Flare. Methotrexate added in Jun 2016, Leflunomide stopped and Orencia started in August 2016. Admitted for urosepsis in November 2016. Restarted leflunomide 11/2016 when she stopped methotrexate due to diarrhea. Continue current meds. - Problem List Review Problem List Initiated/Reviewed/Updated: Yes - My Orders Last 24 Hours: My Active Orders 09/12/17 12:42 ClonazePAM [KlonoPIN] 0.25 - 0.5 mg PO DAILY PRN 09/12/17 14:38 Patient Status Manage Transfer [TRANSFER] Routine 09/12/17 14:43 CULTURE SPUTUM + SMEAR [RM] Routine 09/13/17 05:11 BASIC METABOLIC PANEL,BMP [CHEM] AM CBC WITH AUTO DIFF [HEME] AM 09/13/17 09:00 Azithromycin [Zithromax] 250 mg PO DAILY
[2017-09-12] MEDS: Gabapentin 300 MG Cap PO SCH ×2 (15:54→20:09)
[2017-09-12] MEDS: Warfarin 5 MG Tab PO SCH (15:55)
[2017-09-12] MEDS ORDERED: tiZANidine 4 MG Tab PO PRN (16:00)
[2017-09-12] MEDS ORDERED: Benzonatate 100 MG Cap PO PRN (16:00)
[2017-09-12] MEDS: Dicyclomine 10 MG Cap PO SCH (18:56)
[2017-09-12] MEDS: ANAKINRA 100 MG SQ SCH (20:05)
[2017-09-12] MEDS: Hydroxychloroquine 200 MG Tab PO SCH (20:10)
[2017-09-12] MEDS ORDERED: atorvaSTATin 20 MG Tab PO SCH (21:00)
[2017-09-12] MEDS ORDERED: Propranolol 60 MG Cap.ER PO SCH (21:00)
[2017-09-12] MEDS ORDERED: Famotidine 20 MG Tab PO SCH (21:00)
[2017-09-13] MEDS: Acetaminophen 325 MG Tab PO PRN (06:10)
[2017-09-13] MEDS ORDERED: Alendronate 70 MG Tab PO SCH (06:30)
[2017-09-13] MEDS: Dicyclomine 10 MG Cap PO SCH (07:51)
[2017-09-13] MEDS: Furosemide 40 MG Tab PO SCH (07:52)
[2017-09-13] MEDS: Leflunomide 20 MG Tab PO SCH (08:28)
[2017-09-13] MEDS: Lisinopril 5 MG Tab PO SCH (08:29)
[2017-09-13] MEDS: Docusate Sodium 100 MG Cap PO SCH (08:29)
[2017-09-13] MEDS: Hydroxychloroquine 200 MG Tab PO SCH (08:31)
[2017-09-13] MEDS: Gabapentin 300 MG Cap PO SCH (08:31)
[2017-09-13] MEDS: Potassium Chloride 20 MEQ Tab.ER PO SCH (08:32)
[2017-09-13] MEDS: Cephalexin 250 MG Cap PO SCH (08:34)
[2017-09-13 08:37] VITALS: BP 126/80
[2017-09-13] MEDS ORDERED: Magnesium Chloride 64 MG Tab.ER PO SCH (09:00)
[2017-09-13] MEDS ORDERED: Azithromycin 250 MG Tab PO SCH (09:00)
[2017-09-13] MEDS ORDERED: DULoxetine 60 MG Cap PO SCH (09:00)
[2017-09-13] MEDS: predniSONE 5 MG Tab PO SCH (09:24)
--- NOTE | 2017-09-13 10:39 | PCM.DCSUM1 ---
Discharge Summary - Hospital Course Free Text/Narrative:: Date of admission: 09/10/17 Date of discharge: 09/13/17 Admission diagnosis: Congestive heart failure exacerbation, acute on chronic, systolic. Discharge diagnosis: Lower respiratory bacterial infection Consults: None Procedures: CXR which showed no infiltrates, no fluid overload. History of present illness: Patient is a 67-year-old female who presented to the emergency room on the day of admission with 3-4 days of shortness of breath, wheezing, cough, swollen legs. Cough is nonproductive. She also been having "low-grade fevers" about 2 higher than her normal baseline of 97. She had no congestion, was seen in the emergency room and had a negative flu and negative UA. Labs were essentially unremarkable with the exception of a BNP of 24. She was admitted with the presumptive diagnosis of chronic systolic congestive heart failure with acute exacerbation and IV Lasix was given. Her initial hypoxia and edema seemed to improve but she continued to maintain sats at the 90% range and over the course of her hospital stay cough worsened and the decision was made to add a azithromycin for possible bacterial bronchitis coverage. Within 24 hours her hypoxia resolved, her cough significantly improved, and her dyspnea with exertion resolved. Discharge instructions: Patient will be discharged to home. She should follow up with her primary care provider next week for recheck. No changes with her medications other than the addition of azithromycin for 3 more days. Of note QTc was checked prior to initiation of azithromycin and was 430s. Patient will be discharged on home health. She had a [id number] encounter on the date of discharge and is homebound. She will continue her previous home services for medication management and disease management. - Discharge Data Discharge Date: 09/13/17 Discharge Disposition: Home, Home Health Agency 06 Condition: Good - Discharge Diagnosis/Problem(s) (1) CHF (congestive heart failure) SNOMED Code(s): 25814756 ICD Code: I50.9 - HEART FAILURE, UNSPECIFIED Status: Acute Current Visit : No Problem Details: With addition of azithromycin, the patient's hypoxia and shortness of breath completely resolved. I suspect her initial presentation was more infectious than congestive heart failure. We will discharge her on her usual home medications and follow up next week with her primary care provider. Qualifiers: Heart failure type: combined systolic and diastolic Heart failure chronicity: acute on chronic Qualified Code(s): I50.43 - Acute on chronic combined systolic (congestive) and diastolic (congestive) heart failure (2) Bronchitis SNOMED Code(s): 39532613 ICD Code: J40 - BRONCHITIS, NOT SPECIFIED ACUTE OR CHRONIC Status: Acute Current Visit: Yes Problem Details: Patient's initial viral panel came back positive for human rhinovirus. I suspect this started as a viral infection, then developed a secondary bronchial infection which was bacterial. Given her dramatic response with clearing of her rhonchi, resolution of her hypoxia, and significant improvement in her cough with the addition of azithromycin, suspect mycoplasma. Chest x-ray repeat was unchanged and showed no evidence of fluid overload. Patient will be discharged home on azithromycin to complete a 5 day course. 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 Reviewed with patient by pharmacy that is azithromycin can cause increase in warfarin activity. She'll recheck her INR on Friday and follow up with the Coumadin clinic. INR was slightly subtherapeutic at discharge at 1.7. No changes and Coumadin were made. (4) Chronic narcotic dependence SNOMED Code(s): 57790108 ICD Code: F11.20 - OPIOID DEPENDENCE, UNCOMPLICATED Status: Chronic Current Visit: No Problem Details: Continue home medications. (5) HTN (hypertension) SNOMED Code(s): 22356693 ICD Code: I10 - ESSENTIAL (PRIMARY) HYPERTENSION Status: Chronic Current Visit: No Problem Details: Blood pressure is well controlled. Continue home medication. 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 (7) Rheumatoid arthritis SNOMED Code(s): 37380064 ICD Code: M06.9 - RHEUMATOID ARTHRITIS, UNSPECIFIED Status: Chronic Current Visit: No Problem Details: Patient follows with [facility]. Last visit was 12/11/2016. Per outpatient records: Dx with RA in 2001 with positive RF and CCP. Presented with symmetric synovitis over MTPs, MCPs, PIPs and wrists. Previous therapies: methotrexate (GI upset); Enbrel (not effective), Humira (not effective), Xeljanz (during clinical study - had a severe life-threatening reaction as per patient), Actemra from 2010- Apr 2015 ( stopped due to recurrent life threatening infections - septic shock with E. Coli ESBL positive; PNA, fungemia); Leflunomide Jan 2016- August 2016 (not effective). Plaquenil started on 02/05/16 + prednisone 10mg/day. Leflunomide 10mg started on 02/19/16 --> increased to 20mg in Apr 2016 with better control of synovitis, though later with worsening Flare. Methotrexate added in Jun 2016 , Leflunomide stopped and Orencia started in August 2016. Admitted for urosepsis in November 2016. Restarted leflunomide 11/2016 when she stopped methotrexate due to diarrhea. Continue current meds. Qualifiers: Rheumatoid arthritis location: unspecified site Rheumatoid factor presence : with rheumatoid factor Qualified Code(s): M05.9 - Rheumatoid arthritis with rheumatoid factor, unspecified - Discharge Plan Prescriptions/Med Rec: Azithromycin [Zithromax] 250 mg PO DAILY #3 tablet Home Medications: Home Meds Cyanocobalamin (Vitamin B12) [Vitamin B12] 1,000 mcg IM Q30D 02/07/13 [History] SUMAtriptan 100 mg PO ASDIRECTED PRN 02/07/13 [History] Ranitidine [Zantac] 150 mg PO BEDTIME 12/01/15 [History] Alendronate [Fosamax] 70 mg PO Q7D 08/09/16 [History] Docusate Sodium 200 mg PO BEDTIME 08/09/16 [History] Amitriptyline [Elavil] 100 mg PO BEDTIME 08/19/17 [History] Anakinra [Kineret] 100 mg SQ Q24H 08/19/17 [History] Benzonatate 100 mg PO TID PRN 08/19/17 [History] Cephalexin [Keflex] 250 mg PO DAILY 08/19/17 [History] ClonazePAM [KlonoPIN] 0.25 - 0.5 mg PO TID PRN 08/19/17 [History] DULoxetine HCl [Cymbalta] 60 mg PO DAILY 08/19/17 [History] Docusate Sodium 100 mg PO DAILY 08/19/17 [History] Furosemide 40 mg PO 08,16 08/19/17 [History] Gabapentin [Neurontin] 300 mg PO TID 08/19/17 [History] Hydroxychloroquine [Plaquenil] 200 mg PO BID 08/19/17 [History] Magnesium Chloride [Mag-64] 64 mg PO DAILY 08/19/17 [History] Potassium Chloride 20 meq PO BIDMEALS 08/19/17 [History] Propranolol HCl [Inderal LA] 60 mg PO DAILY 08/19/17 [History] atorvaSTATin [Lipitor] 20 mg PO BEDTIME 08/19/17 [History] fentaNYL [Duragesic] 50 mcg TD Q72H 08/19/17 [History] hydrOXYzine Pamoate [Vistaril] 50 mg PO BID 08/19/17 [History] predniSONE [Prednisone] 2.5 mg PO BEDTIME 08/19/17 [History] predniSONE [Prednisone] 5 mg PO DAILY 08/19/17 [History] tiZANidine [Zanaflex] 2 mg PO BID PRN 08/19/17 [History] traMADol [Ultram] 50 mg PO BEDTIME PRN 08/19/17 [History] Acetaminophen [Tylenol] 650 mg PO Q4H PRN tablet 08/26/17 [Rx] Dicyclomine [Bentyl] 20 mg PO TIDAC #90 tablet 08/26/17 [Rx] Leflunomide [Arava] 20 mg PO DAILY tablet 08/26/17 [Rx] traMADol [Ultram] 50 mg PO Q8H PRN tablet 08/26/17 [Rx] Warfarin [Coumadin] 5 mg PO DAILY 09/10/17 [History] Lisinopril 5 mg PO DAILY 09/11/17 [History] SitaGLIPtin [Januvia] 100 mg PO DAILY 09/11/17 [History] Azithromycin [Zithromax] 250 mg PO DAILY #3 tablet 09/13/17 [Rx] Patient Handouts: Fall Prevention in Hospitals, Adult, Heart Failure, Deep Vein Thrombosis Forms: ED Department Discharge Referrals: Ang Ramsey MD [Primary Care Provider] - - Discharge Summary/Plan Comment DC Time >30 min.: Yes - General Info Date of Service: 09/13/17 Subjective Update: On the day of discharge: Patient was feeling much improved. Hypoxia had resolved. She was no longer short of breath with ambulation. Cough had significantly improved. Edema was resolved. No chest pain, no nausea, no vomiting, no diarrhea. - Patient Data Vitals - Most Recent: Last Vital Signs Temp 36.3 C 09/13/17 07:50 Pulse 90 09/13/17 07:50 Resp 18 09/13/17 07:50 BP 126/80 09/13/17 08:29 Pulse Ox 96 09/13/17 07:50 Weight - Most Recent: 107.139 kg I&O - Last 24 hours: Intake & Output 09/12/17 09/13/17 09/13/17 22:59 06:59 14:59 Output Total 700 1200 Balance -700 -1200 Lab Results - Last 24 hrs: Laboratory Results - last 24 hr 09/10/17 09/13/17 09/13/17 Range/Units 15:02 06:30 06:30 WBC 4.6 (4.5-12.0) X10-3/uL RBC 3.89 (3.23-5.20) x10(6)uL Hgb 12.6 (11.5-15.5) g/dL Hct 36.9 (30.0-51.3) % MCV 95.0 (80-96) fL MCH 32.4 (27.7-33.6) pg MCHC 34.1 (32.2-35.4) g/dL RDW 13.9 (11.5-15.5) % Plt Count 178 (125-369) X10(3)uL MPV 8.7 (7.4-10.4) fL Neut % (Auto) 50.6 (46-82) % Lymph % (Auto) 31.1 (13-37) % [place] % (Auto) 13.0 H (4-12) % Eos % (Auto) 4 (1.0-5.0) % Baso % (Auto) 1 (0-2) % Neut # (Auto) 2.4 (1.6-8.3) # Lymph # (Auto) 1.4 (0.6-5.0) # [place] # (Auto) 0.6 (0.0-1.3) # Eos # (Auto) 0.2 (0.0-0.8) # Baso # (Auto) 0.0 (0.0-0.2) # PT 17.4 H (8.7-11.1) INR 1.70 H (0.89-1.13) Sodium (135-145) mmol/L Potassium (3.5-5.3) mmol/L Chloride (100-110) mmol/L Carbon Dioxide (21-32) mmol/L BUN (7-18) mg/dL Creatinine (0.55-1.02) mg/dL Est Cr Clr Drug Dosing mL/min Estimated GFR (MDRD) (>60) BUN/Creatinine Ratio (9-20) Glucose (80-116) mg/dL Calcium (8.6-10.2) mg/dL Adenovirus Type C (PCR) Not detected (NOTDET) Adenovirus Type B/E Not detected (NOTDET) Human Metapneumovir PCR Not detected (NOTDET) Influenza A (H1) PCR Not detected (NOTDET) Influ A (H1N1/09) PCR Not detected (NOTDET) Influenza A (H3) PCR Not detected (NOTDET) Influenza Type A (PCR) Not detected (NOTDET) Influenza Type B (PCR) Not detected (NOTDET) Parainfluenza 1 (PCR) Not detected (NOTDET) Parainfluenza 2 (PCR) Not detected (NOTDET) Parainfluenza 3 (PCR) Not detected (NOTDET) RSV Type A (PCR) Not detected (NOTDET) RSV Type B (PCR) Not detected (NOTDET) Resp Virus Source Nasopharyngeal Resp Viral Panel Intrp Positive H (NEG) Rhinovirus (PCR) Detected H (NOTDET) 09/13/17 Range/Units 06:30 WBC (4.5-12.0) X10-3/uL RBC (3.23-5.20) x10(6)uL Hgb (11.5-15.5) g/dL Hct (30.0-51.3) % MCV (80-96) fL MCH (27.7-33.6) pg MCHC (32.2-35.4) g/dL RDW (11.5-15.5) % Plt Count (125-369) X10(3)uL MPV (7.4-10.4) fL Neut % (Auto) (46-82) % Lymph % (Auto) (13-37) % [place] % (Auto) (4-12) % Eos % (Auto) (1.0-5.0) % Baso % (Auto) (0-2) % Neut # (Auto) (1.6-8.3) # Lymph # (Auto) (0.6-5.0) # [place] # (Auto) (0.0-1.3) # Eos # (Auto) (0.0-0.8) # Baso # (Auto) (0.0-0.2) # PT (8.7-11.1) INR (0.89-1.13) Sodium 138 (135-145) mmol/L Potassium 3.2 L (3.5-5.3) mmol/L Chloride 96 L (100-110) mmol/L Carbon Dioxide 34 H (21-32) mmol/L BUN 16 (7-18) mg/dL Creatinine 1.1 H (0.55-1.02) mg/dL Est Cr Clr Drug Dosing 50.44 mL/min Estimated GFR (MDRD) 49 L (>60) BUN/Creatinine Ratio 14.5 (9-20) Glucose 139 H (80-116) mg/dL Calcium 9.0 (8.6-10.2) mg/dL Adenovirus Type C (PCR) (NOTDET) Adenovirus Type B/E (NOTDET) Human Metapneumovir PCR (NOTDET) Influenza A (H1) PCR (NOTDET) Influ A (H1N1/09) PCR (NOTDET) Influenza A (H3) PCR (NOTDET) Influenza Type A (PCR) (NOTDET) Influenza Type B (PCR) (NOTDET) Parainfluenza 1 (PCR) (NOTDET) Parainfluenza 2 (PCR) (NOTDET) Parainfluenza 3 (PCR) (NOTDET) RSV Type A (PCR) (NOTDET) RSV Type B (PCR) (NOTDET) Resp Virus Source Resp Viral Panel Intrp (NEG) Rhinovirus (PCR) (NOTDET) Med Orders - Current: Current Medications Acetaminophen (Tylenol) 650 mg PO Q4H PRN PRN Reason: Pain (Mild 1-3)/fever Last Admin: 09/13/17 06:10 Dose: 650 mg Alendronate Sodium (Fosamax) 70 mg PO Q7D [facility] Last Admin: 09/13/17 05:34 Dose: 70 mg Amitriptyline HCl (Elavil) 100 mg PO BEDTIME [facility] Last Admin: 09/12/17 20:08 Dose: 100 mg Atorvastatin Calcium (Lipitor) 20 mg PO BEDTIME [facility] Last Admin: 09/12/17 20:09 Dose: 20 mg Azithromycin (Zithromax) 250 mg PO DAILY [facility] Last Admin: 09/13/17 08:36 Dose: 250 mg Benzonatate (Tessalon Perles) 100 mg PO TID PRN PRN Reason: COUGH Cephalexin (Keflex) 250 mg PO DAILY [facility] Last Admin: 09/13/17 08:34 Dose: 250 mg Clonazepam (Klonopin) 0.25 - 0.5 mg PO DAILY PRN PRN Reason: Anxiety Cyanocobalamin (Vitamin B12) 1,000 mcg IM Q30D [facility] Dicyclomine HCl (Bentyl) 20 mg PO TIDAC [facility] Last Admin: 09/13/17 07:51 Dose: 20 mg Docusate Sodium (Colace) 100 mg PO DAILY [facility] Last Admin: 09/13/17 08:29 Dose: 100 mg Docusate Sodium (Colace) 200 mg PO BEDTIME [facility] Last Admin: 09/12/17 20:07 Dose: 200 mg Duloxetine HCl (Cymbalta) 60 mg PO DAILY [facility] Last Admin: 09/13/17 08:32 Dose: 60 mg Famotidine (Pepcid) 20 mg PO BEDTIME [facility] Last Admin: 09/12/17 20:16 Dose: 20 mg Fentanyl (Duragesic) 50 mcg TRDERM Q72H [facility] Last Admin: 09/11/17 11:16 Dose: 50 mcg Furosemide (Lasix) 40 mg PO BIDDIURETIC [facility] Last Admin: 09/13/17 07:52 Dose: 40 mg Gabapentin (Neurontin) 300 mg PO TID [facility] Last Admin: 09/13/17 08:31 Dose: 300 mg Hydroxychloroquine Sulfate (Plaquenil) 200 mg PO BID [facility] Last Admin: 09/13/17 08:31 Dose: 200 mg Leflunomide (Arava) 20 mg PO DAILY [facility] Last Admin: 09/13/17 08:28 Dose: 20 mg Lisinopril (Prinivil) 5 mg PO DAILY [facility] Last Admin: 09/13/17 08:29 Dose: 5 mg Magnesium Chloride (Mag-64) 64 mg PO DAILY [facility] Last Admin: 09/13/17 08:33 Dose: 64 mg Anakinra [Kineret] (100mg Own Med ) 100 mg SQ Q24H [facility] Last Admin: 09/12/17 20:05 Dose: 100 mg Ondansetron HCl (Zofran) 4 mg IV Q4H PRN PRN Reason: Nausea/Vomiting Potassium Chloride (Klor-Con M20) 20 meq PO BID [facility] Last Admin: 09/13/17 08:32 Dose: 20 meq Prednisone (Prednisone) 5 mg PO DAILY [facility] Last Admin: 09/13/17 09:24 Dose: 5 mg Prednisone (Prednisone) 2.5 mg PO BEDTIME [facility] Last Admin: 09/12/17 20:15 Dose: 2.5 mg Propranolol HCl (Inderal La) 60 mg PO BEDTIME [facility] Last Admin: 09/12/17 20:08 Dose: 60 mg Sitagliptin Phosphate (Januvia) 100 mg PO DAILY [facility] Last Admin: 09/13/17 08:34 Dose: 100 mg Sodium Chloride (Saline Flush) 10 ml FLUSH ASDIRECTED PRN PRN Reason: IV Use Last Admin: 09/11/17 14:20 Dose: 10 ml Sumatriptan Succinate (Imitrex) 100 mg PO ASDIRECTED PRN PRN Reason: MIGRAINES Tizanidine HCl (Zanaflex) 2 mg PO BID PRN PRN Reason: SPASMS Tramadol HCl (Ultram) 50 mg PO BEDTIME PRN PRN Reason: MODERATE/MOD SEVERE PAIN Last Admin: 09/12/17 21:27 Dose: 50 mg Tramadol HCl (Ultram) 50 mg PO Q8H PRN PRN Reason: Pain Last Admin: 09/12/17 08:15 Dose: 50 mg Warfarin Sodium (Coumadin) 5 mg PO DAILY@1600 [facility] Warfarin Sodium (Coumadin) 5 mg PO 1600 [facility] Last Admin: 09/12/17 15:55 Dose: 5 mg Discontinued Medications Azithromycin (Zithromax) 500 mg PO ONETIME ONE Stop: 09/12/17 12:42 Last Admin: 09/12/17 13:04 Dose: 500 mg Duloxetine HCl (Cymbalta) 60 mg PO DAILY [facility] Last Admin: 09/12/17 08:01 Dose: 60 mg Furosemide (Lasix) 20 mg IVPUSH NOW ONE Stop: 09/10/17 13:54 Last Admin: 09/10/17 13:59 Dose: 20 mg Furosemide (Lasix) 60 mg IVPUSH NOW ONE Stop: 09/10/17 14:13 Last Admin: 09/10/17 14:16 Dose: 60 mg Furosemide (Lasix) 80 mg IVPUSH NOW ONE Stop: 09/10/17 16:38 Last Admin: 09/10/17 16:50 Dose: 80 mg Furosemide (Lasix) 20 mg IVPUSH NOW ONE Stop: 09/10/17 19:31 Last Admin: 09/10/17 20:09 Dose: 20 mg Furosemide (Lasix) 20 mg IVPUSH NOW ONE Stop: 09/10/17 20:31 Last Admin: 09/10/17 20:09 Dose: 20 mg Furosemide (Lasix) 40 mg IVPUSH DAILY [facility] Stop: 09/10/17 21:31 Last Admin: 09/10/17 21:48 Dose: 40 mg Furosemide (Lasix) 40 mg IVPUSH DAILY [facility] Stop: 09/10/17 23:31 Last Admin: 09/10/17 22:40 Dose: 40 mg Furosemide (Lasix) 40 mg IVPUSH DAILY [facility] Stop: 09/10/17 22:31 Last Admin: 09/11/17 00:24 Dose: 40 mg Magnesium Chloride (Mag-64) 64 mg PO DAILY [facility] Last Admin: 09/12/17 08:06 Dose: 64 mg Metolazone (Zaroxolyn) 2.5 mg PO ONETIME ONE Stop: 09/12/17 12:42 Last Admin: 09/12/17 13:04 Dose: 2.5 mg Amitriptyline [ Elavil] 100mg Own Med 100 mg PO BEDTIME [facility] Last Admin: 09/11/17 20:31 Dose: 100 mg Atorvastatin [ Lipitor] 20mg Own Med 20 mg PO BEDTIME [facility] Last Admin: 09/11/17 20:31 Dose: 20 mg Benzonatate 100mg (Own Med ) 100 mg PO TID PRN PRN Reason: Cough Dicyclomine 20mg * (Ptom) 0 mg PO TIDAC [facility] Last Admin: 09/12/17 11:13 Dose: 20 mg Gabapentin [ Neurontin] 300mg Own Med 300 mg PO TID [facility] Last Admin: 09/12/17 08:02 Dose: 300 mg Hydroxychloroquine [ Plaquenil] 200mg Own Med 200 mg PO BID [facility] Last Admin: 09/12/17 08:03 Dose: 200 mg Propranolol La [ Inderal La] 60mg Own Med 60 mg PO BEDTIME [facility] Last Admin: 09/11/17 20:30 Dose: 60 mg Ranitidine [Zantac] (150mg Own Med ) 150 mg PO BEDTIME [facility] Last Admin: 09/11/17 20:30 Dose: 150 mg Tizanidine [Zanaflex (] 2mg Own Med ) 2 mg PO BID PRN PRN Reason: MUSCLE SPASMS Last Admin: 09/12/17 08:09 Dose: 2 mg Potassium Chloride (Klor-Con) 20 meq PO ASDIRECTED [facility] Potassium Chloride (Klor-Con M20) 20 meq PO ONETIME ONE Stop: 09/10/17 17:01 Last Admin: 09/10/17 17:38 Dose: Not Given Potassium Chloride (Klor-Con) 20 meq PO ASDIRECTED ONE Stop: 09/10/17 17:08 Last Admin: 09/10/17 17:38 Dose: 20 meq Potassium Chloride (Potassium Chloride Solution) 40 meq PO ONETIME ONE Stop: 09/10/17 18:46 Last Admin: 09/10/17 20:09 Dose: 40 meq Prednisone (Prednisone) 2.5 mg PO BEDTIME [facility] Last Admin: 09/10/17 21:38 Dose: 2.5 mg Prednisone (Prednisone) 2.5 mg PO BEDTIME [facility] Last Admin: 09/11/17 20:30 Dose: 2.5 mg Torsemide (Demadex) 20 mg PO ONETIME ONE Stop: 09/10/17 16:38 Last Admin: 09/10/17 17:55 Dose: 20 mg - Exam General: Reports: Alert, Oriented, Cooperative, No Acute Distress HEENT: Reports: Pupils Equal, Pupils Reactive Neck: Reports: Supple Lungs: Reports: Clear to Auscultation (Rhonchi resolved.), Normal Respiratory Effort Cardiovascular: Reports: Regular Rate, Regular Rhythm, No Murmurs GI/Abdominal Exam: Normal Bowel Sounds, Soft, Non-Tender, No Distention Back Exam: Reports: Normal Inspection Extremities: No Pedal Edema (Bruising over both legs which is chronic.)
--- NOTE | 2017-09-15 12:01 | CR ---
INDICATION: Cough. CHEST: PA and lateral views of the chest, 09/12/2017, were compared with 2017 and 12/13/2016. The heart appeared normal in size and shape. The aorta is tortuous. Fusion is noted at the thoracolumbar spine area. A definite active infiltrate or effusion was not identified, with similar markings to the previous study of 08/12/2016. However, there is at least a mild degree of bronchial wall cuffing in the lower lung gray, which may be on the basis of active peribronchial disease and should be correlated clinically. IMPRESSION: 1. No definite acute process, but cannot exclude active peribronchial disease - correlate clinically. 2. ASD aorta. 3. Mild dextroconcave scoliosis lower middle thoracic spine. MTDD
[2017-09-19] MEDS ORDERED: Cyanocobalamin (Vitamin B12) 1,000 MCG/ML SDV IM SCH (09:00)
== END 2017-09-13 11:05 | disposition home health service (06) | DRG 292 ==
LOC: FB.ED 12:38 → FB.MS 18:17 → OBSVTOIN 09-12 14:38
PROVIDERS: ADMIT Emergency Medicine; ATTEND Family Medicine
DX: I11.0 Hypertensive heart disease with heart failure (principal); F11.20 Opioid dependence, uncomplicated; I50.23 Acute on chronic systolic (congestive) heart failure; M06.9 Rheumatoid arthritis, unspecified; E11.9 Type 2 diabetes mellitus without complications; J40 Bronchitis, not specified as acute or chronic; Z86.711 Personal history of pulmonary embolism; Z86.718 Personal history of other venous thrombosis and embolism; R29.6 Repeated falls; E66.09 Other obesity due to excess calories; Z68.34 Body mass index [BMI] 34.0-34.9, adult; Z87.891 Personal history of nicotine dependence; I27.20 Pulmonary hypertension, unspecified; J45.909 Unspecified asthma, uncomplicated; R06.02 Shortness of breath; R50.9 Fever, unspecified; R60.9 Edema, unspecified; Z79.01 Long term (current) use of anticoagulants; R09.02 Hypoxemia; M54.9 Dorsalgia, unspecified; G89.29 Other chronic pain; F32.9 Major depressive disorder, single episode, unspecified; F41.9 Anxiety disorder, unspecified; E53.8 Deficiency of other specified B group vitamins; Z79.899 Other long term (current) drug therapy; Z87.440 Personal history of urinary (tract) infections; H54.7 Unspecified visual loss; Z88.5 Allergy status to narcotic agent; Z88.7 Allergy status to serum and vaccine; Z88.8 Allergy status to other drugs, medicaments and biological substances; Z79.84 Long term (current) use of oral hypoglycemic drugs; Z79.52 Long term (current) use of systemic steroids
CPT/HCPCS: 36415; 71045; 71046; 80048; 80053; 81001; 82803; 82962; 83735; 83880; 84443; 84484; 85025; 85379; 85610; 87633; 87804; 87804-59; 93005; 96374; 96376; 99284; 99285; A9270-GY; J1940; J7050

== ENCOUNTER 2017-11-05 07:32 | Emergency (ER) | payer MEDICARE, BC ==
[2017-11-05] MEDS ORDERED: HYDROmorphone 2 MG/ML SDV IM ONE (08:00)
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
[2017-11-05 10:19] VITALS: BP 119/84
--- NOTE | 2017-11-06 08:40 | CR ---
INDICATION: Fall onto outstretched left hand. LEFT WRIST: Three views of the left wrist were obtained 11/05/2017 and revealed a transverse fracture through the distal radial metaphysis with posterior offset of approximately 3 mm of the distal fracture fragment and lateral offset of the distal fracture fragment of approximately 4 mm with mild to moderate anterior angulation at the fracture site. Degenerative changes are noted of moderately severe degree at the first metacarpocarpal joint and to a mild degree at the navicular multangular joints. IMPRESSION: 1. Distal radial fracture with deformity. 2. Osteoarthritis. MTDD
== END 2017-11-05 10:11 | disposition home or self-care (01) ==
LOC: FB.ED 07:32
DX: S52.592A Other fractures of lower end of left radius, initial encounter for closed fracture (principal); I11.0 Hypertensive heart disease with heart failure; I50.9 Heart failure, unspecified; E78.00 Pure hypercholesterolemia, unspecified; J44.9 Chronic obstructive pulmonary disease, unspecified; Z79.01 Long term (current) use of anticoagulants; E11.9 Type 2 diabetes mellitus without complications; Z87.891 Personal history of nicotine dependence; Z88.8 Allergy status to other drugs, medicaments and biological substances; Z79.899 Other long term (current) drug therapy; W19.XXXA Unspecified fall, initial encounter; Z79.84 Long term (current) use of oral hypoglycemic drugs
CPT/HCPCS: 29125; 73110; 96372; 99283; J1170

== ENCOUNTER 2017-11-13 12:37 | Day surgery (SDC) | payer MEDICARE, BC, MEDICAID ==
[~2017-11-13 12:37] MED LIST: Sodium Chloride 0.9% 10 ML Syringe FLUSH PRN
[2017-11-13] MEDS ORDERED: Ondansetron 4 MG/2 ML SDV IVPUSH ONE ×2 (13:11→14:00)
[2017-11-13] MEDS ORDERED: Scopolamine 1.5 MG Transdermal Patch TRDERM ONE (13:13)
[2017-11-13] MEDS: Lactated Ringers 1,000 ML IV SCH ×2 (13:40→16:12)
[2017-11-13] MEDS: Hydrocortisone Sodium Succinate 100 MG/2 ML SDV IV ONE (13:51)
[2017-11-13] MEDS ORDERED: fentaNYL 100 MCG/2 ML SDV IV ONE (14:00)
[2017-11-13] MEDS ORDERED: Morphine 10 MG/ML SDV IVPUSH ONE (14:00)
[2017-11-13] MEDS ORDERED: HYDROmorphone 2 MG/ML SDV IV ONE (14:00)
[2017-11-13] MEDS ORDERED: Midazolam 1 MG/ML 2 ML SDV IV ONE (14:00)
[2017-11-13] MEDS ORDERED: Ketorolac 30 MG/ML SDV IVPUSH ONE (14:00)
[2017-11-13] MEDS ORDERED: Propofol 200 MG/20 ML SDV IV ONE (14:00)
[2017-11-13] MEDS ORDERED: Bupivacaine 0.5% 30 ML SDV INJECT ONE (14:28)
[2017-11-13] MEDS ORDERED: Naloxone 0.4 MG/ML SDV IVPUSH PRN (15:48)
[2017-11-13] MEDS ORDERED: traMADol 50 MG Tab PO PRN ×2 (15:48→15:52)
[2017-11-13] MEDS ORDERED: Zolpidem 5 MG Tab PO PRN (15:48)
[2017-11-13] MEDS ORDERED: Morphine 2 MG/ML Syringe IVPUSH PRN (15:48)
[2017-11-13] MEDS ORDERED: Nystatin Crm 15 GM Tube TOP PRN (15:52)
[2017-11-13] MEDS ORDERED: Benzonatate 100 MG Cap PO PRN (15:52)
[2017-11-13] MEDS ORDERED: ClonazePAM 0.5 MG Tab PO PRN (15:52)
[2017-11-13] MEDS: Furosemide 40 MG Tab PO SCH (18:46)
[2017-11-13] MEDS: Dicyclomine 10 MG Cap PO SCH (18:46)
[2017-11-13] MEDS: Potassium Chloride 20 MEQ Tab.ER *PTOM PO SCH (18:47)
[2017-11-13] MEDS: Acetaminophen/oxyCODONE 325-5 MG Tab PO PRN (19:06)
[2017-11-13] MEDS: Gabapentin 300 MG Cap *PTOM PO SCH (20:54)
[2017-11-13] MEDS: Hydroxychloroquine 200 MG Tab *PTOM PO SCH (20:55)
[2017-11-13] MEDS ORDERED: atorvaSTATin 20 MG Tab *PTOM PO SCH (21:00)
[2017-11-13] MEDS ORDERED: AMITRIPTYLINE 100 MG PO SCH (21:00)
[2017-11-13] MEDS ORDERED: Docusate Sodium 100 MG Cap PO SCH (21:00)
[2017-11-13] MEDS ORDERED: RANITIDINE 150 MG PO SCH (21:00)
[2017-11-13] MEDS ORDERED: predniSONE 5 MG Tab *PTOM PO SCH (21:00)
--- NOTE | 2017-11-13 21:38 | OR ---
DATE OF OPERATION: 11/13/2017 SURGEON: Philip Ruiz DO PREOPERATIVE DIAGNOSIS: Left distal radius fracture, intraarticular, 3-part. POSTOPERATIVE DIAGNOSIS: Left distal radius fracture, intraarticular, 3-part. PROCEDURE: Open reduction and internal fixation, left distal radius fracture. ANESTHESIA: General endotracheal intubation. FLUIDS: Lactated Ringer's solution. ESTIMATED BLOOD LOSS: 10 mL. COMPLICATIONS: None. SPECIMENS: None. DISCHARGE DISPOSITION: Stable to PACU. IMPLANT: Sinan left intermediate 11-hole plate with 2.7 nonlocking screws. HISTORY AND INDICATIONS FOR THE PROCEDURE: The patient was seen preoperatively in the clinic. Preoperative imaging confirmed the above-mentioned diagnosis. Risks and benefits of the procedure were explained to the patient. Informed consent was obtained. DETAILS OF PROCEDURE: The patient was seen preoperatively by myself and the Anesthesia staff in the preoperative holding area where the operative site was marked. She was brought to the operative suite by the Anesthesia staff where general anesthesia was administered. All extremity was found to be well padded. A well-padded tourniquet was placed on the left arm. The left upper extremity was then prepped and draped in a sterile manner. A time-out was called identifying the correct patient, the correct procedure, the correct site, and that antibiotics had been infiltrated at appropriate period of time. The left upper extremity was then exsanguinated. The tourniquet was raised to 250 mmHg. The incision was made over the flexor carpi radialis tendon from the radiocarpal joint extending approximately 10 cm proximally. The tendon was then retracted radially to protect the radial artery using Weitlaner retractors and then I went through the dorsal sheath of FCR. I then removed part of pronator and then exposed the distal radius fragment as well as the distal portion of the shaft, which was intact, with an elevator. I placed a wire through the proximal radial styloid to keep the 2 distal fragments intact. I reduced using a [place] and then copiously irrigated with saline. I then placed my plate and then drilled all my distal holes first for fixation. I then placed all the distal screws and then with traction on the arm and traction on the fingers and then using the plate avelar and manipulating the distal fragment ulnarly and distally drilled the distal screw hole because it was off the plate and using this as a reduction tool and then placed an 18 mm screw at first and then took fluoro images which showed good reduction of radial inclination, tilt. I then placed my other distal holes and then replaced that 18 with a 14 mm screw. I took final films, copiously irrigated with Betadine infused irrigation. I then let the tourniquet down and took care of a few small bleeders with the Bovie electrocautery. I then closed subcutaneously with 3-0 Vicryl and then skin sutures were 3-0 nylon horizontal interrupted mattresses. I then applied Betadine-soaked Adaptic, followed by sponges, followed by Webril, followed by a 3-inch fiberglass splint, followed by 3-inch Rojas, and then allowed it to dry. The patient was allowed to awaken from general anesthesia and then taken to the PACU in stable condition. /[id number] TAZ/HERBERTH
[2017-11-14] MEDS: Acetaminophen/oxyCODONE 325-5 MG Tab PO PRN ×2 (06:10→11:55)
[2017-11-14] MEDS: Dicyclomine 10 MG Cap PO SCH ×2 (06:40→12:03)
[2017-11-14] MEDS ORDERED: RANITIDINE 150 MG PO SCH (07:28)
[2017-11-14] MEDS ORDERED: AMITRIPTYLINE 100 MG PO SCH (07:28)
[2017-11-14] MEDS: Potassium Chloride 20 MEQ Tab.ER *PTOM PO SCH (08:02)
[2017-11-14] MEDS: Hydroxychloroquine 200 MG Tab *PTOM PO SCH (08:02)
[2017-11-14] MEDS: Furosemide 40 MG Tab PO SCH (08:04)
[2017-11-14 08:10] VITALS: BP 124/68
--- NOTE | 2017-11-14 08:27 | PCM.DCSUM1 ---
Discharge Summary - Hospital Course Diagnosis: Stroke: No - Discharge Data Discharge Date: 11/14/17 Discharge Disposition: Home, Self-Care 01 Condition: Good - Patient Summary/Data Operative Procedure(s) Performed: orif left distal radius Complications: none Consults: Consultations 11/13/17 15:49 Respiratory Care Assess and Treatment [CONS] Routine Comment: Physician Instructions: Post-Op Pneumonia Prevention - Patient Instructions Diet: Usual Diet as Tolerated Activity: Apply Ice, Elevate Extremity, Non Weight Bearing Driving: May Drive Today Showering/Bathing: May Shower Wound/Incision Care: Keep Operative Site/Wound Site Clean and Dry Notify Provider of: Fever, Increased Pain, Swelling and Redness, Drainage, Nausea and/or Vomiting - Discharge Plan Prescriptions/Med Rec: Acetaminophen/oxyCODONE [Percocet 325-5 MG] 1 tab PO Q6HR #60 tablet Home Medications: Home Meds Cyanocobalamin (Vitamin B12) [Vitamin B12] 1,000 mcg IM Q30D 02/07/13 [History] SUMAtriptan 100 mg PO ASDIRECTED PRN 02/07/13 [History] Ranitidine [Zantac] 150 mg PO BEDTIME 12/01/15 [History] Alendronate [Fosamax] 70 mg PO CARPENTER 08/09/16 [History] Docusate Sodium 200 mg PO BEDTIME 08/09/16 [History] Amitriptyline [Elavil] 100 mg PO BEDTIME 08/19/17 [History] Anakinra [Kineret] 100 mg SQ Q24H 08/19/17 [History] Benzonatate 100 mg PO TID PRN 08/19/17 [History] Cephalexin [Keflex] 250 mg PO DAILY 08/19/17 [History] ClonazePAM [KlonoPIN] 0.5 mg PO BID PRN 08/19/17 [History] DULoxetine HCl [Cymbalta] 60 mg PO DAILY 08/19/17 [History] Furosemide 40 mg PO 08,16 08/19/17 [History] Gabapentin [Neurontin] 300 mg PO TID 08/19/17 [History] Hydroxychloroquine [Plaquenil] 200 mg PO BID 08/19/17 [History] Magnesium Chloride [Mag-64] 64 mg PO DAILY 08/19/17 [History] Potassium Chloride 20 meq PO BIDMEALS 08/19/17 [History] Propranolol HCl [Inderal LA] 80 mg PO DAILY 08/19/17 [History] atorvaSTATin [Lipitor] 20 mg PO BEDTIME 08/19/17 [History] fentaNYL [Duragesic] 50 mcg TD Q72H 08/19/17 [History] hydrOXYzine Pamoate [Vistaril] 50 mg PO BID 08/19/17 [History] predniSONE [Prednisone] 2.5 mg PO BEDTIME 08/19/17 [History] predniSONE [Prednisone] 15 mg PO DAILY 08/19/17 [History] tiZANidine [Zanaflex] 2 mg PO BID PRN 08/19/17 [History] traMADol [Ultram] 50 mg PO BEDTIME PRN 08/19/17 [History] Acetaminophen [Tylenol] 650 mg PO Q4H PRN tablet 08/26/17 [Rx] Dicyclomine [Bentyl] 20 mg PO TIDAC #90 tablet 08/26/17 [Rx] Warfarin [Coumadin] 5 mg PO DAILY 09/10/17 [History] Lisinopril 5 mg PO DAILY 09/11/17 [History] Leflunomide [Arava] 20 mg SQ DAILY 11/05/17 [History] Acetaminophen/HYDROcodone [[place] 325-5 MG] 1 tab PO Q8HR PRN 11/13/17 [History] Enoxaparin Sodium [Lovenox] 100 mg SQ Q12HR 11/13/17 [History] Lactobacillus Combination No.4 [Probiotic] 1 each PO DAILY 11/13/17 [History] Nystatin [Nystatin Crm] 1 applic TOP QID PRN 11/13/17 [History] Ondansetron HCl [Zofran] 4 mg PO Q8HR PRN 11/13/17 [History] diphenhydrAMINE [Benadryl] 25 mg PO BEDTIME 11/13/17 [History] Acetaminophen/oxyCODONE [Percocet 325-5 MG] 1 tab PO Q6HR #60 tablet 11/14/17 [ Rx] - General Info Functional Status: Reports: Pain Controlled, Tolerating Diet, Urinating - Review of Systems General: Reports: No Symptoms HEENT: Reports: No Symptoms Pulmonary: Reports: No Symptoms Cardiovascular: Reports: No Symptoms Gastrointestinal: Reports: No Symptoms Genitourinary: Reports: No Symptoms Musculoskeletal: Reports: Arm Pain Skin: Reports: Bruising Neurological: Reports: No Symptoms Psychiatric: Reports: No Symptoms - Patient Data Vitals - Most Recent: Last Vital Signs Temp 98.5 F 11/14/17 06:00 Pulse 86 11/14/17 06:00 Resp 18 11/14/17 06:00 BP 124/68 11/14/17 08:08 Pulse Ox 92 L 11/14/17 06:00 Weight - Most Recent: 230 lb I&O - Last 24 hours: Intake & Output 11/13/17 11/14/17 11/14/17 22:59 06:59 14:59 Intake Total 618 Balance 618 Lab Results - Last 24 hrs: Laboratory Results - last 24 hr 11/13/17 Range/Units 14:19 POC Glucose 115 (80-116) mg/dL Med Orders - Current: Current Medications Atorvastatin Calcium (Lipitor) 20 mg PO BEDTIME [facility] Last Admin: 11/13/17 20:54 Dose: 20 mg Benzonatate (Tessalon Perles) 100 mg PO TID PRN PRN Reason: Cough Clonazepam (Klonopin) 0.5 mg PO BID PRN PRN Reason: Anxiety Last Admin: 11/14/17 06:10 Dose: 0.5 mg Dicyclomine HCl (Bentyl) 20 mg PO TIDAC [facility] Last Admin: 11/14/17 06:40 Dose: 20 mg Docusate Sodium (Colace) 200 mg PO BEDTIME [facility] Last Admin: 11/13/17 20:59 Dose: 200 mg Duloxetine HCl (Cymbalta) 60 mg PO DAILY [facility] Last Admin: 11/14/17 08:05 Dose: 60 mg Furosemide (Lasix) 40 mg PO 08,16 [facility] Last Admin: 11/14/17 08:04 Dose: 40 mg Gabapentin (Neurontin) 300 mg PO TID [facility] Last Admin: 11/13/17 20:54 Dose: 300 mg Hydroxychloroquine Sulfate (Plaquenil) 200 mg PO BID [facility] Last Admin: 11/14/17 08:02 Dose: 200 mg Lactated Ringer's (Ringers, Lactated) 1,000 mls @ 125 mls/hr IV ASDIRECTED [facility] Last Admin: 11/13/17 16:12 Dose: 125 mls/hr Lisinopril (Prinivil) 5 mg PO DAILY [facility] Last Admin: 11/14/17 08:08 Dose: 5 mg Magnesium Chloride (Mag-64) 64 mg PO DAILY [facility] Last Admin: 11/14/17 08:05 Dose: 64 mg Morphine Sulfate (Morphine) 2 mg IVPUSH Q2H PRN PRN Reason: SEVERE Pain Naloxone HCl (Narcan) 0.1 mg IVPUSH ONETIME PRN PRN Reason: Oversedation Amitriptyline 100mg (Tab *Ptom) 100 mg PO BEDTIME [facility] Ranitidine 150mg Tab (*Ptom) 150 mg PO BEDTIME [facility] Nystatin (Nystatin Crm) 0 gm TOP QID PRN PRN Reason: DIRECTED Oxycodone/Acetaminophen (Percocet 325-5 Mg) 1 tab PO Q4H PRN PRN Reason: SEVERE Pain Last Admin: 11/14/17 06:10 Dose: 1 tab Potassium Chloride (Klor-Con M20) 20 meq PO BIDMEALS [facility] Last Admin: 11/14/17 08:02 Dose: 20 meq Prednisone (Prednisone) 2.5 mg PO BEDTIME [facility] Last Admin: 11/13/17 21:00 Dose: 2.5 mg Sodium Chloride (Saline Flush) 10 ml FLUSH ASDIRECTED PRN PRN Reason: Keep Vein Open Last Admin: 11/13/17 19:23 Dose: 10 ml Tramadol HCl (Ultram) 50 mg PO Q4H PRN PRN Reason: MODERATE Pain Tramadol HCl (Ultram) 50 mg PO BEDTIME PRN PRN Reason: MODERATE/MOD SEVERE PAIN Warfarin Sodium (Coumadin) 5 mg PO DAILY@1600 [facility] Zolpidem Tartrate (Ambien) 5 mg PO BEDTIME PRN PRN Reason: Insomnia Discontinued Medications Bupivacaine HCl (Marcaine 0.5%) 10 ml INJECT .STK-MED ONE Stop: 11/13/17 14:29 Last Admin: 11/13/17 14:28 Dose: 10 ml Hydrocortisone Sodium Succinate (Solu-Cortef) 100 mg IV ONETIME ONE Stop: 11/13/17 13:10 Last Admin: 11/13/17 13:51 Dose: 100 mg Cefazolin Sodium 3 gm/ Sodium (Chloride) 100 mls @ 200 mls/hr IV ONETIME ONE Stop: 11/13/17 14:29 Last Admin: 11/13/17 13:57 Dose: 200 mls/hr Amitriptyline 100mg (Tab *Ptom) 0 mg PO BEDTIME [facility] Last Admin: 11/13/17 20:53 Dose: 100 mg Ranitidine 150mg Tab (*Ptom) 0 mg PO BEDTIME [facility] Last Admin: 11/13/17 21:00 Dose: 150 mg Ondansetron HCl (Zofran) 4 mg IVPUSH ONETIME ONE Stop: 11/13/17 13:12 Last Admin: 11/13/17 13:42 Dose: 4 mg Scopolamine (Transderm-Scop) 1.5 mg TRDERM ONETIME ONE Stop: 11/13/17 13:14 Last Admin: 11/13/17 13:30 Dose: 1.5 mg - Exam General: Reports: Alert, Oriented HEENT: Reports: Pupils Equal, Pupils Reactive, EOMI, Mucous Membr. Moist/[place] Neck: Reports: Supple, Trachea Midline Lungs: Reports: Normal Respiratory Effort Extremities: Arm Pain Skin: Reports: Warm, Dry, Intact, Ecchymosis Wound/Incisions: Reports: Healing Well, Dressing Dry and Intact Neurological: Reports: No New Focal Deficit Psy/Mental Status: Reports: Alert, Normal Affect, Normal Mood
[2017-11-14] MEDS ORDERED: Magnesium Chloride 64 MG Tab.ER PO SCH (09:00)
[2017-11-14] MEDS ORDERED: Lisinopril 5 MG Tab *PTOM PO SCH (09:00)
[2017-11-14] MEDS ORDERED: DULoxetine 60 MG Cap *PTOM PO SCH (09:00)
[2017-11-14] MEDS: Gabapentin 300 MG Cap *PTOM PO SCH (09:42)
--- NOTE | 2017-11-14 11:58 | CR ---
INDICATION: ORIF wrist fracture guidance. C-ARM FLUOROSCOPY IN OR, LESS THAN ONE HOUR: A total cumulative dose of 0.0418 mGy was utilized in guidance for ORIF of distal radial fracture site. Two images were obtained in frontal and lateral projections with the fluoroscopy unit and revealed essentially anatomic position and alignment of the distal radial fracture fragments fixed in place by a plate with [address]. No complicating process was identified. MTDD
[2017-11-14] MEDS ORDERED: Warfarin 5 MG Tab PO SCH (16:00)
== END 2017-11-14 12:05 | disposition home or self-care (01) ==
LOC: FB.SDS 12:37 → FB.MS 16:26 → FB.SDS 11-14 12:05
PROVIDERS: ATTEND Orthopaedic Surgery
DX: S52.572A Other intraarticular fracture of lower end of left radius, initial encounter for closed fracture (principal); I26.99 Other pulmonary embolism without acute cor pulmonale; K21.9 Gastro-esophageal reflux disease without esophagitis; E78.5 Hyperlipidemia, unspecified; F33.9 Major depressive disorder, recurrent, unspecified; F41.1 Generalized anxiety disorder; D51.0 Vitamin B12 deficiency anemia due to intrinsic factor deficiency; M17.11 Unilateral primary osteoarthritis, right knee; M06.9 Rheumatoid arthritis, unspecified; Z79.899 Other long term (current) drug therapy; Z88.1 Allergy status to other antibiotic agents; Z88.8 Allergy status to other drugs, medicaments and biological substances
CPT/HCPCS: 01830; 25609; 76000; 82962; A9270; J0690; J1170; J1720; J1885; J2250; J2270; J2405; J2704; J3010; J7030; J7050; J7120

== ENCOUNTER 2017-11-25 18:12 | Emergency (ER) | payer MEDICARE, BC, MEDICAID ==
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
[2017-11-25] MEDS ORDERED: LORazepam 2 MG/ML SDV IVPUSH ONE (19:44)
[2017-11-25] MEDS ORDERED: Levalbuterol HCl 0.63 MG/3 ML Neb NEB ONE (19:44)
[2017-11-25 20:47] VITALS: BP 135/74
--- NOTE | 2017-11-25 21:01 | ER ---
DATE SEEN: 11/25/2017 CHIEF COMPLAINT: Difficulty breathing. HISTORY OF PRESENT ILLNESS: This is a 67-year-old female with chronic shortness of breath. She presents with worsening symptoms, without cough, worse with ambulation. She has a history of possibly CHF or COPD that has not been differentiated. There is also a mention or entertainment of possibly restrictive airway disease versus pulmonary hypertension. She has some mild chest discomfort, but denies any fever, chills, or cough. Medications reviewed. PAST MEDICAL HISTORY: Includes anxiety, chronic pain syndrome, rheumatoid arthritis, hypertension, depression. MEDICATIONS: Please see the nurse's notes. SOCIAL HISTORY: Smokes for many years, but has not been smoking recently. She does not drink alcohol. She lives alone. PHYSICAL EXAMINATION: GENERAL: She is anxious. VITAL SIGNS: Blood pressure is 127 systolic over 69, heart rate is in the 70s and oxygenation is in between 86% and 92%. ENT: Normal. NECK: Supple. CARDIOVASCULAR: Normal. RESPIRATORY SYSTEM: Tachypnea, clear. NEUROLOGIC: Normal. MENTAL STATUS: Anxious. SKIN: No pallor or jaundice. LABORATORY DATA: Normal except D-dimer is 2.19. Troponins negative. EKG negative. Chest x-ray negative. IMPRESSION: Shortness of breath, undifferentiated. PLAN: I ordered Xopenex and lorazepam. I discussed all the possibilities. I feel that being in this situation needs further workup. I elected to send her to [facility], Dr. Munoz accepted her. /[id number] [place]/MODL
== END 2017-11-25 20:50 ==
LOC: FB.ED 18:12
DX: R06.02 Shortness of breath (principal); I10 Essential (primary) hypertension; M06.9 Rheumatoid arthritis, unspecified
CPT/HCPCS: 36415; 71045; 80048; 83605; 83880; 84484; 85025; 85379; 85610; 96374; 99285; J2060

== ENCOUNTER 2018-10-12 07:59 | Day surgery (SDC) | payer MEDICARE, BC, MEDICAID ==
[2018-10-12] MEDS ORDERED: Midazolam 1 MG/ML 2 ML SDV IV ONE (08:00)
[2018-10-12] MEDS ORDERED: Propofol 200 MG/20 ML SDV IV ONE (08:00)
[2018-10-12] MEDS ORDERED: Ketorolac 30 MG/ML SDV IVPUSH ONE (08:00)
[2018-10-12] MEDS ORDERED: fentaNYL 100 MCG/2 ML SDV IV ONE (08:00)
[2018-10-12] MEDS ORDERED: Ondansetron 4 MG/2 ML SDV IVPUSH ONE (08:00)
[2018-10-12] MEDS ORDERED: Albuterol 8 GM Inhaler INH ONE (08:00)
[2018-10-12] MEDS ORDERED: ceFAZolin 2 GM in Premix Bag 1 BAG IV ONE (08:15)
[2018-10-12] MEDS ORDERED: Lactated Ringers 1,000 ML IV SCH (08:15)
[2018-10-12] MEDS ORDERED: Sodium Chloride 0.9% 10 ML Syringe FLUSH PRN (08:45)
[2018-10-12] MEDS: Sodium Chloride 0.9% 10 ML Syringe FLUSH PRN ×2 (08:50→11:25)
[2018-10-12] MEDS ORDERED: Bupivacaine 0.5%/EPINEPHrine 1:200,000 50 ML MDV ONE (09:47)
--- NOTE | 2018-10-12 10:03 | PCM.OPNOTE ---
- General Post-Op/Procedure Note Date of Surgery/Procedure: 10/12/18 Operative Procedure(s): left wrist ganglion cyst removal Findings: left wrist ganglion cyst Pre Op Diagnosis: left wrist ganglion cyst Post-Op Diagnosis: same Anesthesia Technique: Local, MAC Primary Surgeon: Philip Ruiz Anesthesia Provider: Veda Garcia Tableau Lead: Clementine Christine Pathology: ganglion cyst EBL in mLs: 5 Condition: Good
--- NOTE | 2018-10-12 11:14 | OR ---
DATE OF OPERATION: 10/12/2018 SURGEON: Philip Ruiz DO PREOPERATIVE DIAGNOSIS: Left wrist ganglion cyst. POSTOPERATIVE DIAGNOSIS: Left wrist ganglion cyst. PROCEDURE: Left wrist ganglion cyst removal. SALESFORCE DEVELOPER: Clementine Christine NP. Nurse practitioner, Clementine Christine NP, played an essential role in assisting in this case, helping to position the patient, retract structures as needed, as well as suturing and cutting sutures as indicated. Her presence improved patient's safety and decreased operative time. ANESTHESIA: MAC, local. ESTIMATED BLOOD LOSS: Less than 5 mL. COMPLICATIONS: None. SPECIMEN: None. DISCHARGE DISPOSITION: Stable to PACU. FLUID: Lactated Ringer solution. INDICATION FOR THE PROCEDURE: The patient is well known to me. We had performed an open reduction and internal fixation of her left wrist over a year ago. She has noticed a recent ganglion, which is very painful, in the area of the snuffbox. Risks and benefits of the procedure were explained to the patient. Informed consent was obtained. DETAILS OF PROCEDURE: The patient was seen preoperatively by myself and the Anesthesia staff in the preoperative holding area, where the operative site was marked. She was brought to the operative suite by the Anesthesia staff, where conscious sedation was administered. The left upper extremity was then prepped and draped in a sterile manner. Time-out was called identifying the correct patient, the correct procedure, the correct site, and that the antibiotics had been begun within the appropriate period of time. An incision was made over the snuffbox just through the skin after infiltrating with 0.5% lidocaine with epinephrine. We used epinephrine because she was still anticoagulated. After going through the skin, I carefully dissected subcutaneously to avoid any injury to the sensory branch of the radial nerve as well as the radial artery. We did not raise the tourniquet during the case. The incision was approximately 2.5 cm long. I was able to find a ganglion, which did have a large stalk down to what I believe was the radioscaphoid joint. Through careful dissection, I was able to remove the ganglion en bloc and removed it down to its stalk. I then cauterized the area where the stalk originated and then I infiltrated again with more local anesthetic. We then closed with 3-0 nylon horizontal mattresses followed by Betadine-soaked Adaptic, followed by a sterile dressing. We did irrigate with Betadine-infused irrigation prior to the closure. The patient was then allowed to awaken from conscious sedation and then taken to the PACU in a stable condition. /[id number] BS/HERBERTH
[2018-10-12 11:56] VITALS: BP 114/72
== END 2018-10-12 11:50 | disposition home or self-care (01) ==
LOC: FB.SDS 07:59
PROVIDERS: ATTEND Orthopaedic Surgery
DX: M67.432 Ganglion, left wrist (principal); I11.0 Hypertensive heart disease with heart failure; I50.9 Heart failure, unspecified; I25.10 Atherosclerotic heart disease of native coronary artery without angina pectoris; I42.9 Cardiomyopathy, unspecified; E78.00 Pure hypercholesterolemia, unspecified; J44.9 Chronic obstructive pulmonary disease, unspecified; F41.9 Anxiety disorder, unspecified; F32.9 Major depressive disorder, single episode, unspecified; F41.1 Generalized anxiety disorder; K21.9 Gastro-esophageal reflux disease without esophagitis; G47.33 Obstructive sleep apnea (adult) (pediatric); G43.109 Migraine with aura, not intractable, without status migrainosus; M17.11 Unilateral primary osteoarthritis, right knee; M06.9 Rheumatoid arthritis, unspecified; Z88.1 Allergy status to other antibiotic agents; Z88.8 Allergy status to other drugs, medicaments and biological substances; Z99.89 Dependence on other enabling machines and devices; Z87.891 Personal history of nicotine dependence; Z86.711 Personal history of pulmonary embolism; Z79.01 Long term (current) use of anticoagulants; Z79.52 Long term (current) use of systemic steroids; Z79.84 Long term (current) use of oral hypoglycemic drugs; Z79.899 Other long term (current) drug therapy
CPT/HCPCS: 01810; 25111; 82962; A9270; J0690; J1642; J1885; J2250; J2405; J2704; J3010; J3490; J7120

== ENCOUNTER 2018-10-22 16:43 | Emergency (ER) | payer MEDICARE, BC, MEDICAID ==
[2018-10-22] MEDS ORDERED: Sodium Chloride 0.9% 10 ML Syringe FLUSH PRN (16:48)
[2018-10-22] MEDS ORDERED: Levofloxacin/Dextrose 5%-Water 750 MG in Premix Bag 1 BAG IV ONE (16:54)
[2018-10-22] MEDS ORDERED: Sodium Chloride 0.9% 1,000 ML IV SCH (17:00)
[2018-10-22] MEDS ORDERED: Ondansetron 4 MG/2 ML SDV IVPUSH ONE (17:12)
[2018-10-22] MEDS ORDERED: Promethazine 25 MG/ML SDV IM ONE (17:22)
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
[2018-10-22] MEDS ORDERED: HYDROmorphone 2 MG/ML SDV IVPUSH ONE ×3 (17:39→19:03)
[2018-10-22 18:25] VITALS: BP 108/86
[2018-10-22] MEDS ORDERED: Vancomycin 1 GM SDV ONE (19:18)
[2018-10-22] MEDS ORDERED: HYDROmorphone 2 MG/ML SDV IM ONE (20:51)
[2018-10-22] MEDS ORDERED: Ondansetron 4 MG Tab.DIS PO ONE (21:10)
[2018-10-22] MEDS ORDERED: Ondansetron 4 MG Tab.DIS ONE (21:10)
--- NOTE | 2018-10-23 06:26 | DISCH ---
DISCHARGE DATE: 10/22/2018 ADDENDUM: I saw this patient after she had seen Dr. Rubi. She had come in with abdominal pain, nausea, vomiting, and fatigue. CT has come back showing she has infiltrates in the lungs concerning for pneumonia. She also has a urine that looks dirty with several white cells and clumps of rbc's. Her vital signs at this time remained stable with an oxygenation at 93% on 2 L of nasal cannula. Due to lack of staffing, the patient had to be transferred, and I called the [facility], and they were able to accept the patient at 7:55 p.m. The patient has already received Levaquin and vancomycin, and a bolus of normal saline. FINAL IMPRESSION: 1. Community-acquired pneumonia. 2. Urinary tract infection. CURRENT PLAN: Transfer to [facility] in [place]. /[id number] BETY/HERBERTH
== END 2018-10-22 21:15 ==
LOC: FB.ED 16:43
DX: N30.00 Acute cystitis without hematuria (principal); J18.9 Pneumonia, unspecified organism; R65.10 Systemic inflammatory response syndrome (SIRS) of non-infectious origin without acute organ dysfunction; N11.1 Chronic obstructive pyelonephritis; I10 Essential (primary) hypertension; E78.00 Pure hypercholesterolemia, unspecified; F41.9 Anxiety disorder, unspecified; F32.9 Major depressive disorder, single episode, unspecified; J44.9 Chronic obstructive pulmonary disease, unspecified; Z88.8 Allergy status to other drugs, medicaments and biological substances; Z79.899 Other long term (current) drug therapy; Z88.7 Allergy status to serum and vaccine
CPT/HCPCS: 36415; 51702; 71250; 74176; 87040; 93005; 96365; 96366; 96367; 96372; 96375; 96376; 99282; A9270; J1170; J1642; J1956; J2550; J3370; J7030; J7050

== ENCOUNTER 2018-10-27 13:57 | Inpatient (IN) | payer MEDICARE, BC, MEDICAID ==
[2018-10-27] MEDS ORDERED: TOCILIZUMAB 400 MG IV SCH (16:45)
[2018-10-27] MEDS ORDERED: Lidocaine/Prilocaine 2.5-2.5% Crm 5 GM Tube TOP PRN (16:45)
[2018-10-27] MEDS ORDERED: Calcium Carbonate 500 MG Tab.Chew PO PRN (16:45)
[2018-10-27] MEDS ORDERED: Psyllium 0.52 GM Cap PO PRN ×2 (16:45)
[2018-10-27] MEDS ORDERED: SUMAtriptan 50 MG Tab PO PRN (16:45)
[2018-10-27] MEDS ORDERED: tiZANidine 4 MG Tab PO PRN (16:45)
[2018-10-27] MEDS ORDERED: Codeine/guaiFENesin 100-10 MG/5 ML Syrup 5 ML Cup PO PRN (16:45)
[2018-10-27] MEDS: Nystatin Topical Powder 15 GM Bottle TOP SCH ×2 (17:39→21:04)
[2018-10-27] MEDS: Furosemide 40 MG Tab PO SCH (17:40)
[2018-10-27] MEDS: Warfarin 5 MG Tab PO SCH (17:41)
[2018-10-27] MEDS: traMADol 50 MG Tab PO PRN (17:42)
[2018-10-27] MEDS: valACYclovir 500 MG Tab PO SCH ×2 (17:42→20:59)
[2018-10-27] MEDS: Docusate Sodium 100 MG Cap PO SCH (21:00)
[2018-10-27] MEDS: Acetaminophen 500 MG Tab PO SCH (21:01)
[2018-10-27] MEDS: Hydroxychloroquine 200 MG Tab PO SCH (21:02)
[2018-10-27] MEDS: atorvaSTATin 20 MG Tab PO SCH (21:02)
[2018-10-27] MEDS: Mirtazapine 15 MG Tab PO SCH (21:02)
[2018-10-27] MEDS: Melatonin 3 MG Tab PO SCH (21:02)
[2018-10-27] MEDS: Famotidine 20 MG Tab PO SCH (21:05)
[2018-10-27] MEDS: Amoxicillin/Clavulanate K 875-125 MG Tab PO SCH (21:06)
[2018-10-27] MEDS: ClonazePAM 0.5 MG Tab PO PRN (21:10)
[2018-10-28] MEDS: traMADol 50 MG Tab PO PRN (00:28)
[2018-10-28] MEDS ORDERED: Sodium Chloride 0.9% 10 ML Syringe FLUSH PRN (04:16)
[2018-10-28] MEDS: Sodium Chloride 0.9% 10 ML Syringe FLUSH SCH (06:00)
[2018-10-28] MEDS ORDERED: Warfarin Sliding Scale PO SCH (08:30)
[2018-10-28] MEDS: Spironolactone 25 MG Tab PO SCH (08:42)
[2018-10-28] MEDS: Gabapentin 300 MG Cap PO SCH (08:48)
[2018-10-28] MEDS: Propranolol 60 MG Cap.ER PO SCH (08:48)
[2018-10-28] MEDS: ClonazePAM 0.5 MG Tab PO PRN ×2 (08:48→21:59)
[2018-10-28] MEDS: Ondansetron 4 MG Tab.DIS PO PRN (08:48)
[2018-10-28] MEDS: DULoxetine 60 MG Cap PO SCH (08:48)
[2018-10-28] MEDS: predniSONE 1 MG Tab PO SCH (08:49)
[2018-10-28] MEDS: valACYclovir 500 MG Tab PO SCH ×3 (08:49→20:37)
[2018-10-28] MEDS: Leflunomide 20 MG Tab PO SCH (08:49)
[2018-10-28] MEDS: Folic Acid 0.8 MG Tab PO SCH (08:49)
[2018-10-28] MEDS: Amoxicillin/Clavulanate K 875-125 MG Tab PO SCH ×2 (08:49→20:33)
[2018-10-28] MEDS: Lisinopril 5 MG Tab PO SCH (08:49)
[2018-10-28] MEDS: Acetaminophen 500 MG Tab PO SCH ×2 (08:49→20:37)
[2018-10-28] MEDS: Potassium Chloride 20 MEQ Tab.ER PO SCH (08:49)
[2018-10-28] MEDS: glipiZIDE 5 MG Tab PO SCH (08:49)
[2018-10-28] MEDS: DULoxetine 30 MG Cap PO SCH (08:50)
[2018-10-28] MEDS: Furosemide 40 MG Tab PO SCH ×2 (08:50→15:18)
[2018-10-28] MEDS: Hydroxychloroquine 200 MG Tab PO SCH ×2 (08:50→20:36)
[2018-10-28] MEDS: Nystatin Topical Powder 15 GM Bottle TOP SCH ×4 (08:50→20:35)
[2018-10-28] MEDS: Acetaminophen/oxyCODONE 325-5 MG Tab PO PRN ×2 (13:20→19:55)
[2018-10-28] MEDS: Hydrocortisone 2.5% Crm 30 GM Tube TOP SCH ×2 (13:20→20:36)
--- NOTE | 2018-10-28 13:47 | CR ---
INDICATION: Followup pneumonia. CHEST: PA and lateral views of the chest, 10/28/18, were compared with and 11/25/17, again revealing a central line in adequate position. The heart remains normal in size and shape. Thoracolumbar fusion is again noted. Markings overall appear similar to the previous examination without a consolidating pneumonia or effusion identified. Degenerative disk disease is noted in the lower thoracic spine with minimal anterior compression of one lower thoracic level, unchanged from the recent examination, except that markings in the upper middle lung field on the right are less prominent than on the previous study. With a lesser inspiration, diaphragm leaves appear less prominently flattened; however, other findings suggest COPD, as previously. IMPRESSION: 1. No definite acute process. 2. Probable COPD - correlate clinically. 3. ASD aorta - mild. 4. Dextroconcave scoliosis lower thoracic spine with degenerative disk disease lower thoracic spine. MTDD
--- NOTE | 2018-10-28 14:19 | PN ---
DATE SEEN: 10/28/2018 SUBJECTIVE: Abby Cheema is a 68-year-old, female, admitted with post pneumonia, post UTI urosepsis and rehab. Doing well. Oxygen need which was concerning to begin with has been present. Comments this morning that her pain has not been well controlled, would discharge home on a Duragesic patch and one tramadol per day. During her hospital stay, she had been on some oxycodone. Spoke to post hospital narcotics and care, Dr. Ramsey to be provided. She feels cold sores have begun to erupt, requesting Abreva and Valtrex, and has noted some bright red painless bleeding per rectum, known hemorrhoids. Colonoscopy up to date. OBJECTIVE: VITAL SIGNS: 36.9, 84, 112/67, 16, and 95%. GENERAL: In good spirits. NECK: Benign. Thyroid small. CHEST: Clear left lung. Some right lower lung rhonchi. HEART: Distant heart sounds. ABDOMEN: Benign. IMPRESSION: 1. Pneumonia. 2. Urosepsis. 3. Generalized joint complaints. 4. Complicated rheumatoid arthritis. PLAN: We will add pain medications as appropriate. Continue Duragesic. Discontinue tramadol. We will add Abreva, continue Valtrex. We will get some hemorrhoidal creams. Urinalysis will be obtained for followup UTI, chest x-ray for followup pneumonia. /[id number] /HERBERTH
[2018-10-28] MEDS: Warfarin 5 MG Tab PO SCH (16:50)
[2018-10-28] MEDS: Docusate Sodium 100 MG Cap PO SCH (20:33)
[2018-10-28] MEDS: atorvaSTATin 20 MG Tab PO SCH (20:35)
[2018-10-28] MEDS: Famotidine 20 MG Tab PO SCH (20:35)
[2018-10-28] MEDS: Melatonin 3 MG Tab PO SCH (20:35)
[2018-10-28] MEDS: Mirtazapine 15 MG Tab PO SCH (20:38)
[2018-10-28] MEDS ORDERED: fentaNYL 50 MCG/HR Transdermal Patch TRDERM SCH (21:00)
[2018-10-29] MEDS: Sodium Chloride 0.9% 10 ML Syringe FLUSH SCH (05:59)
[2018-10-29] MEDS: DULoxetine 60 MG Cap PO SCH (08:21)
[2018-10-29] MEDS: Leflunomide 20 MG Tab PO SCH (08:21)
[2018-10-29] MEDS: Spironolactone 25 MG Tab PO SCH (08:21)
[2018-10-29] MEDS: Amoxicillin/Clavulanate K 875-125 MG Tab PO SCH ×2 (08:21→20:15)
[2018-10-29] MEDS: Furosemide 40 MG Tab PO SCH ×2 (08:21→16:46)
[2018-10-29] MEDS: Folic Acid 0.8 MG Tab PO SCH (08:22)
[2018-10-29] MEDS: DULoxetine 30 MG Cap PO SCH (08:22)
[2018-10-29] MEDS: glipiZIDE 5 MG Tab PO SCH (08:22)
[2018-10-29] MEDS: Lisinopril 5 MG Tab PO SCH (08:22)
[2018-10-29] MEDS: Hydroxychloroquine 200 MG Tab PO SCH ×2 (08:22→20:16)
[2018-10-29] MEDS: Potassium Chloride 20 MEQ Tab.ER PO SCH (08:22)
[2018-10-29] MEDS: Propranolol 60 MG Cap.ER PO SCH (08:22)
[2018-10-29] MEDS: predniSONE 1 MG Tab PO SCH (08:22)
[2018-10-29] MEDS: Nystatin Topical Powder 15 GM Bottle TOP SCH ×4 (08:23→20:21)
[2018-10-29] MEDS: Acetaminophen 500 MG Tab PO SCH ×2 (08:23→20:17)
[2018-10-29] MEDS: Hydrocortisone 2.5% Crm 30 GM Tube TOP SCH ×3 (08:24→20:47)
[2018-10-29] MEDS: valACYclovir 500 MG Tab PO SCH ×3 (08:24→20:18)
[2018-10-29] MEDS: ClonazePAM 0.5 MG Tab PO PRN ×2 (08:25→20:51)
[2018-10-29] MEDS: Acetaminophen/oxyCODONE 325-5 MG Tab PO PRN ×3 (08:25→20:52)
[2018-10-29] MEDS: Gabapentin 300 MG Cap PO SCH (08:29)
--- NOTE | 2018-10-29 09:34 | HP ---
ADMISSION DATE: 10/27/2018 REASON FOR VISIT: Complicated pneumonia, complicated UTI, restorative therapy. HISTORY OF PRESENT ILLNESS: Abby Cheema is a 68-year-old female, transferred to [facility] for rehab, restorative therapy. Had a recent complicated hospital stay for pneumonia and urinary sepsis at [facility]. Stay was appropriate. Transferred for intervention and care. MEDICATIONS: Please see med recon list, lengthy and well documented. ALLERGIES: Allergic to nitrofurantoin with rash, Januvia with rash, and tuberculin purified protein derivative. PAST MEDICAL HISTORY: Significant for host of complicated medical problems. Rheumatoid arthritis. Chronic pain syndrome, hyperlipidemia, treated rheumatoid arthritis, hypertension. Has had a series of complicated surgeries including hysterectomy, vaginal. Open cholecystectomy, cervical spine surgery, bilateral hip replacements, right knee arthroscopy. Clinical issues noted. 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 , two children, one son who is doctor, one daughter who is an deputy county attorney. Smoked remotely, no alcohol consumption, no illicit drug use. FAMILY HISTORY: Negative for early heart disease, diabetes mellitus, or inheritable cancers. REVIEW OF SYSTEMS: CONSTITUTIONAL: Feeling better since early stay. EYES: Sees well. EARS: Some difficulty with hearing in crowds. OROPHARYNX: Intact dentition. GI: Bowels have been fine. : Voiding comfortably, no blood in urine. CHEST: Recent respiratory pneumonia. CARDIOVASCULAR: Denies chest pain. SKIN: No open sores or lesions. ENDOCRINE: No excessive thirst or urination. ORTHOPEDIC: Generalized joint complaints. Rheumatoid arthritis. PSYCHIATRIC: Mood stable. PHYSICAL EXAMINATION: VITAL SIGNS: 36.7, 88 is the pulse, 118/74, respirations 20, O2 saturation 95% on room air. GENERAL: Elderly, cooperative, and conversant. Gives a good history. HEENT: Funduscopic benign. Bright TMs. Clear nasal discharge. Mouth and oropharynx clear. No intraoral lesions. Tongue midline. NECK: Benign. Some palpable crepitations. Reduced range of motion. Cervical scar noted. CHEST: Decreased breath sounds, right lower lobe distribution. HEART: No ectopy or murmur. Port in right upper chest wall noted. ABDOMEN: Benign. Surgical scar is well healed. Slightly rotund. No palpable masses. PELVIC AND RECTAL: Deferred. EXTREMITIES: Well perfused. Mild venous stasis changes present. PSYCHIATRIC: Mood appeared to be stable. LABORATORY STUDIES: None indicated. ASSESSMENT: 1. Rehab, cooperative care, short-term stay expected. 2. Pneumonia. 3. Urinary tract infection. PLAN: Medications on board. Treatment on board. PT involved. RT involved. Complementary care and well being. /[id number] BUDDY/HERBERTH
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
[2018-10-29] MEDS: Enoxaparin 40 MG/0.4 ML Syringe SUBCUT SCH (17:06)
[2018-10-29] MEDS: atorvaSTATin 20 MG Tab PO SCH (20:15)
[2018-10-29] MEDS: Docusate Sodium 100 MG Cap PO SCH (20:15)
[2018-10-29] MEDS: Melatonin 3 MG Tab PO SCH (20:16)
[2018-10-29] MEDS: Famotidine 20 MG Tab PO SCH (20:16)
[2018-10-29] MEDS: Mirtazapine 15 MG Tab PO SCH (20:17)
--- NOTE | 2018-10-29 21:04 | PCM.PN ---
- General Info Date of Service: 10/28/18 (late entry note) Functional Status: Reports: Pain Controlled Pain Score: 1 - Review of Systems General: Reports: No Symptoms Skin: Reports: Other Neurological: Reports: No Symptoms Psychiatric: Reports: No Symptoms - Patient Data Vitals - Most Recent: Last Vital Signs Temp 36.4 C 10/29/18 07:45 Pulse 76 10/29/18 07:45 Resp 18 10/29/18 07:45 BP 113/76 10/29/18 08:22 Pulse Ox 96 10/29/18 07:45 Weight - Most Recent: 135.171 kg Med Orders - Current: Current Medications Acetaminophen (Tylenol Extra Strength) 500 mg PO BID [facility] Last Admin: 10/29/18 20:17 Dose: 500 mg Alendronate Sodium (Fosamax) 70 mg PO CARPENTER KIMMY Amitriptyline HCl (Elavil) 100 mg PO BEDTIME [facility] Last Admin: 10/29/18 20:15 Dose: 100 mg Amoxicillin/Clavulanate Potassium (Augmentin 875 Mg/125 Mg) 1 tab PO BID [facility] Stop: 11/03/18 09:01 Last Admin: 10/29/18 20:15 Dose: 1 tab Atorvastatin Calcium (Lipitor) 20 mg PO BEDTIME [facility] Last Admin: 10/29/18 20:15 Dose: 20 mg Calcium Carbonate/Glycine (Tums) 500 mg PO ASDIRECTED PRN PRN Reason: Heartburn Clonazepam (Klonopin) 0.5 mg PO BID PRN PRN Reason: Anxiety Last Admin: 10/29/18 20:51 Dose: 0.5 mg Cyanocobalamin (Vitamin B12) 1,000 mcg IM ONETIME ONE Stop: 11/01/18 12:01 Docusate Sodium (Colace) 200 mg PO BEDTIME [facility] Last Admin: 10/29/18 20:15 Dose: 200 mg Duloxetine HCl (Cymbalta) 30 mg PO DAILY [facility] Last Admin: 10/29/18 08:22 Dose: 30 mg Duloxetine HCl (Cymbalta) 60 mg PO DAILY [facility] Last Admin: 10/29/18 08:21 Dose: 60 mg Enoxaparin Sodium (Lovenox) 40 mg SUBCUT Q24H KIMMY Stop: 10/30/18 17:01 Last Admin: 10/29/18 17:06 Dose: 40 mg Famotidine (Pepcid) 20 mg PO BEDTIME [facility] Last Admin: 10/29/18 20:16 Dose: 20 mg Fentanyl (Duragesic) 50 mcg TRDERM Q72H [facility] Last Admin: 10/28/18 20:45 Dose: 50 mcg Folic Acid (Folic Acid) 0.8 mg PO DAILY [facility] Last Admin: 10/29/18 08:22 Dose: 0.8 mg Furosemide (Lasix) 40 mg PO 08,16 [facility] Last Admin: 10/29/18 16:46 Dose: 40 mg Gabapentin (Neurontin) 300 mg PO DAILY [facility] Last Admin: 10/29/18 08:29 Dose: 300 mg Glipizide (Glucotrol) 2.5 mg PO DAILY [facility] Last Admin: 10/29/18 08:22 Dose: 2.5 mg Guaifenesin/Codeine Phosphate (Robitussin Ac) 10 ml PO Q4H PRN PRN Reason: Cough Heparin Sodium (Porcine) (Heparin Lock Flush 100 Units/Ml) 500 units FLUSH [facility] Last Admin: 10/28/18 06:00 Dose: 500 units Heparin Sodium (Porcine) (Heparin Lock Flush 100 Units/Ml) 500 units FLUSH ASDIRECTED PRN PRN Reason: Keep Vein Open Hydrocortisone (Proctozone-Hc 2.5% Crm) 3 gm TOP TID [facility] Last Admin: 10/29/18 20:47 Dose: 1 applic Hydroxychloroquine Sulfate (Plaquenil) 200 mg PO BID [facility] Last Admin: 10/29/18 20:16 Dose: 200 mg Hydroxyzine Pamoate (Vistaril) 50 mg PO BID [facility] Last Admin: 10/29/18 20:18 Dose: 50 mg Leflunomide (Arava) 20 mg PO DAILY [facility] Last Admin: 10/29/18 08:21 Dose: 20 mg Lidocaine/Prilocaine (Emla Crm) 0 gm TOP ASDIRECTED PRN PRN Reason: Pain FROM PORT DRAW Last Admin: 10/28/18 05:14 Dose: 1 applic Lisinopril (Prinivil) 5 mg PO DAILY [facility] Last Admin: 10/29/18 08:22 Dose: 5 mg Melatonin (Melatonin) 3 mg PO BEDTIME [facility] Last Admin: 10/29/18 20:16 Dose: 3 mg Mirtazapine (Remeron) 15 mg PO BEDTIME [facility] Last Admin: 10/29/18 20:17 Dose: 15 mg Non-Formulary Medication (Tocilizumab [Actemra]) 400 mg IV Q30D [facility] Nystatin (Nystop) 0 gm TOP QID [facility] Last Admin: 10/29/18 20:21 Dose: Not Given Ondansetron HCl (Zofran Odt) 4 mg PO Q8H PRN PRN Reason: Nausea Last Admin: 10/28/18 08:48 Dose: 4 mg Oxycodone/Acetaminophen (Percocet 325-5 Mg) 1 tab PO Q6H PRN PRN Reason: JOINT PAIN Last Admin: 10/29/18 20:52 Dose: 1 tab Polyethylene Glycol (Miralax) 238 gm PO ONETIME ONE Stop: 10/30/18 15:01 Potassium Chloride (Klor-Con M20) 20 meq PO DAILY [facility] Last Admin: 10/29/18 08:22 Dose: 20 meq Prednisone (Prednisone) 4 mg PO DAILY [facility] Last Admin: 10/29/18 08:22 Dose: 4 mg Propranolol HCl (Inderal La) 120 mg PO DAILY [facility] Last Admin: 10/29/18 08:22 Dose: 120 mg Psyllium Hydrophilic Mucilloid (Metamucil) 0.52 gm PO DAILY PRN PRN Reason: Constipation Psyllium Hydrophilic Mucilloid (Metamucil) 1.04 gm PO BEDTIME PRN PRN Reason: Constipation Sodium Chloride (Saline Flush) 10 ml FLUSH 0600 [facility] Last Admin: 10/29/18 05:59 Dose: 10 ml Sodium Chloride (Saline Flush) 10 ml FLUSH ASDIRECTED PRN PRN Reason: keep vein open Spironolactone (Aldactone) 12.5 mg PO DAILY [facility] Last Admin: 10/29/18 08:21 Dose: 12.5 mg Sumatriptan Succinate (Imitrex) 100 mg PO ASDIRECTED PRN PRN Reason: migraines Last Admin: 10/28/18 08:47 Dose: 100 mg Valacyclovir HCl (Valtrex) 500 mg PO TID [facility] Stop: 11/03/18 09:01 Last Admin: 10/29/18 20:18 Dose: 500 mg Warfarin Sodium (Coumadin) 5 mg PO 1600 [facility] Last Admin: 10/28/18 16:50 Dose: 5 mg Warfarin Sodium (Coumadin Sliding Scale) 1 each PO ASDIRECTED KIMMY Discontinued Medications Heparin Sodium (Porcine) (Heparin Lock Flush 100 Units/Ml) Confirm Administered Dose 500 units .ROUTE .STK-MED ONE Stop: 10/28/18 05:18 Last Admin: 10/28/18 06:40 Dose: Not Given Tizanidine HCl (Zanaflex) 2 mg PO BID PRN PRN Reason: MUSCLE SPASMS Tramadol HCl (Ultram) 50 mg PO DAILY PRN PRN Reason: Pain Last Admin: 10/28/18 00:28 Dose: 50 mg - Exam General: Alert, Oriented HEENT: No: Pupils Equal, Pupils Reactive Lungs: Normal Respiratory Effort Cardiovascular: Regular Rate, Regular Rhythm Extremities: Normal Range of Motion, Normal Capillary Refill, Other (bump under healing surgical incision, fluctuant, soft and non-tender). No: Non-Tender Peripheral Pulses: 2+: Radial (L), Radial (R) Skin: Warm, Dry, Other (surgical incision is healing and has no erythema or drainage and is non-tender.) Wound/Incisions: Healing Well, No Drainage Neurological: No New Focal Deficit, Normal Speech, Strength Equal Bilateral, Sensation Intact Psy/Mental Status: Alert, Normal Affect, Normal Mood - Problem List & Annotations (1) S/P wrist surgery SNOMED Code(s): 615545400, 93653016, 534141215 Code(s): Z98.890 - OTHER SPECIFIED POSTPROCEDURAL STATES Status: Acute Current Visit: Yes - Problem List Review Problem List Initiated/Reviewed/Updated: Yes - Plan Plan:: Came to see patient for ortho follow-up after surgical ganglion removal [address] Ruiz here at [facility]. Wrist looks good and there is no sign of infection at the surgical site. Patient is being treated for UTI and pneumonia currently by hospitalist and is doing well. Sutures removed today and steri- strips placed by me. Please leave steri-strips in place for at least 3 days if possible. Advised Physical Therapy/Occupational Therapy that she is doing well and they will evaluate her wrist prior to discharge. Orthopedic service signing off on this patient at this time and she is to follow-up with Ortho at her next scheduled appointment after discharge. Patient verbalized understanding of this plan.
[2018-10-30] MEDS: Acetaminophen/oxyCODONE 325-5 MG Tab PO PRN ×2 (06:08→19:21)
[2018-10-30] MEDS: Sodium Chloride 0.9% 10 ML Syringe FLUSH SCH (06:21)
[2018-10-30] MEDS: Furosemide 40 MG Tab PO SCH ×2 (09:27→17:11)
[2018-10-30] MEDS: predniSONE 1 MG Tab PO SCH (09:27)
[2018-10-30] MEDS: Spironolactone 25 MG Tab PO SCH (09:27)
[2018-10-30] MEDS: Gabapentin 300 MG Cap PO SCH (09:28)
[2018-10-30] MEDS: glipiZIDE 5 MG Tab PO SCH (09:28)
[2018-10-30] MEDS: DULoxetine 60 MG Cap PO SCH (09:28)
[2018-10-30] MEDS: Nystatin Topical Powder 15 GM Bottle TOP SCH ×4 (09:28→20:04)
[2018-10-30] MEDS: DULoxetine 30 MG Cap PO SCH (09:28)
[2018-10-30] MEDS: valACYclovir 500 MG Tab PO SCH ×3 (09:28→20:06)
[2018-10-30] MEDS: Propranolol 60 MG Cap.ER PO SCH (09:28)
[2018-10-30] MEDS: Potassium Chloride 20 MEQ Tab.ER PO SCH (09:28)
[2018-10-30] MEDS: Acetaminophen 500 MG Tab PO SCH ×2 (09:29→20:05)
[2018-10-30] MEDS: Lisinopril 5 MG Tab PO SCH (09:29)
[2018-10-30] MEDS: Amoxicillin/Clavulanate K 875-125 MG Tab PO SCH ×2 (09:29→20:02)
[2018-10-30] MEDS: Folic Acid 0.8 MG Tab PO SCH (09:29)
[2018-10-30] MEDS: Leflunomide 20 MG Tab PO SCH (09:29)
[2018-10-30] MEDS: Hydrocortisone 2.5% Crm 30 GM Tube TOP SCH ×3 (09:29→20:05)
[2018-10-30] MEDS: Hydroxychloroquine 200 MG Tab PO SCH ×2 (11:00→20:04)
[2018-10-30] MEDS: Ondansetron 4 MG Tab.DIS PO PRN (11:55)
--- NOTE | 2018-10-30 13:55 | DISCH ---
DISCHARGE DATE: 10/30/2018 HISTORY: Abby Cheema is a 68-year-old, female, admitted for post care hospitalization pneumonia and pyelonephritis. Thoughts of care were greater than planned. Please see history and physical. O2 was not required, saturations were satisfactory. She was ambulated. PT/OT saw her and did well. Did have some episodes of rectal bleeding on 10/28/2018 and 10/29/2018. No external hemorrhoids on review. Consultation to surgery has been planned for today. Otherwise doing well. Duration of antibiotics are planned, duration and followup appointments as needed. PHYSICAL EXAMINATION: VITAL SIGNS: 36.4, 76, 113/79, 18, and 96%. GENERAL: Appears comfortable. Speech was fluent. NECK: Benign. CHEST: Clear in all lung gray. HEART: No ectopy or murmur. ABDOMEN: Benign. IMAGING DATA: X-ray followup on 10/28/2018 revealed relatively clear lung sounds. Followup urinalysis normal other than hematuria, rectal bleeding noted. SURGICAL PROCEDURES: Dr. Flynn. CONSULTATIONS: Per Dr. Flynn. UPCOMING APPOINTMENTS: Planned. /[id number] /[place]
[2018-10-30] MEDS ORDERED: Polyethylene Glycol 3350 Powder 238 GM Bot PO ONE (15:00)
[2018-10-30] MEDS: Enoxaparin 40 MG/0.4 ML Syringe SUBCUT SCH (17:29)
[2018-10-30] MEDS: atorvaSTATin 20 MG Tab PO SCH (20:03)
[2018-10-30] MEDS: Docusate Sodium 100 MG Cap PO SCH (20:03)
[2018-10-30] MEDS: Melatonin 3 MG Tab PO SCH (20:03)
[2018-10-30] MEDS: Famotidine 20 MG Tab PO SCH (20:04)
[2018-10-30] MEDS: Mirtazapine 15 MG Tab PO SCH (20:05)
[2018-10-31] MEDS: ClonazePAM 0.5 MG Tab PO PRN (02:32)
[2018-10-31] MEDS: Acetaminophen/oxyCODONE 325-5 MG Tab PO PRN ×2 (02:32→09:53)
[2018-10-31 06:02] VITALS: BP 111/65
[2018-10-31] MEDS: Sodium Chloride 0.9% 10 ML Syringe FLUSH SCH (06:23)
--- NOTE | 2018-10-31 09:02 | PCM.OPNOTE ---
- General Post-Op/Procedure Note Date of Surgery/Procedure: 10/31/18 Operative Procedure(s): c scope Findings: internal hemorrhoids Pre Op Diagnosis: hematochezia Post-Op Diagnosis: Internal hemorrhoids Anesthesia Technique: MAC (s) Primary Surgeon: Saulo Flynn Anesthesia Provider: Kailee Hawk Pathology: none Complications: None Condition: Good Free Text/Narrative:: see dictation.
--- NOTE | 2018-10-31 09:03 | PCM.SN ---
- Free Text/Narrative Note: From surgical perspective pt can go home. would have follow up with an [facility] surgeon to address hemorrhoids.
--- NOTE | 2018-10-31 09:28 | OR ---
DATE OF OPERATION: 10/31/2018 SURGEON: Saulo Flynn MD PROCEDURE PERFORMED: Colonoscopy. PREOPERATIVE DIAGNOSIS: Hematochezia. POSTOPERATIVE DIAGNOSIS: Internal hemorrhoids. INDICATIONS FOR PROCEDURE: This is a 68-year-old white female who has a history of colitis. Has been noting some bright red blood per rectum. She was offered and accepted colonoscopy. DESCRIPTION OF PROCEDURE: After an excellent IV sedation was administered, digital rectal exam was performed. No marked abnormality was noted. Flexible colonoscope was inserted and advanced to the cecum. The prep was marginal. There were frequent areas that we had to irrigate, but we did get an adequate exam of the colon. The following findings were noted. Ascending colon, unremarkable. Transverse colon, unremarkable. Descending colon, unremarkable. Sigmoid and rectum, unremarkable. On retroflexing the scope, there was evidence of what appears to be grade 2 hemorrhoids. No active bleeding was noted. The patient tolerated the procedure well and was returned to her room. /[id number] /[facility]
[2018-10-31] MEDS: Potassium Chloride 20 MEQ Tab.ER PO SCH (09:39)
[2018-10-31] MEDS: Gabapentin 300 MG Cap PO SCH (09:39)
[2018-10-31] MEDS: glipiZIDE 5 MG Tab PO SCH (09:40)
[2018-10-31] MEDS: Acetaminophen 500 MG Tab PO SCH (09:41)
[2018-10-31] MEDS: Folic Acid 0.8 MG Tab PO SCH (09:41)
[2018-10-31] MEDS: Hydroxychloroquine 200 MG Tab PO SCH (09:41)
[2018-10-31] MEDS: DULoxetine 60 MG Cap PO SCH (09:41)
[2018-10-31] MEDS: Furosemide 40 MG Tab PO SCH (09:41)
[2018-10-31] MEDS: DULoxetine 30 MG Cap PO SCH (09:41)
[2018-10-31] MEDS: Amoxicillin/Clavulanate K 875-125 MG Tab PO SCH (09:42)
[2018-10-31] MEDS: valACYclovir 500 MG Tab PO SCH (09:42)
[2018-10-31] MEDS: Leflunomide 20 MG Tab PO SCH (09:42)
[2018-10-31] MEDS: predniSONE 1 MG Tab PO SCH (09:42)
[2018-10-31] MEDS: Propranolol 60 MG Cap.ER PO SCH (09:43)
[2018-10-31] MEDS: Hydrocortisone 2.5% Crm 30 GM Tube TOP SCH (09:43)
[2018-10-31] MEDS: Spironolactone 25 MG Tab PO SCH (09:46)
[2018-10-31] MEDS: Nystatin Topical Powder 15 GM Bottle TOP SCH (09:49)
--- NOTE | 2018-10-31 09:57 | PCM.SN ---
- Free Text/Narrative Note: Sees go showed no active bleeding but she has internal hemorrhoids. Patient will be discharged today. Recommended Lovenox but she does not want to do it because of cost per she says she'll just go back on her Coumadin. She has her own INR machine at home and she'll follow-up with Dr. Ramsey in [place] in 1 week. Send her home on, PT/OT plus home health.
--- NOTE | 2018-10-31 10:00 | PCM.DCSUM1 ---
Discharge Summary - Hospital Course Free Text/Narrative:: Hospital course-patient did not require oxygen which she came in she was on Valtrex for cold sore and Augmentin for her pneumonia and urinary sepsis. She did well and then started having some hematochezia. She was see scoped which showed internal hemorrhoids not bleeding. We did hold her Coumadin for couple days and bridged her with Lovenox. We'll discharge her home on home health/PT/ OT. I recommended Lovenox to bridge her back to her Coumadin. She does not want to do this because of cost and understands wrist per chewable back on her Coumadin. She says she'll take 7.5 mg daily then back to 5 mg. She has her own INR machine per she'll follow-up with Dr. Ramsey in [address] Lara also in 1 week for her internal hemorrhoids. Brief History: This is a 68-year-old female patient with multiple medical pounds. She was hospitalized in [facility] for pneumonia and urinary sepsis. She had some hypoxia so she was sent here for some rehabilitation. Diagnosis: Stroke: No - Discharge Data Discharge Date: 10/31/18 Discharge Disposition: Home, W Home Health Agency 06 Condition: Good - Discharge Diagnosis/Problem(s) (1) Internal bleeding hemorrhoids SNOMED Code(s): 32570988 ICD Code: K64.8 - OTHER HEMORRHOIDS Status: Acute Current Visit: Yes (2) Physical deconditioning SNOMED Code(s): 45284837148926 ICD Code: R53.81 - OTHER MALAISE Status: Acute Current Visit: Yes (3) CAP (community acquired pneumonia) SNOMED Code(s): 490600629 ICD Code: J18.9 - PNEUMONIA, UNSPECIFIED ORGANISM Status: Acute Priority : High Current Visit: No Problem Details: Treating with PO Levaquin, will need follow up x-ray as outpatient. (4) Sepsis due to urinary tract infection SNOMED Code(s): 479059378 ICD Code: A41.9 - SEPSIS, UNSPECIFIED ORGANISM; N39.0 - URINARY TRACT INFECTION, SITE NOT SPECIFIED Status: Acute Current Visit: Yes - Patient Summary/Data Operative Procedure(s) Performed: c scope Consults: Consultations 10/27/18 16:06 PT Evaluation and Treatment [CONS] Routine Please Evaluate and Treat. PT Reason for Consult: Strengthening This query below is only for informational purposes and is not editable. 10/27/18 16:07 OT Evaluation and Treatment [CONS] Routine Please Evaluate and Treat. OT Reason for Consult: ADL's This query below is only for informational purposes and is not editable. 10/29/18 11:00 Consult to Physician [CONS] Routine Consulting Provider: Saulo Flynn Call Completed to Consulting Physician: RED 1055 AM Reason for Consult: RECTAL BLEEDING - Patient Instructions Diet: Regular Diet as Tolerated Activity: As Tolerated Driving: May Drive Today Showering/Bathing: May Shower Notify Provider of: Fever, Increased Pain Other/Special Instructions: 1. Recheck with Dr. Ramsey in 1 week. 2[address] Lara in regards internal hemorrhoids in 1 week. 3. Home health/PT/OT for medical management, home safety, disease teaching, strengthening and ADLs. - Discharge Plan Prescriptions/Med Rec: Amoxicillin/Clavulanate K [Augmentin 875-125 MG] 1 tab PO BID #8 tablet valACYclovir HCl [Valtrex] 500 mg PO TID #12 tablet Home Medications: Home Meds SUMAtriptan 100 mg PO ASDIRECTED PRN 02/07/13 [History] Ranitidine [Zantac] 150 mg PO BEDTIME 12/01/15 [History] Alendronate [Fosamax] 70 mg PO CARPENTER 08/09/16 [History] Docusate Sodium 200 mg PO BEDTIME 08/09/16 [History] Amitriptyline [Elavil] 100 mg PO BEDTIME 08/19/17 [History] ClonazePAM [KlonoPIN] 0.5 mg PO BID PRN 08/19/17 [History] DULoxetine HCl [Cymbalta] 60 mg PO DAILY 08/19/17 [History] Furosemide 40 mg PO 08,16 08/19/17 [History] Gabapentin [Neurontin] 300 mg PO DAILY 08/19/17 [History] Hydroxychloroquine [Plaquenil] 200 mg PO BID 08/19/17 [History] Potassium Chloride 20 meq PO DAILY 08/19/17 [History] atorvaSTATin [Lipitor] 20 mg PO BEDTIME 08/19/17 [History] fentaNYL [Duragesic] 50 mcg TD Q72H 08/19/17 [History] hydrOXYzine pamoate [Vistaril] 50 mg PO BID 08/19/17 [History] tiZANidine [Zanaflex] 2 mg PO BID PRN 08/19/17 [History] Warfarin [Coumadin] 5 mg PO DAILY 09/10/17 [History] Lisinopril 5 mg PO DAILY 09/11/17 [History] Leflunomide [Arava] 20 mg PO DAILY 11/05/17 [History] Ondansetron HCl [Zofran] 4 mg PO Q8H PRN 11/13/17 [History] Calcium Carbonate [Tums] 500 mg PO ASDIRECTED PRN 10/09/18 [History] Codeine Phosphate/Guaifenesin [Guaifen-Codeine 100-10 mg/5 ml] 10 ml PO Q4H PRN 10/09/18 [History] DULoxetine [Cymbalta] 30 mg PO DAILY 10/09/18 [History] Folic Acid 0.8 mg PO DAILY 10/09/18 [History] Melatonin 3 mg PO BEDTIME 10/09/18 [History] Mirtazapine [Remeron] 15 mg PO BEDTIME 10/09/18 [History] Psyllium [Metamucil] 1.04 gm PO BEDTIME PRN 10/09/18 [History] Spironolactone [Aldactone] 12.5 mg PO DAILY 10/09/18 [History] Tocilizumab [Actemra] 400 mg IV Q30D 10/09/18 [History] traMADol [Ultram] 50 mg PO DAILY PRN 10/09/18 [History] Acetaminophen [Tylenol Extra Strength] 500 mg PO BID 10/27/18 [History] Dicyclomine [Bentyl] 20 mg PO ASDIRECTED PRN 10/27/18 [History] Lidocaine/Prilocaine [EMLA Crm] 1 applic TP ASDIRECTED PRN 10/27/18 [History] Nystatin 1 applic TP QID 10/27/18 [History] Propranolol HCl [Propranolol HCl ER] 120 mg PO DAILY 10/27/18 [History] Psyllium [Metamucil] 0.52 gm PO DAILY PRN 10/27/18 [History] glipiZIDE [Glucotrol] 2.5 mg PO DAILY 10/27/18 [History] predniSONE [Prednisone] 4 mg PO DAILY 10/27/18 [History] Amoxicillin/Clavulanate K [Augmentin 875-125 MG] 1 tab PO BID #8 10/31/18 [Rx] Amoxicillin/Clavulanate K [Augmentin 875-125 MG] 1 tab PO BID #8 tablet [Rx] valACYclovir HCl [Valtrex] 500 mg PO TID #12 tablet 10/31/18 [Rx] - Discharge Summary/Plan Comment DC Time >30 min.: No - Patient Data Vitals - Most Recent: Last Vital Signs Temp 97.6 F 10/31/18 06:01 Pulse 76 10/31/18 06:01 Resp 18 10/31/18 06:01 BP 111/65 10/31/18 06:01 Pulse Ox 94 L 10/31/18 06:01 Weight - Most Recent: 298 lb Med Orders - Current: Current Medications Acetaminophen (Tylenol Extra Strength) 500 mg PO BID [facility] Last Admin: 10/31/18 09:41 Dose: 500 mg Alendronate Sodium (Fosamax) 70 mg PO CARPENTER KIMMY Amitriptyline HCl (Elavil) 100 mg PO BEDTIME [facility] Last Admin: 10/30/18 20:03 Dose: 100 mg Amoxicillin/Clavulanate Potassium (Augmentin 875 Mg/125 Mg) 1 tab PO BID [facility] Stop: 11/03/18 09:01 Last Admin: 10/31/18 09:42 Dose: 1 tab Atorvastatin Calcium (Lipitor) 20 mg PO BEDTIME [facility] Last Admin: 10/30/18 20:03 Dose: 20 mg Calcium Carbonate/Glycine (Tums) 500 mg PO ASDIRECTED PRN PRN Reason: Heartburn Clonazepam (Klonopin) 0.5 mg PO BID PRN PRN Reason: Anxiety Last Admin: 10/31/18 02:32 Dose: 0.5 mg Cyanocobalamin (Vitamin B12) 1,000 mcg IM ONETIME ONE Stop: 11/01/18 12:01 Docusate Sodium (Colace) 200 mg PO BEDTIME [facility] Last Admin: 10/30/18 20:03 Dose: 200 mg Duloxetine HCl (Cymbalta) 30 mg PO DAILY [facility] Last Admin: 10/31/18 09:41 Dose: 30 mg Duloxetine HCl (Cymbalta) 60 mg PO DAILY [facility] Last Admin: 10/31/18 09:41 Dose: 60 mg Famotidine (Pepcid) 20 mg PO BEDTIME [facility] Last Admin: 10/30/18 20:04 Dose: 20 mg Fentanyl (Duragesic) 50 mcg TRDERM Q72H [facility] Last Admin: 10/28/18 20:45 Dose: 50 mcg Folic Acid (Folic Acid) 0.8 mg PO DAILY [facility] Last Admin: 10/31/18 09:41 Dose: 0.8 mg Furosemide (Lasix) 40 mg PO 08,16 [facility] Last Admin: 10/31/18 09:41 Dose: 40 mg Gabapentin (Neurontin) 300 mg PO DAILY [facility] Last Admin: 10/31/18 09:39 Dose: 300 mg Glipizide (Glucotrol) 2.5 mg PO DAILY [facility] Last Admin: 10/31/18 09:40 Dose: 2.5 mg Guaifenesin/Codeine Phosphate (Robitussin Ac) 10 ml PO Q4H PRN PRN Reason: Cough Heparin Sodium (Porcine) (Heparin Lock Flush 100 Units/Ml) 500 units FLUSH [facility] Last Admin: 10/31/18 06:23 Dose: Not Given Heparin Sodium (Porcine) (Heparin Lock Flush 100 Units/Ml) 500 units FLUSH ASDIRECTED PRN PRN Reason: Keep Vein Open Hydrocortisone (Proctozone-Hc 2.5% Crm) 3 gm TOP TID [facility] Last Admin: 10/31/18 09:43 Dose: 1 applic Hydroxychloroquine Sulfate (Plaquenil) 200 mg PO BID [facility] Last Admin: 10/31/18 09:41 Dose: 200 mg Hydroxyzine Pamoate (Vistaril) 50 mg PO BID [facility] Last Admin: 10/31/18 09:40 Dose: 50 mg Leflunomide (Arava) 20 mg PO DAILY [facility] Last Admin: 10/31/18 09:42 Dose: 20 mg Lidocaine/Prilocaine (Emla Crm) 0 gm TOP ASDIRECTED PRN PRN Reason: Pain FROM PORT DRAW Last Admin: 10/28/18 05:14 Dose: 1 applic Lisinopril (Prinivil) 5 mg PO DAILY [facility] Last Admin: 10/30/18 09:29 Dose: 5 mg Melatonin (Melatonin) 3 mg PO BEDTIME [facility] Last Admin: 10/30/18 20:03 Dose: 3 mg Mirtazapine (Remeron) 15 mg PO BEDTIME [facility] Last Admin: 10/30/18 20:05 Dose: 15 mg Non-Formulary Medication (Tocilizumab [Actemra]) 400 mg IV Q30D [facility] Nystatin (Nystop) 0 gm TOP QID [facility] Last Admin: 10/31/18 09:49 Dose: 1 applic Ondansetron HCl (Zofran Odt) 4 mg PO Q8H PRN PRN Reason: Nausea Last Admin: 10/30/18 11:55 Dose: 4 mg Oxycodone/Acetaminophen (Percocet 325-5 Mg) 1 tab PO Q6H PRN PRN Reason: JOINT PAIN Last Admin: 10/31/18 09:53 Dose: 1 tab Potassium Chloride (Klor-Con M20) 20 meq PO DAILY [facility] Last Admin: 10/31/18 09:39 Dose: 20 meq Prednisone (Prednisone) 4 mg PO DAILY [facility] Last Admin: 10/31/18 09:42 Dose: 4 mg Propranolol HCl (Inderal La) 120 mg PO DAILY [facility] Last Admin: 10/31/18 09:43 Dose: 120 mg Psyllium Hydrophilic Mucilloid (Metamucil) 0.52 gm PO DAILY PRN PRN Reason: Constipation Psyllium Hydrophilic Mucilloid (Metamucil) 1.04 gm PO BEDTIME PRN PRN Reason: Constipation Sodium Chloride (Saline Flush) 10 ml FLUSH 0600 [facility] Last Admin: 10/31/18 06:23 Dose: Not Given Sodium Chloride (Saline Flush) 10 ml FLUSH ASDIRECTED PRN PRN Reason: keep vein open Spironolactone (Aldactone) 12.5 mg PO DAILY [facility] Last Admin: 10/31/18 09:46 Dose: 12.5 mg Sumatriptan Succinate (Imitrex) 100 mg PO ASDIRECTED PRN PRN Reason: migraines Last Admin: 10/28/18 08:47 Dose: 100 mg Valacyclovir HCl (Valtrex) 500 mg PO TID [facility] Stop: 11/03/18 09:01 Last Admin: 10/31/18 09:42 Dose: 500 mg Warfarin Sodium (Coumadin) 5 mg PO 1600 [facility] Last Admin: 10/28/18 16:50 Dose: 5 mg Warfarin Sodium (Coumadin Sliding Scale) 1 each PO ASDIRECTED KIMMY Discontinued Medications Enoxaparin Sodium (Lovenox) 40 mg SUBCUT Q24H [facility] Stop: 10/30/18 17:01 Last Admin: 10/30/18 17:29 Dose: 40 mg Heparin Sodium (Porcine) (Heparin Lock Flush 100 Units/Ml) Confirm Administered Dose 500 units .ROUTE .STK-MED ONE Stop: 10/28/18 05:18 Last Admin: 10/28/18 06:40 Dose: Not Given Polyethylene Glycol (Miralax) 238 gm PO ONETIME ONE Stop: 10/30/18 15:01 Last Admin: 10/30/18 14:55 Dose: 238 gm Tizanidine HCl (Zanaflex) 2 mg PO BID PRN PRN Reason: MUSCLE SPASMS Tramadol HCl (Ultram) 50 mg PO DAILY PRN PRN Reason: Pain Last Admin: 10/28/18 00:28 Dose: 50 mg
[2018-10-31] MEDS ORDERED: Lactated Ringers 1,000 ML IV ONE (10:34)
[2018-10-31] MEDS ORDERED: Propofol 200 MG/20 ML SDV IV ONE (10:34)
[2018-11-01] MEDS ORDERED: Alendronate 70 MG Tab PO SCH (06:00)
[2018-11-01] MEDS ORDERED: Cyanocobalamin (Vitamin B12) 1,000 MCG/ML SDV IM ONE (12:00)
== END 2018-10-31 10:35 | disposition home health service (06) | DRG 947 ==
LOC: FB.MS 13:57
PROVIDERS: ADMIT Family Medicine; ATTEND Family Medicine
PROC: 0DJD8ZZ Inspection of Lower Intestinal Tract, Via Natural or Artificial Opening Endoscopic (ICD-10-PCS; principal; 2018-10-31)
DX: R53.81 Other malaise (principal); J18.9 Pneumonia, unspecified organism; A41.9 Sepsis, unspecified organism; Z68.41 Body mass index [BMI] 40.0-44.9, adult; K92.1 Melena; N39.0 Urinary tract infection, site not specified; K64.1 Second degree hemorrhoids; K64.8 Other hemorrhoids; B00.1 Herpesviral vesicular dermatitis; M06.9 Rheumatoid arthritis, unspecified; G89.4 Chronic pain syndrome; E11.9 Type 2 diabetes mellitus without complications; E78.5 Hyperlipidemia, unspecified; I10 Essential (primary) hypertension; Z90.710 Acquired absence of both cervix and uterus; Z90.49 Acquired absence of other specified parts of digestive tract; Z96.643 Presence of artificial hip joint, bilateral; H54.7 Unspecified visual loss; Z86.718 Personal history of other venous thrombosis and embolism; I25.2 Old myocardial infarction; J44.9 Chronic obstructive pulmonary disease, unspecified; Z86.711 Personal history of pulmonary embolism; G47.30 Sleep apnea, unspecified; K21.9 Gastro-esophageal reflux disease without esophagitis; K58.9 Irritable bowel syndrome, unspecified; M54.9 Dorsalgia, unspecified; M81.0 Age-related osteoporosis without current pathological fracture; G43.909 Migraine, unspecified, not intractable, without status migrainosus; F41.9 Anxiety disorder, unspecified; F32.9 Major depressive disorder, single episode, unspecified; F41.0 Panic disorder [episodic paroxysmal anxiety]; E53.8 Deficiency of other specified B group vitamins; E66.9 Obesity, unspecified; Z98.1 Arthrodesis status; Z87.891 Personal history of nicotine dependence; Z98.890 Other specified postprocedural states; Z79.52 Long term (current) use of systemic steroids; Z88.7 Allergy status to serum and vaccine; Z88.8 Allergy status to other drugs, medicaments and biological substances
CPT/HCPCS: 71046; 80048; 81001; 85025; 85610; 97165-GO; A9270-GY; J1642; J1650; J2704; J7120

== ENCOUNTER 2018-11-10 18:25 | Emergency (ER) | payer MEDICARE, BC, MEDICAID ==
[2018-11-10] MEDS ORDERED: Sodium Chloride 0.9% 1,000 ML IV SCH (19:30)
[2018-11-10] MEDS ORDERED: Atropine/Diphenoxylate 0.025-2.5 MG Tab PO ONE (19:30)
[2018-11-10] MEDS ORDERED: Ondansetron 4 MG/2 ML SDV IVPUSH ONE (19:42)
[2018-11-10] MEDS ORDERED: fentaNYL 100 MCG/2 ML SDV IVPUSH ONE (19:44)
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
[2018-11-10 23:55] VITALS: BP 98/70
== END 2018-11-10 22:20 | disposition home or self-care (01) ==
LOC: FB.ED 18:25
DX: K52.9 Noninfective gastroenteritis and colitis, unspecified (principal); E78.00 Pure hypercholesterolemia, unspecified; I10 Essential (primary) hypertension; I25.2 Old myocardial infarction; J44.9 Chronic obstructive pulmonary disease, unspecified; F41.9 Anxiety disorder, unspecified; F32.9 Major depressive disorder, single episode, unspecified; K21.9 Gastro-esophageal reflux disease without esophagitis; E11.9 Type 2 diabetes mellitus without complications; Z79.01 Long term (current) use of anticoagulants; Z87.891 Personal history of nicotine dependence; Z79.899 Other long term (current) drug therapy; Z88.8 Allergy status to other drugs, medicaments and biological substances; Z88.7 Allergy status to serum and vaccine; Z79.84 Long term (current) use of oral hypoglycemic drugs
CPT/HCPCS: 80053; 82272; 83605; 85025; 85610; 86140; 96361; 96374; 96375; 99284-25; A9270-GY; J1642; J2405; J3010; J7030

== ENCOUNTER 2018-11-27 15:47 | Emergency (ER) | payer MEDICARE, BC ==
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
[2018-11-27] MEDS ORDERED: fentaNYL 100 MCG/2 ML SDV IVPUSH ONE (18:47)
[2018-11-27] MEDS ORDERED: Furosemide 40 MG/4 ML VIAL IVPUSH ONE (18:47)
[2018-11-27] MEDS: Sodium Chloride 0.9% 10 ML Syringe FLUSH PRN ×2 (19:11→20:00)
[2018-11-27] MEDS ORDERED: Magnesium Sulfate/Water 2 GM in Premix Bag 1 BAG IV ONE (19:13)
[2018-11-27 20:44] VITALS: BP 123/102; PULSE 94
--- NOTE | 2018-11-30 11:38 | US ---
INDICATION: Right leg swelling and pain with history of DVT, question DVT. DUPLEX ULTRASOUND, RIGHT LOWER EXTREMITY VEINS: Utilizing 2-D real time, duplex Doppler spectral analysis and color flow imaging, examination of the right lower extremity veins, including the common femoral vein, proximal greater saphenous vein, proximal deep femoral vein, proximal femoral vein, mid femoral vein, distal femoral vein, popliteal vein, posterior tibial vein, and anterior tibial vein, (peroneal vein not visualized), revealed no evidence of deep venous thrombosis or obstruction. Compression views showed no abnormal lack of compression to suggest thrombosis. No evidence of incompetence of the valves was identified. No evidence of a popliteal cyst was identified. IMPRESSION: Duplex ultrasound, right lower extremity veins, shows no evidence of deep venous thrombosis or incompetence. MTDD
--- NOTE | 2018-11-30 11:48 | CR ---
INDICATION: Cough, shortness of breath. CHEST: PA and two lateral views of the chest, 11/27/18, were compared with 10/11 and 10/22/18, again revealing a Port-A-Cath from the right subclavian area with its tip in good position and unchanged. Findings remain compatible with a mild degree of COPD, possibly exacerbated or less likely progressive. The heart remains normal in size and shape. The aorta is somewhat tortuous. Somewhat diminished bone density is suggested, compatible with osteoporosis. Evidence of degenerative disk disease is noted in the lower middle thoracic spine. Fusion is noted at the thoracolumbar spine. Markings appear similar to the previous examination with no definite active infiltrate or effusion. It is difficult, however, to totally exclude minimal patchy bronchopneumonia with heavy markings at the lung bases. IMPRESSION: 1. No definite acute process but difficult to exclude minimal patchy bronchopneumonia at the lung bases. 2. ASD aorta. 3. Probable COPD, possibly exacerbated. 4. Mild dextroconcave scoliosis lower middle thoracic spine with degenerative disk disease in that area. MTDD
== END 2018-11-27 20:08 | disposition home or self-care (01) ==
LOC: FB.ED 15:47
DX: G89.4 Chronic pain syndrome (principal); R60.0 Localized edema; M79.604 Pain in right leg; E83.42 Hypomagnesemia; E11.9 Type 2 diabetes mellitus without complications; E66.9 Obesity, unspecified; I10 Essential (primary) hypertension; I25.2 Old myocardial infarction; Z86.718 Personal history of other venous thrombosis and embolism; M19.90 Unspecified osteoarthritis, unspecified site; Z98.41 Cataract extraction status, right eye; Z98.42 Cataract extraction status, left eye; Z90.49 Acquired absence of other specified parts of digestive tract; Z98.1 Arthrodesis status; Z79.01 Long term (current) use of anticoagulants; Z79.899 Other long term (current) drug therapy; Z88.1 Allergy status to other antibiotic agents; Z88.8 Allergy status to other drugs, medicaments and biological substances; Z87.891 Personal history of nicotine dependence
CPT/HCPCS: 71046; 80053; 81001; 83735; 83880; 85025; 85610; 86140; 93005; 93971; 96365; 96375; 99285; J1642; J1940; J3010; J3475; 93010; 99284

== ENCOUNTER 2018-12-01 06:34 | Inpatient (IN) | payer MEDICARE, BC ==
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
[2018-12-01] MEDS: Sodium Chloride 0.9% 10 ML Syringe FLUSH PRN ×6 (07:30→19:52)
[2018-12-01] MEDS ORDERED: Sodium Chloride 0.9% 1,000 ML IV SCH (07:30)
[2018-12-01] MEDS ORDERED: Ondansetron 4 MG/2 ML SDV IVPUSH ONE (07:31)
[2018-12-01] MEDS ORDERED: Magnesium Sulfate/Water 2 GM in Premix Bag 1 BAG IV ONE (08:27)
[2018-12-01] MEDS ORDERED: LORazepam 2 MG/ML SDV IVPUSH ONE (08:55)
[2018-12-01] MEDS: Piperacillin/Tazobactam 4.5 GM in Sodium Chloride 0.9% 100 ML IV SCH ×2 (09:17→16:09)
[2018-12-01] MEDS ORDERED: Furosemide 40 MG/4 ML VIAL IVPUSH ONE (09:30)
[2018-12-01] MEDS: Saccharomyces Boulardii (Probiotic) 250 MG Cap PO SCH ×2 (09:59→20:52)
--- NOTE | 2018-12-01 11:39 | CR ---
INDICATION: Shortness of breath, wheezing. CHEST: An AP upright view of the chest, 12/01/18, was compared with 11/27/18 and 10/28/18, again revealing the heart to be normal in size and shape. No definite interval change is noted with evidence of exogenous obesity, mild basilar pulmonary fibrosis versus minimal patchy bronchopneumonia, normal heart size with tortuous aorta. Overlying EKG leads are noted. Central line is unchanged in position. IMPRESSION: Stable chest, no acute process. MTDD
[2018-12-01] MEDS: fentaNYL 50 MCG/HR Transdermal Patch TRDERM SCH (12:24)
[2018-12-01] MEDS ORDERED: Meclizine 25 MG Tab PO ONE (13:30)
[2018-12-01] MEDS: ClonazePAM 0.5 MG Tab PO SCH ×2 (13:45→20:52)
[2018-12-01] MEDS ORDERED: Atropine/Diphenoxylate 0.025-2.5 MG Tab PO PRN (16:49)
[2018-12-01] MEDS ORDERED: Psyllium 0.52 GM Cap PO PRN (16:49)
[2018-12-01] MEDS ORDERED: Calcium Carbonate 500 MG Tab.Chew PO PRN (16:49)
[2018-12-01] MEDS ORDERED: traMADol 50 MG Tab PO PRN (16:49)
[2018-12-01] MEDS ORDERED: Non-Formulary Medication 1 Each (Cyanocobalamin (Vitamin B-12) [Vitamin B-12] 1,000 MCG) IM SCH (17:00)
[2018-12-01] MEDS ORDERED: Dicyclomine 10 MG Cap PO PRN (17:00)
[2018-12-01] MEDS ORDERED: Warfarin 5 MG Tab PO SCH (17:00)
[2018-12-01] MEDS ORDERED: fentaNYL 50 MCG/HR Transdermal Patch TRDERM SCH (17:00)
[2018-12-01] MEDS ORDERED: TOCILIZUMAB 400 MG IV SCH (17:00)
[2018-12-01] MEDS ORDERED: tiZANidine 4 MG Tab PO PRN (17:15)
[2018-12-01] MEDS ORDERED: SUMAtriptan 50 MG Tab PO PRN (17:15)
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
[2018-12-01] MEDS: metroNIDAZOLE/Normal Saline 500 MG in Premix Bag 1 BAG IV SCH (18:27)
[2018-12-01] MEDS: Vancomycin 125 MG/5 ML ML Oral Solution PO SCH ×2 (18:44→20:55)
[2018-12-01] MEDS: fentaNYL 100 MCG/2 ML SDV IVPUSH SCH (18:45)
[2018-12-01] MEDS: Magnesium Oxide 400 MG Tab PO SCH (20:53)
[2018-12-01] MEDS: atorvaSTATin 20 MG Tab PO SCH (20:53)
[2018-12-01] MEDS: Famotidine 20 MG Tab PO SCH (20:53)
[2018-12-01] MEDS: Melatonin 3 MG Tab PO SCH (20:53)
[2018-12-01] MEDS: Acetaminophen 500 MG Tab PO SCH (20:54)
[2018-12-01] MEDS: Mirtazapine 15 MG Tab PO SCH (20:54)
[2018-12-01] MEDS ORDERED: ClonazePAM 0.5 MG Tab PO SCH (21:00)
[2018-12-01] MEDS ORDERED: Docusate Sodium 100 MG Cap PO SCH (21:00)
[2018-12-02] MEDS: fentaNYL 100 MCG/2 ML SDV IVPUSH SCH ×2 (00:03→05:43)
[2018-12-02] MEDS: Sodium Chloride 0.9% 10 ML Syringe FLUSH PRN ×8 (00:08→17:48)
[2018-12-02] MEDS: metroNIDAZOLE/Normal Saline 500 MG in Premix Bag 1 BAG IV SCH ×3 (00:12→17:43)
[2018-12-02] MEDS ORDERED: fentaNYL 100 MCG/2 ML SDV IVPUSH PRN (08:10)
[2018-12-02] MEDS ORDERED: cefTRIAXone 1 GM in Sodium Chloride 0.9% 50 ML IV SCH (08:15)
--- NOTE | 2018-12-02 08:23 | PCM.PN ---
- General Info Date of Service: 12/02/18 Admission Dx/Problem (Free Text): The patient states she still is leg pain but it's better. She is using fentanyl IV and she says she normally takes tramadol at home and occasionally some oxycodone for breakthrough pain. He says the diarrhea stopped she has nausea. No vomiting. No fevers or chills. She does have some dysuria. - Patient Data Vitals - Most Recent: Last Vital Signs Temp 98.1 F 12/02/18 05:58 Pulse 93 12/02/18 05:58 Resp 18 12/02/18 05:58 BP 112/60 12/02/18 05:58 Pulse Ox 93 L 12/02/18 05:58 Weight - Most Recent: 225 lb 6.4 oz Lab Results Last 24 Hours: Laboratory Results - last 24 hr 12/01/18 12/01/18 12/01/18 Range/Units 07:20 07:20 08:10 Neutrophils % (Manual) 57 (46-82) % Lymphocytes % (Manual) 26 (13-37) % Monocytes % (Manual) 14 H (4-12) % Eosinophils % (Manual) 3 (0-5) % PT (8.7-11.1) INR (0.89-1.13) Lactic Acid (0.4-2.2) mmol/L C-Reactive Protein < 0.2 L (0.5-0.9) mg/dL Urine Color Yellow (YELLOW) Urine Appearance Cloudy (CLEAR) Urine pH 5.0 (5.0-6.5) Ur Specific [place] 1.030 H (1.010-1.025) Urine Protein 30 H (NEGATIVE) mg/dL Urine Glucose (UA) Normal (NORMAL) mg/dL Urine Ketones 150 H (NEGATIVE) mg/dL Urine Occult Blood Negative (NEGATIVE) Urine Nitrite Negative (NEGATIVE) Urine Bilirubin Small H (NEGATIVE) Urine Urobilinogen Normal (NEGATIVE) mg/dL Ur Leukocyte Esterase Large H (NEGATIVE) Urine RBC 0-5 (0-5) Urine WBC 20-30 H (0-5) Ur Squamous Epith Cells Few H (NS,R,O) Urine Bacteria Many H (NS) 12/01/18 12/02/18 Range/Units 09:20 06:45 Neutrophils % (Manual) (46-82) % Lymphocytes % (Manual) (13-37) % Monocytes % (Manual) (4-12) % Eosinophils % (Manual) (0-5) % PT 14.5 H (8.7-11.1) INR 1.50 H (0.89-1.13) Lactic Acid 1.3 (0.4-2.2) mmol/L C-Reactive Protein (0.5-0.9) mg/dL Urine Color (YELLOW) Urine Appearance (CLEAR) Urine pH (5.0-6.5) Ur Specific [place] (1.010-1.025) Urine Protein (NEGATIVE) mg/dL Urine Glucose (UA) (NORMAL) mg/dL Urine Ketones (NEGATIVE) mg/dL Urine Occult Blood (NEGATIVE) Urine Nitrite (NEGATIVE) Urine Bilirubin (NEGATIVE) Urine Urobilinogen (NEGATIVE) mg/dL Ur Leukocyte Esterase (NEGATIVE) Urine RBC (0-5) Urine WBC (0-5) Ur Squamous Epith Cells (NS,R,O) Urine Bacteria (NS) [facility] Results Last 24 Hours: Microbiology 12/01/18 07:50 Aerobic Blood Culture - Preliminary Blood - Venous - Lab Draw NO GROWTH AFTER 1 DAY Anaerobic Blood Culture - Preliminary NO GROWTH AFTER 1 DAY 12/01/18 07:30 Aerobic Blood Culture - Preliminary Blood - Venous NO GROWTH AFTER 1 DAY Anaerobic Blood Culture - Preliminary NO GROWTH AFTER 1 DAY 12/01/18 08:10 Urine Culture - Preliminary Urine, Clean Catch Gram Negative Rods 12/01/18 07:47 Clostridium difficile Toxin A & B - Final Stool / Feces Positive C. Diff Toxin Med Orders - Current: Current Medications Acetaminophen (Tylenol Extra Strength) 1,000 mg PO BID [facility] Last Admin: 12/01/18 20:54 Dose: 1,000 mg Alendronate Sodium (Fosamax) 70 mg PO Kate@0600 [facility] Amitriptyline HCl (Elavil) 100 mg PO BEDTIME [facility] Last Admin: 12/01/18 20:52 Dose: 100 mg Atorvastatin Calcium (Lipitor) 20 mg PO BEDTIME [facility] Last Admin: 12/01/18 20:53 Dose: 20 mg Calcium Carbonate/Glycine (Tums) 500 mg PO Q4H PRN PRN Reason: Heartburn Clonazepam (Klonopin) 0.5 mg PO BID [facility] Last Admin: 12/01/18 20:52 Dose: 0.5 mg Dicyclomine HCl (Bentyl) 20 mg PO BID PRN PRN Reason: ABDOMINAL CRAMPS Diphenoxylate HCl/Atropine (Lomotil 0.025-2.5 Mg) 1 tab PO Q6H PRN PRN Reason: Diarrhea Duloxetine HCl (Cymbalta) 90 mg PO DAILY [facility] Famotidine (Pepcid) 20 mg PO BEDTIME [facility] Last Admin: 12/01/18 20:53 Dose: 20 mg Fentanyl (Duragesic) 50 mcg TRDERM Q72H [facility] Last Admin: 12/01/18 12:24 Dose: 50 mcg Fentanyl (Sublimaze) 25 mcg IVPUSH Q6H PRN PRN Reason: Pain Stop: 12/02/18 12:01 Heparin Sodium (Porcine) (Heparin Lock Flush 100 Units/Ml) 300 units FLUSH ASDIRECTED PRN PRN Reason: Keep Vein Open Last Admin: 12/02/18 06:47 Dose: 300 units Metronidazole 500 mg/ Premix 100 mls @ 100 mls/hr IV Q8H [facility] Last Admin: 12/02/18 00:12 Dose: 100 mls/hr Ceftriaxone Sodium 1 gm/ (Sodium Chloride) 50 mls @ 200 mls/hr IV Q24H [facility] Lisinopril (Prinivil) 5 mg PO DAILY [facility] Magnesium Oxide (Magnesium Oxide) 400 mg PO BID [facility] Last Admin: 12/01/18 20:53 Dose: 400 mg Melatonin (Melatonin) 3 mg PO BEDTIME [facility] Last Admin: 12/01/18 20:53 Dose: 3 mg Mirtazapine (Remeron) 15 mg PO BEDTIME [facility] Last Admin: 12/01/18 20:54 Dose: 15 mg Non-Formulary Medication (Cyanocobalamin (Vitamin B-12) [Vitamin B-12]) 1,000 mcg IM Q30D [facility] Non-Formulary Medication (Tocilizumab [Actemra]) 400 mg IV Q28D [facility] Potassium Chloride (Klor-Con M20) 20 meq PO DAILY [facility] Prednisone (Prednisone) 5 mg PO DAILY [facility] Propranolol HCl (Inderal La) 120 mg PO DAILY [facility] Psyllium Hydrophilic Mucilloid (Metamucil) 1.04 gm PO BEDTIME PRN PRN Reason: Constipation Saccharomyces Boulardii (Florastor) 250 mg PO BID [facility] Last Admin: 12/01/18 20:52 Dose: 250 mg Sodium Chloride (Saline Flush) 10 ml FLUSH ASDIRECTED PRN PRN Reason: IV Use Last Admin: 12/02/18 06:47 Dose: 10 ml Spironolactone (Aldactone) 12.5 mg PO DAILY [facility] Sumatriptan Succinate (Imitrex) 100 mg PO ASDIRECTED PRN PRN Reason: MIGRAINES Tizanidine HCl (Zanaflex) 2 mg PO BID PRN PRN Reason: MUSCLE SPASMS Last Admin: 12/02/18 00:18 Dose: 2 mg Tramadol HCl (Ultram) 50 mg PO Q4H PRN PRN Reason: Pain Vancomycin HCl (Vancocin 125 Mg/5 Ml Soln) 500 mg PO QID [facility] Last Admin: 12/01/18 20:55 Dose: 500 mg Warfarin Sodium (Coumadin) 5 mg PO DAILY@1600 [facility] Last Admin: 12/01/18 18:45 Dose: 5 mg Discontinued Medications Cephalexin (Keflex) 250 mg PO DAILY [facility] Docusate Sodium (Colace) 200 mg PO BEDTIME [facility] Fentanyl (Sublimaze) 25 mcg IVPUSH Q6H [facility] Stop: 12/02/18 12:01 Last Admin: 12/02/18 05:43 Dose: 25 mcg Furosemide (Lasix) 80 mg IVPUSH NOW ONE Stop: 12/01/18 09:31 Last Admin: 12/01/18 09:42 Dose: 80 mg Sodium Chloride (Normal Saline) 1,000 mls @ 150 mls/hr IV ASDIRECTED [facility] Last Admin: 12/01/18 08:01 Dose: 150 mls/hr Magnesium Sulfate 2 gm/ Premix 50 mls @ 150 mls/hr IV ONETIME ONE Stop: 12/01/18 08:46 Last Admin: 12/01/18 09:11 Dose: 150 mls/hr Piperacillin Sod/Tazobactam (Sod 4.5 gm/ Sodium Chloride) 100 mls @ 200 mls/hr IV Q6H [facility] Last Admin: 12/01/18 16:09 Dose: 200 mls/hr Lorazepam (Ativan) 0.5 mg IVPUSH ONETIME ONE Stop: 12/01/18 08:56 Last Admin: 12/01/18 09:07 Dose: 0.5 mg Meclizine HCl (Antivert) 25 mg PO ONETIME ONE Stop: 12/01/18 13:31 Last Admin: 12/01/18 13:45 Dose: 25 mg Ondansetron HCl (Zofran) 4 mg IVPUSH ONETIME ONE Stop: 12/01/18 07:32 Last Admin: 12/01/18 08:04 Dose: 4 mg Tramadol HCl (Ultram) 50 mg PO DAILY PRN PRN Reason: Pain Last Admin: 12/01/18 17:50 Dose: 50 mg - Exam General: Alert, Oriented, Cooperative Lungs: Clear to Auscultation, Normal Respiratory Effort Cardiovascular: Regular Rate, Regular Rhythm, No Murmurs Extremities: Non-Tender, No Pedal Edema. No: Joss's Sign Psy/Mental Status: Alert, Anxious - Problem List & Annotations (1) C. difficile colitis SNOMED Code(s): 824524091 Code(s): A04.72 - ENTEROCOLITIS D/T CLOSTRIDIUM DIFFICILE, NOT SPCF RECUR Status: Acute Current Visit: Yes (2) Palliative care status SNOMED Code(s): 726028229 Code(s): Z51.5 - ENCOUNTER FOR PALLIATIVE CARE Status: Acute Current Visit: Yes (3) Anticoagulation monitoring by pharmacist SNOMED Code(s): 282685241, 129655856, 772799832 Code(s): Z79.01 - RESIDENTIAL (CURRENT) USE OF ANTICOAGULANTS Status: Chronic Current Visit: No Annotation/Comment:: History of PE on long-term anticoagulation. Reviewed with patient by pharmacy that is azithromycin can cause increase in warfarin activity. She'll recheck her INR on Friday and follow up with the Coumadin clinic. INR was slightly subtherapeutic at discharge at 1.7. No changes and Coumadin were made. (4) Polypharmacy SNOMED Code(s): 073996421 Code(s): Z79.899 - OTHER RESIDENTIAL (CURRENT) DRUG THERAPY Status: Chronic Current Visit: No Annotation/Comment:: Follow-up as outpatient to see if she can reduce the number of medication she is taking as she is at high risk for complications of polypharmacy. (5) UTI (urinary tract infection) SNOMED Code(s): 76751719 Code(s): N39.0 - URINARY TRACT INFECTION, SITE NOT SPECIFIED Status: Acute Current Visit: Yes (6) Long QT interval SNOMED Code(s): 232618505 Code(s): R94.31 - ABNORMAL ELECTROCARDIOGRAM [ECG] [EKG] Status: Acute Current Visit: Yes (7) Hypomagnesemia SNOMED Code(s): 305473063 Code(s): E83.42 - HYPOMAGNESEMIA Status: Acute Current Visit: Yes - Problem List Review Problem List Initiated/Reviewed/Updated: Yes - My Orders Last 24 Hours: My Active Orders 12/01/18 08:10 CULTURE URINE [RM] Routine 12/01/18 12:30 fentaNYL [Duragesic] 50 mcg TRDERM Q72H 12/01/18 13:30 ClonazePAM [KlonoPIN] 0.5 mg PO BID 12/01/18 16:49 Atropine/Diphenoxylate [Lomotil 0.025-2.5 MG] 1 tab PO Q6H PRN Calcium Carbonate [Tums] 500 mg PO Q4H PRN Psyllium [Metamucil] 1.04 gm PO BEDTIME PRN 12/01/18 17:00 Cyanocobalamin (Vitamin B-12) [Vitamin B-12] 1,000 mcg IM Q30D Dicyclomine [Bentyl] 20 mg PO BID PRN Tocilizumab [Actemra] 400 mg IV Q28D Vancomycin [Vancocin 125 MG/5 ML Soln] 500 mg PO QID Warfarin [Coumadin] 5 mg PO DAILY@1600 metroNIDAZOLE/Normal Saline [Flagyl 500 MG in NS 100 ML] 500 mg Premix Bag 1 bag IV Q8H 12/01/18 17:15 SUMAtriptan [Imitrex] 100 mg PO ASDIRECTED PRN tiZANidine [Zanaflex] 2 mg PO BID PRN 12/01/18 19:18 Heparin Sodium [Heparin Lock Flush 100 Units/ML] 300 units FLUSH ASDIRECTED PRN 12/01/18 21:00 Acetaminophen [Tylenol Extra Strength] 1,000 mg PO BID Amitriptyline [Elavil] 100 mg PO BEDTIME Famotidine [Pepcid] 20 mg PO BEDTIME Magnesium Oxide 400 mg PO BID Melatonin 3 mg PO BEDTIME Mirtazapine [Remeron] 15 mg PO BEDTIME atorvaSTATin [Lipitor] 20 mg PO BEDTIME 12/01/18 Lunch Consistent Carbohydrate Diet [DIET] 12/02/18 08:09 EKG Documentation Completion [RC] ASDIRECTED Consult to Occupational Therapy [OT Evaluation and Treatment] [CONS] Routine Consult to Physical Therapy [PT Evaluation and Treatment] [CONS] Routine EKG 12 Lead [EK] Routine 12/02/18 08:10 fentaNYL [Sublimaze] 25 mcg IVPUSH Q6H PRN traMADol [Ultram] 50 mg PO Q4H PRN 12/02/18 08:15 cefTRIAXone [Rocephin] 1 gm Sodium Chloride 0.9% [Normal Saline] 50 ml IV Q24H 12/02/18 09:00 DULoxetine [Cymbalta] 90 mg PO DAILY Lisinopril [Prinivil] 5 mg PO DAILY Potassium Chloride [Klor-Con M20] 20 meq PO DAILY Propranolol [Inderal LA] 120 mg PO DAILY Spironolactone [Aldactone] 12.5 mg PO DAILY predniSONE 5 mg PO DAILY 12/03/18 08:00 INR,PT,PROTHROMBIN TIME [COAG] DAILY 12/04/18 08:00 INR,PT,PROTHROMBIN TIME [COAG] DAILY 12/05/18 08:00 INR,PT,PROTHROMBIN TIME [COAG] DAILY 12/06/18 06:00 Alendronate [Fosamax] 70 mg PO Kate@0600 - Plan Plan:: 1. Check EKG and there is no prolonged QT then start Zofran again per patient request 2. PT/OT 3. Start tramadol 50 mg every 4 hours when necessary. 4. Patient still wants her IV fentanyl. We will go to when necessary and most likely DC tomorrow. 5. Start Rocephin 1 g IV a day 6. Increase activity.
[2018-12-02] MEDS ORDERED: Cephalexin 250 MG Cap PO SCH (09:00)
[2018-12-02] MEDS ORDERED: Warfarin Sliding Scale PO SCH (09:30)
[2018-12-02] MEDS ORDERED: Enoxaparin 40 MG/0.4 ML Syringe SUBCUT SCH (09:30)
[2018-12-02] MEDS: Ondansetron 4 MG Tab.DIS PO PRN (09:37)
[2018-12-02] MEDS: Potassium Chloride 20 MEQ Tab.ER PO SCH (09:49)
[2018-12-02] MEDS: Propranolol 60 MG Cap.ER PO SCH (09:49)
[2018-12-02] MEDS: Spironolactone 25 MG Tab PO SCH (09:49)
[2018-12-02] MEDS: Magnesium Oxide 400 MG Tab PO SCH ×2 (09:49→20:10)
[2018-12-02] MEDS: Saccharomyces Boulardii (Probiotic) 250 MG Cap PO SCH ×2 (09:49→20:09)
[2018-12-02] MEDS: DULoxetine 30 MG Cap PO SCH (09:49)
[2018-12-02] MEDS: Acetaminophen 500 MG Tab PO SCH ×2 (09:50→20:11)
[2018-12-02] MEDS: Lisinopril 5 MG Tab PO SCH (09:50)
[2018-12-02] MEDS: predniSONE 5 MG Tab PO SCH (09:50)
[2018-12-02] MEDS: traMADol 50 MG Tab PO PRN ×2 (09:51→15:55)
[2018-12-02] MEDS: Vancomycin 125 MG/5 ML ML Oral Solution PO SCH ×4 (10:11→20:11)
[2018-12-02] MEDS: ClonazePAM 0.5 MG Tab PO SCH ×2 (10:12→20:09)
[2018-12-02] MEDS: cefTRIAXone 1 GM Vial IVPUSH SCH (10:14)
[2018-12-02] MEDS ORDERED: Warfarin 10 MG Tab PO ONE (16:00)
[2018-12-02] MEDS: atorvaSTATin 20 MG Tab PO SCH (20:09)
[2018-12-02] MEDS: Melatonin 3 MG Tab PO SCH (20:10)
[2018-12-02] MEDS: Famotidine 20 MG Tab PO SCH (20:11)
[2018-12-02] MEDS: Mirtazapine 15 MG Tab PO SCH (20:11)
[2018-12-03] MEDS: Sodium Chloride 0.9% 10 ML Syringe FLUSH PRN ×5 (00:16→17:57)
[2018-12-03] MEDS: metroNIDAZOLE/Normal Saline 500 MG in Premix Bag 1 BAG IV SCH ×3 (00:16→16:39)
[2018-12-03] MEDS: traMADol 50 MG Tab PO PRN ×4 (01:22→20:53)
[2018-12-03] MEDS: DULoxetine 30 MG Cap PO SCH (08:42)
[2018-12-03] MEDS: Magnesium Oxide 400 MG Tab PO SCH ×2 (08:42→20:52)
[2018-12-03] MEDS: Saccharomyces Boulardii (Probiotic) 250 MG Cap PO SCH ×2 (08:42→20:53)
[2018-12-03] MEDS: Potassium Chloride 20 MEQ Tab.ER PO SCH (08:42)
[2018-12-03] MEDS: predniSONE 5 MG Tab PO SCH (08:42)
[2018-12-03] MEDS: Propranolol 60 MG Cap.ER PO SCH (08:42)
[2018-12-03] MEDS: cefTRIAXone 1 GM Vial IVPUSH SCH (08:42)
[2018-12-03] MEDS: Acetaminophen 500 MG Tab PO SCH ×2 (08:43→20:53)
[2018-12-03] MEDS: Spironolactone 25 MG Tab PO SCH (08:43)
[2018-12-03] MEDS: Lisinopril 5 MG Tab PO SCH (08:43)
--- NOTE | 2018-12-03 09:21 | PCM.PN ---
- General Info Date of Service: 12/03/18 Admission Dx/Problem (Free Text): Patient states she still feels a little queasy in her stomach but she's much better. She is able to eat now. She denies diarrhea, vomiting, fevers, chills. She has dysuria, pyuria, hematuria. - Patient Data Vitals - Most Recent: Last Vital Signs Temp 98.1 F 12/03/18 00:00 Pulse 83 12/03/18 00:00 Resp 18 12/03/18 00:00 BP 126/80 12/03/18 08:43 Pulse Ox 95 12/03/18 00:00 Weight - Most Recent: 225 lb 6.4 oz Lab Results Last 24 Hours: Laboratory Results - last 24 hr 12/03/18 12/03/18 12/03/18 Range/Units 06:40 06:40 06:40 PT 19.7 H (8.7-11.1) INR 2.04 H (0.89-1.13) Sodium 140 (135-145) mmol/L Potassium 3.3 L (3.5-5.3) mmol/L Chloride 104 (100-110) mmol/L Carbon Dioxide 29 (21-32) mmol/L BUN 6 L (7-18) mg/dL Creatinine 0.8 (0.55-1.02) mg/dL Est Cr Clr Drug Dosing 68.38 mL/min Estimated GFR (MDRD) > 60 (>60) BUN/Creatinine Ratio 7.5 L (9-20) Glucose 109 (80-116) mg/dL Calcium 8.2 L (8.6-10.2) mg/dL Magnesium 1.9 (1.8-2.5) mg/dL [facility] Results Last 24 Hours: Microbiology 12/01/18 07:50 Aerobic Blood Culture - Preliminary Blood - Venous - Lab Draw NO GROWTH AFTER 2 DAYS Anaerobic Blood Culture - Preliminary NO GROWTH AFTER 2 DAYS 12/01/18 07:30 Aerobic Blood Culture - Preliminary Blood - Venous NO GROWTH AFTER 2 DAYS Anaerobic Blood Culture - Preliminary NO GROWTH AFTER 2 DAYS 12/01/18 08:10 Urine Culture - Final Urine, Clean Catch Escherichia Coli Med Orders - Current: Current Medications Acetaminophen (Tylenol Extra Strength) 1,000 mg PO BID [facility] Last Admin: 12/03/18 08:43 Dose: 1,000 mg Alendronate Sodium (Fosamax) 70 mg PO Kate@0600 [facility] Amitriptyline HCl (Elavil) 100 mg PO BEDTIME [facility] Last Admin: 12/02/18 20:09 Dose: 100 mg Amoxicillin/Clavulanate Potassium (Augmentin 500 Mg\125 Mg) 1 tab PO TID [facility] Atorvastatin Calcium (Lipitor) 20 mg PO BEDTIME [facility] Last Admin: 12/02/18 20:09 Dose: 20 mg Calcium Carbonate/Glycine (Tums) 500 mg PO Q4H PRN PRN Reason: Heartburn Clonazepam (Klonopin) 0.5 mg PO BID [facility] Last Admin: 12/02/18 20:09 Dose: 0.5 mg Dicyclomine HCl (Bentyl) 20 mg PO BID PRN PRN Reason: ABDOMINAL CRAMPS Diphenoxylate HCl/Atropine (Lomotil 0.025-2.5 Mg) 1 tab PO Q6H PRN PRN Reason: Diarrhea Duloxetine HCl (Cymbalta) 90 mg PO DAILY [facility] Last Admin: 12/03/18 08:42 Dose: 90 mg Famotidine (Pepcid) 20 mg PO BEDTIME [facility] Last Admin: 12/02/18 20:11 Dose: 20 mg Fentanyl (Duragesic) 50 mcg TRDERM Q72H [facility] Last Admin: 12/01/18 12:24 Dose: 50 mcg Furosemide (Lasix) 40 mg PO 08,16 [facility] Gabapentin (Neurontin) 300 mg PO BID [facility] Glipizide (Glucotrol) 2.5 mg PO DAILY [facility] Heparin Sodium (Porcine) (Heparin Lock Flush 100 Units/Ml) 300 units FLUSH ASDIRECTED PRN PRN Reason: Keep Vein Open Last Admin: 12/03/18 06:34 Dose: 300 units Hydroxychloroquine Sulfate (Plaquenil) 200 mg PO BID [facility] Hydroxyzine Pamoate (Vistaril) 50 mg PO BID [facility] Metronidazole 500 mg/ Premix 100 mls @ 100 mls/hr IV Q8H [facility] Last Admin: 12/03/18 08:43 Dose: 100 mls/hr Leflunomide (Arava) 20 mg PO DAILY [facility] Lisinopril (Prinivil) 5 mg PO DAILY [facility] Last Admin: 12/03/18 08:43 Dose: 5 mg Magnesium Oxide (Magnesium Oxide) 400 mg PO BID [facility] Last Admin: 12/03/18 08:42 Dose: 400 mg Melatonin (Melatonin) 3 mg PO BEDTIME [facility] Last Admin: 12/02/18 20:10 Dose: 3 mg Mirtazapine (Remeron) 15 mg PO BEDTIME [facility] Last Admin: 12/02/18 20:11 Dose: 15 mg Non-Formulary Medication (Cyanocobalamin (Vitamin B-12) [Vitamin B-12]) 1,000 mcg IM Q30D [facility] Non-Formulary Medication (Tocilizumab [Actemra]) 400 mg IV Q28D [facility] Non-Formulary Medication (Folic Acid [Folic Acid]) 0.8 mg PO DAILY [facility] Ondansetron HCl (Zofran Odt) 4 mg PO Q8H PRN PRN Reason: Nausea/Vomiting Last Admin: 12/02/18 09:37 Dose: 4 mg Potassium Chloride (Klor-Con M20) 20 meq PO DAILY [facility] Last Admin: 12/03/18 08:42 Dose: 20 meq Prednisone (Prednisone) 5 mg PO DAILY [facility] Last Admin: 12/03/18 08:42 Dose: 5 mg Propranolol HCl (Inderal La) 120 mg PO DAILY [facility] Last Admin: 12/03/18 08:42 Dose: 120 mg Psyllium Hydrophilic Mucilloid (Metamucil) 1.04 gm PO BEDTIME PRN PRN Reason: Constipation Saccharomyces Boulardii (Florastor) 250 mg PO BID [facility] Last Admin: 12/03/18 08:42 Dose: 250 mg Sodium Chloride (Saline Flush) 10 ml FLUSH ASDIRECTED PRN PRN Reason: IV Use Last Admin: 12/03/18 06:34 Dose: 10 ml Spironolactone (Aldactone) 12.5 mg PO DAILY [facility] Last Admin: 12/03/18 08:43 Dose: 12.5 mg Sumatriptan Succinate (Imitrex) 100 mg PO ASDIRECTED PRN PRN Reason: MIGRAINES Tizanidine HCl (Zanaflex) 2 mg PO BID PRN PRN Reason: MUSCLE SPASMS Last Admin: 12/02/18 00:18 Dose: 2 mg Tramadol HCl (Ultram) 50 mg PO Q4H PRN PRN Reason: Pain Last Admin: 12/03/18 05:15 Dose: 50 mg Vancomycin HCl (Vancocin 125 Mg/5 Ml Soln) 500 mg PO QID [facility] Last Admin: 12/02/18 20:11 Dose: 500 mg Warfarin Sodium (Coumadin Sliding Scale) 1 each PO ASDIRECTED [facility] Warfarin Sodium (Coumadin) 5 mg PO DAILY@1600 [facility] Discontinued Medications Ceftriaxone Sodium (Rocephin) 1 gm IVPUSH Q24H [facility] Last Admin: 12/03/18 08:42 Dose: 1 gm Cephalexin (Keflex) 250 mg PO DAILY [facility] Docusate Sodium (Colace) 200 mg PO BEDTIME [facility] Enoxaparin Sodium (Lovenox) 40 mg SUBCUT Q24H [facility] Last Admin: 12/02/18 10:13 Dose: 40 mg Fentanyl (Sublimaze) 25 mcg IVPUSH Q6H [facility] Stop: 12/02/18 12:01 Last Admin: 12/02/18 05:43 Dose: 25 mcg Fentanyl (Sublimaze) 25 mcg IVPUSH Q6H PRN PRN Reason: Pain Stop: 12/02/18 12:01 Furosemide (Lasix) 80 mg IVPUSH NOW ONE Stop: 12/01/18 09:31 Last Admin: 12/01/18 09:42 Dose: 80 mg Sodium Chloride (Normal Saline) 1,000 mls @ 150 mls/hr IV ASDIRECTED [facility] Last Admin: 12/01/18 08:01 Dose: 150 mls/hr Magnesium Sulfate 2 gm/ Premix 50 mls @ 150 mls/hr IV ONETIME ONE Stop: 12/01/18 08:46 Last Admin: 12/01/18 09:11 Dose: 150 mls/hr Piperacillin Sod/Tazobactam (Sod 4.5 gm/ Sodium Chloride) 100 mls @ 200 mls/hr IV Q6H [facility] Last Admin: 12/01/18 16:09 Dose: 200 mls/hr Lorazepam (Ativan) 0.5 mg IVPUSH ONETIME ONE Stop: 12/01/18 08:56 Last Admin: 12/01/18 09:07 Dose: 0.5 mg Meclizine HCl (Antivert) 25 mg PO ONETIME ONE Stop: 12/01/18 13:31 Last Admin: 12/01/18 13:45 Dose: 25 mg Ondansetron HCl (Zofran) 4 mg IVPUSH ONETIME ONE Stop: 12/01/18 07:32 Last Admin: 12/01/18 08:04 Dose: 4 mg Tramadol HCl (Ultram) 50 mg PO DAILY PRN PRN Reason: Pain Last Admin: 12/01/18 17:50 Dose: 50 mg Warfarin Sodium (Coumadin) 5 mg PO DAILY@1600 [facility] Last Admin: 12/01/18 18:45 Dose: 5 mg Warfarin Sodium (Coumadin) 10 mg PO ONETIME ONE Stop: 12/02/18 16:01 Last Admin: 12/02/18 15:56 Dose: 10 mg - Exam General: Alert, Oriented, Cooperative Lungs: Clear to Auscultation GI/Abdominal Exam: Normal Bowel Sounds, Soft, Non-Tender Extremities: No Pedal Edema - Problem List & Annotations (1) C. 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 Reviewed with patient by pharmacy that is azithromycin can cause increase in warfarin activity. She'll recheck her INR on Friday and follow up with the Coumadin clinic. INR was slightly subtherapeutic at discharge at 1.7. No changes and Coumadin were made. (4) Polypharmacy SNOMED Code(s): 800869153 Code(s): Z79.899 - OTHER EVENTS ASSOCIATE (CURRENT) DRUG THERAPY Status: Chronic Current Visit: No Annotation/Comment:: Follow-up as outpatient to see if she can reduce the number of medication she is taking as she is at high risk for complications of polypharmacy. (5) UTI (urinary tract infection) SNOMED Code(s): 70714868 Code(s): N39.0 - URINARY TRACT INFECTION, SITE NOT SPECIFIED Status: Acute Current Visit: Yes (6) Long QT interval SNOMED Code(s): 441571371 Code(s): R94.31 - ABNORMAL ELECTROCARDIOGRAM [ECG] [EKG] Status: Acute Current Visit: Yes (7) Hypomagnesemia SNOMED Code(s): 899241002 Code(s): E83.42 - HYPOMAGNESEMIA Status: Acute Current Visit: Yes - Problem List Review Problem List Initiated/Reviewed/Updated: Yes - My Orders Last 24 Hours: My Active Orders 12/02/18 08:27 Ondansetron [Zofran ODT] 4 mg PO Q8H PRN EKG 12 Lead [EK] Routine 12/02/18 08:28 EKG Documentation Completion [RC] ASDIRECTED 12/02/18 09:00 DULoxetine [Cymbalta] 90 mg PO DAILY Lisinopril [Prinivil] 5 mg PO DAILY Potassium Chloride [Klor-Con M20] 20 meq PO DAILY Propranolol [Inderal LA] 120 mg PO DAILY Spironolactone [Aldactone] 12.5 mg PO DAILY predniSONE 5 mg PO DAILY 12/02/18 09:20 Discontinue Telemetry Monitoring [Cardiac Monitoring Discontinue] [RC] Click to Edit 12/02/18 09:30 Warfarin Sliding Scale [Coumadin Sliding Scale] 1 each PO ASDIRECTED 12/03/18 14:00 Amoxicillin/Clavulanate K [Augmentin 500 MG\125 MG] 1 tab PO TID 12/03/18 16:00 Furosemide [Lasix] 40 mg PO 08,16 Warfarin [Coumadin] 5 mg PO DAILY@1600 12/03/18 21:00 Gabapentin [Neurontin] 300 mg PO BID Hydroxychloroquine [Plaquenil] 200 mg PO BID hydrOXYzine pamoate [Vistaril] 50 mg PO BID 12/04/18 08:00 INR,PT,PROTHROMBIN TIME [COAG] DAILY 12/04/18 09:00 Folic Acid [Folic Acid] 0.8 mg PO DAILY Leflunomide [Arava] 20 mg PO DAILY glipiZIDE [Glucotrol] 2.5 mg PO DAILY 12/05/18 08:00 INR,PT,PROTHROMBIN TIME [COAG] DAILY 12/06/18 06:00 Alendronate [Fosamax] 70 mg PO Kate@0600 - Plan Plan:: 1. Urine culture and sensitivity reviewed so I stop Rocephin and start Augmentin. 2. Restarted her Lasix and some of her home meds today. 3. Increase activity.
[2018-12-03] MEDS: ClonazePAM 0.5 MG Tab PO SCH ×2 (09:34→20:51)
[2018-12-03] MEDS ORDERED: Amoxicillin/Clavulanate K 875-125 MG Tab PO SCH (10:00)
[2018-12-03] MEDS: Gabapentin 300 MG Cap PO SCH ×2 (10:14→20:52)
[2018-12-03] MEDS: Hydroxychloroquine 200 MG Tab PO SCH ×2 (11:30→20:52)
[2018-12-03] MEDS: glipiZIDE 5 MG Tab PO SCH (11:30)
[2018-12-03] MEDS: Folic Acid 0.8 MG Tab PO SCH (11:31)
[2018-12-03] MEDS: Vancomycin 125 MG/5 ML ML Oral Solution PO SCH ×4 (11:31→20:57)
[2018-12-03] MEDS: Leflunomide 20 MG Tab PO SCH (11:31)
[2018-12-03] MEDS: Furosemide 40 MG Tab PO SCH ×2 (11:31→16:39)
[2018-12-03] MEDS ORDERED: Amoxicillin/Clavulanate K 500-125 MG Tab PO SCH (14:00)
[2018-12-03] MEDS ORDERED: Warfarin 5 MG Tab PO SCH (16:00)
[2018-12-03] MEDS ORDERED: Hydrocortisone 2.5% Crm 30 GM Tube TOP PRN (18:09)
[2018-12-03] MEDS: Ciprofloxacin 250 MG Tab PO SCH (19:11)
[2018-12-03] MEDS: Mirtazapine 15 MG Tab PO SCH (20:52)
[2018-12-03] MEDS: atorvaSTATin 20 MG Tab PO SCH (20:52)
[2018-12-03] MEDS: Famotidine 20 MG Tab PO SCH (20:53)
[2018-12-03] MEDS: Melatonin 3 MG Tab PO SCH (20:53)
[2018-12-04] MEDS: metroNIDAZOLE/Normal Saline 500 MG in Premix Bag 1 BAG IV SCH ×2 (00:57→09:28)
[2018-12-04] MEDS: Sodium Chloride 0.9% 10 ML Syringe FLUSH PRN ×4 (02:09→16:16)
[2018-12-04] MEDS: Ciprofloxacin 250 MG Tab PO SCH (06:05)
[2018-12-04] MEDS: traMADol 50 MG Tab PO PRN ×3 (07:05→22:02)
[2018-12-04] MEDS: Ondansetron 4 MG Tab.DIS PO PRN (07:06)
[2018-12-04] MEDS: Furosemide 40 MG Tab PO SCH ×2 (07:35→16:18)
[2018-12-04] MEDS: Potassium Chloride 20 MEQ Tab.ER PO SCH (09:03)
[2018-12-04] MEDS: Leflunomide 20 MG Tab PO SCH (09:03)
[2018-12-04] MEDS: Magnesium Oxide 400 MG Tab PO SCH ×2 (09:03→21:54)
[2018-12-04] MEDS: Spironolactone 25 MG Tab PO SCH (09:04)
[2018-12-04] MEDS: glipiZIDE 5 MG Tab PO SCH (09:06)
[2018-12-04] MEDS: predniSONE 5 MG Tab PO SCH (09:06)
[2018-12-04] MEDS: Lisinopril 5 MG Tab PO SCH (09:06)
[2018-12-04] MEDS: Acetaminophen 500 MG Tab PO SCH ×2 (09:06→21:52)
[2018-12-04] MEDS: DULoxetine 30 MG Cap PO SCH (09:06)
[2018-12-04] MEDS: Folic Acid 0.8 MG Tab PO SCH (09:07)
[2018-12-04] MEDS: Hydroxychloroquine 200 MG Tab PO SCH ×2 (09:07→22:00)
[2018-12-04] MEDS: Propranolol 60 MG Cap.ER PO SCH (09:07)
[2018-12-04] MEDS: Saccharomyces Boulardii (Probiotic) 250 MG Cap PO SCH ×2 (09:07→21:56)
[2018-12-04] MEDS: Gabapentin 300 MG Cap PO SCH ×2 (09:20→21:52)
[2018-12-04] MEDS: ClonazePAM 0.5 MG Tab PO SCH ×2 (09:20→21:52)
[2018-12-04] MEDS: Vancomycin 125 MG/5 ML ML Oral Solution PO SCH ×4 (09:22→22:11)
[2018-12-04] MEDS: Sulfamethoxazole/Trimethoprim 800-160 MG Tab PO SCH ×2 (12:30→21:59)
[2018-12-04] MEDS: fentaNYL 50 MCG/HR Transdermal Patch TRDERM SCH (12:42)
--- NOTE | 2018-12-04 13:42 | PCM.PN ---
- General Info Date of Service: 12/04/18 Subjective Update: Patient had 4 loose stools overnight, still feels like she is weak. She states she is better than when she came in. Found to have C. Difficile colitis and E. coli UTI. She does not like the taste of the liquid Vancomycin. She has been doing PT/OT as outpatient, continuing to do her exercises in the room. Ambulating in the room. - Review of Systems General: Reports: Fatigue Pulmonary: Denies: Shortness of Breath Cardiovascular: Denies: Chest Pain Gastrointestinal: Reports: Diarrhea. Denies: Abdominal Pain, Nausea, Vomiting Neurological: Reports: Weakness - Patient Data Vitals - Most Recent: Last Vital Signs Temp 36.3 C 12/04/18 07:28 Pulse 72 12/04/18 07:28 Resp 14 12/04/18 07:28 BP 100/70 12/04/18 09:06 Pulse Ox 94 L 12/04/18 07:28 Weight - Most Recent: 102.24 kg Lab Results Last 24 Hours: Laboratory Results - last 24 hr 12/04/18 Range/Units 07:00 PT 35.5 H* (8.7-11.1) INR 3.71 H (0.89-1.13) Amilcar Results Last 24 Hours: Microbiology 12/01/18 07:50 Aerobic Blood Culture - Preliminary Blood - Venous - Lab Draw NO GROWTH AFTER 3 DAYS Anaerobic Blood Culture - Preliminary NO GROWTH AFTER 3 DAYS 12/01/18 07:30 Aerobic Blood Culture - Preliminary Blood - Venous NO GROWTH AFTER 3 DAYS Anaerobic Blood Culture - Preliminary NO GROWTH AFTER 3 DAYS Med Orders - Current: Current Medications Acetaminophen (Tylenol Extra Strength) 1,000 mg PO BID [facility] Last Admin: 12/04/18 09:06 Dose: 1,000 mg Alendronate Sodium (Fosamax) 70 mg PO Kate@0600 [facility] Amitriptyline HCl (Elavil) 100 mg PO BEDTIME [facility] Last Admin: 12/03/18 20:52 Dose: 100 mg Atorvastatin Calcium (Lipitor) 20 mg PO BEDTIME [facility] Last Admin: 12/03/18 20:52 Dose: 20 mg Calcium Carbonate/Glycine (Tums) 500 mg PO Q4H PRN PRN Reason: Heartburn Clonazepam (Klonopin) 0.5 mg PO BID [facility] Last Admin: 12/04/18 09:20 Dose: 0.5 mg Dicyclomine HCl (Bentyl) 20 mg PO BID PRN PRN Reason: ABDOMINAL CRAMPS Diphenoxylate HCl/Atropine (Lomotil 0.025-2.5 Mg) 1 tab PO Q6H PRN PRN Reason: Diarrhea Duloxetine HCl (Cymbalta) 90 mg PO DAILY [facility] Last Admin: 12/04/18 09:06 Dose: 90 mg Famotidine (Pepcid) 20 mg PO BEDTIME [facility] Last Admin: 12/03/18 20:53 Dose: 20 mg Fentanyl (Duragesic) 50 mcg TRDERM Q72H [facility] Last Admin: 12/04/18 12:42 Dose: 50 mcg Folic Acid (Folic Acid) 0.8 mg PO DAILY [facility] Last Admin: 12/04/18 09:07 Dose: 0.8 mg Furosemide (Lasix) 40 mg PO 08,16 [facility] Last Admin: 12/04/18 07:35 Dose: 40 mg Gabapentin (Neurontin) 300 mg PO BID [facility] Last Admin: 12/04/18 09:20 Dose: 300 mg Glipizide (Glucotrol) 2.5 mg PO DAILY [facility] Last Admin: 12/04/18 09:06 Dose: 2.5 mg Heparin Sodium (Porcine) (Heparin Lock Flush 100 Units/Ml) 300 units FLUSH ASDIRECTED PRN PRN Reason: Keep Vein Open Last Admin: 12/04/18 07:07 Dose: 300 units Hydrocortisone (Proctozone-Hc 2.5% Crm) 0 gm TOP QID PRN PRN Reason: Itching Hydroxychloroquine Sulfate (Plaquenil) 200 mg PO BID [facility] Last Admin: 12/04/18 09:07 Dose: 200 mg Hydroxyzine Pamoate (Vistaril) 50 mg PO BID [facility] Last Admin: 12/04/18 09:12 Dose: 50 mg Metronidazole 500 mg/ Premix 100 mls @ 100 mls/hr IV Q8H [facility] Last Admin: 12/04/18 09:28 Dose: 100 mls/hr Leflunomide (Arava) 20 mg PO DAILY [facility] Last Admin: 12/04/18 09:03 Dose: 20 mg Lisinopril (Prinivil) 5 mg PO DAILY [facility] Last Admin: 12/04/18 09:06 Dose: 5 mg Magnesium Oxide (Magnesium Oxide) 400 mg PO BID [facility] Last Admin: 12/04/18 09:03 Dose: 400 mg Melatonin (Melatonin) 3 mg PO BEDTIME [facility] Last Admin: 12/03/18 20:53 Dose: 3 mg Mirtazapine (Remeron) 15 mg PO BEDTIME [facility] Last Admin: 12/03/18 20:52 Dose: 15 mg Non-Formulary Medication (Cyanocobalamin (Vitamin B-12) [Vitamin B-12]) 1,000 mcg IM Q30D [facility] Non-Formulary Medication (Tocilizumab [Actemra]) 400 mg IV Q28D [facility] Ondansetron HCl (Zofran Odt) 4 mg PO Q8H PRN PRN Reason: Nausea/Vomiting Last Admin: 12/04/18 07:06 Dose: 4 mg Potassium Chloride (Klor-Con M20) 20 meq PO DAILY [facility] Last Admin: 12/04/18 09:03 Dose: 20 meq Prednisone (Prednisone) 5 mg PO DAILY [facility] Last Admin: 12/04/18 09:06 Dose: 5 mg Propranolol HCl (Inderal La) 120 mg PO DAILY [facility] Last Admin: 12/04/18 09:07 Dose: 120 mg Psyllium Hydrophilic Mucilloid (Metamucil) 1.04 gm PO BEDTIME PRN PRN Reason: Constipation Saccharomyces Boulardii (Florastor) 250 mg PO BID [facility] Last Admin: 12/04/18 09:07 Dose: 250 mg Sodium Chloride (Saline Flush) 10 ml FLUSH ASDIRECTED PRN PRN Reason: IV Use Last Admin: 12/04/18 10:43 Dose: 10 ml Spironolactone (Aldactone) 12.5 mg PO DAILY [facility] Last Admin: 12/04/18 09:04 Dose: 12.5 mg Sumatriptan Succinate (Imitrex) 100 mg PO ASDIRECTED PRN PRN Reason: MIGRAINES Tizanidine HCl (Zanaflex) 2 mg PO BID PRN PRN Reason: MUSCLE SPASMS Last Admin: 12/02/18 00:18 Dose: 2 mg Tramadol HCl (Ultram) 50 mg PO Q4H PRN PRN Reason: Pain Last Admin: 12/04/18 07:05 Dose: 50 mg Trimethoprim/Sulfamethoxazole (Septra Ds) 1 tab PO BID [facility] Stop: 12/06/18 21:01 Last Admin: 12/04/18 12:30 Dose: 1 tab Vancomycin HCl (Vancocin 125 Mg/5 Ml Soln) 125 mg PO QID [facility] Warfarin Sodium (Coumadin Sliding Scale) 1 each PO ASDIRECTED [facility] Warfarin Sodium (Coumadin) 5 mg PO DAILY@1600 [facility] Last Admin: 12/03/18 16:39 Dose: 5 mg Discontinued Medications Amoxicillin/Clavulanate Potassium (Augmentin 875 Mg/125 Mg) 1 tab PO BID [facility] Stop: 12/07/18 21:01 Last Admin: 12/03/18 11:31 Dose: 1 tab Ceftriaxone Sodium (Rocephin) 1 gm IVPUSH Q24H [facility] Last Admin: 12/03/18 08:42 Dose: 1 gm Cephalexin (Keflex) 250 mg PO DAILY [facility] Ciprofloxacin (Ciprofloxacin Hcl) 250 mg PO BID@0600,1800 [facility] Last Admin: 12/04/18 06:05 Dose: 250 mg Docusate Sodium (Colace) 200 mg PO BEDTIME [facility] Enoxaparin Sodium (Lovenox) 40 mg SUBCUT Q24H [facility] Last Admin: 12/02/18 10:13 Dose: 40 mg Fentanyl (Sublimaze) 25 mcg IVPUSH Q6H [facility] Stop: 12/02/18 12:01 Last Admin: 12/02/18 05:43 Dose: 25 mcg Fentanyl (Sublimaze) 25 mcg IVPUSH Q6H PRN PRN Reason: Pain Stop: 12/02/18 12:01 Furosemide (Lasix) 80 mg IVPUSH NOW ONE Stop: 12/01/18 09:31 Last Admin: 12/01/18 09:42 Dose: 80 mg Sodium Chloride (Normal Saline) 1,000 mls @ 150 mls/hr IV ASDIRECTED [facility] Last Admin: 12/01/18 08:01 Dose: 150 mls/hr Magnesium Sulfate 2 gm/ Premix 50 mls @ 150 mls/hr IV ONETIME ONE Stop: 12/01/18 08:46 Last Admin: 12/01/18 09:11 Dose: 150 mls/hr Piperacillin Sod/Tazobactam (Sod 4.5 gm/ Sodium Chloride) 100 mls @ 200 mls/hr IV Q6H [facility] Last Admin: 12/01/18 16:09 Dose: 200 mls/hr Lorazepam (Ativan) 0.5 mg IVPUSH ONETIME ONE Stop: 12/01/18 08:56 Last Admin: 12/01/18 09:07 Dose: 0.5 mg Meclizine HCl (Antivert) 25 mg PO ONETIME ONE Stop: 12/01/18 13:31 Last Admin: 12/01/18 13:45 Dose: 25 mg Ondansetron HCl (Zofran) 4 mg IVPUSH ONETIME ONE Stop: 12/01/18 07:32 Last Admin: 12/01/18 08:04 Dose: 4 mg Tramadol HCl (Ultram) 50 mg PO DAILY PRN PRN Reason: Pain Last Admin: 12/01/18 17:50 Dose: 50 mg Vancomycin HCl (Vancocin 125 Mg/5 Ml Soln) 500 mg PO QID [facility] Last Admin: 12/04/18 09:22 Dose: 500 mg Warfarin Sodium (Coumadin) 5 mg PO DAILY@1600 [facility] Last Admin: 12/01/18 18:45 Dose: 5 mg Warfarin Sodium (Coumadin) 10 mg PO ONETIME ONE Stop: 12/02/18 16:01 Last Admin: 12/02/18 15:56 Dose: 10 mg - Exam General: Alert, Oriented, Cooperative Lungs: Clear to Auscultation, Normal Respiratory Effort Cardiovascular: Regular Rate, Regular Rhythm GI/Abdominal Exam: Normal Bowel Sounds, Soft, Non-Tender, No Organomegaly, No Distention - Problem List & Annotations (1) C. difficile colitis SNOMED Code(s): 970407955 Code(s): A04.72 - ENTEROCOLITIS D/T CLOSTRIDIUM DIFFICILE, NOT SPCF RECUR Status: Acute Current Visit: Yes (2) UTI (urinary tract infection) SNOMED Code(s): 07425207 Code(s): N39.0 - URINARY TRACT INFECTION, SITE NOT SPECIFIED Status: Acute Current Visit: Yes (3) Hypomagnesemia SNOMED Code(s): 385513959 Code(s): E83.42 - HYPOMAGNESEMIA Status: Acute Current Visit: Yes (4) Long QT interval SNOMED Code(s): 191440765 Code(s): R94.31 - ABNORMAL ELECTROCARDIOGRAM [ECG] [EKG] Status: Resolved Current Visit: Yes (5) Palliative care status SNOMED Code(s): 996740064 Code(s): Z51.5 - ENCOUNTER FOR PALLIATIVE CARE Status: Acute Current Visit: Yes - Problem List Review Problem List Initiated/Reviewed/Updated: Yes - My Orders Last 24 Hours: My Active Orders 12/04/18 11:30 Sulfamethoxazole/Trimethoprim [Septra DS] 1 tab PO BID 12/04/18 13:00 Vancomycin [Vancocin 125 MG/5 ML Soln] 125 mg PO QID 12/05/18 07:52 INR,PT,PROTHROMBIN TIME [COAG] DAILY 12/06/18 07:52 INR,PT,PROTHROMBIN TIME [COAG] DAILY 12/07/18 07:52 INR,PT,PROTHROMBIN TIME [COAG] DAILY - Plan Plan:: 1. Improving on IV Flagyl and po Vancomycin, [facility] does have Vanocin capsules available that she can be discharged on. Will switch her to po Flagyl this afternoon, see how she tolerates and possible discharge tomorrow. 2. Urine culture and sensitivity reviewed had issue with prolonged QT on admission, will change from ciprofloxacin to Bactrim DS. 3. Recheck her magnesium. 4. Continue her home medications.
[2018-12-04] MEDS: metroNIDAZOLE 500 MG Tab PO SCH ×2 (17:26→22:06)
[2018-12-04] MEDS: Melatonin 3 MG Tab PO SCH (21:54)
[2018-12-04] MEDS: Famotidine 20 MG Tab PO SCH (21:55)
[2018-12-04] MEDS: atorvaSTATin 20 MG Tab PO SCH (21:57)
[2018-12-04] MEDS: Mirtazapine 15 MG Tab PO SCH (21:58)
[2018-12-05] MEDS: metroNIDAZOLE 500 MG Tab PO SCH ×2 (05:38→12:17)
[2018-12-05] MEDS: Furosemide 40 MG Tab PO SCH (07:48)
[2018-12-05] MEDS: traMADol 50 MG Tab PO PRN (07:48)
[2018-12-05] MEDS: Spironolactone 25 MG Tab PO SCH (09:29)
[2018-12-05] MEDS: Potassium Chloride 20 MEQ Tab.ER PO SCH (09:30)
[2018-12-05] MEDS: Folic Acid 0.8 MG Tab PO SCH (09:30)
[2018-12-05] MEDS: glipiZIDE 5 MG Tab PO SCH (09:30)
[2018-12-05] MEDS: Magnesium Oxide 400 MG Tab PO SCH (09:30)
[2018-12-05] MEDS: Saccharomyces Boulardii (Probiotic) 250 MG Cap PO SCH (09:30)
[2018-12-05] MEDS: Leflunomide 20 MG Tab PO SCH (09:30)
[2018-12-05] MEDS: Propranolol 60 MG Cap.ER PO SCH (09:31)
[2018-12-05] MEDS: DULoxetine 30 MG Cap PO SCH (09:31)
[2018-12-05] MEDS: Gabapentin 300 MG Cap PO SCH (09:31)
[2018-12-05] MEDS: Sulfamethoxazole/Trimethoprim 800-160 MG Tab PO SCH (09:31)
[2018-12-05] MEDS: Lisinopril 5 MG Tab PO SCH (09:32)
[2018-12-05] MEDS: predniSONE 5 MG Tab PO SCH (09:32)
[2018-12-05] MEDS: Vancomycin 125 MG/5 ML ML Oral Solution PO SCH ×2 (09:32→14:03)
[2018-12-05] MEDS: ClonazePAM 0.5 MG Tab PO SCH (09:32)
[2018-12-05] MEDS: Acetaminophen 500 MG Tab PO SCH (09:32)
[2018-12-05] MEDS: Hydroxychloroquine 200 MG Tab PO SCH (09:32)
--- NOTE | 2018-12-05 09:32 | PCM.DCSUM1 ---
Discharge Summary - Hospital Course HPI Initial Comments: This is a 68-year-old female patient multiple medical process present 4-5 day history of diarrhea some vomiting, nausea, fevers and some diffuse abdominal pain. She's not able to eat or drink. She has not taken her pills in 3 days. She denies runny nose, sore throat, cough. She has a history of recurrent UTIs. She denies dysuria, pyuria, hematuria. Diagnosis: Stroke: No - Discharge Data Discharge Date: 12/05/18 Discharge Disposition: Home, [facility] 06 Condition: Good - Discharge Diagnosis/Problem(s) (1) C. difficile colitis SNOMED Code(s): 574471072 ICD Code: A04.72 - ENTEROCOLITIS D/T CLOSTRIDIUM DIFFICILE, NOT SPCF RECUR Status: Acute Current Visit: Yes Problem Details: Improving (2) UTI (urinary tract infection) SNOMED Code(s): 41997311 ICD Code: N39.0 - URINARY TRACT INFECTION, SITE NOT SPECIFIED Status: Acute Current Visit: Yes Problem Details: E. coli Qualifiers: Urinary tract infection type: acute cystitis (3) Hypomagnesemia SNOMED Code(s): 985805533 ICD Code: E83.42 - HYPOMAGNESEMIA Status: Resolved Current Visit: Yes Problem Details: 1.9 on 12/03 (4) Long QT interval SNOMED Code(s): 822038025 ICD Code: R94.31 - ABNORMAL ELECTROCARDIOGRAM [ECG] [EKG] Status: Resolved Current Visit: Yes (5) Palliative care status SNOMED Code(s): 756296920 ICD Code: Z51.5 - ENCOUNTER FOR PALLIATIVE CARE Status: Resolved Current Visit: Yes - Patient Summary/Data Consults: Consultations 12/02/18 08:09 Consult to Occupational Therapy [OT Evaluation and Treatment] [CONS] Routine Please Evaluate and Treat. OT Reason for Consult: Strengthening This query below is only for informational purposes and is not editable. Admission Diagnosis/Problem: Diarrhea of presumed infectious origin Consult to Physical Therapy [PT Evaluation and Treatment] [CONS] Routine Please Evaluate and Treat. PT Reason for Consult: Strengthening This query below is only for informational purposes and is not editable. Admission Diagnosis/Problem: Diarrhea of presumed infectious origin Hospital Course: Patient was positive for C. difficle colitis treated with IV flagyl and oral vancomycin, her stools decreased over the course of hospital stay. She was switched to oral flagyl on 12/04 tolerated well, had no loose stools overnight prior to discharge. Prolonged QT on admission resolved, restarted Zofran(home med). Found to have UTI, culture showed E. coli sensitive to Bactrim, Ciprofloxacin and Augmentin. Was initially given ciprofloxacin but since she had the prolonged QT at admission which had resolved per repeat EKG switched patient to Bactrim DS which she received 3 doses during stay and tolerated well. - Patient Instructions Activity: As Tolerated Driving: May Drive Today Showering/Bathing: May Shower Notify Provider of: Increased Pain, Nausea and/or Vomiting Other/Special Instructions: Diarrhea - Discharge Plan *PRESCRIPTION DRUG MONITORING PROGRAM REVIEWED*: Not Applicable *COPY OF PRESCRIPTION DRUG MONITORING REPORT IN PATIENT ARACELI: No Prescriptions/Med Rec: metroNIDAZOLE [Flagyl] 500 mg PO Q6H 7 Days #28 tablet Saccharomyces Boulardii [Florastor] 250 mg PO BID 30 Days #30 cap Sulfamethoxazole/Trimethoprim [Septra DS] 1 tab PO BID 1 Days #3 tablet Vancomycin [Vancocin 125 MG/5 ML Soln] 125 mg PO QID 7 Days #28 cap Home Medications: Home Meds SUMAtriptan 100 mg PO ASDIRECTED PRN 02/07/13 [History] Ranitidine [Zantac] 150 mg PO BEDTIME 12/01/15 [History] Alendronate [Fosamax] 70 mg PO KATE 08/09/16 [History] Docusate Sodium 200 mg PO BEDTIME 08/09/16 [History] Amitriptyline [Elavil] 100 mg PO BEDTIME 08/19/17 [History] ClonazePAM [KlonoPIN] 0.5 mg PO BID 08/19/17 [History] Furosemide 40 mg PO 08,16 08/19/17 [History] Gabapentin [Neurontin] 300 mg PO BID 08/19/17 [History] Hydroxychloroquine [Plaquenil] 200 mg PO BID 08/19/17 [History] Potassium Chloride 20 meq PO DAILY 08/19/17 [History] atorvaSTATin [Lipitor] 20 mg PO BEDTIME 08/19/17 [History] hydrOXYzine pamoate [Vistaril] 50 mg PO BID 08/19/17 [History] tiZANidine [Zanaflex] 2 mg PO BID PRN 08/19/17 [History] Warfarin [Coumadin] 5 mg PO DAILY@1600 09/10/17 [History] Lisinopril 5 mg PO DAILY 09/11/17 [History] Leflunomide [Arava] 20 mg PO DAILY 11/05/17 [History] Ondansetron HCl [Zofran] 4 mg PO Q8H PRN 11/13/17 [History] Calcium Carbonate [Tums] 500 mg PO ASDIRECTED PRN 10/09/18 [History] DULoxetine [Cymbalta] 90 mg PO DAILY 10/09/18 [History] Folic Acid 0.8 mg PO DAILY 10/09/18 [History] Melatonin 3 mg PO BEDTIME 10/09/18 [History] Mirtazapine [Remeron] 15 mg PO BEDTIME 10/09/18 [History] Psyllium [Metamucil] 1.04 gm PO BEDTIME PRN 10/09/18 [History] Spironolactone [Aldactone] 12.5 mg PO DAILY 10/09/18 [History] Tocilizumab [Actemra] 400 mg IV Q28D 10/09/18 [History] traMADol [Ultram] 50 mg PO DAILY PRN 10/09/18 [History] Acetaminophen [Tylenol Extra Strength] 1,000 mg PO BID 10/27/18 [History] Dicyclomine [Bentyl] 20 mg PO BID PRN 10/27/18 [History] Nystatin 1 applic TP QID PRN 10/27/18 [History] Propranolol HCl [Propranolol HCl ER] 120 mg PO DAILY 10/27/18 [History] glipiZIDE [Glucotrol] 2.5 mg PO DAILY 10/27/18 [History] predniSONE [Prednisone] 5 mg PO DAILY 10/27/18 [History] Diphenoxylate HCl/Atropine [Lomotil] 1 each PO Q6H PRN 14 Days tablet 11/10/18 [Rx] Magnesium Oxide [Magnesium] 400 mg PO BID #14 capsule 11/27/18 [Rx] Cyanocobalamin (Vitamin B-12) [Vitamin B-12] 1,000 mcg IM Q30D 12/01/18 [History ] Acetaminophen [Tylenol Extra Strength] 1,000 mg PO BID tablet 12/05/18 [Rx] Hydrocortisone [Proctozone-HC 2.5% Crm] 0 gm TOP QID PRN tube 12/05/18 [Rx] Saccharomyces Boulardii [Florastor] 250 mg PO BID 30 Days #30 cap 12/05/18 [Rx] Sulfamethoxazole/Trimethoprim [Septra DS] 1 tab PO BID 1 Days #3 tablet [Rx] Vancomycin [Vancocin 125 MG/5 ML Soln] 125 mg PO QID 7 Days #28 cap 12/05/18 [Rx ] Warfarin [Coumadin] 5 mg PO DAILY@1600 #0 tablet 12/05/18 [Rx] fentaNYL [Duragesic] 50 mcg TRDERM Q72H patch 12/05/18 [Rx] metroNIDAZOLE [Flagyl] 500 mg PO Q6H 7 Days #28 tablet 12/05/18 [Rx] Oxygen Therapy Mode: Room Air Patient Handouts: Clostridium Difficile Infection, Urinary Tract Infection, Adult Forms: ED Department Discharge Referrals: Ang Ramsey MD [Primary Care Provider] - - Discharge Summary/Plan Comment DC Time >30 min.: Yes Discharge Summary/Plan Comment: 1. Follow up with Dr Ramsey as previously scheduled on December 10 2. Take all antibiotics until gone: you received 2 for C. difficile colitis: Metronidazole 500 mg and Vanocin 125 mg for 7 more days; 1 antibiotic for UTI: Bactrim DS for 3 more doses, will finish Friday evening. 3. Call your mortgage loan processing clerk to check when they would like you to resume your infusions for your Rheumatoid arthritis. - General Info Date of Service: 12/05/18 - Review of Systems General: Denies: Fever, Chills Cardiovascular: Denies: Chest Pain Gastrointestinal: Denies: Abdominal Pain, Constipation, Diarrhea, Vomiting Genitourinary: Denies: Dysuria Neurological: Denies: Weakness - Patient Data Vitals - Most Recent: Last Vital Signs Temp 36.4 C 12/05/18 06:15 Pulse 76 12/05/18 06:15 Resp 20 12/05/18 06:15 BP 127/81 12/05/18 06:15 Pulse Ox 90 L 12/05/18 06:15 Weight - Most Recent: 102.24 kg Lab Results - Last 24 hrs: Laboratory Results - last 24 hr 12/04/18 12/05/18 Range/Units 16:20 06:15 PT 28.0 H (8.7-11.1) INR 2.92 H (0.89-1.13) Sodium 141 (135-145) mmol/L Potassium 4.2 (3.5-5.3) mmol/L Chloride 104 (100-110) mmol/L Carbon Dioxide 30 (21-32) mmol/L BUN 6 L (7-18) mg/dL Creatinine 0.8 (0.55-1.02) mg/dL Est Cr Clr Drug Dosing 68.38 mL/min Estimated GFR (MDRD) > 60 (>60) BUN/Creatinine Ratio 7.5 L (9-20) Glucose 99 (80-116) mg/dL Calcium 8.0 L (8.6-10.2) mg/dL VASYL Results - Last 24 hrs: Microbiology 12/01/18 07:50 Aerobic Blood Culture - Preliminary Blood - Venous - Lab Draw NO GROWTH AFTER 4 DAYS Anaerobic Blood Culture - Preliminary NO GROWTH AFTER 4 DAYS 12/01/18 07:30 Aerobic Blood Culture - Preliminary Blood - Venous NO GROWTH AFTER 4 DAYS Anaerobic Blood Culture - Preliminary NO GROWTH AFTER 4 DAYS Med Orders - Current: Current Medications Acetaminophen (Tylenol Extra Strength) 1,000 mg PO BID [facility] Last Admin: 12/04/18 21:52 Dose: 1,000 mg Alendronate Sodium (Fosamax) 70 mg PO Kate@0600 [facility] Amitriptyline HCl (Elavil) 100 mg PO BEDTIME [facility] Last Admin: 12/04/18 21:55 Dose: 100 mg Atorvastatin Calcium (Lipitor) 20 mg PO BEDTIME [facility] Last Admin: 12/04/18 21:57 Dose: 20 mg Calcium Carbonate/Glycine (Tums) 500 mg PO Q4H PRN PRN Reason: Heartburn Clonazepam (Klonopin) 0.5 mg PO BID [facility] Last Admin: 12/04/18 21:52 Dose: 0.5 mg Dicyclomine HCl (Bentyl) 20 mg PO BID PRN PRN Reason: ABDOMINAL CRAMPS Diphenoxylate HCl/Atropine (Lomotil 0.025-2.5 Mg) 1 tab PO Q6H PRN PRN Reason: Diarrhea Duloxetine HCl (Cymbalta) 90 mg PO DAILY [facility] Last Admin: 07/13/19 09:31 Dose: 90 mg Famotidine (Pepcid) 20 mg PO BEDTIME [facility] Last Admin: 12/04/18 21:55 Dose: 20 mg Fentanyl (Duragesic) 50 mcg TRDERM Q72H [facility] Last Admin: 12/04/18 12:42 Dose: 50 mcg Folic Acid (Folic Acid) 0.8 mg PO DAILY [facility] Last Admin: 12/05/18 09:30 Dose: 0.8 mg Furosemide (Lasix) 40 mg PO 08,16 [facility] Last Admin: 12/05/18 07:48 Dose: 40 mg Gabapentin (Neurontin) 300 mg PO BID [facility] Last Admin: 12/05/18 09:31 Dose: 300 mg Glipizide (Glucotrol) 2.5 mg PO DAILY [facility] Last Admin: 12/05/18 09:30 Dose: 2.5 mg Heparin Sodium (Porcine) (Heparin Lock Flush 100 Units/Ml) 300 units FLUSH ASDIRECTED PRN PRN Reason: Keep Vein Open Last Admin: 12/04/18 16:17 Dose: 300 units Hydrocortisone (Proctozone-Hc 2.5% Crm) 0 gm TOP QID PRN PRN Reason: Itching Hydroxychloroquine Sulfate (Plaquenil) 200 mg PO BID [facility] Last Admin: 12/04/18 22:00 Dose: 200 mg Hydroxyzine Pamoate (Vistaril) 50 mg PO BID [facility] Last Admin: 12/04/18 21:59 Dose: 50 mg Leflunomide (Arava) 20 mg PO DAILY [facility] Last Admin: 12/05/18 09:30 Dose: 20 mg Lisinopril (Prinivil) 5 mg PO DAILY [facility] Last Admin: 12/04/18 09:06 Dose: 5 mg Magnesium Oxide (Magnesium Oxide) 400 mg PO BID [facility] Last Admin: 12/05/18 09:30 Dose: 400 mg Melatonin (Melatonin) 3 mg PO BEDTIME [facility] Last Admin: 12/04/18 21:54 Dose: 3 mg Metronidazole (Flagyl) 500 mg PO Q6H [facility] Last Admin: 12/05/18 05:38 Dose: 500 mg Mirtazapine (Remeron) 15 mg PO BEDTIME [facility] Last Admin: 12/04/18 21:58 Dose: 15 mg Non-Formulary Medication (Cyanocobalamin (Vitamin B-12) [Vitamin B-12]) 1,000 mcg IM Q30D [facility] Non-Formulary Medication (Tocilizumab [Actemra]) 400 mg IV Q28D [facility] Ondansetron HCl (Zofran Odt) 4 mg PO Q8H PRN PRN Reason: Nausea/Vomiting Last Admin: 12/04/18 07:06 Dose: 4 mg Potassium Chloride (Klor-Con M20) 20 meq PO DAILY [facility] Last Admin: 12/05/18 09:30 Dose: 20 meq Prednisone (Prednisone) 5 mg PO DAILY [facility] Last Admin: 12/04/18 09:06 Dose: 5 mg Propranolol HCl (Inderal La) 120 mg PO DAILY [facility] Last Admin: 12/04/18 09:07 Dose: 120 mg Psyllium Hydrophilic Mucilloid (Metamucil) 1.04 gm PO BEDTIME PRN PRN Reason: Constipation Saccharomyces Boulardii (Florastor) 250 mg PO BID [facility] Last Admin: 12/05/18 09:30 Dose: 250 mg Sodium Chloride (Saline Flush) 10 ml FLUSH ASDIRECTED PRN PRN Reason: IV Use Last Admin: 12/04/18 16:16 Dose: 10 ml Spironolactone (Aldactone) 12.5 mg PO DAILY [facility] Last Admin: 12/05/18 09:29 Dose: 12.5 mg Sumatriptan Succinate (Imitrex) 100 mg PO ASDIRECTED PRN PRN Reason: MIGRAINES Tizanidine HCl (Zanaflex) 2 mg PO BID PRN PRN Reason: MUSCLE SPASMS Last Admin: 12/02/18 00:18 Dose: 2 mg Tramadol HCl (Ultram) 50 mg PO Q4H PRN PRN Reason: Pain Last Admin: 12/05/18 07:48 Dose: 50 mg Trimethoprim/Sulfamethoxazole (Septra Ds) 1 tab PO BID [facility] Stop: 12/06/18 21:01 Last Admin: 12/05/18 09:31 Dose: 1 tab Vancomycin HCl (Vancocin 125 Mg/5 Ml Soln) 125 mg PO QID [facility] Last Admin: 12/04/18 22:11 Dose: 125 mg Warfarin Sodium (Coumadin Sliding Scale) 1 each PO ASDIRECTED [facility] Warfarin Sodium (Coumadin) 5 mg PO DAILY@1600 [facility] Last Admin: 12/03/18 16:39 Dose: 5 mg Discontinued Medications Amoxicillin/Clavulanate Potassium (Augmentin 875 Mg/125 Mg) 1 tab PO BID [facility] Stop: 12/07/18 21:01 Last Admin: 12/03/18 11:31 Dose: 1 tab Ceftriaxone Sodium (Rocephin) 1 gm IVPUSH Q24H [facility] Last Admin: 12/03/18 08:42 Dose: 1 gm Cephalexin (Keflex) 250 mg PO DAILY [facility] Ciprofloxacin (Ciprofloxacin Hcl) 250 mg PO BID@0600,1800 [facility] Last Admin: 12/04/18 06:05 Dose: 250 mg Docusate Sodium (Colace) 200 mg PO BEDTIME [facility] Enoxaparin Sodium (Lovenox) 40 mg SUBCUT Q24H [facility] Last Admin: 12/02/18 10:13 Dose: 40 mg Fentanyl (Sublimaze) 25 mcg IVPUSH Q6H [facility] Stop: 12/02/18 12:01 Last Admin: 12/02/18 05:43 Dose: 25 mcg Fentanyl (Sublimaze) 25 mcg IVPUSH Q6H PRN PRN Reason: Pain Stop: 12/02/18 12:01 Furosemide (Lasix) 80 mg IVPUSH NOW ONE Stop: 12/01/18 09:31 Last Admin: 12/01/18 09:42 Dose: 80 mg Sodium Chloride (Normal Saline) 1,000 mls @ 150 mls/hr IV ASDIRECTED [facility] Last Admin: 12/01/18 08:01 Dose: 150 mls/hr Magnesium Sulfate 2 gm/ Premix 50 mls @ 150 mls/hr IV ONETIME ONE Stop: 12/01/18 08:46 Last Admin: 12/01/18 09:11 Dose: 150 mls/hr Piperacillin Sod/Tazobactam (Sod 4.5 gm/ Sodium Chloride) 100 mls @ 200 mls/hr IV Q6H [facility] Last Admin: 12/01/18 16:09 Dose: 200 mls/hr Metronidazole 500 mg/ Premix 100 mls @ 100 mls/hr IV Q8H [facility] Last Admin: 12/04/18 09:28 Dose: 100 mls/hr Lorazepam (Ativan) 0.5 mg IVPUSH ONETIME ONE Stop: 12/01/18 08:56 Last Admin: 12/01/18 09:07 Dose: 0.5 mg Meclizine HCl (Antivert) 25 mg PO ONETIME ONE Stop: 12/01/18 13:31 Last Admin: 12/01/18 13:45 Dose: 25 mg Ondansetron HCl (Zofran) 4 mg IVPUSH ONETIME ONE Stop: 12/01/18 07:32 Last Admin: 12/01/18 08:04 Dose: 4 mg Tramadol HCl (Ultram) 50 mg PO DAILY PRN PRN Reason: Pain Last Admin: 12/01/18 17:50 Dose: 50 mg Vancomycin HCl (Vancocin 125 Mg/5 Ml Soln) 500 mg PO QID [facility] Last Admin: 12/04/18 09:22 Dose: 500 mg Warfarin Sodium (Coumadin) 5 mg PO DAILY@1600 [facility] Last Admin: 12/01/18 18:45 Dose: 5 mg Warfarin Sodium (Coumadin) 10 mg PO ONETIME ONE Stop: 12/02/18 16:01 Last Admin: 12/02/18 15:56 Dose: 10 mg - Exam General: Reports: Alert, Oriented, Cooperative Lungs: Reports: Clear to Auscultation, Normal Respiratory Effort Cardiovascular: Reports: Regular Rate, Regular Rhythm GI/Abdominal Exam: Normal Bowel Sounds, Soft, Non-Tender, No Distention
[2018-12-05 09:33] VITALS: BP 100/70
[2018-12-05 14:12] VITALS: PULSE 71
[2018-12-06] MEDS ORDERED: Alendronate 70 MG Tab PO SCH (06:00)
== END 2018-12-05 13:45 | disposition home health service (06) | DRG 371 ==
LOC: FB.ED 06:34 → FB.MS 11:06
PROVIDERS: ADMIT Family Medicine; ATTEND Family Medicine
DX: A04.72 Enterocolitis due to Clostridium difficile, not specified as recurrent (principal); R82.71 Bacteriuria; I50.43 Acute on chronic combined systolic (congestive) and diastolic (congestive) heart failure; N39.0 Urinary tract infection, site not specified; B96.20 Unspecified Escherichia coli [E. coli] as the cause of diseases classified elsewhere; Z51.5 Encounter for palliative care; I11.0 Hypertensive heart disease with heart failure; E11.9 Type 2 diabetes mellitus without complications; M06.9 Rheumatoid arthritis, unspecified; G89.29 Other chronic pain; J44.9 Chronic obstructive pulmonary disease, unspecified; R11.2 Nausea with vomiting, unspecified; R10.9 Unspecified abdominal pain; R19.7 Diarrhea, unspecified; R94.31 Abnormal electrocardiogram [ECG] [EKG]; Z79.01 Long term (current) use of anticoagulants; Z79.899 Other long term (current) drug therapy; Z87.440 Personal history of urinary (tract) infections; E83.42 Hypomagnesemia; Z79.84 Long term (current) use of oral hypoglycemic drugs; E78.00 Pure hypercholesterolemia, unspecified; Z86.711 Personal history of pulmonary embolism; G47.30 Sleep apnea, unspecified; K21.9 Gastro-esophageal reflux disease without esophagitis; K58.9 Irritable bowel syndrome, unspecified; M19.90 Unspecified osteoarthritis, unspecified site; M54.9 Dorsalgia, unspecified; M81.0 Age-related osteoporosis without current pathological fracture; G43.909 Migraine, unspecified, not intractable, without status migrainosus; Z87.820 Personal history of traumatic brain injury; F41.9 Anxiety disorder, unspecified; F32.9 Major depressive disorder, single episode, unspecified; F41.0 Panic disorder [episodic paroxysmal anxiety]; E66.9 Obesity, unspecified; Z68.32 Body mass index [BMI] 32.0-32.9, adult; I25.2 Old myocardial infarction; H54.7 Unspecified visual loss; E53.8 Deficiency of other specified B group vitamins; Z98.1 Arthrodesis status; Z87.891 Personal history of nicotine dependence; Z88.1 Allergy status to other antibiotic agents; Z88.8 Allergy status to other drugs, medicaments and biological substances; Z79.891 Long term (current) use of opiate analgesic; Z79.52 Long term (current) use of systemic steroids; Z87.442 Personal history of urinary calculi; Z96.649 Presence of unspecified artificial hip joint; Z90.49 Acquired absence of other specified parts of digestive tract
CPT/HCPCS: 36415; 71045; 80053; 81001; 83605; 83735; 85025; 85610; 86140; 87040 ×2; 87086; 87088; 87186; 87324; 93005 ×3; 96361; 96365; 96367; 96375; 99284; A9270; J1940; J2060; J2405; J2543; J3475; J7030 ×2; 80048; 93010; 97161-GP; 99285; J0696; J1642; J1650; J3010; J3490

== ENCOUNTER 2018-12-09 12:38 | Inpatient (IN) | payer MEDICARE, BC ==
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
[2018-12-09] MEDS ORDERED: Sodium Chloride 0.9% 1,000 ML IV ONE (13:25)
[2018-12-09] MEDS ORDERED: fentaNYL 100 MCG/2 ML SDV IVPUSH ONE (13:25)
[2018-12-09] MEDS ORDERED: LORazepam 2 MG/ML SDV IVPUSH ONE (13:25)
[2018-12-09] MEDS ORDERED: Promethazine 25 MG in Sodium Chloride 0.9% 50 ML IV ONE (13:55)
[2018-12-09] MEDS: Sodium Chloride 0.9% 1,000 ML IV SCH (15:35)
[2018-12-09] MEDS ORDERED: Magnesium Sulfate/Water 2 GM in Premix Bag 1 BAG IV ONE (15:48)
[2018-12-09] MEDS ORDERED: Ondansetron 4 MG/2 ML SDV IV PRN (20:39)
[2018-12-09] MEDS ORDERED: Acetaminophen 325 MG Tab PO PRN (20:39)
[2018-12-09] MEDS ORDERED: Morphine 2 MG/ML Syringe IVPUSH PRN (20:39)
[2018-12-09] MEDS ORDERED: Vancomycin 125 MG/5 ML ML Oral Solution PO SCH (21:00)
[2018-12-09] MEDS: metroNIDAZOLE/Normal Saline 500 MG in Premix Bag 1 BAG IV SCH (21:32)
[2018-12-09] MEDS: oxyCODONE 5 MG Tab PO PRN (21:36)
[2018-12-09] MEDS: Vancomycin 125 MG/5 ML ML Oral Solution PO SCH ×3 (22:59→23:03)
[2018-12-09] MEDS: Vancomycin 1 GM SDV PO SCH (23:03)
[2018-12-10] MEDS: Sodium Chloride 0.9% 1,000 ML IV SCH ×3 (00:28→17:02)
[2018-12-10] MEDS: Vancomycin 125 MG/5 ML ML Oral Solution PO SCH ×5 (04:00→20:34)
[2018-12-10] MEDS: Vancomycin 1 GM SDV PO SCH (04:12)
[2018-12-10] MEDS: metroNIDAZOLE/Normal Saline 500 MG in Premix Bag 1 BAG IV SCH ×3 (04:13→20:37)
[2018-12-10] MEDS: Ondansetron 4 MG Tab.DIS PO PRN ×2 (04:23→10:26)
[2018-12-10] MEDS: oxyCODONE 5 MG Tab PO PRN ×2 (04:23→11:51)
[2018-12-10] MEDS: Sodium Chloride 0.9% 10 ML Syringe FLUSH PRN (07:14)
[2018-12-10] MEDS ORDERED: Calcium Carbonate 500 MG Tab.Chew PO PRN (07:18)
[2018-12-10] MEDS ORDERED: Hydrocortisone 2.5% Crm 30 GM Tube TOP PRN (07:18)
[2018-12-10] MEDS ORDERED: Nystatin Topical Powder 15 GM Bottle TOP PRN (07:18)
[2018-12-10] MEDS ORDERED: Dicyclomine 10 MG Cap PO PRN (07:18)
[2018-12-10] MEDS ORDERED: traMADol 50 MG Tab PO PRN (07:18)
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
[2018-12-10] MEDS: Gabapentin 300 MG Cap PO SCH ×2 (08:32→20:33)
[2018-12-10] MEDS: ClonazePAM 0.5 MG Tab PO SCH ×2 (08:32→20:32)
[2018-12-10] MEDS ORDERED: Warfarin Sliding Scale PO SCH (09:00)
[2018-12-10] MEDS: DULoxetine 30 MG Cap PO SCH (09:03)
[2018-12-10] MEDS: Saccharomyces Boulardii (Probiotic) 250 MG Cap PO SCH ×2 (09:04→20:32)
[2018-12-10] MEDS: predniSONE 5 MG Tab PO SCH (09:04)
[2018-12-10] MEDS: Hydroxychloroquine 200 MG Tab PO SCH ×2 (09:04→20:34)
[2018-12-10] MEDS: Propranolol 60 MG Cap.ER PO SCH (09:04)
[2018-12-10] MEDS: Lisinopril 5 MG Tab PO SCH (09:04)
[2018-12-10] MEDS: Nystatin Topical Powder 15 GM Bottle TOP PRN (09:06)
[2018-12-10] MEDS ORDERED: fentaNYL 50 MCG/HR Transdermal Patch TRDERM SCH (12:00)
[2018-12-10] MEDS: Warfarin 5 MG Tab PO SCH (16:47)
[2018-12-10] MEDS: Melatonin 3 MG Tab PO SCH (20:33)
[2018-12-10] MEDS: Famotidine 20 MG Tab PO SCH (20:33)
[2018-12-10] MEDS: Mirtazapine 15 MG Tab PO SCH (20:34)
[2018-12-11] MEDS: oxyCODONE 5 MG Tab PO PRN ×2 (02:02→08:41)
[2018-12-11] MEDS: metroNIDAZOLE/Normal Saline 500 MG in Premix Bag 1 BAG IV SCH (04:52)
[2018-12-11] MEDS: DULoxetine 30 MG Cap PO SCH (08:12)
[2018-12-11] MEDS: Lisinopril 5 MG Tab PO SCH (08:25)
[2018-12-11] MEDS: Saccharomyces Boulardii (Probiotic) 250 MG Cap PO SCH ×2 (08:26→20:35)
[2018-12-11] MEDS: Propranolol 60 MG Cap.ER PO SCH (08:26)
[2018-12-11] MEDS: predniSONE 5 MG Tab PO SCH (08:27)
[2018-12-11] MEDS: Hydroxychloroquine 200 MG Tab PO SCH ×2 (08:31→20:42)
[2018-12-11] MEDS: ClonazePAM 0.5 MG Tab PO SCH ×2 (08:40→20:36)
[2018-12-11] MEDS: Gabapentin 300 MG Cap PO SCH ×2 (08:40→20:41)
--- NOTE | 2018-12-11 08:45 | PCM.PN ---
- General Info Date of Service: 12/11/18 Subjective Update: Pat feels better this morning,except still has diarrhea more than 4 times a day.Vomiting improved. Functional Status: Reports: Pain Controlled, Tolerating Diet - Review of Systems HEENT: Reports: No Symptoms Pulmonary: Reports: No Symptoms Cardiovascular: Reports: No Symptoms Gastrointestinal: Reports: Diarrhea Genitourinary: Reports: No Symptoms Musculoskeletal: Reports: Shoulder Pain, Hand Pain, Joint Pain - Patient Data Vitals - Most Recent: Last Vital Signs Temp 98.2 F 12/10/18 23:28 Pulse 71 12/10/18 23:28 Resp 18 12/10/18 23:28 BP 101/57 L 12/11/18 08:25 Pulse Ox 91 L 12/10/18 23:28 Orthostatic Blood Pressure [ 120/80 Standing] Orthostatic Blood Pressure [ 110/80 Sitting] Orthostatic Blood Pressure [ 110/80 Supine] Weight - Most Recent: 104.871 kg I&O - Last 24 Hours: Intake & Output 12/10/18 12/11/18 12/11/18 22:59 06:59 14:59 Intake Total 1 250 Output Total 100 Balance 1951 250 Lab Results Last 24 Hours: Laboratory Results - last 24 hr 12/11/18 Range/Units 06:15 PT 17.1 H (8.7-11.1) INR 1.77 H (0.89-1.13) Amilcar Results Last 24 Hours: Microbiology 12/10/18 09:15 Clostridium difficile Toxin A & B - Final Stool / Feces - Stool, Liquid NEGATIVE CDIFF TOXIN REFERENCE RANGE: NEGATIVE 12/09/18 13:34 Urine Culture - Preliminary Urine, Catheterized NO GROWTH AFTER 1 DAY Med Orders - Current: Current Medications Acetaminophen (Tylenol) 650 mg PO Q4H PRN PRN Reason: Pain (Mild 1-3)/fever Amitriptyline HCl (Elavil) 100 mg PO BEDTIME [facility] Last Admin: 12/10/18 20:32 Dose: 100 mg Calcium Carbonate/Glycine (Tums) 500 mg PO Q4H PRN PRN Reason: Heartburn Clonazepam (Klonopin) 0.5 mg PO BID [facility] Last Admin: 12/10/18 20:32 Dose: 0.5 mg Dicyclomine HCl (Bentyl) 20 mg PO BID PRN PRN Reason: ABDOMINAL CRAMPING Duloxetine HCl (Cymbalta) 90 mg PO DAILY [facility] Last Admin: 12/11/18 08:12 Dose: 90 mg Famotidine (Pepcid) 20 mg PO BEDTIME [facility] Last Admin: 12/10/18 20:33 Dose: 20 mg Fentanyl (Duragesic) 50 mcg TRDERM Q72H [facility] Last Admin: 12/10/18 12:19 Dose: 50 mcg Gabapentin (Neurontin) 300 mg PO BID [facility] Last Admin: 12/10/18 20:33 Dose: 300 mg Heparin Sodium (Porcine) (Heparin Lock Flush 100 Units/Ml) 500 units FLUSH ASDIRECTED PRN PRN Reason: Keep Vein Open Hydrocortisone (Proctozone-Hc 2.5% Crm) 0 gm TOP QID PRN PRN Reason: Itching Hydroxychloroquine Sulfate (Plaquenil) 200 mg PO BID [facility] Last Admin: 12/11/18 08:31 Dose: 200 mg Hydroxyzine Pamoate (Vistaril) 50 mg PO BID [facility] Last Admin: 12/10/18 20:35 Dose: 50 mg Melatonin (Melatonin) 3 mg PO BEDTIME [facility] Last Admin: 12/10/18 20:33 Dose: 3 mg Mirtazapine (Remeron) 15 mg PO BEDTIME [facility] Last Admin: 12/10/18 20:34 Dose: 15 mg Morphine Sulfate (Morphine) 2 mg IVPUSH Q2H PRN PRN Reason: Pain (severe 7-10) Nystatin (Nystop) 0 gm TOP QID PRN PRN Reason: Rash Last Admin: 12/10/18 09:06 Dose: 1 applic Ondansetron HCl (Zofran Odt) 4 mg PO Q6H PRN PRN Reason: nausea, able to take PO Last Admin: 12/10/18 10:26 Dose: 4 mg Ondansetron HCl (Zofran) 4 mg IV Q6H PRN PRN Reason: Nausea/Vomiting Oxycodone HCl (Oxycodone) 5 mg PO Q4H PRN PRN Reason: Pain (moderate 4-6) Last Admin: 12/11/18 02:02 Dose: 5 mg Prednisone (Prednisone) 5 mg PO DAILY [facility] Last Admin: 12/11/18 08:27 Dose: 5 mg Propranolol HCl (Inderal La) 120 mg PO DAILY [facility] Last Admin: 12/11/18 08:26 Dose: 120 mg Saccharomyces Boulardii (Florastor) 250 mg PO BID [facility] Last Admin: 12/11/18 08:26 Dose: 250 mg Sodium Chloride (Saline Flush) 10 ml FLUSH ASDIRECTED PRN PRN Reason: Keep Vein Open Last Admin: 12/10/18 07:14 Dose: 10 ml Tramadol HCl (Ultram) 50 mg PO DAILY PRN PRN Reason: Pain Vancomycin HCl (Vancocin 125 Mg/5 Ml Soln) 125 mg PO QID [facility] Last Admin: 12/10/18 20:34 Dose: 125 mg Warfarin Sodium (Coumadin) 5 mg PO DAILY@1600 [facility] Last Admin: 12/10/18 16:47 Dose: 5 mg Warfarin Sodium (Coumadin Sliding Scale) 1 each PO DAILY [facility] Discontinued Medications Fentanyl (Sublimaze) 100 mcg IVPUSH ONETIME ONE Stop: 12/09/18 13:26 Last Admin: 12/09/18 14:06 Dose: 100 mcg Sodium Chloride (Normal Saline) 1,000 mls @ 999 mls/hr IV .BOLUS ONE Stop: 12/09/18 14:25 Last Admin: 12/09/18 13:59 Dose: 999 mls/hr Sodium Chloride (Normal Saline) 1,000 mls @ 75 mls/hr IV ASDIRECTED [facility] Last Admin: 12/10/18 17:02 Dose: 75 mls/hr Promethazine HCl 25 mg/ Sodium (Chloride) 51 mls @ 200 mls/hr IV ONETIME ONE Stop: 12/09/18 14:10 Last Admin: 12/09/18 14:25 Dose: 200 mls/hr Magnesium Sulfate 2 gm/ Premix 50 mls @ 150 mls/hr IV ONETIME ONE Stop: 12/09/18 16:07 Last Admin: 12/09/18 16:23 Dose: 150 mls/hr Metronidazole 500 mg/ Premix 100 mls @ 100 mls/hr IV Q8H [facility] Last Admin: 12/11/18 04:52 Dose: 100 mls/hr Lisinopril (Prinivil) 5 mg PO DAILY [facility] Last Admin: 12/11/18 08:25 Dose: Not Given Lorazepam (Ativan) 1 mg IVPUSH ONETIME ONE Stop: 12/09/18 13:26 Last Admin: 12/09/18 14:12 Dose: 1 mg Nystatin (Nystop) 0 gm TOP QID PRN PRN Reason: Rash Vancomycin HCl (Vancocin 125 Mg/5 Ml Soln) 125 mg PO QID [facility] Last Admin: 12/09/18 22:37 Dose: Not Given Vancomycin HCl (Vancocin 125 Mg/5 Ml Soln) 125 mg PO 0400,1000,1600,2200 [facility] Last Admin: 12/09/18 23:03 Dose: Not Given Vancomycin HCl (Vancomycin) 0 gm PO 0400,1000,1600,2200 [facility] - Exam General: Alert HEENT: Pupils Equal Neck: Supple Cardiovascular: Regular Rate GI/Abdominal Exam: Normal Bowel Sounds, Soft, Non-Tender Skin: Warm Wound/Incisions: Healing Well Neurological: No New Focal Deficit - Problem List & Annotations (1) Diarrhea SNOMED Code(s): 83127290 Code(s): R19.7 - DIARRHEA, UNSPECIFIED Status: Acute Current Visit: No Qualifiers: Diarrhea type: presumed infectious Qualified Code(s): R19.7 - Diarrhea, unspecified (2) Weakness SNOMED Code(s): 58015814 Code(s): R53.1 - WEAKNESS Status: Acute Current Visit: No (3) Anxiety SNOMED Code(s): 96536892 Code(s): F41.9 - ANXIETY DISORDER, UNSPECIFIED Status: Chronic Priority: Low Current Visit: No (4) Chronic back pain SNOMED Code(s): 446554441 Code(s): M54.9 - DORSALGIA, UNSPECIFIED; G89.29 - OTHER CHRONIC PAIN Status : Chronic Priority: Medium Current Visit: No Qualifiers: Back pain location: low back pain (5) MDD (major depressive disorder) SNOMED Code(s): 024101696 Code(s): F32.9 - MAJOR DEPRESSIVE DISORDER, SINGLE EPISODE, UNSPECIFIED Status: Chronic Current Visit: No Qualifiers: Major depression recurrence: recurrent Major depression episode severity: moderate (6) Polypharmacy SNOMED Code(s): 109094297 Code(s): Z79.899 - OTHER DREDGE CAPTAIN (CURRENT) DRUG THERAPY Status: Chronic Current Visit: No (7) Rheumatoid arthritis SNOMED Code(s): 53897061 Code(s): M06.9 - RHEUMATOID ARTHRITIS, UNSPECIFIED Status: Chronic Current Visit: No Qualifiers: Rheumatoid arthritis location: unspecified site Rheumatoid factor presence : with rheumatoid factor Qualified Code(s): M05.9 - Rheumatoid arthritis with rheumatoid factor, unspecified - Problem List Review Problem List Initiated/Reviewed/Updated: Yes - My Orders Last 24 Hours: My Active Orders 12/11/18 09:00 Atropine/Diphenoxylate [Lomotil 0.025-2.5 MG] 2 tab PO BID 12/11/18 Lunch Cardiac Diet [Heart Healthy Diet] [DIET] 12/12/18 06:30 INR,PT,PROTHROMBIN TIME [COAG] DAILY 12/13/18 06:30 INR,PT,PROTHROMBIN TIME [COAG] DAILY 12/14/18 06:30 INR,PT,PROTHROMBIN TIME [COAG] DAILY - Plan Plan:: C diff negative. I will stop IV antibiotics. Continue and finish course of Vanco orally. DC lisinopril,IVF. Continue DC home tomorrow.Not interested in assisted living.
[2018-12-11] MEDS: Furosemide 40 MG Tab PO SCH ×2 (09:21→15:23)
[2018-12-11] MEDS: Spironolactone 25 MG Tab PO SCH (09:22)
[2018-12-11] MEDS: Atropine/Diphenoxylate 0.025-2.5 MG Tab PO SCH ×2 (10:41→22:16)
[2018-12-11] MEDS: Vancomycin 125 MG/5 ML ML Oral Solution PO SCH ×4 (10:41→20:42)
[2018-12-11] MEDS: Nystatin Topical Powder 15 GM Bottle TOP PRN (14:17)
[2018-12-11] MEDS: Ondansetron 4 MG Tab.DIS PO PRN (14:23)
[2018-12-11] MEDS: Ketorolac 15 MG/ML SDV IVPUSH PRN ×2 (15:10→21:57)
[2018-12-11] MEDS: Sodium Chloride 0.9% 10 ML Syringe FLUSH PRN (15:11)
[2018-12-11] MEDS: Warfarin 5 MG Tab PO SCH (15:22)
[2018-12-11] MEDS: Melatonin 3 MG Tab PO SCH (20:41)
[2018-12-11] MEDS: Famotidine 20 MG Tab PO SCH (20:41)
[2018-12-11] MEDS: Mirtazapine 15 MG Tab PO SCH (20:42)
[2018-12-12] MEDS: Ketorolac 15 MG/ML SDV IVPUSH PRN (06:12)
[2018-12-12] MEDS: Spironolactone 25 MG Tab PO SCH (08:21)
[2018-12-12] MEDS: Furosemide 40 MG Tab PO SCH (08:21)
[2018-12-12] MEDS: Hydroxychloroquine 200 MG Tab PO SCH (08:25)
[2018-12-12] MEDS: Saccharomyces Boulardii (Probiotic) 250 MG Cap PO SCH (08:25)
[2018-12-12] MEDS: DULoxetine 30 MG Cap PO SCH (08:25)
[2018-12-12] MEDS: Propranolol 60 MG Cap.ER PO SCH (08:26)
--- NOTE | 2018-12-12 08:27 | PCM.PN ---
- General Info Date of Service: 12/12/18 Subjective Update: Pat feels better this morning,no more diarrhea or vomiting. Joint pain better with Toradol! Functional Status: Reports: Pain Controlled, Tolerating Diet - Review of Systems HEENT: Reports: No Symptoms Pulmonary: Reports: No Symptoms Cardiovascular: Reports: No Symptoms Gastrointestinal: Reports: No Symptoms - Patient Data Vitals - Most Recent: Last Vital Signs Temp 97.8 F 12/11/18 23:47 Pulse 74 12/11/18 23:47 Resp 18 12/11/18 23:47 BP 110/64 12/11/18 23:47 Pulse Ox 94 L 12/11/18 23:47 Orthostatic Blood Pressure [ 120/80 Standing] Orthostatic Blood Pressure [ 110/80 Sitting] Orthostatic Blood Pressure [ 110/80 Supine] Weight - Most Recent: 103.555 kg I&O - Last 24 Hours: Intake & Output 12/11/18 12/12/18 12/12/18 22:59 06:59 14:59 Intake Total 500 Output Total 700 Balance -200 Lab Results Last 24 Hours: Laboratory Results - last 24 hr 12/12/18 12/12/18 12/12/18 Range/Units 06:05 06:05 06:05 WBC 3.6 L (4.5-12.0) X10-3/uL RBC 3.52 (3.23-5.20) x10(6)uL Hgb 11.0 L (11.5-15.5) g/dL Hct 33.2 (30.0-51.3) % MCV 94.4 (80-96) fL MCH 31.3 (27.7-33.6) pg MCHC 33.1 (32.2-35.4) g/dL RDW 13.6 (11.5-15.5) % Plt Count 137 (125-369) X10(3)uL MPV 9.8 (7.4-10.4) fL Neut % (Auto) 28.1 L (46-82) % Lymph % (Auto) 46.8 H (13-37) % Wilson % (Auto) 13.3 H (4-12) % Eos % (Auto) 11 H (1.0-5.0) % Baso % (Auto) 1 (0-2) % Neut # (Auto) 1.0 L (1.6-8.3) # Lymph # (Auto) 1.7 (0.6-5.0) # Wilson # (Auto) 0.5 (0.0-1.3) # Eos # (Auto) 0.4 (0.0-0.8) # Baso # (Auto) 0.0 (0.0-0.2) # PT 22.9 H (8.7-11.1) INR 2.38 H (0.89-1.13) Sodium 144 (135-145) mmol/L Potassium 3.8 (3.5-5.3) mmol/L Chloride 108 (100-110) mmol/L Carbon Dioxide 29 (21-32) mmol/L BUN 4 L (7-18) mg/dL Creatinine 0.8 (0.55-1.02) mg/dL Est Cr Clr Drug Dosing 68.38 mL/min Estimated GFR (MDRD) > 60 (>60) BUN/Creatinine Ratio 5.0 L (9-20) Glucose 99 (80-116) mg/dL Calcium 8.2 L (8.6-10.2) mg/dL Total Bilirubin 0.3 (0.1-1.3) mg/dL AST 31 H (5-25) IU/L ALT 33 (12-36) U/L Alkaline Phosphatase 107 (56-112) IU/L NT-Pro-B Natriuret Pep (<=125) pg/mL Total Protein 4.8 L (6.0-8.0) g/dL Albumin 2.8 L (3.2-4.6) g/dL Globulin 2.0 g/dL Albumin/Globulin Ratio 1.4 12/12/18 Range/Units 06:05 WBC (4.5-12.0) X10-3/uL RBC (3.23-5.20) x10(6)uL Hgb (11.5-15.5) g/dL Hct (30.0-51.3) % MCV (80-96) fL MCH (27.7-33.6) pg MCHC (32.2-35.4) g/dL RDW (11.5-15.5) % Plt Count (125-369) X10(3)uL MPV (7.4-10.4) fL Neut % (Auto) (46-82) % Lymph % (Auto) (13-37) % Wilson % (Auto) (4-12) % Eos % (Auto) (1.0-5.0) % Baso % (Auto) (0-2) % Neut # (Auto) (1.6-8.3) # Lymph # (Auto) (0.6-5.0) # Wilson # (Auto) (0.0-1.3) # Eos # (Auto) (0.0-0.8) # Baso # (Auto) (0.0-0.2) # PT (8.7-11.1) INR (0.89-1.13) Sodium (135-145) mmol/L Potassium (3.5-5.3) mmol/L Chloride (100-110) mmol/L Carbon Dioxide (21-32) mmol/L BUN (7-18) mg/dL Creatinine (0.55-1.02) mg/dL Est Cr Clr Drug Dosing mL/min Estimated GFR (MDRD) (>60) BUN/Creatinine Ratio (9-20) Glucose (80-116) mg/dL Calcium (8.6-10.2) mg/dL Total Bilirubin (0.1-1.3) mg/dL AST (5-25) IU/L ALT (12-36) U/L Alkaline Phosphatase (56-112) IU/L NT-Pro-B Natriuret Pep 190 H (<=125) pg/mL Total Protein (6.0-8.0) g/dL Albumin (3.2-4.6) g/dL Globulin g/dL Albumin/Globulin Ratio Amilcar Results Last 24 Hours: Microbiology 12/09/18 13:34 Urine Culture - Final Urine, Catheterized NO GROWTH AFTER 2 DAYS Med Orders - Current: Current Medications Acetaminophen (Tylenol) 650 mg PO Q4H PRN PRN Reason: Pain (Mild 1-3)/fever Last Admin: 12/11/18 14:39 Dose: 650 mg Amitriptyline HCl (Elavil) 100 mg PO BEDTIME [facility] Last Admin: 12/11/18 20:35 Dose: 100 mg Calcium Carbonate/Glycine (Tums) 500 mg PO Q4H PRN PRN Reason: Heartburn Clonazepam (Klonopin) 0.5 mg PO BID [facility] Last Admin: 12/11/18 20:36 Dose: 0.5 mg Dicyclomine HCl (Bentyl) 20 mg PO BID PRN PRN Reason: ABDOMINAL CRAMPING Diphenoxylate HCl/Atropine (Lomotil 0.025-2.5 Mg) 2 tab PO BID [facility] Last Admin: 12/11/18 22:16 Dose: 2 tab Duloxetine HCl (Cymbalta) 90 mg PO DAILY [facility] Last Admin: 12/11/18 08:12 Dose: 90 mg Famotidine (Pepcid) 20 mg PO BEDTIME [facility] Last Admin: 12/11/18 20:41 Dose: 20 mg Fentanyl (Duragesic) 50 mcg TRDERM Q72H [facility] Last Admin: 12/10/18 12:19 Dose: 50 mcg Furosemide (Lasix) 40 mg PO 08,16 [facility] Last Admin: 12/11/18 15:23 Dose: 40 mg Gabapentin (Neurontin) 300 mg PO BID [facility] Last Admin: 12/11/18 20:41 Dose: 300 mg Heparin Sodium (Porcine) (Heparin Lock Flush 100 Units/Ml) 500 units FLUSH ASDIRECTED PRN PRN Reason: Keep Vein Open Last Admin: 12/11/18 09:17 Dose: 500 units Hydrocortisone (Proctozone-Hc 2.5% Crm) 0 gm TOP QID PRN PRN Reason: Itching Hydroxychloroquine Sulfate (Plaquenil) 200 mg PO BID [facility] Last Admin: 12/11/18 20:42 Dose: 200 mg Ketorolac Tromethamine (Toradol) 15 mg IVPUSH Q6H PRN PRN Reason: Pain Stop: 12/16/18 14:31 Last Admin: 12/12/18 06:12 Dose: 15 mg Melatonin (Melatonin) 3 mg PO BEDTIME [facility] Last Admin: 12/11/18 20:41 Dose: 3 mg Mirtazapine (Remeron) 15 mg PO BEDTIME [facility] Last Admin: 12/11/18 20:42 Dose: 15 mg Nystatin (Nystop) 0 gm TOP QID PRN PRN Reason: Rash Last Admin: 12/11/18 14:17 Dose: 1 applic Ondansetron HCl (Zofran Odt) 4 mg PO Q6H PRN PRN Reason: nausea, able to take PO Last Admin: 12/11/18 14:23 Dose: 4 mg Ondansetron HCl (Zofran) 4 mg IV Q6H PRN PRN Reason: Nausea/Vomiting Prednisone (Prednisone) 5 mg PO DAILY [facility] Last Admin: 12/11/18 08:27 Dose: 5 mg Propranolol HCl (Inderal La) 120 mg PO DAILY [facility] Last Admin: 12/11/18 08:26 Dose: 120 mg Saccharomyces Boulardii (Florastor) 250 mg PO BID [facility] Last Admin: 12/11/18 20:35 Dose: 250 mg Sodium Chloride (Saline Flush) 10 ml FLUSH ASDIRECTED PRN PRN Reason: Keep Vein Open Last Admin: 12/11/18 15:11 Dose: 10 ml Spironolactone (Aldactone) 12.5 mg PO DAILY [facility] Last Admin: 12/11/18 09:22 Dose: 12.5 mg Vancomycin HCl (Vancocin 125 Mg/5 Ml Soln) 125 mg PO QID [facility] Last Admin: 12/11/18 20:42 Dose: 125 mg Warfarin Sodium (Coumadin) 5 mg PO DAILY@1600 [facility] Last Admin: 12/11/18 15:22 Dose: 5 mg Warfarin Sodium (Coumadin Sliding Scale) 1 each PO DAILY [facility] Discontinued Medications Fentanyl (Sublimaze) 100 mcg IVPUSH ONETIME ONE Stop: 12/09/18 13:26 Last Admin: 12/09/18 14:06 Dose: 100 mcg Hydroxyzine Pamoate (Vistaril) 50 mg PO BID [facility] Last Admin: 12/11/18 08:40 Dose: 50 mg Sodium Chloride (Normal Saline) 1,000 mls @ 999 mls/hr IV .BOLUS ONE Stop: 12/09/18 14:25 Last Admin: 12/09/18 13:59 Dose: 999 mls/hr Sodium Chloride (Normal Saline) 1,000 mls @ 75 mls/hr IV ASDIRECTED [facility] Last Admin: 12/10/18 17:02 Dose: 75 mls/hr Promethazine HCl 25 mg/ Sodium (Chloride) 51 mls @ 200 mls/hr IV ONETIME ONE Stop: 12/09/18 14:10 Last Admin: 12/09/18 14:25 Dose: 200 mls/hr Magnesium Sulfate 2 gm/ Premix 50 mls @ 150 mls/hr IV ONETIME ONE Stop: 12/09/18 16:07 Last Admin: 12/09/18 16:23 Dose: 150 mls/hr Metronidazole 500 mg/ Premix 100 mls @ 100 mls/hr IV Q8H [facility] Last Admin: 12/11/18 04:52 Dose: 100 mls/hr Lisinopril (Prinivil) 5 mg PO DAILY [facility] Last Admin: 12/11/18 08:25 Dose: Not Given Lorazepam (Ativan) 1 mg IVPUSH ONETIME ONE Stop: 12/09/18 13:26 Last Admin: 12/09/18 14:12 Dose: 1 mg Morphine Sulfate (Morphine) 2 mg IVPUSH Q2H PRN PRN Reason: Pain (severe 7-10) Nystatin (Nystop) 0 gm TOP QID PRN PRN Reason: Rash Oxycodone HCl (Oxycodone) 5 mg PO Q4H PRN PRN Reason: Pain (moderate 4-6) Last Admin: 12/11/18 08:41 Dose: 5 mg Tramadol HCl (Ultram) 50 mg PO DAILY PRN PRN Reason: Pain Vancomycin HCl (Vancocin 125 Mg/5 Ml Soln) 125 mg PO QID [facility] Last Admin: 12/09/18 22:37 Dose: Not Given Vancomycin HCl (Vancocin 125 Mg/5 Ml Soln) 125 mg PO 0400,1000,1600,2200 [facility] Last Admin: 12/09/18 23:03 Dose: Not Given Vancomycin HCl (Vancomycin) 0 gm PO 0400,1000,1600,2200 [facility] - Exam General: Alert, Oriented HEENT: EOMI Neurological: No New Focal Deficit Psy/Mental Status: Alert, Normal Affect, Normal Mood - Problem List & Annotations (1) Diarrhea SNOMED Code(s): 11449720 Code(s): R19.7 - DIARRHEA, UNSPECIFIED Status: Acute Current Visit: No Qualifiers: Diarrhea type: presumed infectious Qualified Code(s): R19.7 - Diarrhea, unspecified (2) Weakness SNOMED Code(s): 46174411 Code(s): R53.1 - WEAKNESS Status: Acute Current Visit: No (3) Anxiety SNOMED Code(s): 05641366 Code(s): F41.9 - ANXIETY DISORDER, UNSPECIFIED Status: Chronic Priority: Low Current Visit: No (4) Chronic back pain SNOMED Code(s): 075592546 Code(s): M54.9 - DORSALGIA, UNSPECIFIED; G89.29 - OTHER CHRONIC PAIN Status : Chronic Priority: Medium Current Visit: No Qualifiers: Back pain location: low back pain (5) MDD (major depressive disorder) SNOMED Code(s): 255244352 Code(s): F32.9 - MAJOR DEPRESSIVE DISORDER, SINGLE EPISODE, UNSPECIFIED Status: Chronic Current Visit: No Qualifiers: Major depression recurrence: recurrent Major depression episode severity: moderate (6) Polypharmacy SNOMED Code(s): 506286080 Code(s): Z79.899 - OTHER NEWS AGENT (CURRENT) DRUG THERAPY Status: Chronic Current Visit: No (7) Rheumatoid arthritis SNOMED Code(s): 47425662 Code(s): M06.9 - RHEUMATOID ARTHRITIS, UNSPECIFIED Status: Chronic Current Visit: No Qualifiers: Rheumatoid arthritis location: unspecified site Rheumatoid factor presence : with rheumatoid factor Qualified Code(s): M05.9 - Rheumatoid arthritis with rheumatoid factor, unspecified - Problem List Review Problem List Initiated/Reviewed/Updated: Yes - My Orders Last 24 Hours: My Active Orders 12/11/18 09:00 Atropine/Diphenoxylate [Lomotil 0.025-2.5 MG] 2 tab PO BID Furosemide [Lasix] 40 mg PO 08,16 Spironolactone [Aldactone] 12.5 mg PO DAILY 12/11/18 14:31 Ketorolac [Toradol] 15 mg IVPUSH Q6H PRN 12/11/18 Lunch Cardiac Diet [Heart Healthy Diet] [DIET] 12/13/18 06:30 INR,PT,PROTHROMBIN TIME [COAG] DAILY 12/14/18 06:30 INR,PT,PROTHROMBIN TIME [COAG] DAILY - Plan Plan:: DC home today.
[2018-12-12] MEDS: predniSONE 5 MG Tab PO SCH (08:35)
[2018-12-12] MEDS: Vancomycin 125 MG/5 ML ML Oral Solution PO SCH (08:45)
[2018-12-12] MEDS: Atropine/Diphenoxylate 0.025-2.5 MG Tab PO SCH (08:46)
[2018-12-12] MEDS: Gabapentin 300 MG Cap PO SCH (08:47)
[2018-12-12] MEDS: ClonazePAM 0.5 MG Tab PO SCH (08:47)
--- NOTE | 2018-12-12 09:48 | DISCH ---
DISCHARGE DATE: 12/12/2018 REASON FOR ADMISSION: 1. Diarrhea. 2. Generalized weakness. 3. Chronic pain. 4. History of Clostridium difficile colitis. DISCHARGE DIAGNOSES: 1. Diarrhea, not Clostridium difficile. 2. Vomiting. 3. Generalized weakness. 4. Chronic pain syndrome. 5. Rheumatoid arthritis. 6. Hypertension. 7. Congestive heart failure. BRIEF HISTORY AND HOSPITAL COURSE: A 68-year-old female who was readmitted with diarrhea and vomiting and weakness. Stool test was negative for Clostridium difficile. She got some fluids, improved, and is ready to be discharged today. She has had several admissions for the last few weeks. 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 She is considered homebound because of chronic pain and lack of ambulation. The only changes I made to her medications are as followed. 1. I stopped lisinopril. 2. I prescribed Lomotil 1 tablet b.i.d. p.r.n. 10 tablets. 3. Toradol 10 mg q.i.d. p.r.n., only 20 tablets. 4. She will go home on and finish the course of vancomycin from previous prescription and I renewed Zofran. 5. The rest of her home medications were continued as previously prescribed. TIME SPENT: I spent more than 35 minutes in the discharge of the patient and followup was arranged for next week with Dr. Ramsey. /[id number] BETY/HERBERTH
[2018-12-12 10:10] VITALS: BP 93/62; PULSE 76
== END 2018-12-12 11:35 | disposition home health service (06) | DRG 392 ==
LOC: FB.ED 12:38 → FB.MS 18:25
PROVIDERS: ADMIT Emergency Medicine; ATTEND Family Medicine
DX: R19.7 Diarrhea, unspecified (principal); R55 Syncope and collapse; E86.0 Dehydration; I10 Essential (primary) hypertension; I11.0 Hypertensive heart disease with heart failure; I50.9 Heart failure, unspecified; E11.9 Type 2 diabetes mellitus without complications; G89.4 Chronic pain syndrome; R53.1 Weakness; M06.9 Rheumatoid arthritis, unspecified; J44.9 Chronic obstructive pulmonary disease, unspecified; Z86.718 Personal history of other venous thrombosis and embolism; Z86.711 Personal history of pulmonary embolism; R11.10 Vomiting, unspecified; Z79.01 Long term (current) use of anticoagulants; Z87.891 Personal history of nicotine dependence; E83.42 Hypomagnesemia; Z91.81 History of falling; Z87.19 Personal history of other diseases of the digestive system; G47.30 Sleep apnea, unspecified; Z79.899 Other long term (current) drug therapy; K21.9 Gastro-esophageal reflux disease without esophagitis; I25.2 Old myocardial infarction; E78.00 Pure hypercholesterolemia, unspecified; H54.7 Unspecified visual loss; M19.90 Unspecified osteoarthritis, unspecified site; M81.0 Age-related osteoporosis without current pathological fracture; F32.9 Major depressive disorder, single episode, unspecified; F41.9 Anxiety disorder, unspecified; E53.8 Deficiency of other specified B group vitamins; Z98.1 Arthrodesis status; Z90.49 Acquired absence of other specified parts of digestive tract; K58.9 Irritable bowel syndrome, unspecified; Z87.442 Personal history of urinary calculi; Z87.820 Personal history of traumatic brain injury; G43.909 Migraine, unspecified, not intractable, without status migrainosus; F41.0 Panic disorder [episodic paroxysmal anxiety]; E66.9 Obesity, unspecified; Z68.33 Body mass index [BMI] 33.0-33.9, adult; Z96.649 Presence of unspecified artificial hip joint; Z79.52 Long term (current) use of systemic steroids; Z88.1 Allergy status to other antibiotic agents; Z88.7 Allergy status to serum and vaccine; Z88.8 Allergy status to other drugs, medicaments and biological substances
CPT/HCPCS: 36415; 80053; 81001; 82150; 83735; 85025; 85610; 86140; 87086; 96361; 96365; 96375; 99285; J2060; J2550; J3010; J3475; J7030 ×2; J7050; 83880; 87324; A9270-GY; J1642; J1885; J3370; J3490

== ENCOUNTER 2022-12-17 17:31 | Inpatient (IN) | payer MEDICARE, BC, MEDICAID ==
[2022-12-17] MEDS ORDERED: Morphine 4 MG/ML VIAL IVPUSH ONE (18:57)
[2022-12-17] MEDS ORDERED: Albuterol/Ipratropium 3.0-0.5 MG/3 ML Neb Soln NEB ONE (18:57)
[2022-12-17] MEDS ORDERED: methylPREDNISolone Sodium Succinate 125 MG/2 ML SDV IVPUSH ONE (18:57)
[2022-12-17] MEDS: Sodium Chloride 0.9% 10 ML Syringe FLUSH PRN (19:22)
[2022-12-17 19:37] LABS: BASOPHILS ABSOLUTE AUTO 0.1 x10-3/uL (0.0-0.1); BASOPHILS PERCENT AUTO 0.7 % (0.2-1.5); EOSINOPHILS ABSOLUTE AUTO 0.1 x10-3/uL (0.0-0.8); EOSINOPHILS PERCENT AUTO 0.5 % (0.6-8.1); HEMOGLOBIN 11.9 g/dL (11.4-15.5); LYMPHOCYTES PERCENT AUTO 10.3 % (18.4-52.1); MEAN CORPUSCULAR HEMOGLOBIN 31.9 pg (23.9-33.9); MEAN CORPUSCULAR HGB CONC 32.9 g/dL (31.9-34.8); MEAN CORPUSCULAR VOLUME 96.9 fL (76.7-100.5); MEAN PLATELET VOLUME 7.9 fL (7.1-12.4); MONOCYTES ABSOLUTE AUTO 0.8 x10-3/uL (0.3-1.0); MONOCYTES PERCENT AUTO 8.2 % (4.4-15.7); NEUTROPHILS ABSOLUTE AUTO 8.1 x10-3/uL (1.5-6.3); NEUTROPHILS PERCENT AUTO 80.3 % (30.8-76.2); PLATELET COUNT,PLT 225 x10(3)uL (151-488); RED BLOOD CELL COUNT 3.71 x10(6)uL (3.60-5.20); RED CELL DISTRIBUTION WIDTH 14.7 % (12.3-16.5)
[2022-12-17 19:39] LABS: BLOOD UREA NITROGEN,BUN 15 mg/dL (7-18); BUN/CREATININE RATIO 18.8 (9-20); CALCIUM 8.8 mg/dL (8.6-10.2); CARBON DIOXIDE,CO2 35 mmol/L (21-32); CHLORIDE,CL 95 mmol/L (100-110); CREATININE 0.8 mg/dL (0.55-1.02); EST CRCL DRUG DOSING (CG) 64.48 mL/min; ESTIMATED GFR 77 mL/min (>60); GLUCOSE RANDOM 223 mg/dL (80-116); POTASSIUM,K 4.1 mmol/L (3.5-5.3); SODIUM,NA 136 mmol/L (135-145)
[2022-12-17 19:39] LABS: BASE EXCESS VENOUS,POC 9 mmol/L (-2 - 3+); PCO2 VENOUS,POC 48 mmHg (41-51); PH VENOUS,POC 7.47 pH Units (7.32-7.43)
[2022-12-17 19:41] LABS: INR 2.8 (1.00-1.24)
[2022-12-17 19:45] LABS: A/G RATIO 0.7; ALANINE AMINOTRANSFERASE,ALT 65 U/L (12-36); ALBUMIN 2.7 g/dL (3.2-4.6); ALKALINE PHOSPHATASE 126 IU/L (56-112); ASPARTATE AMNIOTRANSFERASE,AST 27 IU/L (5-25); BILIRUBIN TOTAL 0.4 mg/dL (0.1-1.3); PROTEIN TOTAL,TP 6.5 g/dL (6.0-8.0)
[2022-12-17] MEDS ORDERED: Sodium Chloride 0.9% 250 ML IV SCH (19:45)
[2022-12-17 19:48] LABS: LACTIC ACID 1.3 mmol/L (0.4-2.0)
[2022-12-17 19:53] LABS: TROPONIN I 12.5 pg/mL (4.0-60.3)
[2022-12-17] MEDS ORDERED: Metolazone 2.5 MG Tab PO ONE (20:35)
[2022-12-17] MEDS ORDERED: Furosemide 40 MG/4 ML VIAL IVPUSH ONE (20:35)
[2022-12-17 21:48] LABS: APPEARANCE,URINE CLEAR (CLEAR); BACTERIA,URINE FEW (NS); BILIRUBIN,URINE NEGATIVE (NEGATIVE); COLOR,URINE YELLOW (YELLOW); GLUCOSE,URINE NORMAL (NORMAL); KETONES,URINE NEGATIVE (NEGATIVE); LEUKOCYTE ESTERASE,URINE MODERATE (NEGATIVE); NITRITE,URINE NEGATIVE (NEGATIVE); OCCULT BLOOD,URINE NEGATIVE (NEGATIVE); PROTEIN,URINE NEGATIVE (NEGATIVE); RBC,URINE 0-5 (0-5); SQUAMOUS EPITHELIAL CELLS,UR FEW (NS,R,O); UROBILINOGEN,URINE NORMAL (NEGATIVE); WBC,URINE 0-5 (0-5)
[2022-12-17] MEDS ORDERED: Albuterol 0.083% 2.5 MG/3 ML Neb Soln NEB PRN (23:32)
[2022-12-17] MEDS ORDERED: Sennosides/Docusate Sodium 50-8.6 MG Tab PO PRN (23:32)
[2022-12-17] MEDS ORDERED: Magnesium Hydroxide 400 MG/5 ML Susp 30 ML Cup PO PRN (23:41)
[2022-12-17] MEDS ORDERED: SUMAtriptan 50 MG Tab PO PRN (23:41)
[2022-12-17] MEDS ORDERED: Dicyclomine 10 MG Cap PO PRN (23:41)
[2022-12-17] MEDS ORDERED: Hydrocortisone 2.5% Crm 30 GM Tube TOP PRN (23:41)
[2022-12-17] MEDS ORDERED: Bisacodyl 10 MG Supp RECTAL PRN (23:41)
[2022-12-17] MEDS ORDERED: 50% Dextrose in Water 50 ML Syringe IVPUSH PRN (23:41)
[2022-12-17] MEDS ORDERED: Loperamide 2 MG Cap PO PRN (23:41)
[2022-12-17] MEDS ORDERED: Nystatin Topical Powder 15 GM Bottle TOP PRN (23:41)
[2022-12-17] MEDS ORDERED: Acetaminophen/HYDROcodone 325-5 MG Tab PO PRN (23:41)
[2022-12-17] MEDS ORDERED: Glucagon,Human Recombinant 1 MG Vial IM PRN (23:41)
[2022-12-17] MEDS ORDERED: Aluminum Hydroxide/Magnesium Hydroxide Susp 30 ML Cup PO PRN (23:41)
[2022-12-17] MEDS ORDERED: Carbamide Peroxide 6.5% Otic Soln 15 ML Bottle EARBOTH SCH (23:45)
[2022-12-17] MEDS ORDERED: Non-Formulary Medication 1 Each (Semaglutide [Ozempic] 2 MG/0.75 ML Pen.Injctr) SQ SCH (23:45)
[2022-12-18] MEDS ORDERED: Insulin Glargine,Human Rec. Analog 100 Units/ML 3 ML Pen SUBCUT ONE (00:33)
[2022-12-18] MEDS: Morphine 4 MG/ML VIAL IVPUSH PRN (00:37)
[2022-12-18] MEDS: methylPREDNISolone Sodium Succinate 125 MG/2 ML SDV IVPUSH SCH ×2 (00:38→07:25)
[2022-12-18] MEDS: Insulin Glargine,Human Rec. Analog 100 Units/ML 3 ML Pen SUBCUT SCH ×2 (00:38→20:35)
[2022-12-18] MEDS: cefTRIAXone 1 GM Vial IVPUSH SCH ×2 (00:38→22:54)
[2022-12-18] MEDS: Sodium Chloride 0.9% 10 ML Syringe FLUSH PRN ×3 (00:53→22:52)
[2022-12-18] MEDS: guaiFENesin 100 MG/5 ML Soln 5 ML UD Cup PO PRN (00:57)
[2022-12-18] MEDS: ClonazePAM 0.5 MG Tab PO PRN ×2 (02:07→14:13)
[2022-12-18] MEDS ORDERED: Sodium Chloride 0.9% 250 ML IV SCH (04:00)
[2022-12-18] MEDS: Albuterol/Ipratropium 3.0-0.5 MG/3 ML Neb Soln NEB SCH ×4 (06:16→20:19)
[2022-12-18 06:17] LABS: HEMATOCRIT 36.2 % (34.2-48.2); MEAN CORPUSCULAR HEMOGLOBIN 32.2 pg (23.9-33.9); MEAN CORPUSCULAR HGB CONC 33.2 g/dL (31.9-34.8); MEAN CORPUSCULAR VOLUME 97.1 fL (76.7-100.5); MEAN PLATELET VOLUME 8.1 fL (7.1-12.4); PLATELET COUNT,PLT 226 x10(3)uL (151-488); RED BLOOD CELL COUNT 3.73 x10(6)uL (3.60-5.20); RED CELL DISTRIBUTION WIDTH 14.8 % (12.3-16.5); WHITE BLOOD CELL COUNT,WBC 9.2 x10-3/uL (3.0-10.3)
[2022-12-18 06:24] LABS: INR 2.38 (1.00-1.24); PROTHROMBIN TIME 23.9 sec (9.0-11.1)
[2022-12-18 06:27] LABS: A/G RATIO 0.7; ALANINE AMINOTRANSFERASE,ALT 58 U/L (12-36); ALBUMIN 2.6 g/dL (3.2-4.6); ALKALINE PHOSPHATASE 128 IU/L (56-112); ASPARTATE AMNIOTRANSFERASE,AST 23 IU/L (5-25); BILIRUBIN TOTAL 0.3 mg/dL (0.1-1.3); BLOOD UREA NITROGEN,BUN 16 mg/dL (7-18); CALCIUM 8.2 mg/dL (8.6-10.2); CARBON DIOXIDE,CO2 37 mmol/L (21-32); CHLORIDE,CL 93 mmol/L (100-110); CREATININE 0.8 mg/dL (0.55-1.02); EST CRCL DRUG DOSING (CG) 64.48 mL/min; ESTIMATED GFR 77 mL/min (>60); GLUCOSE RANDOM 345 mg/dL (80-116); MAGNESIUM 1.8 mg/dL (1.8-2.5); POTASSIUM,K 3.4 mmol/L (3.5-5.3); PROTEIN TOTAL,TP 6.4 g/dL (6.0-8.0); SODIUM,NA 137 mmol/L (135-145)
[2022-12-18 06:37] LABS: BAND PERCENT MAN 4 % (0-6); LYMPHOCYTES PERCENT MAN 5 % (13-37); SEG NEUTROPHILS PERCENT MAN 91 % (46-82)
[2022-12-18] MEDS ORDERED: Gabapentin 300 MG Cap PO SCH (09:00)
[2022-12-18] MEDS ORDERED: Ketotifen 0.025% Ophth Soln 5 ML Bottle EYEBOTH SCH (09:00)
[2022-12-18] MEDS ORDERED: Leflunomide 20 MG Tab PO SCH (09:00)
[2022-12-18] MEDS ORDERED: hydrOXYzine HCl 25 MG Tab PO PRN (09:29)
[2022-12-18] MEDS ORDERED: Warfarin Sliding Scale PO SCH (09:30)
[2022-12-18] MEDS: Citalopram 20 MG Tab PO SCH (10:09)
[2022-12-18] MEDS: Spironolactone 25 MG Tab PO SCH (10:09)
[2022-12-18] MEDS: Ketotifen 0.025% Ophth Soln 5 ML Bottle EYEBOTH SCH ×2 (10:09→20:33)
[2022-12-18] MEDS: guaiFENesin 600 MG Tab.ER PO SCH ×2 (10:09→20:33)
[2022-12-18] MEDS: Furosemide 40 MG/4 ML VIAL IVPUSH SCH (10:09)
[2022-12-18] MEDS: Gabapentin 300 MG Cap PO SCH ×2 (10:10→20:32)
[2022-12-18] MEDS ORDERED: Insulin Lispro 100 Unit/ML 3 ML KwikPen SUBCUT SCH (11:30)
[2022-12-18] MEDS ORDERED: Insulin Lispro 100 Unit/ML 3 ML KwikPen SUBCUT STA (12:31)
[2022-12-18] MEDS ORDERED: Insulin Lispro 100 Unit/ML 3 ML KwikPen SUBCUT ONE ×2 (13:25→18:45)
[2022-12-18] MEDS: Warfarin 2.5 MG Tab PO SCH (15:45)
[2022-12-18] MEDS ORDERED: BUPRENORPHINE HCL SL SCH (17:00)
[2022-12-18] MEDS ORDERED: NALOXONE HCL SL SCH (17:00)
[2022-12-18] MEDS ORDERED: INSULIN GLARGINE HUM REC ANLOG SQ SCH (17:30)
[2022-12-18] MEDS ORDERED: [UNRECOGNIZED DRUG - OTHER] SQ SCH (17:30)
[2022-12-18] MEDS ORDERED: 50% Dextrose in Water 50 ML Syringe IVPUSH PRN (18:10)
[2022-12-18] MEDS ORDERED: Glucagon,Human Recombinant 1 MG Vial IM PRN (18:10)
[2022-12-18] MEDS ORDERED: BUPRENORPHINE SL ONE (20:00)
[2022-12-18] MEDS ORDERED: NALOXONE SL ONE (20:00)
[2022-12-18] MEDS: ClonazePAM 1 MG Tab PO SCH (20:31)
[2022-12-18] MEDS: Pantoprazole 40 MG Tab.CR PO SCH (20:32)
[2022-12-18] MEDS: Mirtazapine 15 MG Tab PO SCH (20:33)
[2022-12-18] MEDS: Propranolol 60 MG Cap.ER PO SCH (20:33)
[2022-12-18] MEDS: Amitriptyline 25 MG Tab PO SCH (20:33)
[2022-12-18] MEDS: atorvaSTATin 40 MG Tab PO SCH (20:33)
[2022-12-19] MEDS: Ondansetron 4 MG/2 ML SDV IV PRN ×2 (06:20→18:11)
[2022-12-19] MEDS: Albuterol/Ipratropium 3.0-0.5 MG/3 ML Neb Soln NEB SCH ×4 (06:20→21:09)
[2022-12-19 06:39] LABS: BASOPHILS PERCENT AUTO 0.1 % (0.2-1.5); HEMATOCRIT 35.4 % (34.2-48.2); HEMOGLOBIN 12.2 g/dL (11.4-15.5); LYMPHOCYTES ABSOLUTE AUTO 0.9 x10-3/uL (1.0-4.4); LYMPHOCYTES PERCENT AUTO 9.7 % (18.4-52.1); MEAN CORPUSCULAR HEMOGLOBIN 33.3 pg (23.9-33.9); MEAN CORPUSCULAR HGB CONC 34.5 g/dL (31.9-34.8); MEAN CORPUSCULAR VOLUME 96.6 fL (76.7-100.5); MONOCYTES PERCENT AUTO 11.5 % (4.4-15.7); NEUTROPHILS PERCENT AUTO 78.7 % (30.8-76.2); PLATELET COUNT,PLT 247 x10(3)uL (151-488); RED BLOOD CELL COUNT 3.66 x10(6)uL (3.60-5.20); WHITE BLOOD CELL COUNT,WBC 8.9 x10-3/uL (3.0-10.3)
[2022-12-19 06:40] LABS: BLOOD UREA NITROGEN,BUN 21 mg/dL (7-18); BUN/CREATININE RATIO 19.1 (9-20); CALCIUM 8.4 mg/dL (8.6-10.2); CARBON DIOXIDE,CO2 38 mmol/L (21-32); CHLORIDE,CL 93 mmol/L (100-110); CREATININE 1.1 mg/dL (0.55-1.02); EST CRCL DRUG DOSING (CG) 46.89 mL/min; ESTIMATED GFR 53 mL/min (>60); GLUCOSE RANDOM 303 mg/dL (80-116); POTASSIUM,K 3.2 mmol/L (3.5-5.3); SODIUM,NA 136 mmol/L (135-145)
[2022-12-19 06:43] LABS: INR 2.46 (1.00-1.24); PROTHROMBIN TIME 24.7 sec (9.0-11.1)
[2022-12-19] MEDS: Insulin Lispro 100 Unit/ML 3 ML KwikPen SUBCUT SCH ×3 (08:00→18:02)
[2022-12-19] MEDS: Amoxicillin/Clavulanate K 875-125 MG Tab PO SCH ×2 (08:13→21:00)
[2022-12-19] MEDS: Spironolactone 25 MG Tab PO SCH (09:28)
[2022-12-19] MEDS: guaiFENesin 600 MG Tab.ER PO SCH ×2 (09:28→21:10)
[2022-12-19] MEDS: Furosemide 40 MG/4 ML VIAL IVPUSH SCH (09:28)
[2022-12-19] MEDS: Citalopram 20 MG Tab PO SCH (09:28)
[2022-12-19] MEDS: Ketotifen 0.025% Ophth Soln 5 ML Bottle EYEBOTH SCH ×2 (09:29→21:09)
[2022-12-19] MEDS: Gabapentin 300 MG Cap PO SCH ×2 (09:47→21:08)
[2022-12-19] MEDS: Sodium Chloride 0.9% 10 ML Syringe FLUSH PRN (09:48)
[2022-12-19] MEDS ORDERED: Sodium Chloride 0.9% 500 ML IV ONE (10:22)
[2022-12-19] MEDS ORDERED: Non-Formulary Medication 1 Each (Semaglutide [Ozempic] 2 MG/0.75 ML Pen.Injctr) SQ ONE (15:15)
[2022-12-19] MEDS: ClonazePAM 0.5 MG Tab PO PRN (15:21)
[2022-12-19] MEDS: Nystatin Topical Powder 15 GM Bottle TOP PRN (15:22)
[2022-12-19] MEDS: Warfarin 2.5 MG Tab PO SCH (15:38)
[2022-12-19] MEDS ORDERED: BUPRENORPHINE SL SCH (17:00)
[2022-12-19] MEDS ORDERED: NALOXONE SL SCH (17:00)
[2022-12-19] MEDS: Buprenorphine/Naloxone 2-0.5 MG Tab.SL SL SCH (18:29)
[2022-12-19] MEDS: Acetaminophen 325 MG Tab PO PRN (18:43)
[2022-12-19] MEDS: atorvaSTATin 40 MG Tab PO SCH (21:07)
[2022-12-19] MEDS: Mirtazapine 15 MG Tab PO SCH (21:08)
[2022-12-19] MEDS: Amitriptyline 25 MG Tab PO SCH (21:08)
[2022-12-19] MEDS: Pantoprazole 40 MG Tab.CR PO SCH (21:08)
[2022-12-19] MEDS: ClonazePAM 1 MG Tab PO SCH (21:09)
[2022-12-19] MEDS: Propranolol 60 MG Cap.ER PO SCH (21:34)
[2022-12-19] MEDS: Insulin Glargine,Human Rec. Analog 100 Units/ML 3 ML Pen SUBCUT SCH (21:35)
[2022-12-20] MEDS: Albuterol/Ipratropium 3.0-0.5 MG/3 ML Neb Soln NEB SCH ×4 (06:24→21:09)
[2022-12-20 06:41] LABS: BASOPHILS PERCENT AUTO 0.4 % (0.2-1.5); MONOCYTES ABSOLUTE AUTO 1.1 x10-3/uL (0.3-1.0)
[2022-12-20 06:42] LABS: EOSINOPHILS PERCENT AUTO 0.5 % (0.6-8.1); HEMATOCRIT 36.1 % (34.2-48.2); HEMOGLOBIN 12.2 g/dL (11.4-15.5); LYMPHOCYTES ABSOLUTE AUTO 1.5 x10-3/uL (1.0-4.4); LYMPHOCYTES PERCENT AUTO 16.9 % (18.4-52.1); MEAN CORPUSCULAR HEMOGLOBIN 32.7 pg (23.9-33.9); MEAN CORPUSCULAR HGB CONC 33.8 g/dL (31.9-34.8); MEAN CORPUSCULAR VOLUME 96.6 fL (76.7-100.5); MEAN PLATELET VOLUME 7.8 fL (7.1-12.4); MONOCYTES PERCENT AUTO 12.3 % (4.4-15.7); NEUTROPHILS ABSOLUTE AUTO 6.2 x10-3/uL (1.5-6.3); NEUTROPHILS PERCENT AUTO 69.9 % (30.8-76.2); PLATELET COUNT,PLT 250 x10(3)uL (151-488); RED BLOOD CELL COUNT 3.74 x10(6)uL (3.60-5.20); RED CELL DISTRIBUTION WIDTH 14.8 % (12.3-16.5); WHITE BLOOD CELL COUNT,WBC 8.9 x10-3/uL (3.0-10.3)
[2022-12-20 06:50] LABS: BLOOD UREA NITROGEN,BUN 22 mg/dL (7-18); CALCIUM 8.6 mg/dL (8.6-10.2); CHLORIDE,CL 96 mmol/L (100-110); EST CRCL DRUG DOSING (CG) 51.58 mL/min; ESTIMATED GFR 59 mL/min (>60); GLUCOSE RANDOM 159 mg/dL (80-116); POTASSIUM,K 3.1 mmol/L (3.5-5.3); SODIUM,NA 140 mmol/L (135-145)
[2022-12-20 06:53] LABS: CARBON DIOXIDE,CO2 40 mmol/L (21-32); INR 3.08 (1.00-1.24); PROTHROMBIN TIME 30.7 sec (9.0-11.1)
[2022-12-20] MEDS: Amoxicillin/Clavulanate K 875-125 MG Tab PO SCH ×2 (08:25→21:08)
[2022-12-20] MEDS: Insulin Lispro 100 Unit/ML 3 ML KwikPen SUBCUT SCH ×3 (08:27→17:55)
[2022-12-20] MEDS: guaiFENesin 600 MG Tab.ER PO SCH ×2 (08:32→21:08)
[2022-12-20] MEDS: Spironolactone 25 MG Tab PO SCH (08:32)
[2022-12-20] MEDS: Citalopram 20 MG Tab PO SCH (08:32)
[2022-12-20] MEDS: Ketotifen 0.025% Ophth Soln 5 ML Bottle EYEBOTH SCH ×2 (08:33→21:09)
[2022-12-20] MEDS: Gabapentin 300 MG Cap PO SCH ×2 (08:37→21:12)
[2022-12-20] MEDS: Furosemide 40 MG/4 ML VIAL IVPUSH SCH (08:57)
[2022-12-20] MEDS: Sodium Chloride 0.9% 10 ML Syringe FLUSH PRN ×4 (08:58→12:04)
[2022-12-20] MEDS: Ondansetron 4 MG/2 ML SDV IV PRN (12:01)
[2022-12-20] MEDS ORDERED: Warfarin 5 MG Tab PO SCH (16:00)
[2022-12-20] MEDS: BUPRENORPHINE SL SCH (16:21)
[2022-12-20] MEDS: NALOXONE SL SCH (16:21)
[2022-12-20] MEDS: Propranolol 60 MG Cap.ER PO SCH (21:08)
[2022-12-20] MEDS: Amitriptyline 25 MG Tab PO SCH (21:08)
[2022-12-20] MEDS: Insulin Glargine,Human Rec. Analog 100 Units/ML 3 ML Pen SUBCUT SCH (21:09)
[2022-12-20] MEDS: Mirtazapine 15 MG Tab PO SCH (21:10)
[2022-12-20] MEDS: atorvaSTATin 40 MG Tab PO SCH (21:10)
[2022-12-20] MEDS: Pantoprazole 40 MG Tab.CR PO SCH (21:11)
[2022-12-20] MEDS: ClonazePAM 1 MG Tab PO SCH (21:12)
[2022-12-21] MEDS: Albuterol/Ipratropium 3.0-0.5 MG/3 ML Neb Soln NEB SCH ×4 (06:14→20:36)
[2022-12-21 06:50] LABS: INR 3.23 (1.00-1.24); PROTHROMBIN TIME 32.1 sec (9.0-11.1)
[2022-12-21] MEDS: Insulin Lispro 100 Unit/ML 3 ML KwikPen SUBCUT SCH ×3 (07:59→17:46)
[2022-12-21] MEDS: Ketotifen 0.025% Ophth Soln 5 ML Bottle EYEBOTH SCH ×2 (08:00→20:36)
[2022-12-21] MEDS: Furosemide 40 MG/4 ML VIAL IVPUSH SCH (08:00)
[2022-12-21] MEDS: Citalopram 20 MG Tab PO SCH (08:00)
[2022-12-21] MEDS: Spironolactone 25 MG Tab PO SCH (08:00)
[2022-12-21] MEDS: Amoxicillin/Clavulanate K 875-125 MG Tab PO SCH ×2 (08:00→20:36)
[2022-12-21] MEDS: guaiFENesin 600 MG Tab.ER PO SCH ×2 (08:01→20:37)
[2022-12-21] MEDS: Gabapentin 300 MG Cap PO SCH ×2 (08:03→20:38)
[2022-12-21] MEDS: Sodium Chloride 0.9% 10 ML Syringe FLUSH PRN ×5 (10:10→18:14)
[2022-12-21] MEDS: Ondansetron 4 MG/2 ML SDV IV PRN ×2 (10:11→18:10)
[2022-12-21] MEDS: Buprenorphine/Naloxone 2-0.5 MG Tab.SL SL SCH (16:48)
[2022-12-21] MEDS: Propranolol 60 MG Cap.ER PO SCH (20:36)
[2022-12-21] MEDS: Amitriptyline 25 MG Tab PO SCH (20:36)
[2022-12-21] MEDS: Insulin Glargine,Human Rec. Analog 100 Units/ML 3 ML Pen SUBCUT SCH (20:36)
[2022-12-21] MEDS: ClonazePAM 1 MG Tab PO SCH (20:36)
[2022-12-21] MEDS: atorvaSTATin 40 MG Tab PO SCH (20:37)
[2022-12-21] MEDS: Mirtazapine 15 MG Tab PO SCH (20:38)
[2022-12-21] MEDS: Pantoprazole 40 MG Tab.CR PO SCH (20:38)
[2022-12-21] MEDS: Acetaminophen 325 MG Tab PO PRN (20:50)
[2022-12-21] MEDS: guaiFENesin 100 MG/5 ML Soln 5 ML UD Cup PO PRN (20:50)
[2022-12-22] MEDS: Albuterol/Ipratropium 3.0-0.5 MG/3 ML Neb Soln NEB SCH ×4 (06:01→21:03)
[2022-12-22] MEDS: Acetaminophen 325 MG Tab PO PRN ×2 (06:11→21:05)
[2022-12-22 06:34] LABS: BASOPHILS ABSOLUTE AUTO 0.1 x10-3/uL (0.0-0.1); BASOPHILS PERCENT AUTO 0.7 % (0.2-1.5); EOSINOPHILS ABSOLUTE AUTO 0.1 x10-3/uL (0.0-0.8); EOSINOPHILS PERCENT AUTO 0.8 % (0.6-8.1); HEMATOCRIT 40.1 % (34.2-48.2); HEMOGLOBIN 13.4 g/dL (11.4-15.5); LYMPHOCYTES ABSOLUTE AUTO 1.6 x10-3/uL (1.0-4.4); LYMPHOCYTES PERCENT AUTO 16.1 % (18.4-52.1); MEAN CORPUSCULAR HEMOGLOBIN 32.1 pg (23.9-33.9); MEAN CORPUSCULAR HGB CONC 33.5 g/dL (31.9-34.8); MEAN PLATELET VOLUME 7.9 fL (7.1-12.4); MONOCYTES ABSOLUTE AUTO 0.8 x10-3/uL (0.3-1.0); MONOCYTES PERCENT AUTO 7.8 % (4.4-15.7); NEUTROPHILS ABSOLUTE AUTO 7.2 x10-3/uL (1.5-6.3); NEUTROPHILS PERCENT AUTO 74.6 % (30.8-76.2); PLATELET COUNT,PLT 219 x10(3)uL (151-488); RED BLOOD CELL COUNT 4.18 x10(6)uL (3.60-5.20); RED CELL DISTRIBUTION WIDTH 14.8 % (12.3-16.5); WHITE BLOOD CELL COUNT,WBC 9.7 x10-3/uL (3.0-10.3)
[2022-12-22 06:37] LABS: BLOOD UREA NITROGEN,BUN 10 mg/dL (7-18); BUN/CREATININE RATIO 11.1 (9-20); CALCIUM 9.3 mg/dL (8.6-10.2); CHLORIDE,CL 91 mmol/L (100-110); CREATININE 0.9 mg/dL (0.55-1.02); EST CRCL DRUG DOSING (CG) 57.31 mL/min; ESTIMATED GFR 67 mL/min (>60); GLUCOSE RANDOM 177 mg/dL (80-116); POTASSIUM,K 3.7 mmol/L (3.5-5.3); SODIUM,NA 135 mmol/L (135-145)
[2022-12-22 06:40] LABS: INR 2.03 (1.00-1.24); PROTHROMBIN TIME 20.5 sec (9.0-11.1)
[2022-12-22 06:47] LABS: CARBON DIOXIDE,CO2 43 mmol/L (21-32)
[2022-12-22] MEDS: Gabapentin 300 MG Cap PO SCH ×2 (08:22→21:05)
[2022-12-22] MEDS: Ketotifen 0.025% Ophth Soln 5 ML Bottle EYEBOTH SCH ×2 (08:22→21:03)
[2022-12-22] MEDS: Citalopram 20 MG Tab PO SCH (08:22)
[2022-12-22] MEDS: Spironolactone 25 MG Tab PO SCH (08:22)
[2022-12-22] MEDS: Amoxicillin/Clavulanate K 875-125 MG Tab PO SCH ×2 (08:22→21:04)
[2022-12-22] MEDS: guaiFENesin 600 MG Tab.ER PO SCH ×2 (08:22→21:04)
[2022-12-22] MEDS: Insulin Lispro 100 Unit/ML 3 ML KwikPen SUBCUT SCH ×3 (08:24→17:37)
[2022-12-22] MEDS: Furosemide 40 MG Tab PO SCH (09:59)
[2022-12-22] MEDS: Furosemide 40 MG/4 ML VIAL IVPUSH SCH (10:56)
[2022-12-22] MEDS: Ondansetron 4 MG Tab.DIS PO PRN (11:56)
[2022-12-22] MEDS: NALOXONE SL SCH (16:50)
[2022-12-22] MEDS: BUPRENORPHINE SL SCH (16:50)
[2022-12-22] MEDS: Sodium Chloride 0.9% 10 ML Syringe FLUSH PRN (17:36)
[2022-12-22] MEDS: Propranolol 60 MG Cap.ER PO SCH (21:03)
[2022-12-22] MEDS: atorvaSTATin 40 MG Tab PO SCH (21:04)
[2022-12-22] MEDS: Amitriptyline 25 MG Tab PO SCH (21:04)
[2022-12-22] MEDS: Mirtazapine 15 MG Tab PO SCH (21:04)
[2022-12-22] MEDS: ClonazePAM 1 MG Tab PO SCH (21:05)
[2022-12-22] MEDS: Pantoprazole 40 MG Tab.CR PO SCH (21:05)
[2022-12-22] MEDS: Insulin Glargine,Human Rec. Analog 100 Units/ML 3 ML Pen SUBCUT SCH (21:06)
[2022-12-23] MEDS: Albuterol/Ipratropium 3.0-0.5 MG/3 ML Neb Soln NEB SCH ×4 (06:25→21:47)
[2022-12-23] MEDS: Nystatin Topical Powder 15 GM Bottle TOP PRN (06:25)
[2022-12-23 06:47] LABS: INR 1.4 (1.00-1.24); PROTHROMBIN TIME 14.3 sec (9.0-11.1)
[2022-12-23] MEDS: Ondansetron 4 MG Tab.DIS PO PRN (07:02)
[2022-12-23] MEDS: Amoxicillin/Clavulanate K 875-125 MG Tab PO SCH ×2 (08:27→21:44)
[2022-12-23] MEDS: Gabapentin 300 MG Cap PO SCH ×2 (08:27→22:07)
[2022-12-23] MEDS: Furosemide 40 MG Tab PO SCH (08:27)
[2022-12-23] MEDS: Citalopram 20 MG Tab PO SCH (08:28)
[2022-12-23] MEDS: Spironolactone 25 MG Tab PO SCH (08:28)
[2022-12-23] MEDS: Ketotifen 0.025% Ophth Soln 5 ML Bottle EYEBOTH SCH ×2 (08:28→21:54)
[2022-12-23] MEDS: guaiFENesin 600 MG Tab.ER PO SCH ×2 (08:28→21:57)
[2022-12-23] MEDS: Insulin Lispro 100 Unit/ML 3 ML KwikPen SUBCUT SCH ×3 (08:29→18:39)
[2022-12-23] MEDS: Acetaminophen 325 MG Tab PO PRN ×2 (09:05→22:54)
[2022-12-23] MEDS ORDERED: Ondansetron 4 MG/2 ML SDV IVPUSH PRN (13:23)
[2022-12-23] MEDS: Sodium Chloride 0.9% 10 ML Syringe FLUSH PRN ×4 (13:36→19:04)
[2022-12-23] MEDS: Buprenorphine/Naloxone 2-0.5 MG Tab.SL SL SCH (16:32)
[2022-12-23] MEDS: Cyclobenzaprine 10 MG Tab PO PRN (18:58)
[2022-12-23] MEDS: Morphine 4 MG/ML VIAL IVPUSH PRN (18:59)
[2022-12-23] MEDS: Propranolol 60 MG Cap.ER PO SCH (21:48)
[2022-12-23] MEDS: Amitriptyline 25 MG Tab PO SCH (21:48)
[2022-12-23] MEDS: atorvaSTATin 40 MG Tab PO SCH (21:55)
[2022-12-23] MEDS: Pantoprazole 40 MG Tab.CR PO SCH (21:58)
[2022-12-23] MEDS: Mirtazapine 15 MG Tab PO SCH (21:58)
[2022-12-23] MEDS: Insulin Glargine,Human Rec. Analog 100 Units/ML 3 ML Pen SUBCUT SCH (22:08)
[2022-12-23] MEDS: ClonazePAM 1 MG Tab PO SCH (22:08)
[2022-12-24] MEDS: Albuterol/Ipratropium 3.0-0.5 MG/3 ML Neb Soln NEB SCH ×4 (06:14→21:35)
[2022-12-24 06:49] LABS: BASOPHILS ABSOLUTE AUTO 0.1 x10-3/uL (0.0-0.1); BASOPHILS PERCENT AUTO 0.9 % (0.2-1.5); EOSINOPHILS ABSOLUTE AUTO 0.2 x10-3/uL (0.0-0.8); EOSINOPHILS PERCENT AUTO 1.9 % (0.6-8.1); HEMATOCRIT 37.8 % (34.2-48.2); HEMOGLOBIN 12.7 g/dL (11.4-15.5); LYMPHOCYTES ABSOLUTE AUTO 1.5 x10-3/uL (1.0-4.4); LYMPHOCYTES PERCENT AUTO 14.6 % (18.4-52.1); MEAN CORPUSCULAR HEMOGLOBIN 32.2 pg (23.9-33.9); MEAN CORPUSCULAR HGB CONC 33.5 g/dL (31.9-34.8); MEAN PLATELET VOLUME 7.9 fL (7.1-12.4); MONOCYTES ABSOLUTE AUTO 0.9 x10-3/uL (0.3-1.0); MONOCYTES PERCENT AUTO 8.5 % (4.4-15.7); NEUTROPHILS ABSOLUTE AUTO 7.5 x10-3/uL (1.5-6.3); NEUTROPHILS PERCENT AUTO 74.1 % (30.8-76.2); PLATELET COUNT,PLT 211 x10(3)uL (151-488); RED BLOOD CELL COUNT 3.94 x10(6)uL (3.60-5.20); RED CELL DISTRIBUTION WIDTH 14.7 % (12.3-16.5); WHITE BLOOD CELL COUNT,WBC 10.1 x10-3/uL (3.0-10.3)
[2022-12-24 06:52] LABS: BLOOD UREA NITROGEN,BUN 12 mg/dL (7-18); BUN/CREATININE RATIO 13.3 (9-20); CALCIUM 8.7 mg/dL (8.6-10.2); CHLORIDE,CL 91 mmol/L (100-110); CREATININE 0.9 mg/dL (0.55-1.02); EST CRCL DRUG DOSING (CG) 57.31 mL/min; ESTIMATED GFR 67 mL/min (>60); GLUCOSE RANDOM 194 mg/dL (80-116); SODIUM,NA 135 mmol/L (135-145)
[2022-12-24 06:57] LABS: CARBON DIOXIDE,CO2 42 mmol/L (21-32)
[2022-12-24] MEDS ORDERED: Lactated Ringers 1,000 ML IV SCH (07:30)
[2022-12-24] MEDS ORDERED: Midazolam 1 MG/ML 2 ML SDV IV ONE (07:45)
[2022-12-24] MEDS ORDERED: Flumazenil 0.1 MG/ML 5 ML MDV IV ONE (07:45)
[2022-12-24] MEDS ORDERED: Propofol 200 MG/20 ML SDV IV ONE (07:45)
[2022-12-24] MEDS ORDERED: Lidocaine 2% 5 ML SDV IV ONE (07:45)
[2022-12-24] MEDS: Insulin Lispro 100 Unit/ML 3 ML KwikPen SUBCUT SCH ×3 (09:04→18:09)
[2022-12-24] MEDS: Gabapentin 300 MG Cap PO SCH ×2 (09:08→21:51)
[2022-12-24] MEDS: Furosemide 40 MG Tab PO SCH (09:11)
[2022-12-24] MEDS: Spironolactone 25 MG Tab PO SCH (09:11)
[2022-12-24] MEDS: Amoxicillin/Clavulanate K 875-125 MG Tab PO SCH ×2 (09:11→21:34)
[2022-12-24] MEDS: Citalopram 20 MG Tab PO SCH (09:12)
[2022-12-24] MEDS: guaiFENesin 600 MG Tab.ER PO SCH ×2 (09:12→21:40)
[2022-12-24] MEDS: Ketotifen 0.025% Ophth Soln 5 ML Bottle EYEBOTH SCH ×2 (09:12→21:38)
[2022-12-24] MEDS ORDERED: Potassium Chloride 20 MEQ Tab.ER PO ONE (09:13)
[2022-12-24] MEDS: ClonazePAM 0.5 MG Tab PO PRN (09:21)
[2022-12-24] MEDS: Ondansetron 4 MG Tab.DIS PO PRN (10:24)
[2022-12-24] MEDS: Cyclobenzaprine 10 MG Tab PO PRN (11:13)
[2022-12-24] MEDS: Sucralfate 1 GM Tab PO SCH ×3 (11:15→21:35)
[2022-12-24] MEDS ORDERED: Warfarin 5 MG Tab PO SCH (16:00)
[2022-12-24] MEDS: NALOXONE SL SCH ×2 (17:10→17:19)
[2022-12-24] MEDS: BUPRENORPHINE SL SCH ×2 (17:10→17:19)
[2022-12-24] MEDS ORDERED: Insulin Glargine,Human Rec. Analog 100 Units/ML 3 ML Pen SUBCUT ONE (21:00)
[2022-12-24] MEDS: Amitriptyline 25 MG Tab PO SCH (21:37)
[2022-12-24] MEDS: Propranolol 60 MG Cap.ER PO SCH (21:37)
[2022-12-24] MEDS: atorvaSTATin 40 MG Tab PO SCH (21:38)
[2022-12-24] MEDS: Pantoprazole 40 MG Tab.CR PO SCH (21:41)
[2022-12-24] MEDS: Mirtazapine 15 MG Tab PO SCH (21:46)
[2022-12-24] MEDS: ClonazePAM 1 MG Tab PO SCH (21:50)
[2022-12-24] MEDS: Insulin Glargine,Human Rec. Analog 100 Units/ML 3 ML Pen SUBCUT SCH (21:53)
[2022-12-25 06:22] LABS: BASOPHILS ABSOLUTE AUTO 0.1 x10-3/uL (0.0-0.1); BASOPHILS PERCENT AUTO 0.9 % (0.2-1.5); EOSINOPHILS ABSOLUTE AUTO 0.2 x10-3/uL (0.0-0.8); EOSINOPHILS PERCENT AUTO 1.9 % (0.6-8.1); HEMATOCRIT 37.1 % (34.2-48.2); HEMOGLOBIN 12.5 g/dL (11.4-15.5); LYMPHOCYTES ABSOLUTE AUTO 1.4 x10-3/uL (1.0-4.4); LYMPHOCYTES PERCENT AUTO 14.2 % (18.4-52.1); MEAN CORPUSCULAR HGB CONC 33.6 g/dL (31.9-34.8); MEAN CORPUSCULAR VOLUME 95.4 fL (76.7-100.5); MEAN PLATELET VOLUME 7.8 fL (7.1-12.4); MONOCYTES ABSOLUTE AUTO 0.9 x10-3/uL (0.3-1.0); MONOCYTES PERCENT AUTO 8.8 % (4.4-15.7); NEUTROPHILS ABSOLUTE AUTO 7.2 x10-3/uL (1.5-6.3); NEUTROPHILS PERCENT AUTO 74.2 % (30.8-76.2); PLATELET COUNT,PLT 192 x10(3)uL (151-488); RED BLOOD CELL COUNT 3.89 x10(6)uL (3.60-5.20); RED CELL DISTRIBUTION WIDTH 14.6 % (12.3-16.5); WHITE BLOOD CELL COUNT,WBC 9.7 x10-3/uL (3.0-10.3)
[2022-12-25 06:33] LABS: BLOOD UREA NITROGEN,BUN 13 mg/dL (7-18); BUN/CREATININE RATIO 14.4 (9-20); CALCIUM 8.8 mg/dL (8.6-10.2); CHLORIDE,CL 93 mmol/L (100-110); CREATININE 0.9 mg/dL (0.55-1.02); EST CRCL DRUG DOSING (CG) 57.31 mL/min; ESTIMATED GFR 67 mL/min (>60); GLUCOSE RANDOM 170 mg/dL (80-116); POTASSIUM,K 3.1 mmol/L (3.5-5.3); SODIUM,NA 134 mmol/L (135-145)
[2022-12-25 06:34] LABS: INR 1.01 (1.00-1.24); PROTHROMBIN TIME 10.4 sec (9.0-11.1)
[2022-12-25 06:45] LABS: CARBON DIOXIDE,CO2 40 mmol/L (21-32)
[2022-12-25] MEDS: Albuterol/Ipratropium 3.0-0.5 MG/3 ML Neb Soln NEB SCH (06:51)
[2022-12-25] MEDS: Sucralfate 1 GM Tab PO SCH (07:24)
[2022-12-25] MEDS: Citalopram 20 MG Tab PO SCH (08:48)
[2022-12-25] MEDS: Spironolactone 25 MG Tab PO SCH (08:48)
[2022-12-25] MEDS: Amoxicillin/Clavulanate K 875-125 MG Tab PO SCH (08:48)
[2022-12-25] MEDS: guaiFENesin 600 MG Tab.ER PO SCH (08:49)
[2022-12-25] MEDS: Furosemide 40 MG Tab PO SCH (08:49)
[2022-12-25] MEDS: Ketotifen 0.025% Ophth Soln 5 ML Bottle EYEBOTH SCH (08:49)
[2022-12-25] MEDS: Gabapentin 300 MG Cap PO SCH (08:52)
[2022-12-25] MEDS: Insulin Lispro 100 Unit/ML 3 ML KwikPen SUBCUT SCH (08:53)
[2022-12-25 09:04] VITALS: BP 111/55; PULSE 79
[2023-01-05] MEDS ORDERED: Cyanocobalamin (Vitamin B12) 1,000 MCG/ML SDV IM SCH (09:00)
== END 2022-12-25 09:06 | disposition swing bed (61) | DRG 178 ==
LOC: FB.ED 17:31 → FB.MS 23:32
PROVIDERS: ADMIT Emergency Medicine; ATTEND Family Medicine
PROC: 0D958ZX Drainage of Esophagus, Via Natural or Artificial Opening Endoscopic, Diagnostic (ICD-10-PCS; principal; 2022-12-17)
DX: J69.0 Pneumonitis due to inhalation of food and vomit (principal); N39.0 Urinary tract infection, site not specified; J44.9 Chronic obstructive pulmonary disease, unspecified; F11.20 Opioid dependence, uncomplicated; N30.01 Acute cystitis with hematuria; D84.9 Immunodeficiency, unspecified; J44.1 Chronic obstructive pulmonary disease with (acute) exacerbation; K25.9 Gastric ulcer, unspecified as acute or chronic, without hemorrhage or perforation; J18.9 Pneumonia, unspecified organism; K21.9 Gastro-esophageal reflux disease without esophagitis; E78.00 Pure hypercholesterolemia, unspecified; D64.9 Anemia, unspecified; E66.9 Obesity, unspecified; F41.9 Anxiety disorder, unspecified; R09.02 Hypoxemia; Z96.649 Presence of unspecified artificial hip joint; I50.9 Heart failure, unspecified; I11.0 Hypertensive heart disease with heart failure; Z51.5 Encounter for palliative care; E66.01 Morbid (severe) obesity due to excess calories; L60.3 Nail dystrophy; E87.6 Hypokalemia; E11.43 Type 2 diabetes mellitus with diabetic autonomic (poly)neuropathy; K31.84 Gastroparesis; R29.6 Repeated falls; M06.9 Rheumatoid arthritis, unspecified; F32.9 Major depressive disorder, single episode, unspecified; F33.41 Major depressive disorder, recurrent, in partial remission; G89.4 Chronic pain syndrome; M81.0 Age-related osteoporosis without current pathological fracture; I27.20 Pulmonary hypertension, unspecified; M05.10 Rheumatoid lung disease with rheumatoid arthritis of unspecified site; Z86.711 Personal history of pulmonary embolism; Z79.4 Long term (current) use of insulin; Z87.891 Personal history of nicotine dependence; Z90.49 Acquired absence of other specified parts of digestive tract; Z90.89 Acquired absence of other organs; I25.2 Old myocardial infarction; Z98.49 Cataract extraction status, unspecified eye; Z98.890 Other specified postprocedural states; Z99.81 Dependence on supplemental oxygen; Z79.01 Long term (current) use of anticoagulants; Z88.8 Allergy status to other drugs, medicaments and biological substances; Z79.899 Other long term (current) drug therapy; Z78.9 Other specified health status; Z86.718 Personal history of other venous thrombosis and embolism; Z98.1 Arthrodesis status
CPT/HCPCS: 71045; 73110; 80053; 81001; 83605; 83880; 84484; 85025; 85610; 87086; 93005; 93010; 96374; 96375; 99284; 99285; A9270; J1940; J2270; J2930; J3490; 00731; 36415; 71250; 80048; 82947; 83735; 84550; 88305; 94640; 97110-GO; 97161-GP; 97165-GO; 97530-GP; 97535-GO; J0696; J1642; J1815; J1815-GY; J2250; J2405; J2704; J7040; J7509; J7620; Q0162

== ENCOUNTER 2022-12-25 09:06 | Inpatient (IN) | payer MEDICARE, BC, MEDICAID ==
[2022-12-25] MEDS ORDERED: Acetaminophen/HYDROcodone 325-5 MG Tab PO PRN (10:51)
[2022-12-25] MEDS ORDERED: Albuterol 0.083% 2.5 MG/3 ML Neb Soln NEB PRN (10:51)
[2022-12-25] MEDS ORDERED: Loperamide 2 MG Cap PO PRN (10:52)
[2022-12-25] MEDS ORDERED: Furosemide 40 MG Tab PO PRN (10:52)
[2022-12-25] MEDS ORDERED: guaiFENesin 100 MG/5 ML Soln 5 ML UD Cup PO PRN (10:52)
[2022-12-25] MEDS ORDERED: Bisacodyl 10 MG Supp RECTAL PRN (10:52)
[2022-12-25] MEDS ORDERED: Carbamide Peroxide 6.5% Otic Soln 15 ML Bottle EARBOTH PRN (10:52)
[2022-12-25] MEDS ORDERED: Glucagon,Human Recombinant 1 MG Vial IM PRN (10:52)
[2022-12-25] MEDS ORDERED: Sennosides/Docusate Sodium 50-8.6 MG Tab PO PRN (10:52)
[2022-12-25] MEDS ORDERED: Nystatin Topical Powder 15 GM Bottle TOP PRN (10:52)
[2022-12-25] MEDS ORDERED: 50% Dextrose in Water 50 ML Syringe IVPUSH PRN (10:52)
[2022-12-25] MEDS ORDERED: Hydrocortisone 2.5% Crm 30 GM Tube TOP PRN (10:52)
[2022-12-25] MEDS ORDERED: Warfarin 5 MG Tab PO SCH (11:00)
[2022-12-25] MEDS ORDERED: Magnesium Hydroxide 400 MG/5 ML Susp 30 ML Cup PO PRN (11:38)
[2022-12-25] MEDS ORDERED: Dicyclomine 10 MG Cap PO PRN (11:44)
[2022-12-25] MEDS ORDERED: Aluminum Hydroxide/Magnesium Hydroxide Susp 30 ML Cup PO PRN (11:46)
[2022-12-25] MEDS ORDERED: SUMAtriptan 50 MG Tab PO PRN (12:05)
[2022-12-25] MEDS ORDERED: Warfarin Sliding Scale PO SCH (12:15)
[2022-12-25] MEDS: Sucralfate 1 GM Tab PO SCH ×3 (12:45→21:04)
[2022-12-25] MEDS: Albuterol/Ipratropium 3.0-0.5 MG/3 ML Neb Soln NEB SCH ×3 (12:45→21:04)
[2022-12-25] MEDS: Insulin Lispro 100 Unit/ML 3 ML KwikPen SUBCUT SCH ×2 (12:59→17:58)
[2022-12-25] MEDS: Nystatin Topical Powder 15 GM Bottle TOP PRN ×2 (14:52→22:28)
[2022-12-25] MEDS ORDERED: Warfarin 5 MG Tab PO ONE (16:00)
[2022-12-25] MEDS: Buprenorphine/Naloxone 2-0.5 MG Tab.SL SL SCH (17:10)
[2022-12-25] MEDS: Amoxicillin/Clavulanate K 875-125 MG Tab PO SCH (21:03)
[2022-12-25] MEDS: Amitriptyline 25 MG Tab PO SCH (21:04)
[2022-12-25] MEDS: guaiFENesin 600 MG Tab.ER PO SCH (21:05)
[2022-12-25] MEDS: atorvaSTATin 40 MG Tab PO SCH (21:05)
[2022-12-25] MEDS: ClonazePAM 1 MG Tab PO SCH (21:05)
[2022-12-25] MEDS: Propranolol 60 MG Cap.ER PO SCH (21:05)
[2022-12-25] MEDS: Gabapentin 300 MG Cap PO SCH (21:06)
[2022-12-25] MEDS: Mirtazapine 15 MG Tab PO SCH (21:06)
[2022-12-25] MEDS: Pantoprazole 40 MG Tab.CR PO SCH (21:06)
[2022-12-25] MEDS: Insulin Glargine,Human Rec. Analog 100 Units/ML 3 ML Pen SUBCUT SCH (21:11)
[2022-12-26 06:21] LABS: INR 1.59 (1.00-1.24); PROTHROMBIN TIME 16.2 sec (9.0-11.1)
[2022-12-26] MEDS: Sucralfate 1 GM Tab PO SCH ×4 (07:02→21:07)
[2022-12-26] MEDS: Insulin Lispro 100 Unit/ML 3 ML KwikPen SUBCUT SCH ×3 (07:58→17:14)
[2022-12-26] MEDS: Spironolactone 25 MG Tab PO SCH (08:03)
[2022-12-26] MEDS: Citalopram 20 MG Tab PO SCH (08:04)
[2022-12-26] MEDS: Amoxicillin/Clavulanate K 875-125 MG Tab PO SCH ×2 (08:04→21:07)
[2022-12-26] MEDS: Ketotifen 0.025% Ophth Soln 5 ML Bottle EYEBOTH SCH ×2 (08:05→21:05)
[2022-12-26] MEDS: Albuterol/Ipratropium 3.0-0.5 MG/3 ML Neb Soln NEB SCH ×4 (08:05→21:06)
[2022-12-26] MEDS: guaiFENesin 600 MG Tab.ER PO SCH ×2 (08:07→21:06)
[2022-12-26] MEDS: Gabapentin 300 MG Cap PO SCH ×2 (08:17→21:12)
[2022-12-26] MEDS ORDERED: SEMAGLUTIDE 2 MG/0.75 ML SQ SCH (09:00)
[2022-12-26] MEDS: ClonazePAM 0.5 MG Tab PO PRN (15:43)
[2022-12-26] MEDS ORDERED: Warfarin 5 MG Tab PO ONE (16:00)
[2022-12-26] MEDS: Buprenorphine/Naloxone 2-0.5 MG Tab.SL SL SCH (16:57)
[2022-12-26] MEDS: Ondansetron 4 MG Tab.DIS PO PRN ×2 (18:11→22:12)
[2022-12-26] MEDS: Pantoprazole 40 MG Tab.CR PO SCH (21:04)
[2022-12-26] MEDS: Amitriptyline 25 MG Tab PO SCH (21:07)
[2022-12-26] MEDS: Mirtazapine 15 MG Tab PO SCH (21:07)
[2022-12-26] MEDS: atorvaSTATin 40 MG Tab PO SCH (21:07)
[2022-12-26] MEDS: Propranolol 60 MG Cap.ER PO SCH (21:07)
[2022-12-26] MEDS: Insulin Glargine,Human Rec. Analog 100 Units/ML 3 ML Pen SUBCUT SCH (21:09)
[2022-12-26] MEDS: ClonazePAM 1 MG Tab PO SCH (21:12)
[2022-12-27 06:33] LABS: INR 2.12 (1.00-1.24); PROTHROMBIN TIME 21.3 sec (9.0-11.1)
[2022-12-27] MEDS: Sucralfate 1 GM Tab PO SCH ×4 (06:40→20:54)
[2022-12-27] MEDS: Insulin Lispro 100 Unit/ML 3 ML KwikPen SUBCUT SCH ×3 (08:33→18:03)
[2022-12-27] MEDS: Spironolactone 25 MG Tab PO SCH (08:35)
[2022-12-27] MEDS: Amoxicillin/Clavulanate K 875-125 MG Tab PO SCH ×2 (08:36→20:54)
[2022-12-27] MEDS: Ketotifen 0.025% Ophth Soln 5 ML Bottle EYEBOTH SCH ×2 (08:36→20:55)
[2022-12-27] MEDS: Citalopram 20 MG Tab PO SCH (08:36)
[2022-12-27] MEDS: guaiFENesin 600 MG Tab.ER PO SCH ×2 (08:37→20:56)
[2022-12-27] MEDS: Gabapentin 300 MG Cap PO SCH ×2 (08:37→20:55)
[2022-12-27] MEDS: Albuterol/Ipratropium 3.0-0.5 MG/3 ML Neb Soln NEB SCH ×4 (09:55→20:54)
[2022-12-27] MEDS ORDERED: Warfarin 5 MG Tab PO SCH (10:52)
[2022-12-27] MEDS ORDERED: diphenhydrAMINE 50 MG Cap PO PRN (11:18)
[2022-12-27] MEDS: Ondansetron 4 MG Tab.DIS PO PRN (12:28)
[2022-12-27] MEDS ORDERED: REMOVE SCOPALAMINE TRDERM PRN (13:01)
[2022-12-27] MEDS: Scopolamine 1.5 MG Transdermal Patch TOP PRN (13:32)
[2022-12-27] MEDS ORDERED: Warfarin 2.5 MG Tab PO ONE (16:00)
[2022-12-27] MEDS: Buprenorphine/Naloxone 2-0.5 MG Tab.SL SL SCH (16:31)
[2022-12-27] MEDS: Propranolol 60 MG Cap.ER PO SCH (20:54)
[2022-12-27] MEDS: Amitriptyline 25 MG Tab PO SCH (20:54)
[2022-12-27] MEDS: atorvaSTATin 40 MG Tab PO SCH (20:54)
[2022-12-27] MEDS: Mirtazapine 15 MG Tab PO SCH (20:55)
[2022-12-27] MEDS: Pantoprazole 40 MG Tab.CR PO SCH (20:55)
[2022-12-27] MEDS: ClonazePAM 1 MG Tab PO SCH (20:56)
[2022-12-27] MEDS: Insulin Glargine,Human Rec. Analog 100 Units/ML 3 ML Pen SUBCUT SCH (21:05)
[2022-12-28 06:46] LABS: INR 3.43 (1.00-1.24); PROTHROMBIN TIME 34.1 sec (9.0-11.1)
[2022-12-28] MEDS: Sucralfate 1 GM Tab PO SCH ×4 (06:57→21:13)
[2022-12-28] MEDS: Insulin Lispro 100 Unit/ML 3 ML KwikPen SUBCUT SCH ×3 (09:31→17:47)
[2022-12-28] MEDS: Spironolactone 25 MG Tab PO SCH (09:35)
[2022-12-28] MEDS: Amoxicillin/Clavulanate K 875-125 MG Tab PO SCH (09:35)
[2022-12-28] MEDS: Citalopram 20 MG Tab PO SCH (09:36)
[2022-12-28] MEDS: Ketotifen 0.025% Ophth Soln 5 ML Bottle EYEBOTH SCH ×2 (09:36→21:14)
[2022-12-28] MEDS: guaiFENesin 600 MG Tab.ER PO SCH ×2 (09:37→21:13)
[2022-12-28] MEDS: Gabapentin 300 MG Cap PO SCH ×2 (09:42→21:13)
[2022-12-28] MEDS: Albuterol/Ipratropium 3.0-0.5 MG/3 ML Neb Soln NEB SCH ×4 (09:42→21:15)
[2022-12-28] MEDS: Acetaminophen 325 MG Tab PO PRN (16:14)
[2022-12-28] MEDS: Cyclobenzaprine 10 MG Tab PO PRN (16:15)
[2022-12-28] MEDS: Buprenorphine/Naloxone 2-0.5 MG Tab.SL SL SCH (16:55)
[2022-12-28] MEDS: ClonazePAM 1 MG Tab PO SCH (21:12)
[2022-12-28] MEDS: Propranolol 60 MG Cap.ER PO SCH (21:13)
[2022-12-28] MEDS: atorvaSTATin 40 MG Tab PO SCH (21:13)
[2022-12-28] MEDS: Amitriptyline 25 MG Tab PO SCH (21:13)
[2022-12-28] MEDS: Mirtazapine 15 MG Tab PO SCH (21:14)
[2022-12-28] MEDS: Pantoprazole 40 MG Tab.CR PO SCH (21:14)
[2022-12-28] MEDS: Insulin Glargine,Human Rec. Analog 100 Units/ML 3 ML Pen SUBCUT SCH (21:19)
[2022-12-29] MEDS: Sucralfate 1 GM Tab PO SCH ×4 (06:41→21:05)
[2022-12-29 06:46] LABS: INR 2.46 (1.00-1.24); PROTHROMBIN TIME 24.7 sec (9.0-11.1)
[2022-12-29] MEDS: Insulin Lispro 100 Unit/ML 3 ML KwikPen SUBCUT SCH ×3 (07:56→18:02)
[2022-12-29] MEDS: Spironolactone 25 MG Tab PO SCH (08:02)
[2022-12-29] MEDS: Citalopram 20 MG Tab PO SCH (08:03)
[2022-12-29] MEDS: Ketotifen 0.025% Ophth Soln 5 ML Bottle EYEBOTH SCH ×2 (08:03→21:07)
[2022-12-29] MEDS: Gabapentin 300 MG Cap PO SCH ×2 (08:04→21:09)
[2022-12-29] MEDS: guaiFENesin 600 MG Tab.ER PO SCH ×2 (08:04→21:09)
[2022-12-29] MEDS: Albuterol/Ipratropium 3.0-0.5 MG/3 ML Neb Soln NEB SCH ×4 (10:00→21:05)
[2022-12-29] MEDS: Acyclovir 400 MG Tab PO SCH ×2 (13:22→21:11)
[2022-12-29] MEDS ORDERED: Warfarin 2.5 MG Tab PO ONE (16:00)
[2022-12-29] MEDS: ClonazePAM 0.5 MG Tab PO PRN (16:57)
[2022-12-29] MEDS: Cyclobenzaprine 10 MG Tab PO PRN (16:57)
[2022-12-29] MEDS: Buprenorphine/Naloxone 2-0.5 MG Tab.SL SL SCH (17:04)
[2022-12-29] MEDS: Amitriptyline 25 MG Tab PO SCH (21:06)
[2022-12-29] MEDS: ClonazePAM 1 MG Tab PO SCH (21:07)
[2022-12-29] MEDS: Propranolol 60 MG Cap.ER PO SCH (21:07)
[2022-12-29] MEDS: atorvaSTATin 40 MG Tab PO SCH (21:08)
[2022-12-29] MEDS: Pantoprazole 40 MG Tab.CR PO SCH (21:09)
[2022-12-29] MEDS: Mirtazapine 15 MG Tab PO SCH (21:10)
[2022-12-29] MEDS: Insulin Glargine,Human Rec. Analog 100 Units/ML 3 ML Pen SUBCUT SCH (21:12)
[2022-12-29] MEDS: Nystatin Topical Powder 15 GM Bottle TOP PRN (21:28)
[2022-12-30 06:20] LABS: INR 1.86 (1.00-1.24); PROTHROMBIN TIME 18.9 sec (9.0-11.1)
[2022-12-30] MEDS: Sucralfate 1 GM Tab PO SCH ×4 (07:07→21:41)
[2022-12-30] MEDS: Insulin Lispro 100 Unit/ML 3 ML KwikPen SUBCUT SCH ×3 (07:54→18:37)
[2022-12-30] MEDS: Spironolactone 25 MG Tab PO SCH (07:59)
[2022-12-30] MEDS: Ketotifen 0.025% Ophth Soln 5 ML Bottle EYEBOTH SCH ×2 (08:00→21:42)
[2022-12-30] MEDS: Citalopram 20 MG Tab PO SCH (08:00)
[2022-12-30] MEDS: guaiFENesin 600 MG Tab.ER PO SCH ×2 (08:01→21:43)
[2022-12-30] MEDS: Albuterol/Ipratropium 3.0-0.5 MG/3 ML Neb Soln NEB SCH ×4 (08:02→21:27)
[2022-12-30] MEDS: Gabapentin 300 MG Cap PO SCH ×2 (08:36→21:43)
[2022-12-30] MEDS: Acyclovir 400 MG Tab PO SCH ×3 (08:37→21:46)
[2022-12-30] MEDS ORDERED: Warfarin 5 MG Tab PO SCH (16:00)
[2022-12-30] MEDS: Buprenorphine/Naloxone 2-0.5 MG Tab.SL SL SCH (16:43)
[2022-12-30] MEDS: Insulin Glargine,Human Rec. Analog 100 Units/ML 3 ML Pen SUBCUT SCH (21:29)
[2022-12-30] MEDS: Propranolol 60 MG Cap.ER PO SCH (21:41)
[2022-12-30] MEDS: Amitriptyline 25 MG Tab PO SCH (21:41)
[2022-12-30] MEDS: Pantoprazole 40 MG Tab.CR PO SCH (21:45)
[2022-12-30] MEDS: [UNRECOGNIZED DRUG - OTHER] PO SCH (21:45)
[2022-12-30] MEDS: Mirtazapine 15 MG Tab PO SCH (21:46)
[2022-12-30] MEDS: atorvaSTATin 40 MG Tab PO SCH (21:48)
[2022-12-30] MEDS: ClonazePAM 1 MG Tab PO SCH (21:52)
[2022-12-31] MEDS: Sucralfate 1 GM Tab PO SCH ×4 (06:56→20:47)
[2022-12-31] MEDS: Insulin Lispro 100 Unit/ML 3 ML KwikPen SUBCUT SCH ×3 (08:43→18:59)
[2022-12-31] MEDS: Ketotifen 0.025% Ophth Soln 5 ML Bottle EYEBOTH SCH ×2 (08:44→20:48)
[2022-12-31] MEDS: Gabapentin 300 MG Cap PO SCH ×2 (08:45→20:52)
[2022-12-31] MEDS: Albuterol/Ipratropium 3.0-0.5 MG/3 ML Neb Soln NEB SCH ×4 (08:45→22:38)
[2022-12-31] MEDS: Citalopram 20 MG Tab PO SCH (08:45)
[2022-12-31] MEDS: guaiFENesin 600 MG Tab.ER PO SCH ×2 (08:46→20:51)
[2022-12-31] MEDS: Acyclovir 400 MG Tab PO SCH ×3 (08:46→20:54)
[2022-12-31] MEDS: Spironolactone 25 MG Tab PO SCH (08:47)
[2022-12-31] MEDS: Scopolamine 1.5 MG Transdermal Patch TOP PRN (11:41)
[2022-12-31] MEDS ORDERED: Warfarin 2.5 MG Tab PO SCH (16:00)
[2022-12-31] MEDS: Buprenorphine/Naloxone 2-0.5 MG Tab.SL SL SCH (16:47)
[2022-12-31] MEDS: Ondansetron 4 MG Tab.DIS PO PRN (19:16)
[2022-12-31] MEDS: Amitriptyline 25 MG Tab PO SCH (20:47)
[2022-12-31] MEDS: Propranolol 60 MG Cap.ER PO SCH (20:48)
[2022-12-31] MEDS: ClonazePAM 1 MG Tab PO SCH (20:49)
[2022-12-31] MEDS: atorvaSTATin 40 MG Tab PO SCH (20:50)
[2022-12-31] MEDS: [UNRECOGNIZED DRUG - OTHER] PO SCH (20:52)
[2022-12-31] MEDS: Mirtazapine 15 MG Tab PO SCH (20:53)
[2022-12-31] MEDS: Pantoprazole 40 MG Tab.CR PO SCH (20:54)
[2022-12-31] MEDS: Insulin Glargine,Human Rec. Analog 100 Units/ML 3 ML Pen SUBCUT SCH (21:06)
[2023-01-01 06:38] LABS: INR 2.17 (1.00-1.24); PROTHROMBIN TIME 21.8 sec (9.0-11.1)
[2023-01-01] MEDS: Sucralfate 1 GM Tab PO SCH (06:43)
[2023-01-01] MEDS: Insulin Lispro 100 Unit/ML 3 ML KwikPen SUBCUT SCH (08:31)
[2023-01-01] MEDS: guaiFENesin 600 MG Tab.ER PO SCH (09:23)
[2023-01-01] MEDS: Spironolactone 25 MG Tab PO SCH (09:23)
[2023-01-01] MEDS: Acyclovir 400 MG Tab PO SCH (09:23)
[2023-01-01] MEDS: Citalopram 20 MG Tab PO SCH (09:23)
[2023-01-01] MEDS: Albuterol/Ipratropium 3.0-0.5 MG/3 ML Neb Soln NEB SCH (09:24)
[2023-01-01] MEDS: Ketotifen 0.025% Ophth Soln 5 ML Bottle EYEBOTH SCH (09:24)
[2023-01-01] MEDS: Gabapentin 300 MG Cap PO SCH (09:45)
[2023-01-01] MEDS: Acetaminophen 325 MG Tab PO PRN (09:46)
[2023-01-01 15:02] VITALS: BP 134/72
[2023-01-01 15:07] VITALS: PULSE 83
[2023-01-05] MEDS ORDERED: Cyanocobalamin (Vitamin B12) 1,000 MCG/ML SDV IM SCH (09:00)
== END 2023-01-01 09:55 | disposition home health service (06) | DRG 948 ==
LOC: FB.MS 09:06
PROVIDERS: ADMIT Family Medicine; ATTEND Family Medicine
DX: R53.1 Weakness (principal); J44.0 Chronic obstructive pulmonary disease with (acute) lower respiratory infection; F33.9 Major depressive disorder, recurrent, unspecified; I27.20 Pulmonary hypertension, unspecified; M06.9 Rheumatoid arthritis, unspecified; G89.4 Chronic pain syndrome; J44.9 Chronic obstructive pulmonary disease, unspecified; Z20.822 Contact with and (suspected) exposure to COVID-19; K27.9 Peptic ulcer, site unspecified, unspecified as acute or chronic, without hemorrhage or perforation; E11.9 Type 2 diabetes mellitus without complications; F41.9 Anxiety disorder, unspecified; B00.1 Herpesviral vesicular dermatitis; E66.01 Morbid (severe) obesity due to excess calories; I11.0 Hypertensive heart disease with heart failure; I50.9 Heart failure, unspecified; D64.9 Anemia, unspecified; G47.30 Sleep apnea, unspecified; K21.9 Gastro-esophageal reflux disease without esophagitis; Z79.899 Other long term (current) drug therapy; Z51.5 Encounter for palliative care; Z96.649 Presence of unspecified artificial hip joint; Z86.711 Personal history of pulmonary embolism; I25.2 Old myocardial infarction; Z88.8 Allergy status to other drugs, medicaments and biological substances; Z79.51 Long term (current) use of inhaled steroids; Z79.01 Long term (current) use of anticoagulants; Z98.49 Cataract extraction status, unspecified eye; Z90.49 Acquired absence of other specified parts of digestive tract; Z98.890 Other specified postprocedural states; Z98.1 Arthrodesis status; Z68.34 Body mass index [BMI] 34.0-34.9, adult
CPT/HCPCS: 36415; 82947; 85610; 94640; 97110-GO; 97116-GP; 97530-GO; 97530-GP; 97535-GO; 99305; 99309; 99315; A9270-GY; J1815; J1815-GY; J7509; J7620; Q0162; U0002

== ENCOUNTER 2023-03-17 10:33 | Inpatient (IN) | payer MEDICARE, BC, MEDICAID ==
[2023-03-17] MEDS ORDERED: methylPREDNISolone Sodium Succinate 125 MG/2 ML SDV IM ONE (11:39)
[2023-03-17] MEDS ORDERED: Albuterol/Ipratropium 3.0-0.5 MG/3 ML Neb Soln NEB ONE ×2 (11:39→13:10)
[2023-03-17] MEDS ORDERED: methylPREDNISolone Sodium Succinate 125 MG/2 ML SDV IVPUSH SCH (12:00)
[2023-03-17 12:02] LABS: BASOPHILS ABSOLUTE AUTO 0.1 x10-3/uL (0.0-0.1); BASOPHILS PERCENT AUTO 0.6 % (0.2-1.5); EOSINOPHILS ABSOLUTE AUTO 0.1 x10-3/uL (0.0-0.8); EOSINOPHILS PERCENT AUTO 1.2 % (0.6-8.1); HEMATOCRIT 33.5 % (34.2-48.2); HEMOGLOBIN 10.7 g/dL (11.4-15.5); LYMPHOCYTES ABSOLUTE AUTO 1.1 x10-3/uL (1.0-4.4); LYMPHOCYTES PERCENT AUTO 10.1 % (18.4-52.1); MEAN CORPUSCULAR HEMOGLOBIN 28.4 pg (23.9-33.9); MEAN CORPUSCULAR HGB CONC 31.9 g/dL (31.9-34.8); MONOCYTES ABSOLUTE AUTO 0.9 x10-3/uL (0.3-1.0); NEUTROPHILS ABSOLUTE AUTO 8.5 x10-3/uL (1.5-6.3); NEUTROPHILS PERCENT AUTO 80.1 % (30.8-76.2); PLATELET COUNT,PLT 237 x10(3)uL (151-488); RED BLOOD CELL COUNT 3.77 x10(6)uL (3.60-5.20); RED CELL DISTRIBUTION WIDTH 16.8 % (12.3-16.5); WHITE BLOOD CELL COUNT,WBC 10.7 x10-3/uL (3.0-10.3)
[2023-03-17 12:11] LABS: A/G RATIO 0.6; ALANINE AMINOTRANSFERASE,ALT 51 U/L (12-36); ALBUMIN 2.8 g/dL (3.2-4.6); ALKALINE PHOSPHATASE 177 IU/L (56-112); ASPARTATE AMNIOTRANSFERASE,AST 20 IU/L (5-25); BILIRUBIN TOTAL 0.4 mg/dL (0.1-1.3); BLOOD UREA NITROGEN,BUN 12 mg/dL (7-18); CALCIUM 9.5 mg/dL (8.6-10.2); CHLORIDE,CL 93 mmol/L (100-110); CREATININE 0.8 mg/dL (0.55-1.02); ESTIMATED GFR 77 mL/min (>60); GLUCOSE RANDOM 146 mg/dL (80-116); POTASSIUM,K 3.4 mmol/L (3.5-5.3); PROTEIN TOTAL,TP 7.4 g/dL (6.0-8.0); SODIUM,NA 136 mmol/L (135-145)
[2023-03-17 12:12] LABS: CARBON DIOXIDE,CO2 40 mmol/L (21-32)
[2023-03-17 12:40] LABS: APPEARANCE,URINE SLIGHTLY CLOUDY (CLEAR); BACTERIA,URINE MODERATE (NS); BILIRUBIN,URINE NEGATIVE (NEGATIVE); COLOR,URINE YELLOW (YELLOW); GLUCOSE,URINE 100 mg/dL (NORMAL); KETONES,URINE NEGATIVE (NEGATIVE); LEUKOCYTE ESTERASE,URINE NEGATIVE (NEGATIVE); NITRITE,URINE NEGATIVE (NEGATIVE); OCCULT BLOOD,URINE LARGE (NEGATIVE); PROTEIN,URINE NEGATIVE (NEGATIVE); RBC,URINE 50-75 (0-5); SQUAMOUS EPITHELIAL CELLS,UR FEW (NS,R,O); UROBILINOGEN,URINE NORMAL (NEGATIVE); WBC,URINE 0-5 (0-5)
[2023-03-17 13:02] LABS: INR 1.97 (1.00-1.24); PROTHROMBIN TIME 19.9 sec (9.0-11.1)
[2023-03-17] MEDS ORDERED: Morphine 4 MG/ML VIAL IVPUSH ONE (13:10)
[2023-03-17] MEDS ORDERED: Acetaminophen 325 MG Tab PO PRN (13:58)
[2023-03-17] MEDS ORDERED: Ondansetron 4 MG/2 ML SDV IV PRN (13:58)
[2023-03-17] MEDS ORDERED: Albuterol 0.083% 2.5 MG/3 ML Neb Soln NEB PRN (13:58)
[2023-03-17] MEDS ORDERED: Sennosides/Docusate Sodium 50-8.6 MG Tab PO PRN (13:58)
[2023-03-17] MEDS: Albuterol/Ipratropium 3.0-0.5 MG/3 ML Neb Soln NEB SCH ×2 (16:58→20:34)
[2023-03-17] MEDS: Potassium Chloride 20 MEQ Tab.ER PO SCH ×2 (16:58→21:05)
[2023-03-17] MEDS ORDERED: Levofloxacin 500 MG Tab PO SCH (17:00)
[2023-03-17] MEDS ORDERED: Aluminum Hydroxide/Magnesium Hydroxide Susp 30 ML Cup PO PRN (17:32)
[2023-03-17] MEDS ORDERED: Acetaminophen/HYDROcodone 325-5 MG Tab PO PRN (17:32)
[2023-03-17] MEDS ORDERED: Dicyclomine 10 MG Cap PO PRN (17:32)
[2023-03-17] MEDS ORDERED: Hydrocortisone 2.5% Crm 30 GM Tube TOP PRN (17:32)
[2023-03-17] MEDS ORDERED: guaiFENesin 100 MG/5 ML Soln 5 ML UD Cup PO PRN (17:32)
[2023-03-17] MEDS ORDERED: Magnesium Hydroxide 400 MG/5 ML Susp 30 ML Cup PO PRN (17:32)
[2023-03-17] MEDS ORDERED: Ondansetron 4 MG Tab.DIS PO PRN (17:32)
[2023-03-17] MEDS ORDERED: ClonazePAM 0.5 MG Tab PO PRN (17:32)
[2023-03-17] MEDS ORDERED: Carbamide Peroxide 6.5% Otic Soln 15 ML Bottle EARBOTH PRN (17:32)
[2023-03-17] MEDS ORDERED: Cyclobenzaprine 10 MG Tab PO PRN (17:32)
[2023-03-17] MEDS ORDERED: Bisacodyl 10 MG Supp RECTAL PRN (17:32)
[2023-03-17] MEDS ORDERED: Loperamide 2 MG Cap PO PRN (17:32)
[2023-03-17] MEDS ORDERED: SUMAtriptan 50 MG Tab PO PRN (17:32)
[2023-03-17] MEDS ORDERED: Glucagon,Human Recombinant 1 MG Vial IM PRN (17:41)
[2023-03-17] MEDS ORDERED: 50% Dextrose in Water 50 ML Syringe IVPUSH PRN (17:41)
[2023-03-17] MEDS: Piperacillin/Tazobactam 3.375 GM in Sodium Chloride 0.9% 50 ML IV SCH ×2 (17:44→23:29)
[2023-03-17] MEDS: Sodium Chloride 0.9% 10 ML Syringe FLUSH PRN ×5 (17:45→23:24)
[2023-03-17] MEDS ORDERED: Insulin Lispro 100 Unit/ML 3 ML KwikPen SUBCUT ONE (18:07)
[2023-03-17] MEDS: Insulin Lispro 100 Unit/ML 3 ML KwikPen SUBCUT SCH (18:10)
[2023-03-17] MEDS ORDERED: Warfarin 5 MG Tab PO SCH (18:30)
[2023-03-17] MEDS: Clotrimazole 10 MG Troche PO SCH ×2 (18:32→20:37)
[2023-03-17] MEDS ORDERED: Insulin Glargine,Human Rec. Analog 100 Units/ML 3 ML Pen SUBCUT SCH (20:00)
[2023-03-17] MEDS: Amitriptyline 25 MG Tab PO SCH (20:35)
[2023-03-17] MEDS: Propranolol 60 MG Cap.ER PO SCH (20:35)
[2023-03-17] MEDS: ClonazePAM 1 MG Tab PO SCH (20:36)
[2023-03-17] MEDS: atorvaSTATin 40 MG Tab PO SCH (20:36)
[2023-03-17] MEDS: Pantoprazole 40 MG Tab.CR PO SCH (20:37)
[2023-03-17] MEDS: Mirtazapine 15 MG Tab PO SCH (20:37)
[2023-03-17] MEDS: Gabapentin 300 MG Cap PO SCH (20:37)
[2023-03-17] MEDS ORDERED: Insulin Glargine,Human Rec. Analog 100 Units/ML 3 ML Pen SUBCUT ONE (20:41)
[2023-03-17] MEDS: Buprenorphine/Naloxone 2-0.5 MG Tab.SL SL SCH (20:46)
[2023-03-17] MEDS ORDERED: Formoterol/Mometasone 200-5 MCG 8.8 GM Inhaler IH SCH (21:00)
[2023-03-17] MEDS ORDERED: Calcium Carbonate 500 MG Tab.Chew PO SCH (21:00)
[2023-03-17] MEDS: methylPREDNISolone Sodium Succinate 125 MG/2 ML SDV IVPUSH SCH (21:16)
[2023-03-18] MEDS: Sodium Chloride 0.9% 10 ML Syringe FLUSH PRN ×6 (00:03→17:00)
[2023-03-18] MEDS: methylPREDNISolone Sodium Succinate 125 MG/2 ML SDV IVPUSH SCH (05:01)
[2023-03-18] MEDS: Piperacillin/Tazobactam 3.375 GM in Sodium Chloride 0.9% 50 ML IV SCH (05:03)
[2023-03-18] MEDS: Albuterol/Ipratropium 3.0-0.5 MG/3 ML Neb Soln NEB SCH ×4 (06:37→20:40)
[2023-03-18 06:38] LABS: BASOPHILS PERCENT AUTO 0.3 % (0.2-1.5); HEMATOCRIT 31.8 % (34.2-48.2); LYMPHOCYTES ABSOLUTE AUTO 0.6 x10-3/uL (1.0-4.4); MEAN CORPUSCULAR HEMOGLOBIN 28.4 pg (23.9-33.9); MEAN CORPUSCULAR HGB CONC 31.5 g/dL (31.9-34.8); MEAN CORPUSCULAR VOLUME 90.1 fL (76.7-100.5); MONOCYTES ABSOLUTE AUTO 0.2 x10-3/uL (0.3-1.0); MONOCYTES PERCENT AUTO 2.7 % (4.4-15.7); NEUTROPHILS ABSOLUTE AUTO 6.8 x10-3/uL (1.5-6.3); PLATELET COUNT,PLT 230 x10(3)uL (151-488); RED BLOOD CELL COUNT 3.53 x10(6)uL (3.60-5.20); RED CELL DISTRIBUTION WIDTH 17.1 % (12.3-16.5); WHITE BLOOD CELL COUNT,WBC 7.7 x10-3/uL (3.0-10.3)
[2023-03-18] MEDS: Clotrimazole 10 MG Troche PO SCH ×2 (06:45→10:24)
[2023-03-18 06:46] LABS: INR 1.87 (1.00-1.24)
[2023-03-18 06:50] LABS: A/G RATIO 0.5; ALANINE AMINOTRANSFERASE,ALT 42 U/L (12-36); ALBUMIN 2.3 g/dL (3.2-4.6); ALKALINE PHOSPHATASE 153 IU/L (56-112); ASPARTATE AMNIOTRANSFERASE,AST 17 IU/L (5-25); BILIRUBIN TOTAL 0.4 mg/dL (0.1-1.3); BLOOD UREA NITROGEN,BUN 15 mg/dL (7-18); BUN/CREATININE RATIO 18.8 (9-20); CARBON DIOXIDE,CO2 36 mmol/L (21-32); CHLORIDE,CL 96 mmol/L (100-110); CREATININE 0.8 mg/dL (0.55-1.02); EST CRCL DRUG DOSING (CG) 64.48 mL/min; ESTIMATED GFR 77 mL/min (>60); GLUCOSE RANDOM 324 mg/dL (80-116); POTASSIUM,K 4.2 mmol/L (3.5-5.3); PROTEIN TOTAL,TP 6.6 g/dL (6.0-8.0); SODIUM,NA 136 mmol/L (135-145)
[2023-03-18] MEDS: Acetaminophen 325 MG Tab PO PRN ×2 (07:03→14:55)
[2023-03-18] MEDS ORDERED: Insulin Glargine,Human Rec. Analog 100 Units/ML 3 ML Pen SUBCUT SCH (07:50)
[2023-03-18] MEDS: Insulin Lispro 100 Unit/ML 3 ML KwikPen SUBCUT SCH ×3 (08:28→19:03)
[2023-03-18] MEDS ORDERED: Warfarin Sliding Scale PO SCH (08:30)
[2023-03-18] MEDS: Gabapentin 300 MG Cap PO SCH ×2 (08:34→21:25)
[2023-03-18] MEDS: Furosemide 80 MG Tab PO SCH (08:35)
[2023-03-18] MEDS: Spironolactone 25 MG Tab PO SCH (08:36)
[2023-03-18] MEDS: Sennosides 8.6 MG Tab PO SCH (08:36)
[2023-03-18] MEDS: Citalopram 10 MG Tab PO SCH (08:36)
[2023-03-18] MEDS: Cholecalciferol (Vitamin D3) 25 MCG Tab PO SCH (08:37)
[2023-03-18] MEDS: Ketotifen 0.025% Ophth Soln 5 ML Bottle EYEBOTH SCH ×2 (08:38→21:18)
[2023-03-18] MEDS: Formoterol/Mometasone 200-5 MCG 8.8 GM Inhaler IH SCH ×2 (08:38→20:40)
[2023-03-18] MEDS ORDERED: Calcium Carbonate 500 MG Tab.Chew PO SCH (09:00)
[2023-03-18] MEDS ORDERED: Leflunomide 20 MG Tab PO SCH (09:00)
[2023-03-18] MEDS ORDERED: Warfarin 5 MG Tab PO ONE (16:00)
[2023-03-18] MEDS ORDERED: Insulin Lispro 100 Unit/ML 3 ML KwikPen SUBCUT ONE ×2 (17:45→23:18)
[2023-03-18] MEDS: Calcium Carbonate 500 MG Tab.Chew PO SCH (17:54)
[2023-03-18] MEDS ORDERED: Warfarin 2.5 MG Tab PO SCH (18:00)
[2023-03-18] MEDS: Amitriptyline 25 MG Tab PO SCH (21:15)
[2023-03-18] MEDS: Mirtazapine 15 MG Tab PO SCH (21:19)
[2023-03-18] MEDS: Pantoprazole 40 MG Tab.CR PO SCH (21:19)
[2023-03-18] MEDS: Propranolol 60 MG Cap.ER PO SCH (21:22)
[2023-03-18] MEDS: atorvaSTATin 40 MG Tab PO SCH (21:22)
[2023-03-18] MEDS: ClonazePAM 1 MG Tab PO SCH (21:25)
[2023-03-18] MEDS: Doxycycline 100 MG Tab PO SCH (21:31)
[2023-03-18] MEDS: Buprenorphine/Naloxone 2-0.5 MG Tab.SL SL SCH (21:31)
[2023-03-18] MEDS ORDERED: Glucagon,Human Recombinant 1 MG Vial IM PRN (23:16)
[2023-03-19] MEDS ORDERED: Glucagon,Human Recombinant 1 MG Vial IM PRN (01:13)
[2023-03-19] MEDS ORDERED: Insulin Lispro 100 Unit/ML 3 ML KwikPen SUBCUT ONE (01:15)
[2023-03-19] MEDS: Calcium Carbonate 500 MG Tab.Chew PO SCH (05:53)
[2023-03-19] MEDS: Albuterol/Ipratropium 3.0-0.5 MG/3 ML Neb Soln NEB SCH ×2 (06:03→10:19)
[2023-03-19 06:51] LABS: INR 3.06 (1.00-1.24); PROTHROMBIN TIME 30.5 sec (9.0-11.1)
[2023-03-19] MEDS: Acetaminophen 325 MG Tab PO PRN (06:52)
[2023-03-19 06:57] LABS: BLOOD UREA NITROGEN,BUN 18 mg/dL (7-18); BUN/CREATININE RATIO 22.5 (9-20); CARBON DIOXIDE,CO2 35 mmol/L (21-32); CHLORIDE,CL 99 mmol/L (100-110); CREATININE 0.8 mg/dL (0.55-1.02); EST CRCL DRUG DOSING (CG) 64.48 mL/min; ESTIMATED GFR 77 mL/min (>60); GLUCOSE RANDOM 133 mg/dL (80-116); POTASSIUM,K 3.6 mmol/L (3.5-5.3); SODIUM,NA 139 mmol/L (135-145)
[2023-03-19] MEDS ORDERED: predniSONE 20 MG Tab PO SCH (08:00)
[2023-03-19] MEDS: Spironolactone 25 MG Tab PO SCH (08:24)
[2023-03-19] MEDS: Formoterol/Mometasone 200-5 MCG 8.8 GM Inhaler IH SCH (08:25)
[2023-03-19] MEDS: Citalopram 10 MG Tab PO SCH (08:25)
[2023-03-19] MEDS: Ketotifen 0.025% Ophth Soln 5 ML Bottle EYEBOTH SCH (08:25)
[2023-03-19] MEDS: Furosemide 80 MG Tab PO SCH (08:26)
[2023-03-19] MEDS: Sennosides 8.6 MG Tab PO SCH (08:27)
[2023-03-19] MEDS: Doxycycline 100 MG Tab PO SCH (08:28)
[2023-03-19] MEDS: Cholecalciferol (Vitamin D3) 25 MCG Tab PO SCH (08:29)
[2023-03-19] MEDS: Insulin Lispro 100 Unit/ML 3 ML KwikPen SUBCUT SCH ×2 (08:39→11:51)
[2023-03-19] MEDS: Gabapentin 300 MG Cap PO SCH (08:46)
[2023-03-19] MEDS: Sodium Chloride 0.9% 10 ML Syringe FLUSH PRN (08:54)
[2023-03-19 12:41] VITALS: BP 127/80; PULSE 77
[2023-03-21] MEDS ORDERED: Ergocalciferol (Vitamin D2) 1.25 MG Cap PO SCH (21:00)
[2023-04-10] MEDS ORDERED: Cyanocobalamin (Vitamin B12) 1,000 MCG/ML SDV IM SCH (09:00)
== END 2023-03-19 12:25 | DRG 191 ==
LOC: FB.ED 10:33 → FB.MS 13:58 → UNDOADMIN 14:50 → FB.MS 14:50
PROVIDERS: ADMIT Emergency Medicine; ATTEND Family Medicine
DX: J44.1 Chronic obstructive pulmonary disease with (acute) exacerbation (principal); F11.20 Opioid dependence, uncomplicated; M06.9 Rheumatoid arthritis, unspecified; E87.6 Hypokalemia; E11.65 Type 2 diabetes mellitus with hyperglycemia; G89.29 Other chronic pain; Z51.5 Encounter for palliative care; E66.09 Other obesity due to excess calories; I44.7 Left bundle-branch block, unspecified; R94.31 Abnormal electrocardiogram [ECG] [EKG]; I50.9 Heart failure, unspecified; M54.9 Dorsalgia, unspecified; M19.90 Unspecified osteoarthritis, unspecified site; K27.9 Peptic ulcer, site unspecified, unspecified as acute or chronic, without hemorrhage or perforation; Z20.822 Contact with and (suspected) exposure to COVID-19; D84.9 Immunodeficiency, unspecified; I11.0 Hypertensive heart disease with heart failure; Z96.649 Presence of unspecified artificial hip joint; M54.50 Low back pain, unspecified; E11.9 Type 2 diabetes mellitus without complications; I27.20 Pulmonary hypertension, unspecified; M81.0 Age-related osteoporosis without current pathological fracture; F41.9 Anxiety disorder, unspecified; D64.9 Anemia, unspecified; Z98.49 Cataract extraction status, unspecified eye; Z90.49 Acquired absence of other specified parts of digestive tract; Z86.711 Personal history of pulmonary embolism; Z68.34 Body mass index [BMI] 34.0-34.9, adult; Z88.8 Allergy status to other drugs, medicaments and biological substances; Z79.51 Long term (current) use of inhaled steroids; Z87.442 Personal history of urinary calculi; E78.00 Pure hypercholesterolemia, unspecified; I25.2 Old myocardial infarction; G47.33 Obstructive sleep apnea (adult) (pediatric); K21.9 Gastro-esophageal reflux disease without esophagitis; E66.9 Obesity, unspecified; Z98.1 Arthrodesis status; F33.41 Major depressive disorder, recurrent, in partial remission; Z79.4 Long term (current) use of insulin; Z79.01 Long term (current) use of anticoagulants; Z79.899 Other long term (current) drug therapy; Z86.718 Personal history of other venous thrombosis and embolism; Z87.891 Personal history of nicotine dependence
CPT/HCPCS: 36415; 71045; 80048; 80053; 81001; 82947; 83735; 83880; 84484; 85025; 85610; 93005; 94640; 94669; 96374; 96375; 97165-GO; 99285-25; A9270-GY; J1642; J1815; J1815-GY; J2270; J2543; J2930; J3490; J7512; J7620; U0002

== ENCOUNTER 2023-05-13 06:30 | Inpatient (IN) | payer MEDICARE, BC, MEDICAID ==
[2023-05-13] MEDS ORDERED: fentaNYL 100 MCG/2 ML SDV IVPUSH ONE (06:56)
[2023-05-13] MEDS ORDERED: LORazepam 2 MG/ML SDV IVPUSH ONE (06:56)
[2023-05-13 07:05] LABS: HEMATOCRIT 33.4 % (34.2-48.2); HEMOGLOBIN 10.7 g/dL (11.4-15.5); MEAN CORPUSCULAR HEMOGLOBIN 28.2 pg (23.9-33.9); MEAN CORPUSCULAR HGB CONC 32.2 g/dL (31.9-34.8); MEAN CORPUSCULAR VOLUME 87.8 fL (76.7-100.5); MEAN PLATELET VOLUME 8.1 fL (7.1-12.4); PLATELET COUNT,PLT 203 x10(3)uL (151-488); RED BLOOD CELL COUNT 3.81 x10(6)uL (3.60-5.20); RED CELL DISTRIBUTION WIDTH 19.3 % (12.3-16.5); WHITE BLOOD CELL COUNT,WBC 8.6 x10-3/uL (3.0-10.3)
[2023-05-13 07:23] LABS: ANISOCYTOSIS FEW; BAND PERCENT MAN 2 % (0-6); LYMPHOCYTES PERCENT MAN 8 % (13-37); MONOCYTES PERCENT MAN 10 % (4-12); SEG NEUTROPHILS PERCENT MAN 80 % (46-82); TROPONIN I 10.4 pg/mL (4.0-60.3)
[2023-05-13] MEDS ORDERED: Albuterol/Ipratropium 3.0-0.5 MG/3 ML Neb Soln NEB ONE (07:48)
[2023-05-13] MEDS ORDERED: methylPREDNISolone Sodium Succinate 125 MG/2 ML SDV IVPUSH ONE (07:50)
[2023-05-13] MEDS ORDERED: Acetaminophen 500 MG Tab PO ONE (08:56)
[2023-05-13] MEDS ORDERED: Albuterol 0.083% 2.5 MG/3 ML Neb Soln NEB PRN (08:57)
[2023-05-13] MEDS ORDERED: Sennosides/Docusate Sodium 50-8.6 MG Tab PO PRN (08:57)
[2023-05-13] MEDS ORDERED: Morphine 2 MG/ML SYRINGE IVPUSH PRN (08:57)
[2023-05-13] MEDS ORDERED: Ondansetron 4 MG/2 ML SDV IV PRN (08:57)
[2023-05-13 08:58] LABS: CHLORIDE,CL 95 mmol/L (100-110); POTASSIUM,K 4.4 mmol/L (3.5-5.3); SODIUM,NA 133 mmol/L (135-145)
[2023-05-13 09:00] LABS: A/G RATIO 0.7; ALBUMIN 2.7 g/dL (3.2-4.6); ALKALINE PHOSPHATASE 118 IU/L (56-112); BILIRUBIN TOTAL 0.3 mg/dL (0.1-1.3); BLOOD UREA NITROGEN,BUN 12 mg/dL (7-18); BUN/CREATININE RATIO 17.1 (9-20); CARBON DIOXIDE,CO2 34 mmol/L (21-32); CREATININE 0.7 mg/dL (0.55-1.02); EST CRCL DRUG DOSING (CG) 72.57 mL/min; ESTIMATED GFR 90 mL/min (>60); GLUCOSE RANDOM 220 mg/dL (80-116); PROTEIN TOTAL,TP 6.5 g/dL (6.0-8.0)
[2023-05-13 09:01] LABS: ALANINE AMINOTRANSFERASE,ALT 49 U/L (12-36); ASPARTATE AMNIOTRANSFERASE,AST 27 IU/L (5-25)
[2023-05-13 09:05] LABS: INFLUENZA A NAA NEGATIVE (NEGATIVE); INFLUENZA B NAA NEGATIVE (NEGATIVE); RESPIRATORY SYNCYTIAL VIR NAA NEGATIVE (NEGATIVE)
[2023-05-13 09:09] LABS: CORONAVIRUS COVID-19 NAA POSITIVE (NEGATIVE)
[2023-05-13 09:16] LABS: BILIRUBIN,URINE NEGATIVE (NEGATIVE); GLUCOSE,URINE NORMAL (NORMAL); KETONES,URINE NEGATIVE (NEGATIVE); LEUKOCYTE ESTERASE,URINE NEGATIVE (NEGATIVE); NITRITE,URINE NEGATIVE (NEGATIVE); OCCULT BLOOD,URINE LARGE (NEGATIVE); PROTEIN,URINE NEGATIVE (NEGATIVE); UROBILINOGEN,URINE NORMAL (NEGATIVE)
[2023-05-13 09:17] LABS: APPEARANCE,URINE CLOUDY (CLEAR); COLOR,URINE YELLOW (YELLOW); RBC,URINE 75-100 (0-5); SQUAMOUS EPITHELIAL CELLS,UR FEW (NS,R,O); WBC,URINE 0-5 (0-5)
[2023-05-13 09:18] LABS: BACTERIA,URINE FEW (NS)
[2023-05-13] MEDS ORDERED: REMDESIVIR 200 MG in Sodium Chloride 0.9% 250 ML IV ONE (09:28)
[2023-05-13] MEDS ORDERED: Hydrocortisone Sodium Succinate 250 MG/2 ML SDV IV SCH (10:30)
[2023-05-13] MEDS ORDERED: Warfarin Sliding Scale PO SCH (11:30)
[2023-05-13] MEDS ORDERED: Bisacodyl 10 MG Supp RECTAL PRN (11:34)
[2023-05-13] MEDS ORDERED: [UNRECOGNIZED DRUG - OTHER] IH PRN (11:34)
[2023-05-13] MEDS ORDERED: ALBUTEROL SULFATE 1.25 MG/3 ML IH PRN (11:34)
[2023-05-13] MEDS ORDERED: 50% Dextrose in Water 50 ML Syringe IVPUSH PRN ×2 (11:34→12:47)
[2023-05-13] MEDS ORDERED: SUMATRIPTAN 100 MG PO PRN (11:34)
[2023-05-13] MEDS ORDERED: Glucagon,Human Recombinant 1 MG Vial IM PRN ×2 (11:34→12:47)
[2023-05-13] MEDS ORDERED: Magnesium Hydroxide 400 MG/5 ML Susp 30 ML Cup PO PRN (11:34)
[2023-05-13] MEDS ORDERED: Loperamide 2 MG Cap PO PRN (11:34)
[2023-05-13] MEDS ORDERED: Furosemide 40 MG Tab PO PRN (11:34)
[2023-05-13] MEDS ORDERED: Carbamide Peroxide 6.5% Otic Soln 15 ML Bottle EARBOTH PRN (11:34)
[2023-05-13] MEDS ORDERED: Acetaminophen 325 MG Tab PO PRN (11:34)
[2023-05-13] MEDS ORDERED: Non-Formulary Medication 1 Each (Ondansetron Hcl [Ondansetron Hcl] 4 MG Tablet) PO PRN (11:34)
[2023-05-13] MEDS: Sodium Chloride 0.9% 10 ML Syringe FLUSH PRN ×2 (11:38→11:53)
[2023-05-13] MEDS: cefTRIAXone 1 GM Vial IVPUSH SCH (11:38)
[2023-05-13 11:40] LABS: INR 3.05 (1.00-1.24); PROTHROMBIN TIME 30.4 sec (9.0-11.1)
[2023-05-13] MEDS ORDERED: Warfarin 5 MG Tab PO SCH (11:45)
[2023-05-13] MEDS: Albuterol/Ipratropium 3.0-0.5 MG/3 ML Neb Soln NEB SCH ×3 (11:54→20:51)
[2023-05-13] MEDS ORDERED: Cyclobenzaprine 10 MG Tab PO PRN (12:25)
[2023-05-13] MEDS ORDERED: Dicyclomine 10 MG Cap PO PRN (12:25)
[2023-05-13] MEDS ORDERED: Aluminum Hydroxide/Magnesium Hydroxide Susp 30 ML Cup PO PRN (12:29)
[2023-05-13] MEDS ORDERED: Cyanocobalamin (Vitamin B12) 1,000 MCG/ML SDV IM SCH (13:00)
[2023-05-13] MEDS: Sodium Chloride 0.9% 1,000 ML IV SCH ×2 (13:15→23:16)
[2023-05-13] MEDS ORDERED: Insulin Lispro 100 Unit/ML 3 ML KwikPen SUBCUT ONE (13:37)
[2023-05-13] MEDS: Insulin Lispro 100 Unit/ML 3 ML KwikPen SUBCUT SCH ×2 (13:40→18:05)
[2023-05-13] MEDS: Spironolactone 25 MG Tab PO SCH (13:42)
[2023-05-13] MEDS: Citalopram 10 MG Tab PO SCH (13:42)
[2023-05-13] MEDS: Formoterol/Mometasone 200-5 MCG 8.8 GM Inhaler IH SCH ×2 (13:43→20:52)
[2023-05-13] MEDS: Ketotifen 0.025% Ophth Soln 5 ML Bottle EYEBOTH SCH ×2 (13:44→20:51)
[2023-05-13] MEDS: Furosemide 40 MG Tab PO SCH (13:46)
[2023-05-13] MEDS: Gabapentin 300 MG Cap PO SCH ×2 (13:46→20:50)
[2023-05-13] MEDS: Clotrimazole 10 MG Troche PO SCH ×3 (13:46→20:52)
[2023-05-13] MEDS ORDERED: Insulin Glargine,Human Rec. Analog 100 Units/ML 3 ML Pen SUBCUT ONE (13:49)
[2023-05-13] MEDS: Insulin Glargine,Human Rec. Analog 100 Units/ML 3 ML Pen SUBCUT SCH ×2 (13:51→20:34)
[2023-05-13] MEDS ORDERED: Buprenorphine/Naloxone 2-0.5 MG Tab.SL SL PRN (15:00)
[2023-05-13] MEDS: methylPREDNISolone Sodium Succinate 125 MG/2 ML SDV IVPUSH SCH ×2 (16:42→23:15)
[2023-05-13] MEDS: Acetaminophen/HYDROcodone 325-5 MG Tab PO PRN (18:05)
[2023-05-13] MEDS: ClonazePAM 1 MG Tab PO SCH (20:50)
[2023-05-13] MEDS: Buprenorphine/Naloxone 2-0.5 MG Tab.SL SL SCH (20:50)
[2023-05-13] MEDS: atorvaSTATin 40 MG Tab PO SCH (20:51)
[2023-05-13] MEDS: Pantoprazole 40 MG Tab.CR PO SCH (20:51)
[2023-05-13] MEDS: Calcium Carbonate 500 MG Tab.Chew PO SCH (20:51)
[2023-05-13] MEDS: Amitriptyline 25 MG Tab PO SCH (20:51)
[2023-05-13] MEDS: Mirtazapine 15 MG Tab PO SCH (20:52)
[2023-05-13] MEDS: Propranolol 60 MG Cap.ER PO SCH (20:52)
[2023-05-13] MEDS ORDERED: Albuterol/Ipratropium 3.0-0.5 MG/3 ML Neb Soln NEB SCH (21:00)
[2023-05-14] MEDS: Albuterol/Ipratropium 3.0-0.5 MG/3 ML Neb Soln NEB SCH ×4 (06:06→21:27)
[2023-05-14 06:55] LABS: BASOPHILS PERCENT AUTO 0.2 % (0.2-1.5); HEMOGLOBIN 10.5 g/dL (11.4-15.5); LYMPHOCYTES ABSOLUTE AUTO 0.6 x10-3/uL (1.0-4.4); LYMPHOCYTES PERCENT AUTO 9.6 % (18.4-52.1); MEAN CORPUSCULAR HEMOGLOBIN 28.3 pg (23.9-33.9); MEAN CORPUSCULAR VOLUME 88.6 fL (76.7-100.5); MEAN PLATELET VOLUME 8.1 fL (7.1-12.4); MONOCYTES ABSOLUTE AUTO 0.5 x10-3/uL (0.3-1.0); MONOCYTES PERCENT AUTO 8.6 % (4.4-15.7); NEUTROPHILS PERCENT AUTO 81.6 % (30.8-76.2); PLATELET COUNT,PLT 219 x10(3)uL (151-488); RED BLOOD CELL COUNT 3.73 x10(6)uL (3.60-5.20); RED CELL DISTRIBUTION WIDTH 19.8 % (12.3-16.5); WHITE BLOOD CELL COUNT,WBC 6.1 x10-3/uL (3.0-10.3)
[2023-05-14 06:57] LABS: INR 2.18 (1.00-1.24); PROTHROMBIN TIME 21.9 sec (9.0-11.1)
[2023-05-14 07:02] LABS: A/G RATIO 0.7; ALANINE AMINOTRANSFERASE,ALT 44 U/L (12-36); ALBUMIN 2.4 g/dL (3.2-4.6); ALKALINE PHOSPHATASE 106 IU/L (56-112); ASPARTATE AMNIOTRANSFERASE,AST 27 IU/L (5-25); BILIRUBIN TOTAL 0.2 mg/dL (0.1-1.3); BLOOD UREA NITROGEN,BUN 13 mg/dL (7-18); BUN/CREATININE RATIO 14.4 (9-20); CALCIUM 8.3 mg/dL (8.6-10.2); CARBON DIOXIDE,CO2 35 mmol/L (21-32); CHLORIDE,CL 99 mmol/L (100-110); CREATININE 0.9 mg/dL (0.55-1.02); EST CRCL DRUG DOSING (CG) 56.44 mL/min; ESTIMATED GFR 67 mL/min (>60); GLUCOSE RANDOM 279 mg/dL (80-116); POTASSIUM,K 3.9 mmol/L (3.5-5.3); SODIUM,NA 138 mmol/L (135-145)
[2023-05-14] MEDS: Insulin Lispro 100 Unit/ML 3 ML KwikPen SUBCUT SCH ×3 (08:09→18:00)
[2023-05-14] MEDS: Insulin Glargine,Human Rec. Analog 100 Units/ML 3 ML Pen SUBCUT SCH ×2 (08:12→21:21)
[2023-05-14] MEDS: methylPREDNISolone Sodium Succinate 125 MG/2 ML SDV IVPUSH SCH ×3 (08:17→23:45)
[2023-05-14] MEDS: Citalopram 10 MG Tab PO SCH (08:32)
[2023-05-14] MEDS: Formoterol/Mometasone 200-5 MCG 8.8 GM Inhaler IH SCH ×2 (08:32→21:26)
[2023-05-14] MEDS: Ketotifen 0.025% Ophth Soln 5 ML Bottle EYEBOTH SCH ×2 (08:32→21:28)
[2023-05-14] MEDS: Spironolactone 25 MG Tab PO SCH (08:32)
[2023-05-14] MEDS: Furosemide 40 MG Tab PO SCH (08:32)
[2023-05-14] MEDS: Calcium Carbonate 500 MG Tab.Chew PO SCH ×2 (08:33→21:30)
[2023-05-14] MEDS: Gabapentin 300 MG Cap PO SCH ×2 (08:33→21:29)
[2023-05-14] MEDS: Buprenorphine/Naloxone 2-0.5 MG Tab.SL SL SCH ×2 (08:33→21:30)
[2023-05-14] MEDS: Clotrimazole 10 MG Troche PO SCH ×4 (08:33→21:29)
[2023-05-14] MEDS ORDERED: Leflunomide 20 MG Tab PO SCH (09:00)
[2023-05-14] MEDS: Sodium Chloride 0.9% 10 ML Syringe FLUSH PRN ×4 (09:20→23:43)
[2023-05-14] MEDS: REMDESIVIR 100 MG in Sodium Chloride 0.9% 100 ML IV SCH (10:02)
[2023-05-14] MEDS: cefTRIAXone 1 GM Vial IVPUSH SCH (10:02)
[2023-05-14] MEDS ORDERED: Warfarin 5 MG Tab PO SCH (11:34)
[2023-05-14] MEDS ORDERED: Warfarin 5 MG Tab PO ONE (16:00)
[2023-05-14] MEDS: guaiFENesin 100 MG/5 ML Soln 5 ML UD Cup PO PRN (17:33)
[2023-05-14] MEDS: Acetaminophen/HYDROcodone 325-5 MG Tab PO PRN (17:33)
[2023-05-14] MEDS: Amitriptyline 25 MG Tab PO SCH (21:27)
[2023-05-14] MEDS: Propranolol 60 MG Cap.ER PO SCH (21:27)
[2023-05-14] MEDS: atorvaSTATin 40 MG Tab PO SCH (21:28)
[2023-05-14] MEDS: ClonazePAM 1 MG Tab PO SCH (21:28)
[2023-05-14] MEDS: Pantoprazole 40 MG Tab.CR PO SCH (21:29)
[2023-05-14] MEDS: Mirtazapine 15 MG Tab PO SCH (21:30)
[2023-05-14] MEDS ORDERED: Insulin Lispro 100 Unit/ML 3 ML KwikPen SUBCUT ONE (21:33)
[2023-05-15] MEDS: Albuterol/Ipratropium 3.0-0.5 MG/3 ML Neb Soln NEB SCH ×4 (06:23→21:22)
[2023-05-15 06:36] LABS: INR 2.88 (1.00-1.24); PROTHROMBIN TIME 28.7 sec (9.0-11.1)
[2023-05-15 06:38] LABS: ALBUMIN 2.5 g/dL (3.2-4.6); BILIRUBIN DIRECT 0.07 mg/dL (0.10-0.20); BILIRUBIN TOTAL 0.2 mg/dL (0.1-1.3); PROTEIN TOTAL,TP 6.2 g/dL (6.0-8.0)
[2023-05-15] MEDS: Insulin Lispro 100 Unit/ML 3 ML KwikPen SUBCUT SCH ×3 (08:14→17:47)
[2023-05-15] MEDS: Insulin Glargine,Human Rec. Analog 100 Units/ML 3 ML Pen SUBCUT SCH ×2 (08:15→21:29)
[2023-05-15] MEDS: Citalopram 10 MG Tab PO SCH (08:21)
[2023-05-15] MEDS: Spironolactone 25 MG Tab PO SCH (08:21)
[2023-05-15] MEDS: methylPREDNISolone Sodium Succinate 125 MG/2 ML SDV IVPUSH SCH ×3 (08:21→23:35)
[2023-05-15] MEDS: Ketotifen 0.025% Ophth Soln 5 ML Bottle EYEBOTH SCH ×2 (08:22→21:23)
[2023-05-15] MEDS: Formoterol/Mometasone 200-5 MCG 8.8 GM Inhaler IH SCH ×2 (08:22→21:39)
[2023-05-15] MEDS: Clotrimazole 10 MG Troche PO SCH ×4 (08:23→21:25)
[2023-05-15] MEDS: Calcium Carbonate 500 MG Tab.Chew PO SCH ×2 (08:23→21:25)
[2023-05-15] MEDS: Furosemide 40 MG Tab PO SCH (08:23)
[2023-05-15] MEDS: Gabapentin 300 MG Cap PO SCH ×2 (08:25→21:37)
[2023-05-15] MEDS: Buprenorphine/Naloxone 2-0.5 MG Tab.SL SL SCH ×2 (08:26→21:38)
[2023-05-15] MEDS: Sodium Chloride 0.9% 10 ML Syringe FLUSH PRN ×6 (08:29→23:50)
[2023-05-15] MEDS ORDERED: Hydrocortisone 2.5% Crm 30 GM Tube TOP SCH (09:00)
[2023-05-15] MEDS: guaiFENesin 100 MG/5 ML Soln 5 ML UD Cup PO PRN (09:31)
[2023-05-15] MEDS: cefTRIAXone 1 GM Vial IVPUSH SCH (10:49)
[2023-05-15] MEDS: REMDESIVIR 100 MG in Sodium Chloride 0.9% 100 ML IV SCH (10:49)
[2023-05-15] MEDS: Hydrocortisone 2.5% Crm 30 GM Tube TOP PRN (11:11)
[2023-05-15] MEDS: Acetaminophen/HYDROcodone 325-5 MG Tab PO PRN (11:16)
[2023-05-15] MEDS ORDERED: Warfarin 2.5 MG Tab PO ONE (16:00)
[2023-05-15] MEDS: Benzonatate 100 MG Cap PO PRN (17:49)
[2023-05-15] MEDS ORDERED: Insulin Lispro 100 Unit/ML 3 ML KwikPen SUBCUT ONE (21:11)
[2023-05-15] MEDS: Amitriptyline 25 MG Tab PO SCH (21:22)
[2023-05-15] MEDS: Propranolol 60 MG Cap.ER PO SCH (21:23)
[2023-05-15] MEDS: Pantoprazole 40 MG Tab.CR PO SCH (21:24)
[2023-05-15] MEDS: Mirtazapine 15 MG Tab PO SCH (21:24)
[2023-05-15] MEDS: atorvaSTATin 40 MG Tab PO SCH (21:24)
[2023-05-15] MEDS: ClonazePAM 1 MG Tab PO SCH (21:37)
[2023-05-16] MEDS: Nystatin Topical Powder 15 GM Bottle TOP PRN (01:09)
[2023-05-16] MEDS: Hydrocortisone 2.5% Crm 30 GM Tube TOP PRN (01:11)
[2023-05-16] MEDS: Sodium Chloride 0.9% 10 ML Syringe FLUSH PRN ×8 (06:20→21:23)
[2023-05-16] MEDS: Albuterol/Ipratropium 3.0-0.5 MG/3 ML Neb Soln NEB SCH ×4 (06:28→20:55)
[2023-05-16 06:29] LABS: HEMATOCRIT 32.5 % (34.2-48.2); HEMOGLOBIN 10.4 g/dL (11.4-15.5); MEAN CORPUSCULAR HEMOGLOBIN 28.2 pg (23.9-33.9); MEAN CORPUSCULAR HGB CONC 31.9 g/dL (31.9-34.8); MEAN CORPUSCULAR VOLUME 88.4 fL (76.7-100.5); MEAN PLATELET VOLUME 7.9 fL (7.1-12.4); PLATELET COUNT,PLT 208 x10(3)uL (151-488); RED BLOOD CELL COUNT 3.68 x10(6)uL (3.60-5.20); RED CELL DISTRIBUTION WIDTH 19.9 % (12.3-16.5); WHITE BLOOD CELL COUNT,WBC 10.2 x10-3/uL (3.0-10.3)
[2023-05-16 06:40] LABS: INR 3.89 (1.00-1.24)
[2023-05-16 06:41] LABS: A/G RATIO 0.7; ALANINE AMINOTRANSFERASE,ALT 38 U/L (12-36); ALBUMIN 2.4 g/dL (3.2-4.6); ALKALINE PHOSPHATASE 99 IU/L (56-112); ASPARTATE AMNIOTRANSFERASE,AST 22 IU/L (5-25); BILIRUBIN DIRECT 0.07 mg/dL (0.10-0.20); BILIRUBIN TOTAL 0.2 mg/dL (0.1-1.3); BLOOD UREA NITROGEN,BUN 17 mg/dL (7-18); BUN/CREATININE RATIO 24.3 (9-20); CALCIUM 8.8 mg/dL (8.6-10.2); CHLORIDE,CL 99 mmol/L (100-110); CREATININE 0.7 mg/dL (0.55-1.02); EST CRCL DRUG DOSING (CG) 72.57 mL/min; ESTIMATED GFR 90 mL/min (>60); GLUCOSE RANDOM 267 mg/dL (80-116); POTASSIUM,K 3.5 mmol/L (3.5-5.3); PROTEIN TOTAL,TP 6.1 g/dL (6.0-8.0); SODIUM,NA 139 mmol/L (135-145)
[2023-05-16 06:46] LABS: BAND PERCENT MAN 4 % (0-6); CARBON DIOXIDE,CO2 41 mmol/L (21-32); LYMPHOCYTES PERCENT MAN 12 % (13-37); MONOCYTES PERCENT MAN 2 % (4-12); PROTHROMBIN TIME 38.5 sec (9.0-11.1); SEG NEUTROPHILS PERCENT MAN 82 % (46-82); TOXIC GRANULATION MODERATE (NOT SEEN)
[2023-05-16] MEDS: methylPREDNISolone Sodium Succinate 125 MG/2 ML SDV IVPUSH SCH (08:01)
[2023-05-16] MEDS: Insulin Lispro 100 Unit/ML 3 ML KwikPen SUBCUT SCH ×3 (08:12→17:04)
[2023-05-16] MEDS: Ketotifen 0.025% Ophth Soln 5 ML Bottle EYEBOTH SCH ×2 (08:19→20:56)
[2023-05-16] MEDS: Calcium Carbonate 500 MG Tab.Chew PO SCH ×2 (08:20→17:12)
[2023-05-16] MEDS: Citalopram 10 MG Tab PO SCH (08:20)
[2023-05-16] MEDS: Spironolactone 25 MG Tab PO SCH (08:21)
[2023-05-16] MEDS: Clotrimazole 10 MG Troche PO SCH ×4 (08:22→20:57)
[2023-05-16] MEDS: Formoterol/Mometasone 200-5 MCG 8.8 GM Inhaler IH SCH ×2 (08:22→20:54)
[2023-05-16] MEDS: Furosemide 40 MG Tab PO SCH (08:23)
[2023-05-16] MEDS: Insulin Glargine,Human Rec. Analog 100 Units/ML 3 ML Pen SUBCUT SCH ×2 (08:30→21:27)
[2023-05-16] MEDS: Gabapentin 300 MG Cap PO SCH ×2 (08:30→20:57)
[2023-05-16] MEDS: Buprenorphine/Naloxone 2-0.5 MG Tab.SL SL SCH ×2 (08:30→20:59)
[2023-05-16] MEDS ORDERED: Ergocalciferol (Vitamin D2) 1.25 MG Cap PO SCH ×2 (09:00→21:00)
[2023-05-16] MEDS: Doxycycline 100 MG Tab PO SCH ×2 (10:10→21:03)
[2023-05-16] MEDS: REMDESIVIR 100 MG in Sodium Chloride 0.9% 100 ML IV SCH (10:11)
[2023-05-16] MEDS: Acetaminophen 325 MG Tab PO PRN (14:57)
[2023-05-16] MEDS ORDERED: Glucagon,Human Recombinant 1 MG Vial IM PRN (16:58)
[2023-05-16] MEDS ORDERED: 50% Dextrose in Water 50 ML Syringe IVPUSH PRN (16:58)
[2023-05-16] MEDS ORDERED: Insulin Lispro 100 Unit/ML 3 ML KwikPen SUBCUT ONE (17:00)
[2023-05-16] MEDS: Amitriptyline 25 MG Tab PO SCH (20:55)
[2023-05-16] MEDS: Propranolol 60 MG Cap.ER PO SCH (20:55)
[2023-05-16] MEDS: ClonazePAM 1 MG Tab PO SCH (20:56)
[2023-05-16] MEDS: atorvaSTATin 40 MG Tab PO SCH (20:57)
[2023-05-16] MEDS: Pantoprazole 40 MG Tab.CR PO SCH (20:57)
[2023-05-16] MEDS: Mirtazapine 15 MG Tab PO SCH (21:02)
[2023-05-17] MEDS: Hydrocortisone 2.5% Crm 30 GM Tube TOP PRN (00:05)
[2023-05-17] MEDS: Nystatin Topical Powder 15 GM Bottle TOP PRN (00:05)
[2023-05-17] MEDS: Albuterol/Ipratropium 3.0-0.5 MG/3 ML Neb Soln NEB SCH ×4 (06:17→20:56)
[2023-05-17] MEDS: Sodium Chloride 0.9% 10 ML Syringe FLUSH PRN ×5 (06:23→12:15)
[2023-05-17 06:44] LABS: BASE EXCESS VENOUS,POC 12 mmol/L (-2 - 3+); PCO2 VENOUS,POC 53 mmHg (41-51); PH VENOUS,POC 7.46 pH Units (7.32-7.43)
[2023-05-17 06:44] LABS: BASOPHILS PERCENT AUTO 0.3 % (0.2-1.5); HEMATOCRIT 32.8 % (34.2-48.2); HEMOGLOBIN 10.4 g/dL (11.4-15.5); LYMPHOCYTES ABSOLUTE AUTO 0.9 x10-3/uL (1.0-4.4); LYMPHOCYTES PERCENT AUTO 8.6 % (18.4-52.1); MEAN CORPUSCULAR HEMOGLOBIN 27.9 pg (23.9-33.9); MEAN CORPUSCULAR HGB CONC 31.9 g/dL (31.9-34.8); MEAN CORPUSCULAR VOLUME 87.7 fL (76.7-100.5); MEAN PLATELET VOLUME 8.2 fL (7.1-12.4); NEUTROPHILS ABSOLUTE AUTO 8.1 x10-3/uL (1.5-6.3); NEUTROPHILS PERCENT AUTO 81.1 % (30.8-76.2); PLATELET COUNT,PLT 209 x10(3)uL (151-488); RED BLOOD CELL COUNT 3.74 x10(6)uL (3.60-5.20)
[2023-05-17 06:52] LABS: INR 3.7 (1.00-1.24)
[2023-05-17 06:56] LABS: A/G RATIO 0.6; ALANINE AMINOTRANSFERASE,ALT 42 U/L (12-36); ALBUMIN 2.4 g/dL (3.2-4.6); ALKALINE PHOSPHATASE 97 IU/L (56-112); ASPARTATE AMNIOTRANSFERASE,AST 20 IU/L (5-25); BILIRUBIN DIRECT 0.08 mg/dL (0.10-0.20); BILIRUBIN TOTAL 0.3 mg/dL (0.1-1.3); BLOOD UREA NITROGEN,BUN 18 mg/dL (7-18); BUN/CREATININE RATIO 25.7 (9-20); CALCIUM 8.9 mg/dL (8.6-10.2); CHLORIDE,CL 98 mmol/L (100-110); CREATININE 0.7 mg/dL (0.55-1.02); EST CRCL DRUG DOSING (CG) 72.57 mL/min; ESTIMATED GFR 90 mL/min (>60); GLUCOSE RANDOM 263 mg/dL (80-116); POTASSIUM,K 3.6 mmol/L (3.5-5.3); PROTEIN TOTAL,TP 6.2 g/dL (6.0-8.0); PROTHROMBIN TIME 36.7 sec (9.0-11.1); SODIUM,NA 141 mmol/L (135-145)
[2023-05-17 06:58] LABS: CARBON DIOXIDE,CO2 42 mmol/L (21-32)
[2023-05-17] MEDS: Insulin Lispro 100 Unit/ML 3 ML KwikPen SUBCUT SCH ×3 (08:48→17:43)
[2023-05-17] MEDS: Insulin Glargine,Human Rec. Analog 100 Units/ML 3 ML Pen SUBCUT SCH ×2 (08:52→20:53)
[2023-05-17] MEDS: Spironolactone 25 MG Tab PO SCH (08:55)
[2023-05-17] MEDS: Gabapentin 300 MG Cap PO SCH ×2 (08:55→20:55)
[2023-05-17] MEDS: Citalopram 10 MG Tab PO SCH (08:55)
[2023-05-17] MEDS: Formoterol/Mometasone 200-5 MCG 8.8 GM Inhaler IH SCH ×2 (08:55→20:56)
[2023-05-17] MEDS: Ketotifen 0.025% Ophth Soln 5 ML Bottle EYEBOTH SCH ×2 (08:56→20:58)
[2023-05-17] MEDS: Buprenorphine/Naloxone 2-0.5 MG Tab.SL SL SCH ×2 (08:56→20:56)
[2023-05-17] MEDS: Furosemide 40 MG Tab PO SCH (08:57)
[2023-05-17] MEDS: Clotrimazole 10 MG Troche PO SCH ×4 (09:04→20:59)
[2023-05-17] MEDS: Doxycycline 100 MG Tab PO SCH ×2 (09:04→20:59)
[2023-05-17] MEDS: Dexamethasone 4 MG/ML 5 ML MDV IVPUSH SCH (09:06)
[2023-05-17] MEDS: REMDESIVIR 100 MG in Sodium Chloride 0.9% 100 ML IV SCH (10:23)
[2023-05-17] MEDS: Acetaminophen 325 MG Tab PO PRN ×2 (10:31→20:00)
[2023-05-17] MEDS: Calcium Carbonate 500 MG Tab.Chew PO SCH ×2 (12:36→17:40)
[2023-05-17] MEDS: Benzonatate 100 MG Cap PO PRN (14:09)
[2023-05-17] MEDS: ClonazePAM 1 MG Tab PO SCH (20:55)
[2023-05-17] MEDS: Propranolol 60 MG Cap.ER PO SCH (20:57)
[2023-05-17] MEDS: Amitriptyline 25 MG Tab PO SCH (20:57)
[2023-05-17] MEDS: atorvaSTATin 40 MG Tab PO SCH (20:58)
[2023-05-17] MEDS: Mirtazapine 15 MG Tab PO SCH (20:59)
[2023-05-17] MEDS: Pantoprazole 40 MG Tab.CR PO SCH (20:59)
[2023-05-18] MEDS: Albuterol/Ipratropium 3.0-0.5 MG/3 ML Neb Soln NEB SCH ×5 (05:31→20:53)
[2023-05-18 06:57] LABS: HEMATOCRIT 33.1 % (34.2-48.2); HEMOGLOBIN 10.7 g/dL (11.4-15.5); MEAN CORPUSCULAR HEMOGLOBIN 28.3 pg (23.9-33.9); MEAN CORPUSCULAR HGB CONC 32.2 g/dL (31.9-34.8); MEAN CORPUSCULAR VOLUME 87.8 fL (76.7-100.5); MEAN PLATELET VOLUME 8.3 fL (7.1-12.4); PLATELET COUNT,PLT 167 x10(3)uL (151-488); RED BLOOD CELL COUNT 3.77 x10(6)uL (3.60-5.20); RED CELL DISTRIBUTION WIDTH 20.1 % (12.3-16.5); WHITE BLOOD CELL COUNT,WBC 9.8 x10-3/uL (3.0-10.3)
[2023-05-18 07:00] LABS: INR 2.63 (1.00-1.24); PROTHROMBIN TIME 26.4 sec (9.0-11.1)
[2023-05-18 07:03] LABS: A/G RATIO 0.6; ALANINE AMINOTRANSFERASE,ALT 47 U/L (12-36); ALBUMIN 2.2 g/dL (3.2-4.6); ALKALINE PHOSPHATASE 98 IU/L (56-112); ASPARTATE AMNIOTRANSFERASE,AST 28 IU/L (5-25); BILIRUBIN TOTAL 0.4 mg/dL (0.1-1.3); BLOOD UREA NITROGEN,BUN 15 mg/dL (7-18); BUN/CREATININE RATIO 21.4 (9-20); CALCIUM 8.9 mg/dL (8.6-10.2); CHLORIDE,CL 96 mmol/L (100-110); CREATININE 0.7 mg/dL (0.55-1.02); EST CRCL DRUG DOSING (CG) 72.57 mL/min; ESTIMATED GFR 90 mL/min (>60); GLUCOSE RANDOM 157 mg/dL (80-116); POTASSIUM,K 3.6 mmol/L (3.5-5.3); SODIUM,NA 139 mmol/L (135-145)
[2023-05-18 07:07] LABS: ALBUMIN 2.3 g/dL (3.2-4.6); BILIRUBIN DIRECT 0.13 mg/dL (0.10-0.20); BILIRUBIN TOTAL 0.5 mg/dL (0.1-1.3); PROTEIN TOTAL,TP 6.1 g/dL (6.0-8.0)
[2023-05-18 07:12] LABS: CARBON DIOXIDE,CO2 44 mmol/L (21-32)
[2023-05-18] MEDS: Sodium Chloride 0.9% 10 ML Syringe FLUSH PRN ×2 (07:31→08:22)
[2023-05-18 07:32] LABS: ANISOCYTOSIS FEW; LYMPHOCYTES PERCENT MAN 9 % (13-37); MONOCYTES PERCENT MAN 7 % (4-12); SEG NEUTROPHILS PERCENT MAN 84 % (46-82); TOXIC GRANULATION FEW (NOT SEEN)
[2023-05-18] MEDS: Insulin Lispro 100 Unit/ML 3 ML KwikPen SUBCUT SCH ×3 (08:08→17:26)
[2023-05-18] MEDS: Insulin Glargine,Human Rec. Analog 100 Units/ML 3 ML Pen SUBCUT SCH ×2 (08:10→20:56)
[2023-05-18] MEDS: Formoterol/Mometasone 200-5 MCG 8.8 GM Inhaler IH SCH ×2 (08:18→20:52)
[2023-05-18] MEDS: Ketotifen 0.025% Ophth Soln 5 ML Bottle EYEBOTH SCH ×2 (08:18→20:52)
[2023-05-18] MEDS: Acetaminophen 325 MG Tab PO PRN (08:19)
[2023-05-18] MEDS: Citalopram 10 MG Tab PO SCH (08:19)
[2023-05-18] MEDS: Furosemide 40 MG Tab PO SCH (08:19)
[2023-05-18] MEDS: Clotrimazole 10 MG Troche PO SCH ×4 (08:21→20:51)
[2023-05-18] MEDS: Spironolactone 25 MG Tab PO SCH (08:21)
[2023-05-18] MEDS: Buprenorphine/Naloxone 2-0.5 MG Tab.SL SL SCH ×2 (08:21→20:55)
[2023-05-18] MEDS: Doxycycline 100 MG Tab PO SCH ×2 (08:21→20:52)
[2023-05-18] MEDS: Gabapentin 300 MG Cap PO SCH ×2 (08:21→20:55)
[2023-05-18] MEDS: Dexamethasone 4 MG/ML 5 ML MDV IVPUSH SCH (08:23)
[2023-05-18] MEDS: ClonazePAM 1 MG Tab PO SCH ×2 (11:29→20:58)
[2023-05-18] MEDS: Calcium Carbonate 500 MG Tab.Chew PO SCH ×2 (11:33→17:02)
[2023-05-18] MEDS ORDERED: Warfarin 2.5 MG Tab PO ONE (16:00)
[2023-05-18] MEDS: Benzonatate 100 MG Cap PO PRN (18:19)
[2023-05-18] MEDS: Pantoprazole 40 MG Tab.CR PO SCH (20:51)
[2023-05-18] MEDS: Amitriptyline 25 MG Tab PO SCH (20:51)
[2023-05-18] MEDS: Mirtazapine 15 MG Tab PO SCH (20:51)
[2023-05-18] MEDS: atorvaSTATin 40 MG Tab PO SCH (20:52)
[2023-05-18] MEDS: Propranolol 60 MG Cap.ER PO SCH (20:53)
[2023-05-18] MEDS: Hydrocortisone 2.5% Crm 30 GM Tube TOP PRN (22:00)
[2023-05-18] MEDS: Nystatin Topical Powder 15 GM Bottle TOP PRN (22:05)
[2023-05-19] MEDS: Albuterol/Ipratropium 3.0-0.5 MG/3 ML Neb Soln NEB SCH ×5 (04:45→20:24)
[2023-05-19] MEDS: Hydrocortisone 2.5% Crm 30 GM Tube TOP PRN (05:42)
[2023-05-19] MEDS: Sodium Chloride 0.9% 10 ML Syringe FLUSH PRN ×2 (06:35→09:05)
[2023-05-19 06:43] LABS: HEMATOCRIT 33.1 % (34.2-48.2); HEMOGLOBIN 10.5 g/dL (11.4-15.5); MEAN CORPUSCULAR HEMOGLOBIN 27.7 pg (23.9-33.9); MEAN CORPUSCULAR HGB CONC 31.8 g/dL (31.9-34.8); MEAN CORPUSCULAR VOLUME 87.2 fL (76.7-100.5); MEAN PLATELET VOLUME 8.2 fL (7.1-12.4); PLATELET COUNT,PLT 172 x10(3)uL (151-488); RED BLOOD CELL COUNT 3.79 x10(6)uL (3.60-5.20); RED CELL DISTRIBUTION WIDTH 20.1 % (12.3-16.5); WHITE BLOOD CELL COUNT,WBC 12.7 x10-3/uL (3.0-10.3)
[2023-05-19 06:48] LABS: INR 1.94 (1.00-1.24); PROTHROMBIN TIME 19.6 sec (9.0-11.1)
[2023-05-19 06:55] LABS: A/G RATIO 0.5; ALANINE AMINOTRANSFERASE,ALT 107 U/L (12-36); ALBUMIN 2.1 g/dL (3.2-4.6); ALKALINE PHOSPHATASE 128 IU/L (56-112); ASPARTATE AMNIOTRANSFERASE,AST 59 IU/L (5-25); BILIRUBIN TOTAL 0.5 mg/dL (0.1-1.3); BLOOD UREA NITROGEN,BUN 14 mg/dL (7-18); CHLORIDE,CL 94 mmol/L (100-110); CREATININE 0.7 mg/dL (0.55-1.02); EST CRCL DRUG DOSING (CG) 72.57 mL/min; ESTIMATED GFR 90 mL/min (>60); GLUCOSE RANDOM 242 mg/dL (80-116); PROTEIN TOTAL,TP 6.1 g/dL (6.0-8.0); SODIUM,NA 136 mmol/L (135-145)
[2023-05-19 07:08] LABS: CARBON DIOXIDE,CO2 42 mmol/L (21-32)
[2023-05-19 07:12] LABS: BAND PERCENT MAN 3 % (0-6); EOSINOPHILS PERCENT MAN 1 % (0-5); LYMPHOCYTES PERCENT MAN 9 % (13-37); MONOCYTES PERCENT MAN 5 % (4-12); SEG NEUTROPHILS PERCENT MAN 82 % (46-82)
[2023-05-19] MEDS: Insulin Lispro 100 Unit/ML 3 ML KwikPen SUBCUT SCH ×3 (07:42→17:48)
[2023-05-19] MEDS: Acetaminophen 325 MG Tab PO PRN ×2 (08:53→15:57)
[2023-05-19] MEDS: ClonazePAM 1 MG Tab PO SCH ×2 (08:54→20:28)
[2023-05-19] MEDS: Insulin Glargine,Human Rec. Analog 100 Units/ML 3 ML Pen SUBCUT SCH ×2 (08:56→20:27)
[2023-05-19] MEDS: Ketotifen 0.025% Ophth Soln 5 ML Bottle EYEBOTH SCH ×2 (08:58→20:23)
[2023-05-19] MEDS: Formoterol/Mometasone 200-5 MCG 8.8 GM Inhaler IH SCH ×2 (08:59→20:23)
[2023-05-19] MEDS: Citalopram 10 MG Tab PO SCH (09:00)
[2023-05-19] MEDS: Gabapentin 300 MG Cap PO SCH ×2 (09:00→20:28)
[2023-05-19] MEDS: Buprenorphine/Naloxone 2-0.5 MG Tab.SL SL SCH ×2 (09:00→20:28)
[2023-05-19] MEDS: Clotrimazole 10 MG Troche PO SCH ×4 (09:01→20:21)
[2023-05-19] MEDS: Furosemide 40 MG Tab PO SCH (09:02)
[2023-05-19] MEDS: Spironolactone 25 MG Tab PO SCH (09:03)
[2023-05-19] MEDS: Doxycycline 100 MG Tab PO SCH ×2 (09:04→20:21)
[2023-05-19] MEDS: Dexamethasone 4 MG/ML 5 ML MDV IVPUSH SCH (09:06)
[2023-05-19] MEDS ORDERED: Fluconazole 150 MG Tab PO ONE (09:44)
[2023-05-19] MEDS: Hydrochlorothiazide 12.5 MG Cap PO SCH (10:38)
[2023-05-19] MEDS: Calcium Carbonate 500 MG Tab.Chew PO SCH ×2 (12:08→17:50)
[2023-05-19] MEDS: Benzonatate 100 MG Cap PO PRN (15:57)
[2023-05-19] MEDS ORDERED: Warfarin 5 MG Tab PO ONE (16:00)
[2023-05-19] MEDS: Pantoprazole 40 MG Tab.CR PO SCH (20:22)
[2023-05-19] MEDS: Amitriptyline 25 MG Tab PO SCH (20:22)
[2023-05-19] MEDS: Propranolol 60 MG Cap.ER PO SCH (20:22)
[2023-05-19] MEDS: atorvaSTATin 40 MG Tab PO SCH (20:23)
[2023-05-19] MEDS: Mirtazapine 15 MG Tab PO SCH (20:24)
[2023-05-20] MEDS: Sodium Chloride 0.9% 10 ML Syringe FLUSH PRN ×4 (06:20→11:52)
[2023-05-20] MEDS: Albuterol/Ipratropium 3.0-0.5 MG/3 ML Neb Soln NEB SCH ×2 (06:26→10:26)
[2023-05-20 06:37] LABS: BASOPHILS ABSOLUTE AUTO 0.1 x10-3/uL (0.0-0.1); BASOPHILS PERCENT AUTO 0.6 % (0.2-1.5); EOSINOPHILS PERCENT AUTO 0.2 % (0.6-8.1); HEMATOCRIT 34.2 % (34.2-48.2); HEMOGLOBIN 11.1 g/dL (11.4-15.5); LYMPHOCYTES ABSOLUTE AUTO 0.4 x10-3/uL (1.0-4.4); LYMPHOCYTES PERCENT AUTO 5.1 % (18.4-52.1); MEAN CORPUSCULAR HEMOGLOBIN 28.3 pg (23.9-33.9); MEAN CORPUSCULAR HGB CONC 32.4 g/dL (31.9-34.8); MEAN CORPUSCULAR VOLUME 87.2 fL (76.7-100.5); MEAN PLATELET VOLUME 8.2 fL (7.1-12.4); MONOCYTES ABSOLUTE AUTO 0.8 x10-3/uL (0.3-1.0); MONOCYTES PERCENT AUTO 9.5 % (4.4-15.7); NEUTROPHILS ABSOLUTE AUTO 7.4 x10-3/uL (1.5-6.3); NEUTROPHILS PERCENT AUTO 84.6 % (30.8-76.2); PLATELET COUNT,PLT 202 x10(3)uL (151-488); RED BLOOD CELL COUNT 3.93 x10(6)uL (3.60-5.20); RED CELL DISTRIBUTION WIDTH 19.9 % (12.3-16.5); WHITE BLOOD CELL COUNT,WBC 8.7 x10-3/uL (3.0-10.3)
[2023-05-20 06:45] LABS: INR 2.37 (1.00-1.24); PROTHROMBIN TIME 23.8 sec (9.0-11.1)
[2023-05-20 06:54] LABS: A/G RATIO 0.5; ALANINE AMINOTRANSFERASE,ALT 89 U/L (12-36); ALBUMIN 2.1 g/dL (3.2-4.6); ALKALINE PHOSPHATASE 133 IU/L (56-112); ASPARTATE AMNIOTRANSFERASE,AST 33 IU/L (5-25); BILIRUBIN TOTAL 0.4 mg/dL (0.1-1.3); BLOOD UREA NITROGEN,BUN 13 mg/dL (7-18); BUN/CREATININE RATIO 16.3 (9-20); CALCIUM 9.7 mg/dL (8.6-10.2); CHLORIDE,CL 94 mmol/L (100-110); CREATININE 0.8 mg/dL (0.55-1.02); ESTIMATED GFR 77 mL/min (>60); GLUCOSE RANDOM 334 mg/dL (80-116); POTASSIUM,K 4.4 mmol/L (3.5-5.3); PROTEIN TOTAL,TP 6.4 g/dL (6.0-8.0); SODIUM,NA 135 mmol/L (135-145)
[2023-05-20 06:55] LABS: CARBON DIOXIDE,CO2 45 mmol/L (21-32)
[2023-05-20] MEDS: Citalopram 10 MG Tab PO SCH (08:24)
[2023-05-20] MEDS: Ketotifen 0.025% Ophth Soln 5 ML Bottle EYEBOTH SCH (08:25)
[2023-05-20] MEDS: Doxycycline 100 MG Tab PO SCH (08:26)
[2023-05-20] MEDS: Furosemide 40 MG Tab PO SCH (08:27)
[2023-05-20] MEDS: Clotrimazole 10 MG Troche PO SCH (08:28)
[2023-05-20] MEDS: Formoterol/Mometasone 200-5 MCG 8.8 GM Inhaler IH SCH (08:29)
[2023-05-20] MEDS: Spironolactone 25 MG Tab PO SCH (08:29)
[2023-05-20] MEDS: Insulin Lispro 100 Unit/ML 3 ML KwikPen SUBCUT SCH ×2 (08:33→12:31)
[2023-05-20] MEDS: Insulin Glargine,Human Rec. Analog 100 Units/ML 3 ML Pen SUBCUT SCH (08:35)
[2023-05-20] MEDS: Dexamethasone 4 MG/ML 5 ML MDV IVPUSH SCH (08:53)
[2023-05-20] MEDS: Hydrochlorothiazide 12.5 MG Cap PO SCH (09:01)
[2023-05-20] MEDS: ClonazePAM 1 MG Tab PO SCH (09:01)
[2023-05-20] MEDS: Buprenorphine/Naloxone 2-0.5 MG Tab.SL SL SCH (09:01)
[2023-05-20] MEDS: Gabapentin 300 MG Cap PO SCH (09:01)
[2023-05-20] MEDS: Acetaminophen 325 MG Tab PO PRN (09:03)
[2023-05-20] MEDS ORDERED: Warfarin 2.5 MG Tab PO ONE ×3 (10:00→16:00)
[2023-05-20 11:44] VITALS: BP 138/85; PULSE 92
[2023-05-20] MEDS: Calcium Carbonate 500 MG Tab.Chew PO SCH (12:31)
== END 2023-05-20 12:05 | disposition home health service (06) | DRG 177 ==
LOC: FB.ED 06:30 → FB.MS 08:57
PROVIDERS: ADMIT Emergency Medicine; ATTEND Family Medicine
PROC: XW033E5 Introduction of Remdesivir Anti-infective into Peripheral Vein, Percutaneous Approach, New Technology Group 5 (ICD-10-PCS; principal; 2023-05-13)
PROC: 3E0333Z Introduction of Anti-inflammatory into Peripheral Vein, Percutaneous Approach (ICD-10-PCS; 2023-05-17)
DX: U07.1 COVID-19 (principal); J96.20 Acute and chronic respiratory failure, unspecified whether with hypoxia or hypercapnia; E87.1 Hypo-osmolality and hyponatremia; J44.1 Chronic obstructive pulmonary disease with (acute) exacerbation; F11.20 Opioid dependence, uncomplicated; E87.4 Mixed disorder of acid-base balance; M06.9 Rheumatoid arthritis, unspecified; M67.40 Ganglion, unspecified site; B37.31 Acute candidiasis of vulva and vagina; K64.9 Unspecified hemorrhoids; F41.9 Anxiety disorder, unspecified; E66.9 Obesity, unspecified; I50.9 Heart failure, unspecified; Z51.5 Encounter for palliative care; I11.0 Hypertensive heart disease with heart failure; D89.9 Disorder involving the immune mechanism, unspecified; R29.6 Repeated falls; D64.9 Anemia, unspecified; E66.01 Morbid (severe) obesity due to excess calories; Z20.822 Contact with and (suspected) exposure to COVID-19; Z68.36 Body mass index [BMI] 36.0-36.9, adult; M79.7 Fibromyalgia; E78.00 Pure hypercholesterolemia, unspecified; K21.9 Gastro-esophageal reflux disease without esophagitis; M19.90 Unspecified osteoarthritis, unspecified site; G89.29 Other chronic pain; G47.33 Obstructive sleep apnea (adult) (pediatric); M81.0 Age-related osteoporosis without current pathological fracture; F33.41 Major depressive disorder, recurrent, in partial remission; M54.9 Dorsalgia, unspecified; E11.65 Type 2 diabetes mellitus with hyperglycemia; G43.909 Migraine, unspecified, not intractable, without status migrainosus; I25.2 Old myocardial infarction; Z79.899 Other long term (current) drug therapy; Z79.01 Long term (current) use of anticoagulants; Z79.51 Long term (current) use of inhaled steroids; Z79.4 Long term (current) use of insulin; Z88.8 Allergy status to other drugs, medicaments and biological substances; Z86.718 Personal history of other venous thrombosis and embolism; Z86.711 Personal history of pulmonary embolism; Z98.890 Other specified postprocedural states; Z98.49 Cataract extraction status, unspecified eye; Z90.49 Acquired absence of other specified parts of digestive tract; Z98.1 Arthrodesis status; Z87.891 Personal history of nicotine dependence
CPT/HCPCS: 0241U; 36415; 71045; 71046; 80053; 80076; 81001; 82248; 82947; 83605; 83880; 84484; 85025; 85610; 87040; 93005; 94640; 96374; 96375; 99285; 93010; 99222; 99232; 99238; A9270-GY; J0696; J1100; J1642; J1815; J1815-GY; J2060; J2930; J3010; J3420; J3490; J7030; J7050; J7620

== ENCOUNTER 2023-05-23 11:55 | Inpatient (IN) | payer MEDICARE, BC, MEDICAID ==
[2023-05-23] MEDS ORDERED: Albuterol/Ipratropium 3.0-0.5 MG/3 ML Neb Soln NEB ONE (12:37)
[2023-05-23] MEDS ORDERED: methylPREDNISolone Sodium Succinate 125 MG/2 ML SDV IVPUSH ONE (12:39)
[2023-05-23 12:48] LABS: HEMATOCRIT 35.1 % (34.2-48.2); HEMOGLOBIN 11.2 g/dL (11.4-15.5); MEAN CORPUSCULAR HEMOGLOBIN 27.9 pg (23.9-33.9); MEAN CORPUSCULAR HGB CONC 31.9 g/dL (31.9-34.8); MEAN CORPUSCULAR VOLUME 87.6 fL (76.7-100.5); MEAN PLATELET VOLUME 7.7 fL (7.1-12.4); PLATELET COUNT,PLT 244 x10(3)uL (151-488); RED BLOOD CELL COUNT 4.01 x10(6)uL (3.60-5.20); RED CELL DISTRIBUTION WIDTH 19.9 % (12.3-16.5); WHITE BLOOD CELL COUNT,WBC 16.2 x10-3/uL (3.0-10.3)
[2023-05-23] MEDS: Sodium Chloride 0.9% 10 ML Syringe FLUSH PRN ×2 (13:00→20:16)
[2023-05-23 13:05] LABS: A/G RATIO 0.6; ALANINE AMINOTRANSFERASE,ALT 62 U/L (12-36); ALBUMIN 2.3 g/dL (3.2-4.6); ALKALINE PHOSPHATASE 132 IU/L (56-112); ASPARTATE AMNIOTRANSFERASE,AST 32 IU/L (5-25); BILIRUBIN TOTAL 0.4 mg/dL (0.1-1.3); BLOOD UREA NITROGEN,BUN 15 mg/dL (7-18); BUN/CREATININE RATIO 21.4 (9-20); CALCIUM 9.3 mg/dL (8.6-10.2); CHLORIDE,CL 92 mmol/L (100-110); CREATININE 0.7 mg/dL (0.55-1.02); ESTIMATED GFR 90 mL/min (>60); GLUCOSE RANDOM 196 mg/dL (80-116); POTASSIUM,K 4.3 mmol/L (3.5-5.3); PROTEIN TOTAL,TP 6.4 g/dL (6.0-8.0); SODIUM,NA 134 mmol/L (135-145)
[2023-05-23 13:11] LABS: TROPONIN I 13.6 pg/mL (4.0-60.3)
[2023-05-23 13:15] LABS: CARBON DIOXIDE,CO2 40 mmol/L (21-32)
[2023-05-23 13:18] LABS: BASE EXCESS VENOUS,POC 13 mmol/L (-2 - 3+); PCO2 VENOUS,POC 48 mmHg (41-51); PH VENOUS,POC 7.51 pH Units (7.32-7.43)
[2023-05-23 13:35] LABS: BAND PERCENT MAN 9 % (0-6); LYMPHOCYTES PERCENT MAN 6 % (13-37); MONOCYTES PERCENT MAN 4 % (4-12); SEG NEUTROPHILS PERCENT MAN 81 % (46-82)
[2023-05-23 15:00] LABS: BILIRUBIN,URINE NEGATIVE (NEGATIVE); GLUCOSE,URINE NORMAL (NORMAL); KETONES,URINE NEGATIVE (NEGATIVE); LEUKOCYTE ESTERASE,URINE NEGATIVE (NEGATIVE); NITRITE,URINE NEGATIVE (NEGATIVE); OCCULT BLOOD,URINE LARGE (NEGATIVE); PROTEIN,URINE NEGATIVE (NEGATIVE); UROBILINOGEN,URINE NORMAL (NEGATIVE)
[2023-05-23] MEDS ORDERED: Metolazone 2.5 MG Tab PO ONE (15:09)
[2023-05-23] MEDS ORDERED: Furosemide 40 MG/4 ML VIAL IVPUSH ONE (15:09)
[2023-05-23 15:25] LABS: APPEARANCE,URINE SLIGHTLY CLOUDY (CLEAR); BACTERIA,URINE OCCASIONAL (NS); COLOR,URINE YELLOW (YELLOW); RBC,URINE 40-50 (0-5); SQUAMOUS EPITHELIAL CELLS,UR OCCASIONAL (NS,R,O); WBC,URINE 0-5 (0-5)
[2023-05-23] MEDS ORDERED: cefTRIAXone 1 GM Vial IVPUSH STA (15:30)
[2023-05-23] MEDS ORDERED: Azithromycin 500 MG in Sodium Chloride 0.9% 250 ML IV ONE (15:30)
[2023-05-23] MEDS ORDERED: Albuterol 0.083% 2.5 MG/3 ML Neb Soln NEB PRN (16:10)
[2023-05-23] MEDS ORDERED: Acetaminophen 325 MG Tab PO PRN ×2 (16:10→16:48)
[2023-05-23] MEDS ORDERED: Ondansetron 4 MG/2 ML SDV IV PRN (16:10)
[2023-05-23] MEDS ORDERED: Enoxaparin 40 MG/0.4 ML Syringe SUBCUT SCH (16:15)
[2023-05-23] MEDS ORDERED: Cyclobenzaprine 10 MG Tab PO PRN (16:48)
[2023-05-23] MEDS ORDERED: 50% Dextrose in Water 50 ML Syringe IVPUSH PRN ×2 (16:48→18:23)
[2023-05-23] MEDS ORDERED: Glucagon,Human Recombinant 1 MG Vial IM PRN ×2 (16:48→18:23)
[2023-05-23] MEDS ORDERED: Dicyclomine 10 MG Cap PO PRN (16:48)
[2023-05-23] MEDS ORDERED: Bisacodyl 10 MG Supp RECTAL PRN (16:48)
[2023-05-23] MEDS ORDERED: Loperamide 2 MG Cap PO PRN (16:48)
[2023-05-23] MEDS ORDERED: SUMAtriptan 50 MG Tab PO PRN (16:48)
[2023-05-23] MEDS ORDERED: Carbamide Peroxide 6.5% Otic Soln 15 ML Bottle EARBOTH PRN (16:48)
[2023-05-23] MEDS ORDERED: Hydrocortisone 2.5% Crm 30 GM Tube TOP PRN (16:48)
[2023-05-23] MEDS ORDERED: guaiFENesin 100 MG/5 ML Soln 5 ML UD Cup PO PRN (16:48)
[2023-05-23] MEDS ORDERED: Furosemide 40 MG Tab PO PRN (16:48)
[2023-05-23] MEDS ORDERED: Fluconazole 100 MG Tab PO SCH (17:00)
[2023-05-23] MEDS ORDERED: Warfarin Sliding Scale PO SCH (17:00)
[2023-05-23] MEDS ORDERED: Cyanocobalamin (Vitamin B12) 1,000 MCG/ML SDV IM SCH (17:00)
[2023-05-23] MEDS ORDERED: InFLIXimab (Remicade) 100 MG Vial IV SCH (17:00)
[2023-05-23 17:37] LABS: INR 2.95 (1.00-1.24); PROTHROMBIN TIME 29.5 sec (9.0-11.1)
[2023-05-23] MEDS ORDERED: Insulin Lispro 100 Unit/ML 3 ML KwikPen SUBCUT SCH (18:00)
[2023-05-23] MEDS ORDERED: Insulin Glargine,Human Rec. Analog 100 Units/ML 3 ML Pen SUBCUT ONE (19:20)
[2023-05-23] MEDS: Insulin Lispro 100 Unit/ML 3 ML KwikPen SUBCUT SCH (19:23)
[2023-05-23] MEDS ORDERED: Warfarin 2.5 MG Tab PO SCH (20:00)
[2023-05-23] MEDS ORDERED: Insulin Lispro 100 Unit/ML 3 ML KwikPen SUBCUT ONE ×2 (20:04→22:03)
[2023-05-23] MEDS: Insulin Glargine,Human Rec. Analog 100 Units/ML 3 ML Pen SUBCUT SCH (20:25)
[2023-05-23] MEDS: Albuterol/Ipratropium 3.0-0.5 MG/3 ML Neb Soln NEB SCH (20:25)
[2023-05-23] MEDS: Gabapentin 300 MG Cap PO SCH (20:32)
[2023-05-23] MEDS: ClonazePAM 1 MG Tab PO SCH (20:32)
[2023-05-23] MEDS: Calcium Carbonate 500 MG Tab.Chew PO SCH (20:32)
[2023-05-23] MEDS: Propranolol 60 MG Cap.ER PO SCH (20:33)
[2023-05-23] MEDS: Pantoprazole 40 MG Tab.CR PO SCH (20:33)
[2023-05-23] MEDS: Amitriptyline 25 MG Tab PO SCH (20:33)
[2023-05-23] MEDS: Mirtazapine 15 MG Tab PO SCH (20:33)
[2023-05-23] MEDS: atorvaSTATin 40 MG Tab PO SCH (20:33)
[2023-05-23] MEDS: Formoterol/Mometasone 200-5 MCG 8.8 GM Inhaler IH SCH (20:34)
[2023-05-23] MEDS ORDERED: Buprenorphine/Naloxone 2-0.5 MG Tab.SL SL SCH (21:00)
[2023-05-23] MEDS ORDERED: Ergocalciferol (Vitamin D2) 1.25 MG Cap PO SCH (21:00)
[2023-05-23] MEDS ORDERED: Non-Formulary Medication 1 Each (Clonazepam [Klonopin] 0.5 MG Tab.Dis) PO SCH (21:00)
[2023-05-23] MEDS: Buprenorphine/Naloxone 2-0.5 MG Tab.SL SL SCH (21:36)
[2023-05-24] MEDS: Sodium Chloride 0.9% 10 ML Syringe FLUSH PRN ×2 (06:30→18:07)
[2023-05-24] MEDS: Albuterol/Ipratropium 3.0-0.5 MG/3 ML Neb Soln NEB SCH ×4 (06:39→21:23)
[2023-05-24 07:21] LABS: HEMOGLOBIN 10.6 g/dL (11.4-15.5); MEAN CORPUSCULAR HGB CONC 32.1 g/dL (31.9-34.8); MEAN CORPUSCULAR VOLUME 87.1 fL (76.7-100.5); MEAN PLATELET VOLUME 8.2 fL (7.1-12.4); PLATELET COUNT,PLT 236 x10(3)uL (151-488); RED BLOOD CELL COUNT 3.78 x10(6)uL (3.60-5.20); RED CELL DISTRIBUTION WIDTH 19.7 % (12.3-16.5); WHITE BLOOD CELL COUNT,WBC 10.3 x10-3/uL (3.0-10.3)
[2023-05-24 07:32] LABS: INR 1.89 (1.00-1.24); PROTHROMBIN TIME 19.2 sec (9.0-11.1)
[2023-05-24 07:37] LABS: A/G RATIO 0.5; ALANINE AMINOTRANSFERASE,ALT 49 U/L (12-36); ALKALINE PHOSPHATASE 113 IU/L (56-112); ASPARTATE AMNIOTRANSFERASE,AST 23 IU/L (5-25); BILIRUBIN TOTAL 0.4 mg/dL (0.1-1.3); BLOOD UREA NITROGEN,BUN 17 mg/dL (7-18); BUN/CREATININE RATIO 21.3 (9-20); CALCIUM 8.7 mg/dL (8.6-10.2); CHLORIDE,CL 94 mmol/L (100-110); CREATININE 0.8 mg/dL (0.55-1.02); EST CRCL DRUG DOSING (CG) 61.29 mL/min; ESTIMATED GFR 77 mL/min (>60); GLUCOSE RANDOM 371 mg/dL (80-116); POTASSIUM,K 3.7 mmol/L (3.5-5.3); SODIUM,NA 137 mmol/L (135-145)
[2023-05-24 07:54] LABS: CARBON DIOXIDE,CO2 44 mmol/L (21-32)
[2023-05-24 08:04] LABS: ANISOCYTOSIS FEW; BAND PERCENT MAN 3 % (0-6); LYMPHOCYTES PERCENT MAN 5 % (13-37); MONOCYTES PERCENT MAN 6 % (4-12); SEG NEUTROPHILS PERCENT MAN 86 % (46-82)
[2023-05-24] MEDS ORDERED: Leflunomide 20 MG Tab PO SCH (09:00)
[2023-05-24] MEDS: Insulin Lispro 100 Unit/ML 3 ML KwikPen SUBCUT SCH ×3 (09:06→18:07)
[2023-05-24] MEDS: Insulin Glargine,Human Rec. Analog 100 Units/ML 3 ML Pen SUBCUT SCH ×2 (09:08→21:14)
[2023-05-24] MEDS: Citalopram 10 MG Tab PO SCH (10:07)
[2023-05-24] MEDS: Spironolactone 25 MG Tab PO SCH (10:07)
[2023-05-24] MEDS: Hydrochlorothiazide 12.5 MG Cap PO SCH (10:07)
[2023-05-24] MEDS: Gabapentin 300 MG Cap PO SCH ×2 (10:08→21:32)
[2023-05-24] MEDS: Buprenorphine/Naloxone 2-0.5 MG Tab.SL SL SCH ×2 (10:08→21:32)
[2023-05-24] MEDS: Furosemide 40 MG Tab PO SCH (10:08)
[2023-05-24] MEDS: ClonazePAM 1 MG Tab PO SCH ×2 (10:08→21:33)
[2023-05-24] MEDS: Calcium Carbonate 500 MG Tab.Chew PO SCH ×2 (10:08→21:32)
[2023-05-24] MEDS: Formoterol/Mometasone 200-5 MCG 8.8 GM Inhaler IH SCH ×2 (10:13→21:32)
[2023-05-24] MEDS: Ketotifen 0.025% Ophth Soln 5 ML Bottle EYEBOTH SCH ×2 (10:16→22:02)
[2023-05-24] MEDS ORDERED: Warfarin Sliding Scale PO SCH (10:30)
[2023-05-24] MEDS: Clotrimazole 10 MG Troche PO SCH ×2 (10:54→12:56)
[2023-05-24] MEDS: predniSONE 20 MG Tab PO SCH (12:23)
[2023-05-24] MEDS ORDERED: Buprenorphine/Naloxone 2-0.5 MG Tab.SL SL PRN (15:00)
[2023-05-24] MEDS ORDERED: Warfarin 5 MG Tab PO SCH (16:00)
[2023-05-24] MEDS ORDERED: cefTRIAXone 1 GM Vial IVPUSH SCH (16:00)
[2023-05-24] MEDS ORDERED: Furosemide 40 MG/4 ML VIAL IVPUSH ONE (16:33)
[2023-05-24] MEDS: cefTRIAXone 1 GM Vial IVPUSH SCH (16:44)
[2023-05-24] MEDS: Azithromycin 500 MG in Sodium Chloride 0.9% 250 ML IV SCH (16:44)
[2023-05-24] MEDS: Mirtazapine 15 MG Tab PO SCH (21:32)
[2023-05-24] MEDS: Pantoprazole 40 MG Tab.CR PO SCH (21:32)
[2023-05-24] MEDS: atorvaSTATin 40 MG Tab PO SCH (21:32)
[2023-05-24] MEDS: Propranolol 60 MG Cap.ER PO SCH (21:33)
[2023-05-24] MEDS: Amitriptyline 25 MG Tab PO SCH (21:33)
[2023-05-24] MEDS ORDERED: Insulin Lispro 100 Unit/ML 3 ML KwikPen SUBCUT STA (22:13)
[2023-05-25] MEDS: Sodium Chloride 0.9% 10 ML Syringe FLUSH PRN ×4 (06:36→17:35)
[2023-05-25] MEDS: Albuterol/Ipratropium 3.0-0.5 MG/3 ML Neb Soln NEB SCH ×4 (06:41→21:09)
[2023-05-25 07:18] LABS: BASOPHILS PERCENT AUTO 0.3 % (0.2-1.5); HEMATOCRIT 34.4 % (34.2-48.2); HEMOGLOBIN 11.2 g/dL (11.4-15.5); LYMPHOCYTES ABSOLUTE AUTO 0.8 x10-3/uL (1.0-4.4); LYMPHOCYTES PERCENT AUTO 8.6 % (18.4-52.1); MEAN CORPUSCULAR HEMOGLOBIN 28.3 pg (23.9-33.9); MEAN CORPUSCULAR HGB CONC 32.6 g/dL (31.9-34.8); MEAN CORPUSCULAR VOLUME 86.8 fL (76.7-100.5); MONOCYTES ABSOLUTE AUTO 0.7 x10-3/uL (0.3-1.0); MONOCYTES PERCENT AUTO 7.7 % (4.4-15.7); NEUTROPHILS ABSOLUTE AUTO 7.9 x10-3/uL (1.5-6.3); NEUTROPHILS PERCENT AUTO 83.4 % (30.8-76.2); PLATELET COUNT,PLT 266 x10(3)uL (151-488); RED BLOOD CELL COUNT 3.97 x10(6)uL (3.60-5.20); RED CELL DISTRIBUTION WIDTH 19.8 % (12.3-16.5); WHITE BLOOD CELL COUNT,WBC 9.5 x10-3/uL (3.0-10.3)
[2023-05-25 07:23] LABS: INR 3.22 (1.00-1.24)
[2023-05-25 07:28] LABS: A/G RATIO 0.5; ALANINE AMINOTRANSFERASE,ALT 49 U/L (12-36); ALBUMIN 2.2 g/dL (3.2-4.6); ALKALINE PHOSPHATASE 121 IU/L (56-112); ASPARTATE AMNIOTRANSFERASE,AST 22 IU/L (5-25); BILIRUBIN TOTAL 0.4 mg/dL (0.1-1.3); BLOOD UREA NITROGEN,BUN 18 mg/dL (7-18); CALCIUM 9.5 mg/dL (8.6-10.2); CHLORIDE,CL 92 mmol/L (100-110); CREATININE 0.9 mg/dL (0.55-1.02); EST CRCL DRUG DOSING (CG) 54.48 mL/min; ESTIMATED GFR 67 mL/min (>60); GLUCOSE RANDOM 282 mg/dL (80-116); POTASSIUM,K 3.3 mmol/L (3.5-5.3); PROTEIN TOTAL,TP 6.3 g/dL (6.0-8.0); SODIUM,NA 137 mmol/L (135-145)
[2023-05-25 07:30] LABS: CARBON DIOXIDE,CO2 48 mmol/L (21-32)
[2023-05-25] MEDS ORDERED: predniSONE 20 MG Tab PO SCH (08:00)
[2023-05-25] MEDS ORDERED: Furosemide 40 MG/4 ML VIAL IVPUSH ONE (08:01)
[2023-05-25] MEDS: Insulin Lispro 100 Unit/ML 3 ML KwikPen SUBCUT SCH ×3 (08:18→18:15)
[2023-05-25] MEDS: predniSONE 20 MG Tab PO SCH (08:20)
[2023-05-25] MEDS: Citalopram 10 MG Tab PO SCH (08:20)
[2023-05-25] MEDS: Spironolactone 25 MG Tab PO SCH (08:20)
[2023-05-25] MEDS: Hydrochlorothiazide 12.5 MG Cap PO SCH (08:21)
[2023-05-25] MEDS: Ketotifen 0.025% Ophth Soln 5 ML Bottle EYEBOTH SCH ×2 (08:21→21:18)
[2023-05-25] MEDS: Formoterol/Mometasone 200-5 MCG 8.8 GM Inhaler IH SCH ×2 (08:21→21:14)
[2023-05-25] MEDS: ClonazePAM 1 MG Tab PO SCH ×2 (08:22→21:13)
[2023-05-25] MEDS: Insulin Glargine,Human Rec. Analog 100 Units/ML 3 ML Pen SUBCUT SCH ×2 (08:22→21:11)
[2023-05-25] MEDS: Sennosides/Docusate Sodium 50-8.6 MG Tab PO PRN (08:23)
[2023-05-25] MEDS: Calcium Carbonate 500 MG Tab.Chew PO SCH ×2 (08:23→21:14)
[2023-05-25] MEDS: Gabapentin 300 MG Cap PO SCH ×2 (08:23→21:14)
[2023-05-25] MEDS: Buprenorphine/Naloxone 2-0.5 MG Tab.SL SL SCH ×2 (08:23→21:14)
[2023-05-25] MEDS: Furosemide 40 MG Tab PO SCH (09:59)
[2023-05-25] MEDS ORDERED: [UNRECOGNIZED DRUG - REMARK] PO SCH (16:00)
[2023-05-25] MEDS: cefTRIAXone 1 GM Vial IVPUSH SCH (16:14)
[2023-05-25] MEDS: Azithromycin 500 MG in Sodium Chloride 0.9% 250 ML IV SCH (16:24)
[2023-05-25] MEDS: Mirtazapine 15 MG Tab PO SCH (21:13)
[2023-05-25] MEDS: Amitriptyline 25 MG Tab PO SCH (21:13)
[2023-05-25] MEDS: Pantoprazole 40 MG Tab.CR PO SCH (21:14)
[2023-05-25] MEDS: atorvaSTATin 40 MG Tab PO SCH (21:14)
[2023-05-25] MEDS: Propranolol 60 MG Cap.ER PO SCH (21:17)
[2023-05-26] MEDS: Sodium Chloride 0.9% 10 ML Syringe FLUSH PRN ×3 (06:29→23:23)
[2023-05-26] MEDS: Albuterol/Ipratropium 3.0-0.5 MG/3 ML Neb Soln NEB SCH ×4 (06:30→21:03)
[2023-05-26 07:20] LABS: PROTHROMBIN TIME 44.3 sec (9.0-11.1)
[2023-05-26 07:21] LABS: INR 4.49 (1.00-1.24)
[2023-05-26] MEDS: Insulin Lispro 100 Unit/ML 3 ML KwikPen SUBCUT SCH ×3 (08:24→18:01)
[2023-05-26] MEDS: Insulin Glargine,Human Rec. Analog 100 Units/ML 3 ML Pen SUBCUT SCH ×2 (08:29→21:06)
[2023-05-26] MEDS: Calcium Carbonate 500 MG Tab.Chew PO SCH ×2 (08:49→21:03)
[2023-05-26] MEDS: Formoterol/Mometasone 200-5 MCG 8.8 GM Inhaler IH SCH ×2 (08:49→21:03)
[2023-05-26] MEDS: Gabapentin 300 MG Cap PO SCH ×2 (08:51→21:03)
[2023-05-26] MEDS: ClonazePAM 1 MG Tab PO SCH ×2 (08:51→21:03)
[2023-05-26] MEDS: Furosemide 40 MG Tab PO SCH (08:51)
[2023-05-26] MEDS: Ketotifen 0.025% Ophth Soln 5 ML Bottle EYEBOTH SCH ×2 (08:52→21:16)
[2023-05-26] MEDS: Spironolactone 25 MG Tab PO SCH (08:52)
[2023-05-26] MEDS: Buprenorphine/Naloxone 2-0.5 MG Tab.SL SL SCH ×2 (08:52→21:03)
[2023-05-26] MEDS: Hydrochlorothiazide 12.5 MG Cap PO SCH (08:52)
[2023-05-26] MEDS: Citalopram 10 MG Tab PO SCH (09:54)
[2023-05-26] MEDS: predniSONE 20 MG Tab PO SCH ×2 (09:54→11:01)
[2023-05-26] MEDS: Sennosides/Docusate Sodium 50-8.6 MG Tab PO PRN (09:54)
[2023-05-26] MEDS: Azithromycin 500 MG in Sodium Chloride 0.9% 250 ML IV SCH (16:02)
[2023-05-26] MEDS: cefTRIAXone 1 GM Vial IVPUSH SCH (16:02)
[2023-05-26] MEDS: Piperacillin/Tazobactam 3.375 GM in Sodium Chloride 0.9% 50 ML IV SCH ×2 (17:48→22:52)
[2023-05-26] MEDS: VANCOmycin 1 GM/200 ML 1 GM in Premix Bag 1 BAG IV SCH (18:25)
[2023-05-26] MEDS: Propranolol 60 MG Cap.ER PO SCH (21:02)
[2023-05-26] MEDS: atorvaSTATin 40 MG Tab PO SCH (21:03)
[2023-05-26] MEDS: Pantoprazole 40 MG Tab.CR PO SCH (21:03)
[2023-05-26] MEDS: Mirtazapine 15 MG Tab PO SCH (21:03)
[2023-05-26] MEDS: Amitriptyline 25 MG Tab PO SCH (21:19)
[2023-05-27] MEDS: Piperacillin/Tazobactam 3.375 GM in Sodium Chloride 0.9% 50 ML IV SCH ×3 (04:57→18:19)
[2023-05-27 05:12] LABS: HEMATOCRIT 38.5 % (34.2-48.2); HEMOGLOBIN 12.3 g/dL (11.4-15.5); MEAN CORPUSCULAR HEMOGLOBIN 27.6 pg (23.9-33.9); MEAN CORPUSCULAR HGB CONC 31.9 g/dL (31.9-34.8); MEAN CORPUSCULAR VOLUME 86.4 fL (76.7-100.5); MEAN PLATELET VOLUME 8.3 fL (7.1-12.4); PLATELET COUNT,PLT 285 x10(3)uL (151-488); RED BLOOD CELL COUNT 4.45 x10(6)uL (3.60-5.20); RED CELL DISTRIBUTION WIDTH 19.7 % (12.3-16.5); WHITE BLOOD CELL COUNT,WBC 19.4 x10-3/uL (3.0-10.3)
[2023-05-27 05:19] LABS: A/G RATIO 0.5; ALANINE AMINOTRANSFERASE,ALT 73 U/L (12-36); ALBUMIN 2.2 g/dL (3.2-4.6); ALKALINE PHOSPHATASE 171 IU/L (56-112); ASPARTATE AMNIOTRANSFERASE,AST 49 IU/L (5-25); BILIRUBIN TOTAL 0.4 mg/dL (0.1-1.3); BLOOD UREA NITROGEN,BUN 22 mg/dL (7-18); EST CRCL DRUG DOSING (CG) 49.03 mL/min; ESTIMATED GFR 59 mL/min (>60); GLUCOSE RANDOM 303 mg/dL (80-116); POTASSIUM,K 3.3 mmol/L (3.5-5.3); PROTEIN TOTAL,TP 6.8 g/dL (6.0-8.0); SODIUM,NA 132 mmol/L (135-145)
[2023-05-27 05:30] LABS: INR 4.08 (1.00-1.24); PROTHROMBIN TIME 40.4 sec (9.0-11.1)
[2023-05-27 05:31] LABS: CHLORIDE,CL 85 mmol/L (100-110)
[2023-05-27 05:32] LABS: CARBON DIOXIDE,CO2 47 mmol/L (21-32)
[2023-05-27] MEDS: Sodium Chloride 0.9% 10 ML Syringe FLUSH PRN ×10 (05:35→22:07)
[2023-05-27] MEDS: VANCOmycin 1 GM/200 ML 1 GM in Premix Bag 1 BAG IV SCH (05:41)
[2023-05-27] MEDS: Albuterol/Ipratropium 3.0-0.5 MG/3 ML Neb Soln NEB SCH ×4 (06:00→20:35)
[2023-05-27 06:33] LABS: BAND PERCENT MAN 6 % (0-6); LYMPHOCYTES PERCENT MAN 5 % (13-37); MONOCYTES PERCENT MAN 1 % (4-12); SEG NEUTROPHILS PERCENT MAN 88 % (46-82)
[2023-05-27] MEDS: Insulin Lispro 100 Unit/ML 3 ML KwikPen SUBCUT SCH ×3 (08:31→18:23)
[2023-05-27] MEDS: Formoterol/Mometasone 200-5 MCG 8.8 GM Inhaler IH SCH ×3 (08:33→20:34)
[2023-05-27] MEDS: Insulin Glargine,Human Rec. Analog 100 Units/ML 3 ML Pen SUBCUT SCH ×2 (08:35→20:38)
[2023-05-27] MEDS: predniSONE 20 MG Tab PO SCH (08:42)
[2023-05-27] MEDS: Hydrochlorothiazide 12.5 MG Cap PO SCH (08:42)
[2023-05-27] MEDS: Gabapentin 300 MG Cap PO SCH ×2 (08:42→20:33)
[2023-05-27] MEDS: Calcium Carbonate 500 MG Tab.Chew PO SCH ×2 (08:42→20:36)
[2023-05-27] MEDS: Spironolactone 25 MG Tab PO SCH (08:43)
[2023-05-27] MEDS: Buprenorphine/Naloxone 2-0.5 MG Tab.SL SL SCH ×2 (08:43→20:33)
[2023-05-27] MEDS: ClonazePAM 1 MG Tab PO SCH ×2 (08:43→20:33)
[2023-05-27] MEDS: Furosemide 40 MG Tab PO SCH (08:43)
[2023-05-27] MEDS: Citalopram 10 MG Tab PO SCH (09:35)
[2023-05-27] MEDS: Ketotifen 0.025% Ophth Soln 5 ML Bottle EYEBOTH SCH ×2 (09:35→20:36)
[2023-05-27 14:03] LABS: BLOOD UREA NITROGEN,BUN 25 mg/dL (7-18); BUN/CREATININE RATIO 22.7 (9-20); CALCIUM 10.3 mg/dL (8.6-10.2); CREATININE 1.1 mg/dL (0.55-1.02); EST CRCL DRUG DOSING (CG) 44.58 mL/min; ESTIMATED GFR 52 mL/min (>60); GLUCOSE RANDOM 253 mg/dL (80-116); POTASSIUM,K 2.9 mmol/L (3.5-5.3); SODIUM,NA 131 mmol/L (135-145)
[2023-05-27 14:18] LABS: CHLORIDE,CL 85 mmol/L (100-110)
[2023-05-27 14:19] LABS: CARBON DIOXIDE,CO2 50 mmol/L (21-32)
[2023-05-27 14:56] LABS: BASE EXCESS VENOUS,POC 17 mmol/L (-2 - 3+); PCO2 VENOUS,POC 60 mmHg (41-51); PH VENOUS,POC 7.48 pH Units (7.32-7.43)
[2023-05-27] MEDS ORDERED: Potassium Chloride 20 MEQ in Premix Bag 1 BAG IV ONE (14:56)
[2023-05-27] MEDS ORDERED: VANCOmycin 1.5 GM/300 ML 1.5 GM in Premix Bag 1 BAG IV SCH (17:00)
[2023-05-27] MEDS ORDERED: Azithromycin 500 MG in Sodium Chloride 0.9% 250 ML IV SCH (20:00)
[2023-05-27] MEDS: atorvaSTATin 40 MG Tab PO SCH (20:33)
[2023-05-27] MEDS: Amitriptyline 25 MG Tab PO SCH (20:34)
[2023-05-27] MEDS: Propranolol 60 MG Cap.ER PO SCH (20:35)
[2023-05-27] MEDS: Pantoprazole 40 MG Tab.CR PO SCH (20:36)
[2023-05-27] MEDS: Mirtazapine 15 MG Tab PO SCH (20:36)
[2023-05-27] MEDS ORDERED: Furosemide 40 MG/4 ML VIAL IVPUSH ONE (20:50)
[2023-05-27] MEDS ORDERED: Furosemide 20 MG/2 ML VIAL ONE (21:10)
[2023-05-28] MEDS: Piperacillin/Tazobactam 3.375 GM in Sodium Chloride 0.9% 50 ML IV SCH ×2 (00:25→05:29)
[2023-05-28] MEDS: Sodium Chloride 0.9% 10 ML Syringe FLUSH PRN ×10 (00:25→12:53)
[2023-05-28] MEDS: Albuterol/Ipratropium 3.0-0.5 MG/3 ML Neb Soln NEB SCH ×6 (00:28→20:27)
[2023-05-28 07:03] LABS: HEMATOCRIT 34.6 % (34.2-48.2); HEMOGLOBIN 11.1 g/dL (11.4-15.5); MEAN CORPUSCULAR HEMOGLOBIN 27.8 pg (23.9-33.9); MEAN CORPUSCULAR HGB CONC 32.1 g/dL (31.9-34.8); MEAN CORPUSCULAR VOLUME 86.4 fL (76.7-100.5); MEAN PLATELET VOLUME 8.1 fL (7.1-12.4); PLATELET COUNT,PLT 252 x10(3)uL (151-488); RED CELL DISTRIBUTION WIDTH 19.2 % (12.3-16.5); WHITE BLOOD CELL COUNT,WBC 15.9 x10-3/uL (3.0-10.3)
[2023-05-28 07:15] LABS: A/G RATIO 0.5; ALANINE AMINOTRANSFERASE,ALT 99 U/L (12-36); ALBUMIN 2.1 g/dL (3.2-4.6); ALKALINE PHOSPHATASE 192 IU/L (56-112); ASPARTATE AMNIOTRANSFERASE,AST 57 IU/L (5-25); BILIRUBIN TOTAL 0.6 mg/dL (0.1-1.3); BLOOD UREA NITROGEN,BUN 23 mg/dL (7-18); BUN/CREATININE RATIO 20.9 (9-20); CALCIUM 9.5 mg/dL (8.6-10.2); CREATININE 1.1 mg/dL (0.55-1.02); EST CRCL DRUG DOSING (CG) 44.58 mL/min; ESTIMATED GFR 52 mL/min (>60); GLUCOSE RANDOM 255 mg/dL (80-116); PROTEIN TOTAL,TP 6.4 g/dL (6.0-8.0); SODIUM,NA 133 mmol/L (135-145); VANCOMYCIN TROUGH 22.5 ug/mL (<0.8)
[2023-05-28 07:22] LABS: BAND PERCENT MAN 2 % (0-6); LYMPHOCYTES PERCENT MAN 4 % (13-37); MONOCYTES PERCENT MAN 3 % (4-12); SEG NEUTROPHILS PERCENT MAN 91 % (46-82)
[2023-05-28 07:26] LABS: ANISOCYTOSIS FEW
[2023-05-28 07:31] LABS: CARBON DIOXIDE,CO2 50 mmol/L (21-32); CHLORIDE,CL 87 mmol/L (100-110); POTASSIUM,K 2.8 mmol/L (3.5-5.3)
[2023-05-28 07:42] LABS: INR 3.79 (1.00-1.24)
[2023-05-28 07:46] LABS: BASE EXCESS VENOUS,POC 15 mmol/L (-2 - 3+); PCO2 VENOUS,POC 47 mmHg (41-51); PH VENOUS,POC 7.53 pH Units (7.32-7.43)
[2023-05-28 07:52] LABS: PROTHROMBIN TIME 37.6 sec (9.0-11.1)
[2023-05-28] MEDS ORDERED: Furosemide 100 MG/10 ML SDV IVPUSH ONE (08:45)
[2023-05-28] MEDS: Insulin Lispro 100 Unit/ML 3 ML KwikPen SUBCUT SCH ×3 (08:46→19:16)
[2023-05-28] MEDS: Insulin Glargine,Human Rec. Analog 100 Units/ML 3 ML Pen SUBCUT SCH ×2 (08:46→20:37)
[2023-05-28] MEDS: predniSONE 20 MG Tab PO SCH (08:51)
[2023-05-28] MEDS: Citalopram 10 MG Tab PO SCH (08:52)
[2023-05-28] MEDS: Spironolactone 25 MG Tab PO SCH (08:52)
[2023-05-28] MEDS: Formoterol/Mometasone 200-5 MCG 8.8 GM Inhaler IH SCH ×2 (08:53→20:44)
[2023-05-28] MEDS: Calcium Carbonate 500 MG Tab.Chew PO SCH ×2 (08:53→20:46)
[2023-05-28] MEDS: Hydrochlorothiazide 12.5 MG Cap PO SCH (08:53)
[2023-05-28] MEDS: Ketotifen 0.025% Ophth Soln 5 ML Bottle EYEBOTH SCH ×2 (08:54→20:47)
[2023-05-28] MEDS: Potassium Chloride 20 MEQ Tab.ER PO SCH ×3 (09:08→20:48)
[2023-05-28] MEDS: Buprenorphine/Naloxone 2-0.5 MG Tab.SL SL SCH ×2 (09:08→20:46)
[2023-05-28] MEDS: ClonazePAM 1 MG Tab PO SCH ×2 (09:08→20:46)
[2023-05-28] MEDS: Gabapentin 300 MG Cap PO SCH ×2 (09:10→20:46)
[2023-05-28] MEDS ORDERED: Levofloxacin/Dextrose 5%-Water 750 MG in Premix Bag 1 BAG IV SCH (10:30)
[2023-05-28] MEDS: atorvaSTATin 40 MG Tab PO SCH (20:47)
[2023-05-28] MEDS: Propranolol 60 MG Cap.ER PO SCH (20:47)
[2023-05-28] MEDS: Amitriptyline 25 MG Tab PO SCH (20:48)
[2023-05-28] MEDS: Mirtazapine 15 MG Tab PO SCH (20:52)
[2023-05-28] MEDS: Pantoprazole 40 MG Tab.CR PO SCH (20:52)
[2023-05-28] MEDS ORDERED: Insulin Lispro 100 Unit/ML 3 ML KwikPen SUBCUT ONE (22:45)
[2023-05-29] MEDS: Albuterol/Ipratropium 3.0-0.5 MG/3 ML Neb Soln NEB SCH ×6 (00:01→20:24)
[2023-05-29] MEDS: Sodium Chloride 0.9% 10 ML Syringe FLUSH PRN ×8 (06:51→20:56)
[2023-05-29 07:19] LABS: BASOPHILS PERCENT AUTO 0.3 % (0.2-1.5); EOSINOPHILS PERCENT AUTO 0.2 % (0.6-8.1); HEMATOCRIT 34.5 % (34.2-48.2); HEMOGLOBIN 11.2 g/dL (11.4-15.5); LYMPHOCYTES ABSOLUTE AUTO 1.1 x10-3/uL (1.0-4.4); LYMPHOCYTES PERCENT AUTO 8.3 % (18.4-52.1); MEAN CORPUSCULAR HEMOGLOBIN 28.2 pg (23.9-33.9); MEAN CORPUSCULAR HGB CONC 32.6 g/dL (31.9-34.8); MEAN CORPUSCULAR VOLUME 86.4 fL (76.7-100.5); MONOCYTES ABSOLUTE AUTO 0.8 x10-3/uL (0.3-1.0); MONOCYTES PERCENT AUTO 6.3 % (4.4-15.7); NEUTROPHILS PERCENT AUTO 84.9 % (30.8-76.2); PLATELET COUNT,PLT 243 x10(3)uL (151-488); RED BLOOD CELL COUNT 3.99 x10(6)uL (3.60-5.20); RED CELL DISTRIBUTION WIDTH 19.3 % (12.3-16.5)
[2023-05-29 07:31] LABS: INR 1.38 (1.00-1.24); PROTHROMBIN TIME 14.1 sec (9.0-11.1)
[2023-05-29 07:36] LABS: A/G RATIO 0.5; ALANINE AMINOTRANSFERASE,ALT 83 U/L (12-36); ALBUMIN 2.1 g/dL (3.2-4.6); ALKALINE PHOSPHATASE 174 IU/L (56-112); ASPARTATE AMNIOTRANSFERASE,AST 39 IU/L (5-25); BILIRUBIN TOTAL 0.5 mg/dL (0.1-1.3); BLOOD UREA NITROGEN,BUN 17 mg/dL (7-18); BUN/CREATININE RATIO 21.3 (9-20); CALCIUM 9.8 mg/dL (8.6-10.2); CREATININE 0.8 mg/dL (0.55-1.02); EST CRCL DRUG DOSING (CG) 61.29 mL/min; ESTIMATED GFR 77 mL/min (>60); GLUCOSE RANDOM 154 mg/dL (80-116); POTASSIUM,K 3.2 mmol/L (3.5-5.3); PROTEIN TOTAL,TP 6.4 g/dL (6.0-8.0); SODIUM,NA 131 mmol/L (135-145)
[2023-05-29 07:40] LABS: CHLORIDE,CL 87 mmol/L (100-110)
[2023-05-29 07:41] LABS: CARBON DIOXIDE,CO2 48 mmol/L (21-32)
[2023-05-29] MEDS: Gabapentin 300 MG Cap PO SCH ×2 (08:24→20:34)
[2023-05-29] MEDS: Insulin Lispro 100 Unit/ML 3 ML KwikPen SUBCUT SCH ×3 (08:25→17:28)
[2023-05-29] MEDS: predniSONE 20 MG Tab PO SCH (08:26)
[2023-05-29] MEDS: Citalopram 10 MG Tab PO SCH (08:27)
[2023-05-29] MEDS: Spironolactone 25 MG Tab PO SCH (08:27)
[2023-05-29] MEDS: Formoterol/Mometasone 200-5 MCG 8.8 GM Inhaler IH SCH ×2 (08:27→20:31)
[2023-05-29] MEDS: Hydrochlorothiazide 12.5 MG Cap PO SCH (08:28)
[2023-05-29] MEDS: ClonazePAM 1 MG Tab PO SCH ×2 (08:28→20:39)
[2023-05-29] MEDS: Potassium Chloride 20 MEQ Tab.ER PO SCH ×3 (08:28→20:35)
[2023-05-29] MEDS: Ketotifen 0.025% Ophth Soln 5 ML Bottle EYEBOTH SCH ×2 (08:28→20:33)
[2023-05-29] MEDS: Insulin Glargine,Human Rec. Analog 100 Units/ML 3 ML Pen SUBCUT SCH ×2 (08:29→20:36)
[2023-05-29] MEDS: Buprenorphine/Naloxone 2-0.5 MG Tab.SL SL SCH ×2 (08:30→20:42)
[2023-05-29] MEDS: Calcium Carbonate 500 MG Tab.Chew PO SCH ×2 (08:31→20:49)
[2023-05-29] MEDS: Apixaban 5 MG Tab PO SCH ×2 (11:01→20:33)
[2023-05-29] MEDS: Cefepime 2 GM Vial IVPUSH SCH ×2 (11:01→18:28)
[2023-05-29] MEDS: Furosemide 40 MG Tab PO SCH (11:02)
[2023-05-29] MEDS ORDERED: Scopalamine 1mg/3day Transdermal Patch TOP ONE (14:05)
[2023-05-29] MEDS: Morphine 2 MG/ML SYRINGE IVPUSH PRN ×2 (18:25→20:54)
[2023-05-29] MEDS: Amitriptyline 25 MG Tab PO SCH (20:32)
[2023-05-29] MEDS: Propranolol 60 MG Cap.ER PO SCH (20:33)
[2023-05-29] MEDS: atorvaSTATin 40 MG Tab PO SCH (20:34)
[2023-05-29] MEDS: Pantoprazole 40 MG Tab.CR PO SCH (20:34)
[2023-05-29] MEDS: Mirtazapine 15 MG Tab PO SCH (20:34)
[2023-05-30] MEDS: Albuterol/Ipratropium 3.0-0.5 MG/3 ML Neb Soln NEB SCH ×4 (00:16→11:30)
[2023-05-30] MEDS: Cefepime 2 GM Vial IVPUSH SCH (01:32)
[2023-05-30] MEDS: Sodium Chloride 0.9% 10 ML Syringe FLUSH PRN ×12 (01:33→09:39)
[2023-05-30] MEDS: Morphine 2 MG/ML SYRINGE IVPUSH PRN ×2 (01:55→04:13)
[2023-05-30] MEDS: Morphine 4 MG/ML VIAL IVPUSH PRN ×5 (05:08→15:34)
[2023-05-30 06:27] LABS: BASOPHILS ABSOLUTE AUTO 0.1 x10-3/uL (0.0-0.1); BASOPHILS PERCENT AUTO 0.7 % (0.2-1.5); EOSINOPHILS ABSOLUTE AUTO 0.1 x10-3/uL (0.0-0.8); EOSINOPHILS PERCENT AUTO 1.2 % (0.6-8.1); HEMATOCRIT 38.1 % (34.2-48.2); HEMOGLOBIN 12.3 g/dL (11.4-15.5); LYMPHOCYTES ABSOLUTE AUTO 1.1 x10-3/uL (1.0-4.4); MEAN CORPUSCULAR HEMOGLOBIN 28.3 pg (23.9-33.9); MEAN CORPUSCULAR HGB CONC 32.4 g/dL (31.9-34.8); MEAN CORPUSCULAR VOLUME 87.3 fL (76.7-100.5); MONOCYTES ABSOLUTE AUTO 0.8 x10-3/uL (0.3-1.0); MONOCYTES PERCENT AUTO 6.4 % (4.4-15.7); NEUTROPHILS ABSOLUTE AUTO 9.9 x10-3/uL (1.5-6.3); NEUTROPHILS PERCENT AUTO 82.7 % (30.8-76.2); PLATELET COUNT,PLT 269 x10(3)uL (151-488); RED BLOOD CELL COUNT 4.37 x10(6)uL (3.60-5.20); RED CELL DISTRIBUTION WIDTH 19.2 % (12.3-16.5)
[2023-05-30 06:35] LABS: A/G RATIO 0.5; ALANINE AMINOTRANSFERASE,ALT 71 U/L (12-36); ALBUMIN 2.2 g/dL (3.2-4.6); ALKALINE PHOSPHATASE 195 IU/L (56-112); ASPARTATE AMNIOTRANSFERASE,AST 37 IU/L (5-25); BILIRUBIN TOTAL 0.6 mg/dL (0.1-1.3); BLOOD UREA NITROGEN,BUN 18 mg/dL (7-18); CALCIUM 10.4 mg/dL (8.6-10.2); CREATININE 0.9 mg/dL (0.55-1.02); EST CRCL DRUG DOSING (CG) 54.48 mL/min; ESTIMATED GFR 67 mL/min (>60); GLUCOSE RANDOM 191 mg/dL (80-116); PROTEIN TOTAL,TP 6.9 g/dL (6.0-8.0); SODIUM,NA 131 mmol/L (135-145)
[2023-05-30 06:36] LABS: CARBON DIOXIDE,CO2 48 mmol/L (21-32); CHLORIDE,CL 86 mmol/L (100-110)
[2023-05-30] MEDS ORDERED: Potassium Chloride 20 MEQ in Premix Bag 1 BAG IV SCH (09:00)
[2023-05-30] MEDS ORDERED: LORazepam 2 MG/ML SDV IVPUSH PRN (09:13)
[2023-05-30] MEDS: Insulin Lispro 100 Unit/ML 3 ML KwikPen SUBCUT SCH (09:15)
[2023-05-30] MEDS: predniSONE 20 MG Tab PO SCH (09:15)
[2023-05-30] MEDS: Citalopram 10 MG Tab PO SCH (09:16)
[2023-05-30] MEDS: Spironolactone 25 MG Tab PO SCH (09:16)
[2023-05-30] MEDS: Hydrochlorothiazide 12.5 MG Cap PO SCH (09:16)
[2023-05-30] MEDS: Apixaban 5 MG Tab PO SCH (09:16)
[2023-05-30] MEDS: Formoterol/Mometasone 200-5 MCG 8.8 GM Inhaler IH SCH (09:16)
[2023-05-30] MEDS: Insulin Glargine,Human Rec. Analog 100 Units/ML 3 ML Pen SUBCUT SCH (09:17)
[2023-05-30] MEDS: Potassium Chloride 20 MEQ Tab.ER PO SCH (09:17)
[2023-05-30] MEDS: Furosemide 40 MG Tab PO SCH (09:17)
[2023-05-30] MEDS: Calcium Carbonate 500 MG Tab.Chew PO SCH (09:18)
[2023-05-30] MEDS: Gabapentin 300 MG Cap PO SCH (09:18)
[2023-05-30] MEDS ORDERED: Sodium Chloride 0.9% 1,000 ML IV SCH (09:30)
[2023-05-30] MEDS ORDERED: Sodium Chloride 0.9% 250 ML IV SCH (09:35)
[2023-05-30] MEDS ORDERED: Hyoscyamine 0.125 MG Tab.SL PO PRN (09:36)
[2023-05-30] MEDS ORDERED: LORazepam 2 MG/ML SDV IVPUSH ONE (10:35)
[2023-05-30] MEDS ORDERED: Morphine 2 MG/ML SYRINGE IVPUSH PRN (10:48)
[2023-05-30] MEDS: Buprenorphine/Naloxone 2-0.5 MG Tab.SL SL SCH (11:41)
[2023-05-30] MEDS: ClonazePAM 1 MG Tab PO SCH (11:41)
[2023-05-30] MEDS: Ketotifen 0.025% Ophth Soln 5 ML Bottle EYEBOTH SCH (11:41)
[2023-05-30] MEDS: LORazepam 2 MG/ML SDV IVPUSH PRN ×2 (11:57→14:17)
[2023-05-30 13:36] VITALS: BP 134/85; PULSE 100
[2023-05-30] MEDS ORDERED: Sodium Chloride 0.9% 10 ML Syringe FLUSH PRN (15:30)
[2023-06-01] MEDS ORDERED: Scopalamine 1mg/3day Transdermal Patch TOP SCH (14:00)
== END 2023-05-30 16:21 | disposition expired | DRG 177 ==
LOC: FB.ED 11:55 → FB.MS 16:19
PROVIDERS: ADMIT Emergency Medicine; ATTEND Family Medicine
PROC: 5A09357 Assistance with Respiratory Ventilation, Less than 24 Consecutive Hours, Continuous Positive Airway Pressure (ICD-10-PCS; principal; 2023-05-30)
DX: J15.1 Pneumonia due to Pseudomonas (principal); J96.21 Acute and chronic respiratory failure with hypoxia; J18.9 Pneumonia, unspecified organism; D84.9 Immunodeficiency, unspecified; J44.0 Chronic obstructive pulmonary disease with (acute) lower respiratory infection; J44.1 Chronic obstructive pulmonary disease with (acute) exacerbation; R53.1 Weakness; M06.9 Rheumatoid arthritis, unspecified; E78.00 Pure hypercholesterolemia, unspecified; F11.20 Opioid dependence, uncomplicated; Z51.5 Encounter for palliative care; Z66 Do not resuscitate; K21.9 Gastro-esophageal reflux disease without esophagitis; M19.90 Unspecified osteoarthritis, unspecified site; M54.9 Dorsalgia, unspecified; E66.9 Obesity, unspecified; M81.0 Age-related osteoporosis without current pathological fracture; F41.9 Anxiety disorder, unspecified; E11.9 Type 2 diabetes mellitus without complications; E66.01 Morbid (severe) obesity due to excess calories; M05.10 Rheumatoid lung disease with rheumatoid arthritis of unspecified site; Z68.36 Body mass index [BMI] 36.0-36.9, adult; U09.9 Post COVID-19 condition, unspecified; J39.8 Other specified diseases of upper respiratory tract; G89.4 Chronic pain syndrome; I50.9 Heart failure, unspecified; R53.81 Other malaise; R09.02 Hypoxemia; F33.41 Major depressive disorder, recurrent, in partial remission; Z96.649 Presence of unspecified artificial hip joint; I11.0 Hypertensive heart disease with heart failure; I27.20 Pulmonary hypertension, unspecified; D64.9 Anemia, unspecified; Z98.49 Cataract extraction status, unspecified eye; Z90.49 Acquired absence of other specified parts of digestive tract; Z88.8 Allergy status to other drugs, medicaments and biological substances; Z79.51 Long term (current) use of inhaled steroids; Z87.442 Personal history of urinary calculi; Z79.4 Long term (current) use of insulin; Z79.899 Other long term (current) drug therapy; I25.2 Old myocardial infarction; Z86.711 Personal history of pulmonary embolism; Z86.718 Personal history of other venous thrombosis and embolism; Z98.1 Arthrodesis status; Z87.891 Personal history of nicotine dependence; Z68.33 Body mass index [BMI] 33.0-33.9, adult; Z79.01 Long term (current) use of anticoagulants
CPT/HCPCS: 36415; 51702; 71045; 80053; 81001; 83605; 83880; 84484; 85025; 87040 ×2; 93005; 94640; 96374; 96375; 99285; A9270; J0456; J0696; J1940; J2930; J3490; J7050; 70450; 71046; 71250; 80048; 80202; 82947; 83735; 85379; 85610; 87070; 87077; 87086; 87186; 87205; 93010; 94150; 94660; 94669; 97161-GP; 97165-GO; 97530-GP; 99222; 99232; 99233; 99238; J0692; J1642; J1815; J1815-GY; J1956; J2060; J2270; J2543; J3370; J3480; J7512; J7620